=== PATIENT | female | born 1960 | race Caucasian/White ===

== ENCOUNTER → 2020-08-11 | Outpatient (CLI) | payer MEDICAID ==
[~2020-08-11] MED LIST: RT-ALBUTEROL SULF 2.5 MG/3 ML PRE-MIX VIAL INH ONE
== END ==
LOC: RT 10:03
PROVIDERS: ATTEND Nurse Practitioner Family
DX: J44.9 Chronic obstructive pulmonary disease, unspecified (principal)
CPT/HCPCS: 94060; 94726; 94729

== ENCOUNTER → 2020-08-17 | Outpatient (CLI) | payer MEDICAID ==
--- NOTE | 2020-08-17 19:10 | Diagnostic Imaging Report ---
CT Lung Screening INDICATION:13-[id number]-ifyu smoking history TECHNIQUE: Noncontrast, low-dose CT imaging performed according to the lung cancer screening protocol. Auto Exposure Controls were utilize during the CT exam to meet ALARA standards for radiation dose reduction. COMPARISON:None FINDINGS: There is no parenchymal lung mass identified. There is a 9 mm calcified granuloma in the right lung base near the diaphragm. The lungs are generally clear. There is minimal scar formation in the left apex posteriorly (image 33 of 203). There is also mild dependent atelectasis in the right lower lobe. There is no sign of failure, pneumonia or pleural effusion to indicate an acute abnormality. The heart is mildly enlarged. Coronary calcifications are noted. The aorta is not abnormally dilated. There is no obvious mediastinal or hilar adenopathy. There are 2 calcified hilar nodes on the right. These may be a sequela of prior granulomatous infection. The thyroid gland was not well visualized. There is no definite breast mass identified. The sections through the upper abdomen failed to show any sign of an acute abnormality. There is a 1.2 cm rounded area of low density in the right lobe of liver near the dome of the diaphragm. I suspect this is a cyst. If further study is desired, then ultrasound would be recommended. The bone windows are unremarkable for a fracture or for a destructive lesion. IMPRESSION: 1. There is no evidence for a parenchymal lung mass to suggest neoplastic disease. A follow-up low-dose lung cancer screening exam in one year would be recommended for further study. 2. There are chronic pulmonary changes evident but there is no sign of an acute cardiopulmonary abnormality. 3. There is cardiomegaly and coronary artery disease. 4. The rounded area of low density in the right lobe of the liver near the dome of diaphragm is most likely a benign process such as a cyst. Recommendations as above. LUNG-RADS CATEGORY:1S MODIFIER: OTHER SIGNIFICANT FINDINGS: Dictated by: Dictated on workstation # [id number]
== END ==
LOC: RAD 15:15
PROVIDERS: ATTEND Nurse Practitioner Family
DX: Z12.2 Encounter for screening for malignant neoplasm of respiratory organs (principal); I25.10 Atherosclerotic heart disease of native coronary artery without angina pectoris; J44.9 Chronic obstructive pulmonary disease, unspecified; K76.89 Other specified diseases of liver; J84.10 Pulmonary fibrosis, unspecified; J98.11 Atelectasis; F17.210 Nicotine dependence, cigarettes, uncomplicated

== ENCOUNTER → 2020-09-21 | Outpatient (CLI) | payer MEDICAID ==
--- NOTE | 2020-09-21 12:26 | Diagnostic Imaging Report ---
INDICATION: Palpable lump in the medial right breast along a scar. FINDINGS: Sonographic interrogation of the area of palpable abnormality was performed. No significant sonographic abnormality is detected. There is a tiny hyperechoic nodule measuring 3 to 4 mm in size which may represent a tiny lipoma. This is likely incidental. No other solid or cystic mass is detected. IMPRESSION: There is a tiny lipoma at the area of palpable abnormality just below the skin surface. The study is otherwise unremarkable. ACR BI-RADS Category 2: Benign findings. Dictated by: Dictated on workstation # [id number]
--- NOTE | 2020-09-21 12:30 | Diagnostic Imaging Report ---
INDICATION: Possible cysts in right lobe of liver seen on recent CT chest. Ultrasound of the liver and right upper quadrant was performed in routine fashion The liver shows mild diffuse increased echogenicity compatible with fatty change. No focal liver lesion identified. The gallbladder is absent. Common duct was not dilated measuring 5.6 mm. Pancreas is not well seen due to overlying gas. Visualized portions of the IVC and aorta are normal. Right kidney was unremarkable measured 10.4 cm in length. There is no ascites. Portal vein is patent with hepatopetal flow. IMPRESSION: Mild fatty infiltration of the liver. No focal liver lesion seen. No biliary dilatation. The gallbladder is absent. Dictated by: Dictated on workstation # [id number]
== END ==
LOC: RAD 09:30
PROVIDERS: ATTEND Nurse Practitioner Family
DX: D17.39 Benign lipomatous neoplasm of skin and subcutaneous tissue of other sites (principal); K76.89 Other specified diseases of liver
CPT/HCPCS: 76705

== ENCOUNTER → 2020-10-02 | Outpatient (CLI) | payer MEDICAID | LOC: LABNPT 08:18 | PROVIDERS: ATTEND Nurse Practitioner Family | DX: G47.33 Obstructive sleep apnea (adult) (pediatric) (principal); G47.10 Hypersomnia, unspecified; I10 Essential (primary) hypertension; Z20.822 Contact with and (suspected) exposure to COVID-19 | CPT/HCPCS: 87635 ==

== ENCOUNTER 2020-10-06 19:43 | Outpatient (CLI) | payer MEDICAID | END 2020-10-07 04:55 | disposition home or self-care (01) | LOC: SLEEP 19:43 | PROVIDERS: ATTEND Nurse Practitioner Family | DX: G47.33 Obstructive sleep apnea (adult) (pediatric) (principal) | CPT/HCPCS: 95810 ==

== ENCOUNTER 2020-11-16 05:30 | Outpatient (RCR) | payer MEDICAID ==
[2020-11-13 13:12] VITALS: BP 118/78
[2020-11-13 14:00] LABS: BASOPHILS % (AUTO) 0 % (0-10); EOSINOPHILS # (AUTO) 0.1 10^3/uL (0.0-0.3); EOSINOPHILS % (AUTO) 1 % (0-10); HEMATOCRIT 39 % (35-52); HEMOGLOBIN 12.4 g/dL (11.5-16.0); LYMPHOCYTES # (AUTO) 1.9 10^3/uL (1.0-4.0); LYMPHOCYTES % (AUTO) 21 % (12-44); MEAN CORPUSCULAR HEMOGLOBIN 31 pg (25-34); MEAN CORPUSCULAR HGB CONC 32 g/dL (32-36); MEAN CORPUSCULAR VOLUME 96 fL (80-99); MEAN PLATELET VOLUME 10.3 fL (9.0-12.2); MONOCYTES # (AUTO) 0.6 10^3/uL (0.0-1.0); MONOCYTES % (AUTO) 6 % (0-12); NEUTROPHILS # (AUTO) 6.6 10^3/uL (1.8-7.8); NEUTROPHILS % (AUTO) 72 % (42-75); PLATELET COUNT 250 10^3/uL (130-400); WHITE BLOOD COUNT 9.2 10^3/uL (4.3-11.0)
[2020-11-13 14:02] LABS: BILIRUBIN,URINE NEGATIVE (NEGATIVE); CLARITY,URINE CLEAR; COLOR,URINE YELLOW; GLUCOSE, URINE (UA) NEGATIVE (NEGATIVE); KETONES,URINE NEGATIVE (NEGATIVE); LEUKOCYTE ESTERASE ,URINE NEGATIVE (NEGATIVE); NITRITE,URINE NEGATIVE (NEGATIVE); PH,URINE 5.5 (5-9); PROTEIN,URINE NEGATIVE (NEGATIVE)
[2020-11-13 14:09] LABS: BACTERIA,URINE TRACE /HPF; WBC,URINE RARE /HPF
--- NOTE | 2020-11-13 14:11 | Diagnostic Imaging Report ---
INDICATION: Preop knee arthroplasty, degenerative joint disease PA and lateral chest Heart size and pulmonary vascularity are normal. Lungs are clear. There are no effusions or pneumothoraces. IMPRESSION: Negative chest Dictated by: Dictated on workstation # [id number]
[2020-11-13 14:19] LABS: ALANINE AMINOTRANSFERASE 15 U/L (0-55); ALBUMIN 3.6 GM/DL (3.2-4.5); ALKALINE PHOSPHATASE 79 U/L (40-136); BILIRUBIN,TOTAL 0.2 MG/DL (0.1-1.0); BUN/CREATININE RATIO 37; CALCIUM 8.8 MG/DL (8.5-10.1); CARBON DIOXIDE 23 MMOL/L (21-32); CHLORIDE 109 MMOL/L (98-107); CREATININE SERUM 0.75 MG/DL (0.60-1.30); GFR ESTIMATED > 60; GLUCOSE 113 MG/DL (70-105); SODIUM 141 MMOL/L (135-145); TOTAL PROTEIN 6.6 GM/DL (6.4-8.2)
[2020-11-13 14:46] LABS: ERYTHROCYTE SEDIMENTATION RATE 28 MM/HR (0-30)
[~2020-11-16] VITALS: Ht 152.4 cm; Wt 115.9 kg
[~2020-11-16 05:30] MED LIST changes: +BUDE10.2 IH; +CHOL100045 PO; +DICL100G18 TP; +HYDR-3817 PO; +HYDR50TA76 PO; +IPRA3AMP31 IH; +OMEP20CA18 PO; +RT-ALBUINH IH; -RT-ALBUTEROL SULF 2.5 MG/3 ML PRE-MIX VIAL INH ONE; +TIOT18CA2 IH
== END 2020-11-16 09:08 | disposition home or self-care (01) ==
LOC: PREOP 05:30
PROVIDERS: ATTEND Orthopaedic Surgery
DX: Z01.812 Encounter for preprocedural laboratory examination (principal); M17.12 Unilateral primary osteoarthritis, left knee; Z20.822 Contact with and (suspected) exposure to COVID-19
CPT/HCPCS: 36415; 71046; 80053; 81000; 85025; 85610; 85652; 86850; 86900; 86901; 87081; 87635

== ENCOUNTER 2020-11-18 05:54 | Inpatient (IN) | payer MEDICAID ==
--- NOTE | 2020-11-11 18:29 | HISTORY AND PHYSICAL ---
DATE OF SERVICE: ADMISSION HISTORY AND PHYSICAL DATE OF ADMISSION: 11/18/2020 REASON FOR ADMISSION: Left total knee arthroplasty. The patient will require regular inpatient admission due to comorbidities, need for physical therapy and pain management. HISTORY OF PRESENT ILLNESS: The patient is a 60-year-old female with complaints of progressively worsening left knee pain. She has been treated with injections as well as ____ with no benefit. She has popping, catching and locking in her knee. She reports falling. She reports activity limitations and progressive pain and because of this has elected to proceed with total knee arthroplasty. Radiographs reveal complete loss of medial and patellofemoral joint spaces. REVIEW OF SYSTEMS: No chest pain, no shortness of breath, no dysuria. PAST MEDICAL HISTORY: Breast cancer, COPD, anxiety disorder, depression, diverticulosis, hypertension, sleep apnea. SURGICAL HISTORY: , cholecystectomy, bilateral mastectomy. FAMILY HISTORY: Significant for diabetes, COPD, cancer. PRIMARY CARE PROVIDER: [facility] MEDICATIONS: Albuterol, alprazolam, famotidine, ibuprofen, Norvasc, omeprazole, Symbicort. ALLERGIES: TETANUS TOXOID. SOCIAL HISTORY: The patient smokes half pack of cigarettes a day. Denies alcohol use. PHYSICAL EXAMINATION: GENERAL: The patient is well-developed, well-nourished, in no acute distress. HEENT: Normocephalic, atraumatic. Pupils are equal, round, reactive to light. Oropharynx is clear. NECK: Supple, no lymphadenopathy. LUNGS: Clear to auscultation bilaterally. HEART: Regular rate and rhythm. ABDOMEN: Soft, nontender, nondistended. EXTREMITIES: The left knee demonstrates varus alignment. She has slight effusion. There is no warmth or erythema. She is tender along the medial joint line. She has pain medially with Jw's with patellofemoral crepitus noted. Range of motion is 0/2/120. IMPRESSION: Severe left knee osteoarthritis. PLAN: Left total knee arthroplasty. The risks, benefits, options, ramifications and recovery have been discussed at length with the patient. She understands and wishes to proceed. Job ID: [id number] DocumentID: [id number] Dictated Date: 11/09/2020 08:16:01 Exhaust Tender Date: 11/09/2020 08:45:12 Dictated By: ADY KEARNEY MD
[~2020-11-18] VITALS: Ht 152 cm; Wt 115.9 kg
[2020-11-18] VITALS (11 sets, daily range): BP systolic 113–147; BP diastolic 52–92
[2020-11-18] MEDS ORDERED: BUPIVACAINE 0.5% 30 ML (SENSORCAINE) VIAL ONE (06:29)
[2020-11-18] MEDS ORDERED: MIDAZOLAM 2 MG/2 ML (VERSED) VIAL ONE (06:30)
[2020-11-18] MEDS ORDERED: LIDOCAINE PF 2% 5 ML (XYLOCAINE) VIAL ONE (06:31)
[2020-11-18] MEDS ORDERED: CEFUROXIME INJECTION 1,500 MG in WATER (STERILE) FOR INJECTION 15 ML IV ONE (06:45)
[2020-11-18] MEDS: LACTATED RINGERS 1,000 ML IV PRN ×2 (06:47→10:24)
[2020-11-18] MEDS ORDERED: proPOfol 200 MG/20 ML (DIPRIVAN) VIAL IV ONE (07:12)
[2020-11-18] MEDS ORDERED: SEVOFLURANE (ULTANE) 15 ML INHAL SOLN ONE ×6 (07:13→09:24)
[2020-11-18] MEDS ORDERED: ONDANSETRON 4 MG/2 ML (SDV) Z0FRAN ONE (07:13)
[2020-11-18] MEDS ORDERED: fentaNYL INJ 100 MCG/2 ML AMP ONE (07:13)
[2020-11-18] MEDS ORDERED: TRANEXAMIC ACID 100 MG/ML 10 ML INJECTION ONE (07:15)
[2020-11-18] MEDS ORDERED: ACETAMINOPHEN 325 MG TABLET PO PRN (07:30)
[2020-11-18] MEDS ORDERED: ONDANSETRON 4 MG/2 ML (SDV) Z0FRAN IVP PRN ×2 (07:30→09:45)
[2020-11-18] MEDS ORDERED: diphenhydrAMINE 50 MG/ML INJ (BENADRYL) IVP PRN (07:30)
--- NOTE | 2020-11-18 07:32 | Progress Note-Pre Operative ---
Pre-Operative Progress Note H&P Reviewed The H&P was reviewed, patient examined and no changes noted. Date Seen by Provider: Nov 18, 2020 Time Seen by Provider: 07:20 Date H&P Reviewed: Nov 18, 2020 Time H&P Reviewed: 07:11 Pre-Operative Diagnosis: left knee primary osteoarthritis ADY KEARNEY MD Nov 18, 2020 07:32
--- NOTE | 2020-11-18 07:32 | Progress Note-Post Operative ---
Post-Operative Progess Note Surgeon (s)/Telecommunications Administrator (s) Surgeon ADY KEARNEY MD Telecommunications Administrator: Mehran Marcus Pre-Operative Diagnosis left knee primary osteoarthritis Post-Operative Diagnosis left knee primary osteoarthritis Procedure & Operative Findings Date of Procedure 11/18/20 Procedure Performed/Findings left total knee arthroplasty Anesthesia Type GETA Estimated Blood Loss Estimated blood loss (mL): minimal Specimens/Packing Specimens Removed none Packing: none ADY KEARNEY MD Nov 18, 2020 07:32
--- NOTE | 2020-11-18 07:35 | D/C HH Face to Face Order ---
D/C Face to Face Orders Reconcile Patient Problems Problems Reviewed?: Yes Instructions for Patient Via [place] [place], Patient Instructions/FollowUp: three weeks Physician to follow Patient: three weeks Discharge Diet for Home: Regular Diet Patient Data-Allergies,Ht & Wt Patient Allergies: Coded Allergies: Tetanus Vaccines and Toxoid (Verified Allergy, Severe, Anaphylaxis, 11/18/20) Home Health Need/Face to Face Date of Face to Face: Nov 18, 2020 Clinical Findings: Instability, Muscle weakness, Pain with ambulation, Unsteady gait I have seen Pt teni-uq-sbhb: Yes Discharged To: Home Diagnosis/Conditions: left total knee arthroplasty Patient is Homebound due to: Farzad fall risk due to instabilty, Muscle weakness, Pain w/ambulation Homebound Status Due to the above stated illness, injury or surgical procedure (medical condition or diagnosis) and associated clinical findings, the patient is homebound because of his/her inability to leave home except with aid of a supportive device and/or person AND leaving the home requires a considerable and taxing effort or is medically contraindicated. Pt req the following assistanc: Walker Home Health Nursing Orders Home Health Services Order: Physical Therapy-Evaluate & Treat DC left knee tatianna and apply steri strips 12/02/20 Home Health Infusion Therapy Line Start Date: Nov 18, 2020 Therapy Orders Therapy Orders: Physical Therapy, PT to assess for OT Therapy Specific Orders: Eval assistive deivces, Teach enviro modifications/safety, Gait training, Increase strength/endurance, Provider maintenance therapy, Restore ROM Certify Stmt I certify that this patient is under my care and that I, a nurse practitioner or a physician; a fleet administrative assistant working with me, had a face to face encounter that - meets the physician face to face encounter requirements with this patient as dated. ADY KEARNEY MD Nov 18, 2020 07:35
[2020-11-18] MEDS ORDERED: HYDROmorphone 2 MG/ML VIAL (DILAUDID) ONE (07:58)
[2020-11-18] MEDS ORDERED: INTRA-ARTICULAR IU ONE ×5 (08:00)
--- NOTE | 2020-11-18 09:36 | Anesthesia-General Post-Op ---
General Patient Condition Mental Status/LOC: Same as Preop Cardiovascular: Satisfactory Nausea/Vomiting: Absent Respiratory: Satisfactory Pain: Controlled Complications: Absent Post Op Complications Complications None Follow Up Care/Instructions Patient Instructions None needed. Anesthesia/Patient Condition Patient Condition Patient is doing well, no complaints, stable vital signs, no apparent adverse anesthesia problems. No complications reported per nursing. ANTONY URIBE CRNA Nov 18, 2020 09:36
[2020-11-18] MEDS ORDERED: MEPERIDINE (DEMEROL) INJ 50 MG/ML IVP ONE (09:45)
[2020-11-18] MEDS ORDERED: fentaNYL INJ 100 MCG/2 ML AMP IVP ONE (09:45)
[2020-11-18] MEDS ORDERED: morphine INJ 10 MG/ML 1ML (SYR OR VIAL) IVP ONE (09:45)
[2020-11-18] MEDS ORDERED: morphine INJ 10 MG/ML 1ML (SYR OR VIAL) ONE (09:50)
--- NOTE | 2020-11-18 10:02 | Progress Note ---
Standard Progress Note Progress Notes/Assess & Plan Date Seen by a Provider: Nov 18, 2020 Time Seen by a Provider: 09:58 Progress/Assessment & Plan No complaints radiographs--well placed HW without fracture denies paresthesias LLE-- 2 plus DP pulse with brisk cap refill. Intact DF and PF of toes and ankle. Sensation intact to light touch throughout s/p LTKA mobilize as able ADY KEARNEY MD Nov 18, 2020 10:02
--- NOTE | 2020-11-18 10:34 | Diagnostic Imaging Report ---
INDICATION: Left knee surgery AP and lateral views of the left knee are obtained which reveal total left knee arthroplasty. Prosthetic components appear to be in good position. Gas and fluid is present within the knee joint and adjacent soft tissues. [place] overlie the knee anteriorly. IMPRESSION: No evidence of complication related to recent total left knee arthroplasty. Dictated by: Dictated on workstation # [id number]
[2020-11-18] MEDS: SENNA W/DOCUSATE (SENOKOT S) TABLET PO SCH ×2 (11:15→20:18)
[2020-11-18] MEDS: NS IV 1000 ML 1,000 ML IV SCH ×2 (11:56→20:18)
[2020-11-18] MEDS: morphine PCA 100 MG/100 ML BAG IV PRN (11:59)
--- NOTE | 2020-11-18 12:57 | OPERATIVE REPORT ---
DATE OF SERVICE: 11/18/2020 PREOPERATIVE DIAGNOSIS: Left knee primary osteoarthritis. POSTOPERATIVE DIAGNOSIS: Left knee primary osteoarthritis. PROCEDURE PERFORMED: Left total knee arthroplasty. SURGEON: Gil Kearney MD. CHANGE CONSULTANT: Mehran Marcus, who assisted throughout the procedure and closed the incisions. ANESTHESIA: General endotracheal by Mike Bazan CRNA. TOURNIQUET TIME: Approximately 75 minutes at 300 mmHg. ESTIMATED BLOOD LOSS: Minimal. DRAINS: None. COMPLICATIONS: None. POSTOPERATIVE PLAN: Routine protocol. The patient was transferred to the recovery room awake and in stable condition. MATERIALS: Microport cemented size 2 femur, cemented size 2+ tibia with a 14 mm insert and cemented size 29 patellar button. STATEMENT OF MEDICAL NECESSITY: The patient is a 60-year-old female with a longstanding progressive left knee pain. Radiographs revealed severe tricompartmental osteoarthritis. She has undergone treatment with injections, anti-inflammatories, rest and activity modifications without relief. She had progressive loss of function. Because of this, I elected to proceed with a total knee arthroplasty. The patient understood that due to her body habitus, she was at higher risk for postoperative complications and failure. DESCRIPTION OF PROCEDURE: After the risks and benefits of procedure were discussed and questions were answered, informed consent was signed and placed on chart, the operative site was confirmed in the preoperative holding area initialed by the surgeon. The patient was then transferred to the operating room and after adequate levels of general endotracheal anesthetic were obtained, a timeout was called, confirming the operative site. The left lower extremity was prepped and draped in the usual sterile fashion with the leg elevated and the knee flexed. Tourniquet was inflated to 300 mmHg. A standard anterior approach was utilized. Hemostasis was obtained with cautery. Medial parapatellar arthrotomy was performed leaving 1 cm cuff on the patella for later reattachment. A portion of the fat pad was resected and the ACL was resected. A subperiosteal release was performed on the proximal medial tibia being careful to stay on the bony surface. The intramedullary guide was passed into the femur. The distal cutting block was placed. Distal cut was made. The femur sized to a size 2. The cutting block was placed parallel to the epicondylar axis and cuts were made from posterior to anterior. Subperiosteal release was then carefully performed on the posterior distal femur, being careful to stay on the bony surface. The trochlear guide was placed and the trochlear cut was made. The intramedullary guide was then passed into the tibia. The cutting block was placed. Drop dior transected the intermalleolar axis and the cut was made and then prepared with a drill and keel punch after ensuring that the drop dior transected the intermalleolar axis. The trials were inserted. The patella was prepared by resecting 10 mm off the undersurface. The peg holes were drilled and the patellar trial was placed. The knee was taken through range of motion. Full extension was easily obtained, 120 degrees of flexion was obtained; however, the patient's pannus blocked further flexion. A 14 mm insert provided the best stability in flexion. Her knee was stable to anterior and posterior and/or medial lateral stress in flexion, extension until abutting her pannus and this forced the tibia somewhat anteriorly. This was felt to be adequate. The patella tracked well. The trials were removed. The posterior capsule, medial and lateral retinaculum extensor mechanism, subcutaneous tissue was then infiltrated with the articular block. The joint was irrigated with pulse lavage. Bone ends were irrigated and dried. The tibial baseplate was cemented into position. Excessive cement was removed. The superior surface was irrigated and dried and the polyethylene insert was placed. Distal femur was irrigated and dried and the femoral prosthesis was cemented into position. Excessive cement was removed. The knee was brought into full extension until cement had cured. The undersurface of the patella was irrigated and dried and the patellar button was cemented into position. Excessive cement was removed. Once the cement had cured, the knee was taken through range of motion and the patella tracked well. Full extension was easily obtained, and 120 degrees of flexion was obtained. There was no anterior/posterior or lateral laxity in flexion or extension. When the knee was forced into hyperflexion with abutment of the pannus, there was slight anterior translation of the tibia, but the knee was stable through all planes. The joint was further irrigated with pulse lavage. The arthrotomy was closed with #2 [place] in a giglch-go-mozqb interrupted fashion. Knee was flexed. Patella tracked well. No undue tension was noted at the repair site. Subcutaneous tissues were irrigated using a total of 6 liters throughout the procedure. A 0 Vicryl was used for the deep subcutaneous tissue, 2-0 Vicryl for the superficial subcutaneous tissue, and tatianna used on the skin. A soft dressing was applied. The tourniquet was deflated and the patient was transferred to the recovery room awake and in stable condition. Job ID: [id number] DocumentID: [id number] Dictated Date: 11/18/2020 09:25:48 Deputy Probation Officer Date: 11/18/2020 12:56:23 Dictated By: GIL KEARNEY MD
--- NOTE | 2020-11-18 14:20 | Physical Therapy Evaluation ---
PT Evaluation-General Medical Diagnosis Admission Date Nov 18, 2020 at 05:54 Medical Diagnosis: left TKA Onset Date: Nov 18, 2020 Therapy Diagnosis Therapy Diagnosis: impaired mobility, strength, endurance, ROM Precautions Precautions/Isolations: Fall Prevention, Standard Precautions Weight Bear Status Left Lower Extremity: Left Weight Bearing/Tolerated Referral Physician: Amrit Reason for Referral: Evaluation/Treatment Medical History Additional Medical History PAST MEDICAL HISTORY: Breast cancer, COPD, anxiety disorder, depression, diverticulosis, hypertension, sleep apnea. SURGICAL HISTORY: , cholecystectomy, bilateral mastectomy. Reviewed History: Yes Social History Home: Apartment Current Living Status: Alone Entry Into Home: Level Entry Prior Prior Level of Function SCALE: Activities may be completed with or without assistive devices. 2-Jywezjdjpo-aaobyqr completes the activity by him/herself with no assistance from a helper. 5-Set-up or Clean-up Assistance-helper sets up or cleans up; patient completes activity. [place] assists only prior to or following the activity. 4-Supervision or Touching Assistance-helper provides verbal cues and/or touching/steadying and/or contact guard assistance as patient completes activity. Assistance may be provided throughout the activity or intermittently. 3-Partial/Moderate Assistance-helper does LESS THAN HALF the effort. [place] lifts, holds or supports trunk or limbs, but provides less than half the effort. 2-Substantial/Maximal Assistance-helper does MORE THAN HALF the effort. [place] lifts or holds trunk or limbs and provides more than half the effort. 6-Qxcibgufe-hfkbnd does ALL the effort. Patient does none of the effort to complete the activity. Or, the assistance of 2 or more helpers is required for the patient to complete the activity. If activity was not attempted, code reason: 7-Patient Refused. 9-Not Applicable-not attempted and the patient did not perform the activity before the current illness, exacerbation or injury. 10-Not Attempted due to Environmental Limitations-(lack of equipment, weather restraints, etc.). 88-Not Attempted due to Medical Conditions or Safety Concerns. Bed Mobility: 6 Transfers (B,C,W/C): 6 Gait: 6 patient has a rolling walker PT Evaluation-Current Subjective Patient in bed pre tx, agrees to PT, has 6/10 pain in left knee. Pt/Family Goals to be independent at home Objective Patient Orientation: Person, Place, Situation Attachments: IV ROM/Strength ROM Lower Extremities left knee flexion 85 degrees, extension +20 degrees Sensory Hearing: Functional Sensation Right Lower Extremit: Intact Sensation Left Lower Extremity: Intact Transfers Roll Left to Right (QC): 6 Sit to Lying (QC): 3 Lying to Sitting/Side of Bed(Q: 3 Sit to Stand (QC): 4 Patient was able to stand at the side of the bed and take one step forward and one step back. Pain was too bad to continue with ambulation, but she was able to bear weight on her left leg without buckling Balance Sitting Static: Normal Sitting Dynamic: Normal Standing Static: Fair Standing Dynamic: Fair Treatment total knee protocol x10 LLE (AP, QS, HS, SAQ, SLR), CPM donned and fit to leg and set to 65/-2 Assessment/Needs Patient in bed post tx with nurse call, phone, tray, CPM and polar care donned, SCD's donned, has pain button. Patient has impaired mobility, strength, endurance, ROM. Pain was too much to tolerate ambulation. Rehab Potential: Fair PT Penitentiary Goals Recycling Operator Goals PT Penitentiary Goals Time Frame: Nov 25, 2020 Roll Left & Right (QC): 6 Sit to Lying (QC): 6 Lying-Sitting on Side/Bed(QC): 6 Sit to Stand (QC): 4 Chair/Kxf-ge-Qukxd Xfer(QC): 4 Walk 10 feet (QC): 4 Walk 50ft with 2 Turns (QC): 4 PT Plan Problem List Problem List: Activity Tolerance, Functional Strength, Safety, Balance, Gait, Transfer, Bed Mobility, ROM Treatment/Plan Treatment Plan: Continue Plan of Care Treatment Plan: Bed Mobility, Education, Functional Activity Wanda, Functional Strength, Gait, Safety, Therapeutic Exercise, Transfers Treatment Duration: Nov 25, 2020 Frequency: 11 times per week Estimated Hrs Per Day: .25 hour per day Patient and/or Family Agrees t: Yes Safety Risks/Education Patient Education: Gait Training, Transfer Techniques, Correct Positioning, Safety Issues Teaching Recipient: Patient Teaching Methods: Demonstration, Discussion Response to Teaching: Reinforcement Needed Discharge Recommendations Plan Patient will perform bed mobility and transfer training, balance and endurance training, functional strengthening, stair training, gait and education, to improve functional mobility and independence at home. Therapy Discharge Recommendati: Home & Family, Post Acute PT Time/GCodes Time In: 1338 Time Out: 1400 Total Billed Treatment Time: 22 Total Billed Treatment 1 visit JOAQUIN 22' SUKUMAR ZELAYA PT Nov 18, 2020 14:20
[2020-11-18] MEDS: CEFUROXIME INJECTION 750 MG in WATER (STERILE) FOR INJECTION 10 ML IV SCH (15:20)
[2020-11-18] MEDS: ZOLPIDEM 5 MG (AMBIEN) TAB PO PRN (20:18)
[2020-11-19] VITALS (7 sets, daily range): BP systolic 117–153; BP diastolic 60–86
[2020-11-19] MEDS: CEFUROXIME INJECTION 750 MG in WATER (STERILE) FOR INJECTION 10 ML IV SCH (00:10)
[2020-11-19] MEDS: oxyCODONE/APAP 5/325MG (PERCOCET 5) TABLET PO PRN ×7 (00:10→23:00)
[2020-11-19 05:57] LABS: HEMOGLOBIN 10.8 g/dL (11.5-16.0)
[2020-11-19] MEDS: MULTIVIT W/MINERALS TAB (THERAGRAN M) PO SCH (06:16)
--- NOTE | 2020-11-19 07:20 | Physician Query Clarification ---
PQ-Intro New Diagnosis Admission/Discharge Admission Date: Nov 18, 2020 at 05:54 Discharge Date: Dr. Kearney, The medical record reflects the following clinical scenario: History/Risk Factors: OA Lt. knee, COPD, HTN Clinical Findings: BMI 50.2, The patient understood that due to her body habitus, she was at higher risk for postoperative complications and failure. Due to her comorbidities IP admission was required. Treatment: Lt TKR Question: What condition best reflects the above clinical scenario? Please clarify the condition indicated as due to her body habitus Please document a response in the Progress Noter or Discharge Summary. 1. Morbid obesity 2. Obesity 3. Other, with explanation of the clinical findings. 4. Clinically undetermined, no explanation for the clinical findings. PHYSICIAN RESPONSE What condition reflects above: 1 Please remember a lack of response to the above will prompt a phone page by CDI/Coding staff. In responding to this query, please exercise your independent professional judgment. The purpose of this communication is to more accurately reflect the complexity of your patients condition. The fact that a question is asked does not imply that any particular answer is desired or expected. Thank you for your timely response to this clarification. Requestors name: [email or web address] THIS PHYSICIAN QUERY FORM IS A PERMANENT PART OF THE MEDICAL RECORD BRE DIAZ Nov 19, 2020 07:20 ADY KEARNEY MD Nov 19, 2020 08:01
--- NOTE | 2020-11-19 08:03 | Progress Note ---
Standard Progress Note Progress Notes/Assess & Plan Date Seen by a Provider: Nov 19, 2020 Time Seen by a Provider: 08:02 Progress/Assessment & Plan No complaints radiographs--well placed HW without fracture denies paresthesias LLE-- 2 plus DP pulse with brisk cap refill. Intact DF and PF of toes and ankle. Sensation intact to light touch throughout s/p LTKA mobilize as able Final Diagnosis no complaints Vital Signs Date Time Temp Pulse Resp B/P (MAP) Pulse Ox O2 Delivery O2 Flow Rate FiO2 11/19/20 07:54 37.1 72 20 117/60 (79) 94 Room Air 11/19/20 06:35 18 11/19/20 04:04 36.7 68 20 153/86 (108) 97 Room Air 11/19/20 00:16 36.6 79 18 152/72 (98) 95 Room Air 11/18/20 21:41 Room Air 11/18/20 21:35 70 18 95 21.00 11/18/20 19:37 36.6 77 18 143/69 (93) 93 Room Air 11/18/20 16:11 36.4 80 18 138/91 (107) 91 Room Air 11/18/20 14:34 90 Room Air 11/18/20 12:08 Room Air 2.00 11/18/20 12:00 35.9 82 20 147/74 (98) 93 Room Air 11/18/20 11:59 16 11/18/20 10:35 36.0 75 20 147/68 (94) 94 Room Air 11/18/20 10:25 Nasal Cannula 2 11/18/20 10:20 36.4 16 133/92 (106) 95 Nasal Cannula 2 11/18/20 10:15 OxyMask 2 11/18/20 10:10 17 144/82 (102) 96 OxyMask 2 11/18/20 10:00 16 124/52 (76) 95 OxyMask 2 11/18/20 10:00 OxyMask 4 11/18/20 09:55 18 125/73 (90) 96 OxyMask 4 11/18/20 09:45 20 119/69 (86) 97 OxyMask 6 11/18/20 09:40 OxyMask 6 11/18/20 09:35 OxyMask 8 3/17/21 09:35 36.4 16 113/67 (82) 97 OxyMask 8 11/18/20 08:06 96 Room Air I & O 11/19/20 07:00 Intake Total 4225 ml Output Total 700 ml Balance 3525 ml Laboratory Tests Test 11/19/20 05:27 Range/Units Hemoglobin 10.8 L 11.5-16.0 g/dL Hematocrit 33 L 35-52 % LLE--dressing intact. NVI distallly without calf tendeness or Drew's s/p LTKA PT/OT plan for DC home tomorrow ADY KEARNEY MD Nov 19, 2020 08:03
[2020-11-19] MEDS: NS IV 1000 ML 1,000 ML IV SCH ×2 (08:31→15:33)
[2020-11-19] MEDS: ASPIRIN E.C. 81 MG (ECOTRIN) TAB PO SCH (08:31)
[2020-11-19] MEDS: ENOXAPARIN 30 MG/0.3 ML (LOVENOX) SYR SC SCH ×2 (08:31→20:00)
[2020-11-19] MEDS: SENNA W/DOCUSATE (SENOKOT S) TABLET PO SCH ×2 (08:31→20:00)
--- NOTE | 2020-11-19 10:29 | Physical Therapy Daily Note ---
PT Daily Note-Current Subjective Patient agrees to PT. 8/10 left knee pain. Pain Numeric Pain Scale: 8 Location: Left Location Body Site: Knee Pain Description: Acute Mental Status Patient Orientation: Normal For Age Attachments: IV Transfers SCALE: Activities may be completed with or without assistive devices. 4-Csessysuer-ikquexn completes the activity by him/herself with no assistance fr om a helper. 5-Set-up or Clean-up Assistance-helper sets up or cleans up; patient completes activity. [place] assists only prior to or following the activity. 4-Supervision or Touching Assistance-helper provides verbal cues and/or touching/steadying and/or contact guard assistance as patient completes activity. Assistance may be provided throughout the activity or intermittently. 3-Partial/Moderate Assistance-helper does LESS THAN HALF the effort. [place] lifts, holds or supports trunk or limbs, but provides less than half the effort. 2-Substantial/Maximal Assistance-helper does MORE THAN HALF the effort. [place] lifts or holds trunk or limbs and provides more than half the effort. 8-Lpmsezszp-jdjvai does ALL the effort. Patient does none of the effort to complete the activity. Or, the assistance of 2 or more helpers is required for the patient to complete the activity. If activity was not attempted, code reason: 7-Patient Refused. 9-Not Applicable-not attempted and the patient did not perform the activity before the current illness, exacerbation or injury. 10-Not Attempted due to Environmental Limitations-(lack of equipment, weather restraints, etc.). 88-Not Attempted due to Medical Conditions or Safety Concerns. Roll Left & Right (QC): 6 Sit to Lying (QC): 6 Lying to Sitting/Side of Bed(Q: 6 Sit to Stand (QC): 4 Chair/Kjf-pg-Pxzfk Xfer(QC): 4 CGA for safety Weight Bearing Left Lower Extremity: Left Weight Bearing/Tolerated Gait Training Does the Patient Walk?: Yes Distance: 150' Walk 10 feet (QC): 4 Walk 50 ft with 2 Turns(QC): 4 Walk 150 ft (QC): 4 Gait Assistive Device: FWW slow and antalgic/step to gait sequence Exercises Supine Ex: Ankle pumps, Quad Set, Heel Slides, Straight leg raise Supine Reps: 12 Seated Therapy Exercises: Long arc quads Standing Reps: 12 Assessment Patient tolerated treatment well and is up in recliner with needs met. Patient encouraged to perform exercises PRN. PT Chcf Goals Chcf Goals PT Concrete Swimming Pool Installer Goals Time Frame: Nov 25, 2020 Roll Left & Right (QC): 6 Sit to Lying (QC): 6 Lying-Sitting on Side/Bed(QC): 6 Sit to Stand (QC): 4 Chair/Tbe-vz-Baiql Xfer(QC): 4 Walk 10 feet (QC): 4 Walk 50ft with 2 Turns (QC): 4 PT Plan Treatment/Plan Treatment Plan: Continue Plan of Care Treatment Plan: Bed Mobility, Education, Functional Activity Wanda, Functional Strength, Gait, Safety, Therapeutic Exercise, Transfers Treatment Duration: Nov 25, 2020 Frequency: 11 times per week Estimated Hrs Per Day: .25 hour per day Patient and/or Family Agrees t: Yes Time/GCodes Time In: 820 Time Out: 844 Total Billed Treatment Time: 24 Total Billed Treatment 1 visit EX 13 min GT 11 min HEIDI DAY PT Nov 19, 2020 10:29
--- NOTE | 2020-11-19 13:51 | Physical Therapy Daily Note ---
PT Daily Note-Current Subjective Patient reluctantly agrees to PT. Patient also reports she has a w/c at home but needs a FWW and plans to go home tomorrow. Pain Numeric Pain Scale: 8 Location: Left Location Body Site: Knee Pain Description: Acute Mental Status Patient Orientation: Normal For Age Attachments: Oxygen, Polar Pack, IV Transfers SCALE: Activities may be completed with or without assistive devices. 3-Rbmunxdtfs-apsnghp completes the activity by him/herself with no assistance from a helper. 5-Set-up or Clean-up Assistance-helper sets up or cleans up; patient completes activity. [place] assists only prior to or following the activity. 4-Supervision or Touching Assistance-helper provides verbal cues and/or touching/steadying and/or contact guard assistance as patient completes activity. Assistance may be provided throughout the activity or intermittently. 3-Partial/Moderate Assistance-helper does LESS THAN HALF the effort. [place] lifts, holds or supports trunk or limbs, but provides less than half the effort. 2-Substantial/Maximal Assistance-helper does MORE THAN HALF the effort. [place] lifts or holds trunk or limbs and provides more than half the effort. 6-Vzanmdexq-uyxcmz does ALL the effort. Patient does none of the effort to complete the activity. Or, the assistance of 2 or more helpers is required for the patient to complete the activity. If activity was not attempted, code reason: 7-Patient Refused. 9-Not Applicable-not attempted and the patient did not perform the activity before the current illness, exacerbation or injury. 10-Not Attempted due to Environmental Limitations-(lack of equipment, weather restraints, etc.). 88-Not Attempted due to Medical Conditions or Safety Concerns. Roll Left & Right (QC): 6 Sit to Lying (QC): 6 Lying to Sitting/Side of Bed(Q: 6 Sit to Stand (QC): 4 Weight Bearing Left Lower Extremity: Left Weight Bearing/Tolerated Gait Training Does the Patient Walk?: Yes Distance: 100' Walk 10 feet (QC): 4 Walk 50 ft with 2 Turns(QC): 4 Gait Assistive Device: FWW slow,antalgic, step to gait sequence Exercises Supine Ex: Ankle pumps, Quad Set, Heel Slides, Straight leg raise Supine Reps: 12 Seated Therapy Exercises: Long arc quads Seated Reps: 12 Assessment Patient tolerated treatment and is currently on CPM 0-75 degrees. PT Enrollment Processor Goals Half-Way Goals PT Half-Way Goals Time Frame: Nov 25, 2020 Roll Left & Right (QC): 6 Sit to Lying (QC): 6 Lying-Sitting on Side/Bed(QC): 6 Sit to Stand (QC): 4 Chair/Hbd-sr-Zgkyu Xfer(QC): 4 Walk 10 feet (QC): 4 Walk 50ft with 2 Turns (QC): 4 PT Plan Treatment/Plan Treatment Plan: Continue Plan of Care Treatment Plan: Bed Mobility, Education, Functional Activity Wanda, Functional Strength, Gait, Safety, Therapeutic Exercise, Transfers Treatment Duration: Nov 25, 2020 Frequency: 11 times per week Estimated Hrs Per Day: .25 hour per day Patient and/or Family Agrees t: Yes Time/GCodes Time In: 1305 Time Out: 1333 Total Billed Treatment Time: 28 Total Billed Treatment 1 visit EX 15 min GT 13 min HEIDI DAY PT Nov 19, 2020 13:51
--- NOTE | 2020-11-19 14:34 | Occupational Therapy Eval ---
OT Evaluation-General/PLF Medical Diagnosis Admission Date Nov 18, 2020 at 05:54 Medical Diagnosis: left TKA Onset Date: Nov 18, 2020 Therapy Diagnosis Therapy Diagnosis: weakness Precautions Precautions/Isolations: Fall Prevention, Standard Precautions Referral Physician: Amrit Badillo Reason: Evaluation/Treatment Medical History Pertinent Medical History: Breast CA S/P Mastectomy, COPD, HTN Additional Medical History anxiety/depression, diverticulosis, sleep apnea Current History s/p L TKA 11/18/20 Social History Home: Apartment Current Living Status: Alone Entry Into Home: Level Entry ADL-Prior Level of Function SCALE: Activities may be completed with or without assistive devices. 4-Ojakrswvcx-sycybzr completes the activity by him/herself with no assistance from a helper. 5-Set-up or Clean-up Assistance-helper sets up or cleans up; patient completes activity. [place] assists only prior to or following the activity. 4-Supervision or Touching Assistance-helper provides verbal cues and/or touching/steadying and/or contact guard assistance as patient completes activity. Assistance may be provided throughout the activity or intermittently. 3-Partial/Moderate Assistance-helper does LESS THAN HALF the effort. [place] lifts, holds or supports trunk or limbs, but provides less than half the effort. 2-Substantial/Maximal Assistance-helper does MORE THAN HALF the effort. [place] lifts or holds trunk or limbs and provides more than half the effort. 2-Tynmxulpj-ofeuou does ALL the effort. Patient does none of the effort to complete the activity. Or, the assistance of 2 or more helpers is required for the patient to complete the activity. If activity was not attempted, code reason: 7-Patient Refused. 9-Not Applicable-not attempted and the patient did not perform the activity before the current illness, exacerbation or injury. 10-Not Attempted due to Environmental Limitations-(lack of equipment, weather restraints, etc.). 88-Not Attempted due to Medical Conditions or Safety Concerns. ADL PLOF Comments Pt reports being independent with all ADLs and functional mobility at [facility]. She has a w/c that she sometimes uses as a walker for stability when she ambulates. She has a tub/shower and a shower chair, but the shower chair does not fit in the tub. One of her friends is planning on getting pt a SC. Self Care: Independent Functional Cognition: Independent DME/Equipment: Tub/Shower OT Current Status Subjective Pt laying in bed, CPM on. Pt agreeable to OT Evaluation, states she is planning on discharging home tomorrow where she will have a couple friends to assist throughout the day as needed. Pt did not report pain during tx. Mental Status/Objective Patient Orientation: Person, Place, Time, Situation Attachments: IV, Oxygen Current Dentures/Partials: No Hand Dominance: Right Upper Extremity ROM WFL Upper Extremity Coordination WFL Upper Extremity Sensation WFL, pt denies tingling/numbness BUEs Upper Extremity Strength WFL ADL-Treatment Eating (QC): 6 (Pt reports independent with meals, able to cut food, bring food/drink to mouth, and open contianers) Oral Hygiene (QC): 7 (Pt declined as she doesn't have teeth) Shower/Bathe Self (QC): 7 (Pt declined as she has already cleaned up earlier) Toileting Hygiene (QC): 7 (Pt declined need to toilet at this time) Other Treatments Pt laying in bed, OT educated pt on purpose and benefit of OT, she verbalized understanding. Pt provided information about PLOF and home set up, and participated in UE screen. OT encouraged pt to participate in ADL session, but pt declined stating she has already cleaned up earlier today and she doesn't need to toilet at this time. Pt states she doesn't have any concerns with ADLs at discharge, she has a couple friends that are available during the day to assist as needed. OT educated pt on purpose and benefit of exercises, demonstrating various UE exercises to pt, she verbalized understanding and agreement. Post tx, pt laying in bed, CPM on, call light in reach and all needs met. Education OT Patient Education: Correct positioning, Exercise program, Modified ADL techniques, Progress toward Goal/Update tx plan, Purpose of tx/functional activities Teaching Recipient: Patient Teaching Methods: Discussion Response to Teaching: Verbalize Understanding OT Fdc Goals Fdc Goals Time Frame: Nov 27, 2020 Eating (QC): 6 Oral Hygiene (QC): 6 Toileting Hygiene (QC): 6 Shower/Bathe Self (QC): 6 Upper Body Dressing (QC): 6 Lower Body Dressing (QC): 6 On/Off Footwear (QC): 6 Additional Goals: 1-Demonstrate ADL Tasks, 2-Verbalize Understanding, 3-ImproveStrength/Wanda 1=Demonstrate adherence to instructed precautions during ADL tasks. 2=Patient will verbalize/demonstrate understanding of assistive devices/modifications for ADL. 3=Patient will improve strength/tolerance for activity to enable patient to perform ADL's. OT Education/Plan Problem List/Assessment Assessment: Decreased Activ Tolerance, Decreased UE Strength, Impaired I ADL's, Impaired Self-Care Skills Discharge Recommendations Plan/Recommendations: Continue POC Treatment Plan/Plan of Care Patient would benefit from OT for education, treatment and training to promote independence in ADL's, mobility, safety and/or upper extremity function for ADL's. Plan of Care: ADL Retraining, Functional Mobility, UE Funct Exercise/Act Treatment Duration: Nov 27, 2020 Frequency: 5 times per week Estimated Hrs Per Day: .25 hour per day Rehab Potential: Fair Time/GCodes Start Time: 14:10 Stop Time: 14:20 Total Time Billed (hr/min): 10 Billed Treatment Time 1, SEAN SONG OT Nov 19, 2020 14:34
[2020-11-19] MEDS: ZOLPIDEM 5 MG (AMBIEN) TAB PO PRN (20:00)
--- NOTE | 2020-11-19 21:10 | Consultation ---
HPI History of Present Illness: 60 yo F that is here for Left total knee, asked for medical consult by Dr Herring. Patient states that she has COPD and is on daily inhalers. States that she has been a long time smoker but has cut down to 3-4 cigs per day and has plans to quit once she leaves the hospital. Denies any heart dz. States that she had elevated blood pressure several years ago that ended her up in the ER but has not had elevated blood pressures since then. Denies DM or CAD. She states that her pain is well controlled. She has been up to bathroom and has done some walking with walker today. Source: patient Exam Limitations: no limitations Date seen by provider: Nov 19, 2020 Time Seen by Provider: 11:15 Attending Physician Gil Herring MD [facility] [place] [facility] Consult Date of Admission Nov 18, 2020 at 05:54 Home Medications Home Medications Reviewed patient Home Medication Reconciliation performed by pharmacy medication reconciliations mold repair technician and/or nursing. Patients Allergies have been reviewed. Allergies Coded Allergies: Tetanus Vaccines and Toxoid (Verified Allergy, Severe, Anaphylaxis, 11/18/20) RKA-Jmcxdk-Sduenq Hx Patient Social History Smoking Status: Current Everyday Smoker Recent Hopitalizations: No Alcohol Use?: No Tobacco type used: Cigarettes Have you traveled recently?: No Past Medical History COPD Tobacco Abuse Osteoarthritis Review of Systems ([facility]) Constitutional: no symptoms reported; No chills, No malaise, No weakness EENTM: no symptoms reported; No vision loss, No mouth pain, No nose pain Respiratory: cough, dyspnea on exertion; No orthopnea, No short of breath Cardiovascular: no symptoms reported; No chest pain, No edema, No palpitations Gastrointestinal: no symptoms reported; No abdominal pain, No loss of appetite, No nausea, No vomiting Genitourinary: no symptoms reported; No dysuria, No frequency : No Musculoskeletal: joint pain, joint swelling Skin: no symptoms reported; No lesions, No rash Psychiatric/Neurological: Denies Headache, Denies Numbness; Weakness Reviewed Test Results Reviewed Test Results Lab Laboratory Tests Test 11/19/20 05:27 Range/Units Hemoglobin 10.8 L 11.5-16.0 g/dL Hematocrit 33 L 35-52 % Physical Exam-([facility]) Physical Exam Vital Signs VS - Last 72 Hours, by Label 311/18/20 11/18/20 11/18/20 07:02 08:06 09:35 09:35 Temp 36.2 36.4 Pulse 71 Resp 18 16 B/P (MAP) 116/60 (78) 113/67 (82) Pulse Ox 96 96 97 O2 Delivery Room Air Room Air OxyMask OxyMask O2 Flow Rate 8 8 11/18/20 11/18/20 11/18/20 11/18/20 09:40 09:45 09:55 10:00 Resp 20 18 B/P (MAP) 119/69 (86) 125/73 (90) Pulse Ox 97 96 O2 Delivery OxyMask OxyMask OxyMask OxyMask O2 Flow Rate 6 6 4 4 11/18/20 11/18/20 11/18/20 11/18/20 10:00 10:10 10:15 10:20 Temp 36.4 Resp 16 17 16 B/P (MAP) 124/52 (76) 144/82 (102) 133/92 (106) Pulse Ox 95 96 95 O2 Delivery OxyMask OxyMask OxyMask Nasal Cannula O2 Flow Rate 2 2 2 2 11/18/20 11/18/20 11/18/20 11/18/20 10:25 10:35 11:59 12:00 Temp 36.0 35.9 Pulse 75 82 Resp 20 16 20 B/P (MAP) 147/68 (94) 147/74 (98) Pulse Ox 94 93 O2 Delivery Nasal Cannula Room Air Room Air O2 Flow Rate 2 11/18/20 11/18/20 11/18/20 11/18/20 12:08 14:34 16:11 19:37 Temp 36.4 36.6 Pulse 80 77 Resp 18 18 B/P (MAP) 138/91 (107) 143/69 (93) Pulse Ox 90 91 93 O2 Delivery Room Air Room Air Room Air Room Air O2 Flow Rate 2.00 11/18/20 11/18/20 11/19/20 11/19/20 21:35 21:41 00:16 04:04 Temp 36.6 36.7 Pulse 70 79 68 Resp 18 18 20 B/P (MAP) 152/72 (98) 153/86 (108) Pulse Ox 95 95 97 O2 Delivery Room Air Room Air Room Air O2 Flow Rate 21.00 11/19/20 11/19/20 11/19/20 11/19/20 06:35 07:54 09:00 12:00 Temp 37.1 36.4 Pulse 72 77 Resp 18 20 16 B/P (MAP) 117/60 (79) 123/77 (92) Pulse Ox 94 94 95 O2 Delivery Room Air Room Air Nasal Cannula O2 Flow Rate 2.00 11/19/20 11/19/20 11/19/20 16:05 18:00 19:35 Temp 35.7 35.6 Pulse 63 83 Resp 17 17 17 B/P (MAP) 141/64 (89) 137/69 (91) Pulse Ox 95 96 O2 Delivery Nasal Cannula Nasal Cannula O2 Flow Rate 2.00 2.00 Capillary Refill : Less Than 3 Seconds General Appearance: WD/WN, no apparent distress, obese HEENT: PERRL/EOMI Neck: non-tender, full range of motion, supple Respiratory: chest non-tender, lungs clear, normal breath sounds, no respiratory distress, no accessory muscle use Cardiovascular: normal peripheral pulses, regular rate, rhythm, no edema, no murmur Gastrointestinal: normal bowel sounds, non tender, soft Back: no CVA tenderness, no vertebral tenderness Extremities: no calf tenderness, normal capillary refill, other (compression stockins in place) Neurologic/Psychiatric: science tutor II-XII nml as tested, alert, normal mood/affect, oriented x 3 Skin: normal color, warm/dry Lymphatic: no adenopathy Assessment/Plan Assessment/Plan Admission Status: Inpatient Order (span 2 midnights) (1) Osteoarthritis of left knee Status: Chronic Assessment & Plan: - POD #1 Left total knee, pain well controlled, managed by Ortho surgery Qualifiers: Qualified Codes: M17.12 - Unilateral primary osteoarthritis, left knee (2) COPD (chronic obstructive pulmonary disease) Status: Chronic Assessment & Plan: - Continue home meds, no home oxygen requirement Qualifiers: Qualified Codes: J43.9 - Emphysema, unspecified (3) Anemia due to acute blood loss Status: Acute (4) Tobacco abuse Status: Chronic Assessment & Plan: - Discussed the need for cessation (5) BMI 50.0-59.9, adult Status: Chronic (6) DVT prophylaxis Status: Acute Assessment & Plan: - SIRENA Martinez MD Nov 19, 2020 21:10
[2020-11-19] MEDS ORDERED: RT-ALBUTEROL SULF 2.5 MG/3 ML PRE-MIX VIAL INH PRN (22:00)
--- NOTE | 2020-11-20 01:13 | DISCHARGE SUMMARY ---
DATE OF SERVICE: DIAGNOSES: 1. Left knee osteoarthritis. 2. History of breast cancer. 3. Chronic obstructive pulmonary disease. 4. Anxiety disorder. 5. Diverticulosis. 6. Hypertension. 7. Sleep apnea. SUMMARY: The patient is a 60-year-old female, who underwent a left total knee arthroplasty on the day of admission. Postoperatively, she did very well. At time of discharge, her wound was clean and dry. She had no calf tenderness. Negative Homans sign. She was tolerating diet well and tolerating pain with oral pain medication. CONDITION AT DISCHARGE: Good. DISCHARGE DIET: Regular. FOLLOWUP: Followup is in three weeks. Home physical therapy will be arranged. DISCHARGE MEDICATIONS: Home medications, Percocet as needed for pain and one aspirin per day for 30 days. ACTIVITIES: Weightbearing as tolerated with a walker. Job ID: [id number] DocumentID: [id number] Dictated Date: 11/19/2020 18:43:24 Carpenter Labor Supervisor Date: 11/20/2020 01:12:07 Dictated By: ADY KEARNEY MD
[2020-11-20] MEDS: oxyCODONE/APAP 5/325MG (PERCOCET 5) TABLET PO PRN ×3 (01:42→11:40)
[2020-11-20] MEDS: morphine PCA 100 MG/100 ML BAG IV PRN (02:58)
[2020-11-20 03:39] VITALS: BP 162/69
[2020-11-20] MEDS: NS IV 1000 ML 1,000 ML IV SCH (04:40)
[2020-11-20] MEDS: MULTIVIT W/MINERALS TAB (THERAGRAN M) PO SCH (05:51)
[2020-11-20 05:57] LABS: HEMOGLOBIN 10.7 g/dL (11.5-16.0)
--- NOTE | 2020-11-20 07:01 | Progress Note ---
Standard Progress Note Progress Notes/Assess & Plan Date Seen by a Provider: Nov 20, 2020 Time Seen by a Provider: 07:00 Progress/Assessment & Plan No complaints radiographs--well placed HW without fracture denies paresthesias LLE-- 2 plus DP pulse with brisk cap refill. Intact DF and PF of toes and ankle. Sensation intact to light touch throughout s/p LTKA mobilize as able Final Diagnosis patient is doing well Vital Signs Date Time Temp Pulse Resp B/P (MAP) Pulse Ox O2 Delivery O2 Flow Rate FiO2 11/20/20 06:06 16 11/20/20 03:39 35.9 79 18 162/69 (100) 98 Room Air 11/19/20 23:39 36.3 90 18 133/60 (84) 96 Nasal Cannula 2.00 11/19/20 22:06 90 Nasal Cannula 4.00 11/19/20 21:00 94 Room Air 11/19/20 19:35 35.6 83 17 137/69 (91) 96 Nasal Cannula 2.00 11/19/20 18:00 17 11/19/20 16:05 35.7 63 17 141/64 (89) 95 Nasal Cannula 2.00 11/19/20 12:00 36.4 77 16 123/77 (92) 95 Nasal Cannula 2.00 11/19/20 09:00 94 Room Air 11/19/20 07:54 37.1 72 20 117/60 (79) 94 Room Air I & O 11/20/20 07:00 Intake Total 5810 ml Balance 5810 ml Laboratory Tests Test 11/20/20 05:36 Range/Units Hemoglobin 10.7 L 11.5-16.0 g/dL Hematocrit 34 L 35-52 % LLE--incision with echymosis. No calf tenderness. Neg Drew's. good quad control s/p LTKA doing well DC home today after PT ADY KEARNEY MD Nov 20, 2020 07:01
[2020-11-20] MEDS ORDERED: morphine INJ 4 MG/ML 1 ML (VIAL/SYRINGE) IVP PRN (07:15)
[2020-11-20 07:56] VITALS: BP 143/65
[2020-11-20] MEDS: SENNA W/DOCUSATE (SENOKOT S) TABLET PO SCH (08:00)
[2020-11-20] MEDS: ENOXAPARIN 30 MG/0.3 ML (LOVENOX) SYR SC SCH (08:00)
[2020-11-20] MEDS: ASPIRIN E.C. 81 MG (ECOTRIN) TAB PO SCH (08:01)
--- NOTE | 2020-11-20 10:00 | Physical Therapy Daily Note ---
PT Daily Note-Current Subjective Patient agrees to PT. She reports fatigue. Pain Numeric Pain Scale: 8 Location: Left Location Body Site: Knee Pain Description: Acute Comment: TRASHMAN and meds issued Mental Status Patient Orientation: Normal For Age Attachments: IV Transfers SCALE: Activities may be completed with or without assistive devices. 1-Qggyoctqcw-nzaxite completes the activity by him/herself with no assistance from a helper. 5-Set-up or Clean-up Assistance-helper sets up or cleans up; patient completes activity. [place] assists only prior to or following the activity. 4-Supervision or Touching Assistance-helper provides verbal cues and/or touching/steadying and/or contact guard assistance as patient completes activity. Assistance may be provided throughout the activity or intermittently. 3-Partial/Moderate Assistance-helper does LESS THAN HALF the effort. [place] lifts, holds or supports trunk or limbs, but provides less than half the effort. 2-Substantial/Maximal Assistance-helper does MORE THAN HALF the effort. [place] lifts or holds trunk or limbs and provides more than half the effort. 8-Dfbmkmuab-oivvfs does ALL the effort. Patient does none of the effort to complete the activity. Or, the assistance of 2 or more helpers is required for the patient to complete the activity. If activity was not attempted, code reason: 7-Patient Refused. 9-Not Applicable-not attempted and the patient did not perform the activity before the current illness, exacerbation or injury. 10-Not Attempted due to Environmental Limitations-(lack of equipment, weather restraints, etc.). 88-Not Attempted due to Medical Conditions or Safety Concerns. Sit to Stand (QC): 6 Weight Bearing Left Lower Extremity: Left Weight Bearing/Tolerated Gait Training Does the Patient Walk?: Yes Distance: 75' Walk 10 feet (QC): 6 Walk 50 ft with 2 Turns(QC): 6 Gait Assistive Device: FWW very slow and antalgic Exercises Seated Therapy Exercises: Ankle pumps, Long arc quads Seated Reps: 12 (x 2 sets) Assessment Patient tolerates minimal activity and ceases treatment. PT educated patient on importance of performing HEP issued by physician at preop and to ambulate PRN to improve functional mobility. Patient voices understanding. Patient to dismiss to home on this date. PT Ehs Specialist Goals Ehs Specialist Goals PT Ehs Specialist Goals Time Frame: Nov 25, 2020 Roll Left & Right (QC): 6 Sit to Lying (QC): 6 Lying-Sitting on Side/Bed(QC): 6 Sit to Stand (QC): 4 Chair/Pob-za-Oxuhl Xfer(QC): 4 Walk 10 feet (QC): 4 Walk 50ft with 2 Turns (QC): 4 PT Plan Treatment/Plan Treatment Plan: Discontinue PT, goals met Treatment Plan: Bed Mobility, Education, Functional Activity Wanda, Functional Strength, Gait, Safety, Therapeutic Exercise, Transfers Treatment Duration: Nov 25, 2020 Frequency: 11 times per week Estimated Hrs Per Day: .25 hour per day Patient and/or Family Agrees t: Yes Time/GCodes Time In: 805 Time Out: 828 Total Billed Treatment Time: 23 Total Billed Treatment 1 visit EX 12 min GT 11 min HEIDI DAY PT Nov 20, 2020 09:59
--- NOTE | 2020-11-20 11:01 | Occ Therapy Progress Note ---
Therapy Progress Note OT visited with pt, pt states she does not have any concerns with completing ADLs upon discharge. She is planning on discharging home this afternoon. Pt pleasantly declined OT tx today as she would like to rest before discharge. 1, visit. 1045 SEAN GARZA OT Nov 20, 2020 11:01
[2020-11-20 13:00] VITALS: BP 143/65
== END 2020-11-20 13:00 | disposition home health service (06) | DRG 470 ==
LOC: 4TH 05:54 → SURG 05:55 → 4TH 10:35
PROVIDERS: ADMIT Orthopaedic Surgery; ATTEND Orthopaedic Surgery
PROC: 0SRD0J9 Replacement of Left Knee Joint with Synthetic Substitute, Cemented, Open Approach (ICD-10-PCS; principal; 2020-11-18 07:39)
DX: M17.12 Unilateral primary osteoarthritis, left knee (principal); Z68.43 Body mass index [BMI] 50.0-59.9, adult; D62 Acute posthemorrhagic anemia; J44.9 Chronic obstructive pulmonary disease, unspecified; I10 Essential (primary) hypertension; E66.01 Morbid (severe) obesity due to excess calories; F17.210 Nicotine dependence, cigarettes, uncomplicated; G47.30 Sleep apnea, unspecified; K57.90 Diverticulosis of intestine, part unspecified, without perforation or abscess without bleeding; F41.9 Anxiety disorder, unspecified; F32.9 Major depressive disorder, single episode, unspecified; E11.9 Type 2 diabetes mellitus without complications; Z88.7 Allergy status to serum and vaccine
CPT/HCPCS: 36415; 73560; 85014; 85018; 86850; 86900; 86901; 87081; 94640; 94660; 94664; 94760

== ENCOUNTER 2020-11-22 22:03 | Day surgery (SDC) | payer MEDICAID ==
[~2020-11-22] VITALS: Ht 152.4 cm; Wt 116.4 kg
[2020-11-22] MEDS ORDERED: fentaNYL INJ 100 MCG/2 ML AMP IVP ONE ×2 (22:15→23:00)
[2020-11-22] MEDS ORDERED: KETAMINE/NaCl 50 MG/5 ML SYRINGE (ED ONLY) IV ONE ×2 (22:15→23:00)
[2020-11-22] MEDS ORDERED: NS IV 500 ML 500 ML IV ONE (22:15)
--- NOTE | 2020-11-22 22:21 | ED Fall/Injury ---
General Stated Complaint: FALL / STITCH TORN Source: patient Exam Limitations: no limitations History of Present Illness Date Seen by Provider: Nov 22, 2020 Time Seen by Provider: 21:57 Initial Comments Patient presents to the ER by EMS from home with chief complaint about half an hour prior to arrival she felt a sharp pain in her left knee which gave out from underneath her and she fell backwards with her knee completely flexed. She was able to call for help after about 15 or 20 minutes. She was able to straighten her own leg. She had surgery by Dr. Kearney to replace her left knee last Monday, 5 days ago. She says all the tatianna popped. She denies being on any blood thinners presently. She denies loss of consciousness. She denies any fever chills cough shortness of air. She does have COPD and uses a CPAP to sleep at night. She follows with a mold stacker in [place]. Her primary care provider is at [facility]. She rates her pain as 10 out of 10. EMS notes her blood pressure to be about 105 systolic when they arrived and they had a difficult time getting an IV started so they did not give her anything for pain. They did put her in an air splint. The patient says she was using her walker when she fell. Allergies and Home Medications Allergies Coded Allergies: Tetanus Vaccines and Toxoid (Verified Allergy, Severe, Anaphylaxis, 11/18/20) Home Medications Albuterol Sulfate 1 Puff Puff, 2 PUFF IH Q4H PRN for WHEEZING, (Reported) 1 PUFF = 90 MCG Budesonide/Formoterol Fumarate 10.2 Gm Hfa.aer.ad, 2 PUFF IH BID, (Reported) Cholecalciferol (Vitamin D3) Unknown Strength Tablet, 20 MCG PO DAILY, (Reported) Diclofenac Sodium 100 Gm Gel..gram., 4 GM TP QID PRN for knee pain, (Reported) Hydroxyzine HCl 50 Mg Tablet, 50 MG PO HS PRN for SLEEP, (Reported) Ipratropium/Albuterol Sulfate 3 Ml Ampul.neb, 3 ML IH Q6H PRN for SHORTNESS OF BREATH, (Reported) Omeprazole 20 Mg Capsule.dr, 20 MG PO DAILY, (Reported) Tiotropium Acme 1 Inh Aerp, 1 INH IH DAILY, (Reported) Patient Home Medication List Home Medication List Reviewed: Yes Review of Systems Review of Systems Constitutional: No chills, No diaphoresis Eyes: Denies Blindness, Denies Drainage Ears, Nose, Mouth, Throat: denies ear pain, denies ear discharge Respiratory: No cough, No short of breath Cardiovascular: No edema, No syncope Gastrointestinal: No abdominal pain, No nausea, No vomiting Genitourinary: No discharge, No dysuria Musculoskeletal: see HPI; No back pain; joint pain All Other Systems Reviewed Negative Unless Noted: Yes Past Oppeahy-Pkoake-Asgnyq Hx Patient Social History Alcohol Use: Denies Use Smoking Status: Current Everyday Smoker Type Used: Cigarettes Recent Hopitalizations: No Seasonal Allergies Seasonal Allergies: Yes Past Medical History Surgeries: Yes (bilat mastectomy) Section, Gallbladder Respiratory: Yes Sleep Apnea, COPD Currently Using CPAP: Yes Currently Using BIPAP: No Cardiac: Yes Hypertension Neurological: Yes Neuropathy Genitourinary: No Gastrointestinal: Yes Gastroesophageal Reflux Musculoskeletal: Yes (left knee osteoarthritis) Arthritis Endocrine: No HEENT: No (no teeth) Cancer: Yes Breast What Type of Treatment Did You: Chemotherapy, Surgical Intervention Psychosocial: Yes Anxiety Integumentary: No Blood Disorders: No Physical Exam Vital Signs Vital Signs - First Documented Capillary Refill : Height, Weight, BMI Height: '" Weight: lbs. oz. kg; 50.16 BMI Method: General Appearance: moderate distress, obese HEENT: PERRL/EOMI, pharynx normal Neck: full range of motion, normal inspection Cardiovascular: normal peripheral pulses, regular rate, rhythm Respiratory: no respiratory distress, no accessory muscle use Peripheral Pulses: 2+ Radial Pulses (R), 2+ Radial Pulses (L) Gastrointestinal: normal bowel sounds, non tender, soft Extremities: other (Left leg and a full air splint with the anterior knee wound gaped and tatianna torn out. Hemostatic.) Neurologic/Psychiatric: alert, normal mood/affect, oriented x 3 Skin: normal color, warm/dry John Coma Score Best Eye Response: (4) Open Spontaneously Best Verbal Response: (5) Oriented Best Motor Response: (6) Obeys Commands John Total: 15 Progress/Results/Core Measures Results/Orders Lab Results Laboratory Tests Test 11/22/20 22:12 Range/Units White Blood Count 7.2 4.3-11.0 10^3/uL Red Blood Count 3.45 L 3.80-5.11 10^6/uL Hemoglobin 10.3 L 11.5-16.0 g/dL Hematocrit 33 L 35-52 % Mean Corpuscular Volume 97 80-99 fL Mean Corpuscular Hemoglobin 30 25-34 pg Mean Corpuscular Hemoglobin Concent 31 L 32-36 g/dL Red Cell Distribution Width 13.3 10.0-14.5 % Platelet Count 250 130-400 10^3/uL Mean Platelet Volume 10.2 9.0-12.2 fL Immature Granulocyte % (Auto) 1 % Neutrophils (%) (Auto) 63 42-75 % Lymphocytes (%) (Auto) 27 12-44 % Monocytes (%) (Auto) 7 0-12 % Eosinophils (%) (Auto) 2 0-10 % Basophils (%) (Auto) 0 0-10 % Neutrophils # (Auto) 4.5 1.8-7.8 10^3/uL Lymphocytes # (Auto) 1.9 1.0-4.0 10^3/uL Monocytes # (Auto) 0.5 0.0-1.0 10^3/uL Eosinophils # (Auto) 0.2 0.0-0.3 10^3/uL Basophils # (Auto) 0.0 0.0-0.1 10^3/uL Immature Granulocyte # (Auto) 0.0 0.0-0.1 10^3/uL Sodium Level 141 135-145 MMOL/L Potassium Level 3.6 3.6-5.0 MMOL/L Chloride Level 105 98-107 MMOL/L Carbon Dioxide Level 23 21-32 MMOL/L Anion Gap 13 5-14 MMOL/L Blood Urea Nitrogen 17 7-18 MG/DL Creatinine 0.80 0.60-1.30 MG/DL Estimat Glomerular Filtration Rate > 60 BUN/Creatinine Ratio 21 Glucose Level 126 H 70-105 MG/DL Calcium Level 8.7 8.5-10.1 MG/DL Corrected Calcium 9.0 8.5-10.1 MG/DL Total Bilirubin 0.6 0.1-1.0 MG/DL Aspartate Amino Transf (AST/SGOT) 12 5-34 U/L Alanine Aminotransferase (ALT/SGPT) 21 0-55 U/L Alkaline Phosphatase 72 40-136 U/L Total Protein 6.6 6.4-8.2 GM/DL Albumin 3.6 3.2-4.5 GM/DL My Orders Orders - STANISLAW SCHNEIDER Ed Iv/Invasive Line Start (11/22/20 22:10) Ns Iv 500 Ml (Sodium Chloride 0.9%) (11/22/20 22:15) Cbc With Automated Diff (11/22/20 22:10) Comprehensive Metabolic Panel (11/22/20 22:10) Ua Culture If Indicated (11/22/20 22:10) Catheter(Urinary) Insert & Ass 03,15 (11/22/20 22:10) Ct Head/Cervical Spine Wo (11/22/20 22:10) Fentanyl Inj (Sublimaze Injection) (11/22/20 22:15) Ketamine Syringe (Ed Only) (Ketamine Syr (11/22/20 22:15) Elbow, Left, 3 Views (11/22/20 22:46) Fentanyl Inj (Sublimaze Injection) (11/22/20 23:00) Ketamine Syringe (Ed Only) (Ketamine Syr (11/22/20 23:00) Hydromorphone Injection (Dilaudid Inject (11/23/20 00:00) Knee, Left, 2 Views (Ap & Lat) (11/22/20 22:10) Medications Given in ED Current Medications Medications Dose Ordered Sig/Kari Route Start Time Stop Time Status Last Admin Dose Admin Fentanyl Citrate 50 mcg ONCE ONCE IVP 11/22/20 22:15 11/22/20 22:16 DC 11/22/20 22:23 50 MCG Fentanyl Citrate 75 mcg ONCE ONCE IVP 11/22/20 23:00 11/22/20 23:01 DC 11/22/20 23:03 75 MCG Hydromorphone HCl 0.5 mg ONCE ONCE IV 11/23/20 00:00 11/23/20 00:01 DC 11/23/20 00:03 0.5 MG Ketamine HCl 25 mg ONCE ONCE IV 11/22/20 22:15 11/22/20 22:16 DC 11/22/20 22:31 25 MG Ketamine HCl 25 mg ONCE ONCE IV 11/22/20 23:00 11/22/20 23:01 DC 11/22/20 23:03 25 MG Sodium Chloride 500 ml @ 0 mls/hr Q0M ONCE IV 11/22/20 22:15 11/22/20 22:16 DC 11/22/20 22:17 999 MLS/HR Vital Signs/I&O 11/22/20 11/22/20 22:05 22:05 Temp 36.0 Pulse 90 90 Resp 20 20 B/P (MAP) 101/80 (87) 101/80 (87) Pulse Ox 96 96 O2 Delivery Room Air Room Air 11/23/20 00:00 Intake Total 500 ml Balance 500 ml Progress Progress Note : Time: 22:15 Progress Note We will keep her in the splint get some x-rays and give her fentanyl and ketamine for her pain. We will get some labs and check her hemoglobin. After we have some information we will consult with Dr. Kearney, orthopedic surgery Diagnostic Imaging Diagonstic Imaging: Xray Plain Films/CT/US/NM/MRI: knee (Left knee) Comments Hardware appears to be intact. No acute osseous fracture. Kerrick are loose except for the top 4 or 5. Reviewed: Reviewed by Me Diagonstic Imaging: CT Plain Films/CT/US/NM/MRI: c-spine, head Comments No acute intracranial hemorrhage, mass-effect, midline shift, tumor or calvarial fracture. C-spine in good alignment without fracture acutely Reviewed: Reviewed Night Hawk Study, Reviewed by Me Diagonstic Imaging: Xray Plain Films/CT/US/NM/MRI: elbow (left) Comments No acute osseous abnormality Reviewed: Reviewed by Me Departure Communication (Admissions) Time/Spoke to Admitting Phy: 23:45 Discussed the case with Dr. KEARNEY and he plans to take the patient to surgery tonight. He has already been at bedside. Impression Primary Impression: Fall Qualified Codes: W19.XXXA - Unspecified fall, initial encounter Additional Impression: Surgical wound breakdown Qualified Codes: T81.31XA - Disruption of external operation (surgical) wound, not elsewhere classified, initial encounter Disposition: ADMITTED INPATIENT Condition: Stable Admissions Decision to Admit Reason: Admit from ER (General) Decision to Admit/Date: Nov 22, 2020 Time/Decision to Admit Time: 23:45 Departure-Patient Inst. Referrals: [facility] (PCP/Family) Primary Care Physician STANISLAW SCHNEIDER Nov 22, 2020 22:21
[2020-11-22 22:28] LABS: BASOPHILS % (AUTO) 0 % (0-10); EOSINOPHILS # (AUTO) 0.2 10^3/uL (0.0-0.3); EOSINOPHILS % (AUTO) 2 % (0-10); HEMATOCRIT 33 % (35-52); HEMOGLOBIN 10.3 g/dL (11.5-16.0); LYMPHOCYTES # (AUTO) 1.9 10^3/uL (1.0-4.0); LYMPHOCYTES % (AUTO) 27 % (12-44); MEAN CORPUSCULAR HEMOGLOBIN 30 pg (25-34); MEAN CORPUSCULAR HGB CONC 31 g/dL (32-36); MEAN CORPUSCULAR VOLUME 97 fL (80-99); MEAN PLATELET VOLUME 10.2 fL (9.0-12.2); MONOCYTES # (AUTO) 0.5 10^3/uL (0.0-1.0); MONOCYTES % (AUTO) 7 % (0-12); NEUTROPHILS # (AUTO) 4.5 10^3/uL (1.8-7.8); NEUTROPHILS % (AUTO) 63 % (42-75); PLATELET COUNT 250 10^3/uL (130-400); WHITE BLOOD COUNT 7.2 10^3/uL (4.3-11.0)
[2020-11-22 22:40] LABS: ALBUMIN 3.6 GM/DL (3.2-4.5); CHLORIDE 105 MMOL/L (98-107); POTASSIUM 3.6 MMOL/L (3.6-5.0); SODIUM 141 MMOL/L (135-145)
[2020-11-22 22:41] LABS: CALCIUM 8.7 MG/DL (8.5-10.1)
[2020-11-22 22:42] LABS: GLUCOSE 126 MG/DL (70-105)
[2020-11-22 22:43] LABS: TOTAL PROTEIN 6.6 GM/DL (6.4-8.2)
[2020-11-22 22:44] LABS: BILIRUBIN,TOTAL 0.6 MG/DL (0.1-1.0); CARBON DIOXIDE 23 MMOL/L (21-32)
[2020-11-22 22:46] LABS: ALKALINE PHOSPHATASE 72 U/L (40-136); GFR ESTIMATED > 60
[2020-11-22 22:47] LABS: BUN/CREATININE RATIO 21
[2020-11-22 22:49] LABS: ALANINE AMINOTRANSFERASE 21 U/L (0-55)
[2020-11-23] VITALS (14 sets, daily range): BP systolic 128–201; BP diastolic 60–109
[2020-11-23] MEDS ORDERED: proPOfol 200 MG/20 ML (DIPRIVAN) VIAL IV ONE (00:25)
[2020-11-23] MEDS ORDERED: fentaNYL INJ 100 MCG/2 ML AMP ONE ×2 (00:26→01:13)
[2020-11-23] MEDS ORDERED: MIDAZOLAM 2 MG/2 ML (VERSED) VIAL ONE (00:26)
--- NOTE | 2020-11-23 00:29 | Progress Note-Pre Operative ---
Pre-Operative Progress Note H&P Reviewed The H&P was reviewed, patient examined and no changes noted. Date Seen by Provider: Nov 23, 2020 Time Seen by Provider: 00:29 Date H&P Reviewed: Nov 23, 2020 Time H&P Reviewed: 00:29 Pre-Operative Diagnosis: wound dehiscense left total knee arthroplasty ADY KEARNEY MD Nov 23, 2020 00:29
--- NOTE | 2020-11-23 00:31 | Progress Note-Post Operative ---
Post-Operative Progess Note Surgeon (s)/Benefit Specialist (s) Surgeon ADY KEARNEY MD Benefit Specialist: Mehran Marcus Pre-Operative Diagnosis wound dehiscense left total knee arthroplasty Post-Operative Diagnosis wound dehiscense left total knee arthroplasty Procedure & Operative Findings Date of Procedure 11/23/20 Procedure Performed/Findings irrigation and debridement with wound closure left knee Anesthesia Type GETA Estimated Blood Loss Estimated blood loss (mL): 100ml Specimens/Packing Specimens Removed none Packing: none ADY KEARNEY MD Nov 23, 2020 00:30
[2020-11-23] MEDS ORDERED: CEFUROXIME 1.5 GM/15 ML (ZINACEF) VIAL ONE (00:35)
[2020-11-23] MEDS: LACTATED RINGERS 1,000 ML IV PRN ×2 (00:38→02:15)
[2020-11-23] MEDS ORDERED: ACETAMINOPHEN 325 MG TABLET PO PRN (00:45)
[2020-11-23] MEDS ORDERED: ZOLPIDEM 5 MG (AMBIEN) TAB PO PRN (00:45)
[2020-11-23] MEDS ORDERED: LIDOCAINE PF 2% 5 ML (XYLOCAINE) VIAL ONE (01:03)
[2020-11-23] MEDS ORDERED: ONDANSETRON 4 MG/2 ML (SDV) Z0FRAN ONE ×2 (01:03→01:26)
[2020-11-23] MEDS ORDERED: SEVOFLURANE (ULTANE) 15 ML INHAL SOLN ONE ×2 (01:03→01:36)
--- NOTE | 2020-11-23 01:04 | HISTORY AND PHYSICAL ---
DATE OF SERVICE: ADMISSION HISTORY AND PHYSICAL REASON FOR ADMISSION: Wound dehiscence, status post total knee arthroplasty secondary to a fall. HISTORY OF PRESENT ILLNESS: The patient is a 60-year-old female, who underwent a left total knee arthroplasty on 11/18/2020. This was uncomplicated. She was discharged home as expected on Monday and reports she was doing excellent until this evening when she twisted. She felt her knee give way. She sustained a hyperflexion injury and was ultimately able to straighten her knee had dehisced her wound completely. REVIEW OF SYSTEMS: No chest pain, no shortness of breath, no dysuria. PAST MEDICAL HISTORY: Breast cancer, COPD, anxiety disorder, depression, diverticulosis, hypertension, sleep apnea. SURGICAL HISTORY: , cholecystectomy, bilateral mastectomy, left total knee arthroplasty. FAMILY HISTORY: Diabetes, COPD and cancer. PRIMARY CARE PROVIDER: [facility]. MEDICATIONS: Albuterol, alprazolam, famotidine, ibuprofen, Norvasc, omeprazole, Symbicort and oxycodone. ALLERGIES: TETANUS TOXOID. SOCIAL HISTORY: The patient smokes half pack of cigarettes a day. Denies alcohol use. PHYSICAL EXAMINATION: GENERAL: The patient is well-developed, well-nourished, in no acute distress. HEENT: Normocephalic, atraumatic. Pupils are equal, round, reactive to light. Oropharynx is clear. NECK: Supple, no lymphadenopathy. LUNGS: Clear to auscultation bilaterally. HEART: Regular rate and rhythm. ABDOMEN: Soft, nontender, nondistended. EXTREMITIES: The left knee demonstrates a dehisced wound. There is a hematoma noted, but no active bleeding was noted. She is neurovascularly intact distally with intact dorsiflexion and plantar flexion toes and symmetric pulses. RADIOGRAPHS: Reveal no acute changes, left total knee arthroplasty. IMPRESSION: Wound dehiscence secondary to fall, left knee. PLAN: Irrigation and debridement and wound closure, left knee. The patient is at very high risk of wound complications and infections. We discussed this today. We discussed risks, benefits, options, ramifications and recovery at length. She understands and wishes to proceed. Job ID: [id number] DocumentID: [id number] Dictated Date: 11/23/2020 00:28:54 Mirror Inspector Date: 11/23/2020 01:03:11 Dictated By: ADY KEARNEY MD
[2020-11-23] MEDS ORDERED: PROMETHAZINE INJ 25 MG/ML (PHENERGAN) AMP IVP ONE (02:15)
[2020-11-23] MEDS ORDERED: HYDROmorphone 2 MG/ML VIAL (DILAUDID) IV ONE ×2 (02:15)
[2020-11-23] MEDS ORDERED: ONDANSETRON 4 MG/2 ML (SDV) Z0FRAN IVP PRN (02:15)
[2020-11-23] MEDS ORDERED: RT-ALBUTEROL SULF 2.5 MG/3 ML PRE-MIX VIAL INH ONE (02:15)
[2020-11-23] MEDS ORDERED: morphine INJ 10 MG/ML 1ML (SYR OR VIAL) IVP ONE (02:15)
[2020-11-23] MEDS ORDERED: fentaNYL INJ 100 MCG/2 ML AMP IVP ONE (02:15)
--- NOTE | 2020-11-23 02:25 | OPERATIVE REPORT ---
DATE OF SERVICE: PREOPERATIVE DIAGNOSIS: Left knee wound dehiscence, status post total knee arthroplasty due to fall. POSTOPERATIVE DIAGNOSIS: Left knee wound dehiscence, status post total knee arthroplasty due to fall. PROCEDURE: Irrigation and debridement and wound closure of left knee. SURGEON: Gil Kearney MD FILTER TANK TENDER HELPER: Mehran Marcus, who assisted throughout the procedure and helped assist with positioning and closing incision. ANESTHESIA: General endotracheal by Lissette Butterfield CRNA. TOURNIQUET TIME: Not applicable. DRAINS: None. COMPLICATIONS: None. ESTIMATED BLOOD LOSS: mL. POSTOPERATIVE PLAN: Brace wear in full extension for 6 weeks. The patient was transferred to the recovery room awake and stable condition. STATEMENT OF MEDICAL NECESSITY: The patient is a 60-year-old female, who is 5 days status post left total knee arthroplasty. She was doing very well at home until this evening when she fell sustaining a hyperflexion injury. She presented to the Emergency Department and was found to have a wound dehiscence. Her components appeared to be stable radiographically. The patient was brought emergently to the operating room for irrigation and debridement and closure. The patient was counseled that she is at high risk for wound infection, total knee infection and potential loss of lower extremity. DESCRIPTION OF PROCEDURE: After risks and benefits of procedure were discussed and questions were answered, informed consent was signed and placed on chart, the operative site was confirmed in the preoperative holding area initialed by the surgeon. The patient was transferred to the operating room and after adequate levels of general endotracheal anesthetic were obtained, a timeout was called, confirming the operative site. Left lower extremity was prepped and draped in the usual sterile fashion. The hematoma was evacuated. There was no gross contamination of the wound, previously placed sutures were removed. The wound and knee were irrigated with pulse lavage. The arthrotomy repair had been disrupted, 6 liters of pulse lavage was used in the deep layers. The arthrotomy was then closed with #2 [place] without difficulty proximally and distally. There was some soft tissue loss, but the capsule was able to be reapproximated distally. The knee was flexed and found to be stable. A further 3 liters of pulse lavage was used. A 0 Vicryl was used to deep subcutaneous layer, Vicryl for the superficial subcutaneous layer, tatianna used on the skin. A soft dressing and brace were applied. The patient was transferred to the recovery room awake and in stable condition. Job ID: [id number] DocumentID: [id number] Dictated Date: 11/23/2020 01:45:27 Dredge Pump Operator Date: 11/23/2020 02:24:09 Dictated By: GIL KEARNEY MD
[2020-11-23] MEDS ORDERED: NS IV 1000 ML 1,000 ML ONE (03:55)
[2020-11-23] MEDS: NS IV 1000 ML 1,000 ML IV SCH ×3 (04:06→16:29)
[2020-11-23] MEDS: morphine PCA 100 MG/100 ML BAG IV PRN (05:09)
[2020-11-23] MEDS ORDERED: RT-ALBUTEROL SULF 2.5 MG/3 ML PRE-MIX VIAL ONE (05:17)
[2020-11-23] MEDS: MULTIVIT W/MINERALS TAB (THERAGRAN M) PO SCH (06:09)
[2020-11-23] MEDS: ENOXAPARIN 60 MG/0.6 ML (LOVENOX) SYR SC SCH ×2 (06:09→17:10)
--- NOTE | 2020-11-23 06:26 | Diagnostic Imaging Report ---
PROCEDURE: CT head and CT cervical spine without contrast. TECHNIQUE: Multiple contiguous axial images were obtained through the brain and cervical spine without the use of intravenous contrast. Sagittal and coronal reformations through the cervical spine were then performed. Auto Exposure Controls were utilized during the CT exam to meet ALARA standards for radiation dose reduction. INDICATION: Trauma. Fall. COMPARISON: None. FINDINGS: CT HEAD: No intracranial hemorrhage, mass effect, hydrocephalus or extra-axial fluid collections. No CT evidence of acute territorial infarction. Mucosal thickening in the ethmoid sinuses. No fractures. Mastoids are unremarkable. CT cervical spine: Normal alignment. Vertebral body heights are preserved. No fractures. Mild atherosclerotic calcifications in the carotid bifurcations. Lung apices are clear. IMPRESSION: No acute intracranial or cervical spine CT findings. Dictated by: Dictated on workstation # [id number]
[2020-11-23 06:51] LABS: BASOPHILS % (AUTO) 0 % (0-10); EOSINOPHILS % (AUTO) 0 % (0-10); HEMATOCRIT 30 % (35-52); HEMOGLOBIN 9.4 g/dL (11.5-16.0); LYMPHOCYTES # (AUTO) 0.6 10^3/uL (1.0-4.0); LYMPHOCYTES % (AUTO) 6 % (12-44); MEAN CORPUSCULAR HEMOGLOBIN 31 pg (25-34); MEAN CORPUSCULAR HGB CONC 32 g/dL (32-36); MEAN CORPUSCULAR VOLUME 96 fL (80-99); MEAN PLATELET VOLUME 10.4 fL (9.0-12.2); MONOCYTES # (AUTO) 0.2 10^3/uL (0.0-1.0); MONOCYTES % (AUTO) 1 % (0-12); NEUTROPHILS # (AUTO) 9.6 10^3/uL (1.8-7.8); NEUTROPHILS % (AUTO) 92 % (42-75); PLATELET COUNT 223 10^3/uL (130-400); WHITE BLOOD COUNT 10.4 10^3/uL (4.3-11.0)
[2020-11-23 07:04] LABS: ALBUMIN 3.4 GM/DL (3.2-4.5); CHLORIDE 106 MMOL/L (98-107); POTASSIUM 3.8 MMOL/L (3.6-5.0); SODIUM 138 MMOL/L (135-145)
[2020-11-23 07:06] LABS: CALCIUM 8.3 MG/DL (8.5-10.1)
[2020-11-23 07:07] LABS: GLUCOSE 225 MG/DL (70-105); TOTAL PROTEIN 6.1 GM/DL (6.4-8.2)
[2020-11-23 07:08] LABS: CARBON DIOXIDE 21 MMOL/L (21-32)
[2020-11-23 07:09] LABS: BILIRUBIN,TOTAL 0.5 MG/DL (0.1-1.0)
[2020-11-23 07:10] LABS: ALKALINE PHOSPHATASE 75 U/L (40-136); CREATININE SERUM 0.73 MG/DL (0.60-1.30); GFR ESTIMATED > 60
[2020-11-23 07:11] LABS: BUN/CREATININE RATIO 21
[2020-11-23 07:13] LABS: ALANINE AMINOTRANSFERASE 28 U/L (0-55)
[2020-11-23 07:24] LABS: LYMPHOCYTES % (MANUAL) 6 %; NEUTROPHILS % (MANUAL) 94 %; POLYCHROMASIA SLIGHT
[2020-11-23] MEDS: ASPIRIN E.C. 81 MG (ECOTRIN) TAB PO SCH (08:00)
[2020-11-23] MEDS: oxyCODONE/APAP 5/325MG (PERCOCET 5) TABLET PO PRN ×6 (08:01→21:40)
[2020-11-23] MEDS: SENNA W/DOCUSATE (SENOKOT S) TABLET PO SCH ×2 (08:01→21:40)
[2020-11-23] MEDS: CEFUROXIME INJECTION 750 MG in WATER (STERILE) FOR INJECTION 10 ML IV SCH ×2 (08:01→16:28)
--- NOTE | 2020-11-23 08:05 | Diagnostic Imaging Report ---
EXAM: KNEE, LEFT, 2 VIEWS (AP LAT) INDICATION: Left knee pain. COMPARISON: 11/18/2020. FINDINGS: Left total knee arthroplasty. Components appear intact and well-seated. No periprosthetic fractures are identified. The anterior skin tatianna have been partially removed. IMPRESSION: 1. No acute radiographic findings in the left knee status post TKA. 2. Anterior skin tatianna been partially removed. Dictated by: Dictated on workstation # [id number]
--- NOTE | 2020-11-23 08:12 | Diagnostic Imaging Report ---
Indication: Fall with left elbow pain AP, oblique, and lateral views of the left elbow were obtained. No fracture or acute bony abnormality is seen. IMPRESSION: Negative left elbow. Dictated by: Dictated on workstation # [id number]
[2020-11-23] MEDS: RT-ALBUTEROL SULF 2.5 MG/3 ML PRE-MIX VIAL INH PRN ×2 (10:46→22:33)
--- NOTE | 2020-11-23 10:54 | Physical Therapy Evaluation ---
PT Evaluation-General Medical Diagnosis Admission Date 11/22/20 Medical Diagnosis: Fall with Torn [place] Onset Date: Nov 22, 2020 Therapy Diagnosis Therapy Diagnosis: Debility/weakness Precautions Precautions/Isolations: Fall Prevention, Standard Precautions Weight Bear Status Right Lower Extremity: Right Full Weight Bearing Left Lower Extremity: Left Weight Bearing/Tolerated L Knee Immobilizer Referral Physician: Dr. Herring Reason for Referral: Evaluation/Treatment Medical History Pertinent Medical History: Breast CA S/P Mastectomy, COPD, HTN Current History EMS secondary to fall at home Reviewed History: Yes Social History Home: Apartment Current Living Status: Alone Entry Into Home: Elevator Prior Prior Level of Function SCALE: Activities may be completed with or without assistive devices. 4-Htxolepkbq-yqdzzzk completes the activity by him/herself with no assistance from a helper. 5-Set-up or Clean-up Assistance-helper sets up or cleans up; patient completes activity. [place] assists only prior to or following the activity. 4-Supervision or Touching Assistance-helper provides verbal cues and/or touching/steadying and/or contact guard assistance as patient completes a ctivity. Assistance may be provided throughout the activity or intermittently. 3-Partial/Moderate Assistance-helper does LESS THAN HALF the effort. [place] lifts, holds or supports trunk or limbs, but provides less than half the effort. 2-Substantial/Maximal Assistance-helper does MORE THAN HALF the effort. [place] lifts or holds trunk or limbs and provides more than half the effort. 3-Pkbcijshk-qvqhnz does ALL the effort. Patient does none of the effort to complete the activity. Or, the assistance of 2 or more helpers is required for the patient to complete the activity. If activity was not attempted, code reason: 7-Patient Refused. 9-Not Applicable-not attempted and the patient did not perform the activity before the current illness, exacerbation or injury. 10-Not Attempted due to Environmental Limitations-(lack of equipment, weather restraints, etc.). 88-Not Attempted due to Medical Conditions or Safety Concerns. Bed Mobility: 6 Transfers (B,C,W/C): 6 Gait: 6 Stairs: 9 Wheelchair Mobility: 6 Prior Devices Use: Walker PT Evaluation-Current Subjective Patient reluctantly agreed to participate in PT. Patient noted unrated pain in L knee. Pt/Family Goals Independent with mobility Objective Patient Orientation: Person, Place, Time Attachments: Knee Immobilizer, Oxygen, IV ROM/Strength ROM Upper Extremities global WNL ROM Lower Extremities L knee immobilizer, cannot assess Strength Upper Extremities global WNL Strength Lower Extremities L knee not tested due to immobilizer. Needed assist with SLR to perform transfers. R LE 3/5 grossly. Integumentary/Posture Integumentary see nursing report Bowel Incontinence: No Bladder Incontinence: No Posture mild kyphotic Neuromuscular (Tone, Coordination, Reflexes) WNL globally Sensory Vision: Functional Hearing: Functional Sensation Up. Extremities WNL globally Sensation Lower Extremities WNL globally Transfers Roll Left to Right (QC): 6 Sit to Lying (QC): 4 Lying to Sitting/Side of Bed(Q: 4 Sit to Stand (QC): 2 Chair/Lph-dg-Qxtzz Xfer(QC): 2 Patient required MA x1 with CGA x1 to maintain patient safety with sit <> stand transfer. Patient required 3 attempts for sit <> stand transfer. Bed had to be elevated for transfer to be completed. Gait Does the Patient Walk?: No and Walking Goal IS indicated Mode of Locomotion: Walk Anticipated Mode of Locomotion: Walk Walk 10 feet (QC): 88 Walk 50 ft with 2 Turns(QC): 88 Walk 150 ft (QC): 88 Walking 10ft/uneven surface-QC: 88 Gait Assistive Device: FWW Comments/Gait Description 3 steps with turn to sit in chair Wheelchair Training Does the Pt Use a Wheelchair?: No Balance Sitting Static: Fair Sitting Dynamic: Fair Standing Static: Fair Standing Dynamic: Fair Picking up an Object (QC): 88 Assessment/Needs Patient has impaired mobility and weakness, and is limited by knee immobilizer. Rehab Potential: Fair PT Foundry Patternmaker Goals Foundry Patternmaker Goals PT Foundry Patternmaker Goals Time Frame: Dec 05, 2020 Roll Left & Right (QC): 5 Sit to Lying (QC): 5 Lying-Sitting on Side/Bed(QC): 5 Sit to Stand (QC): 5 Chair/Zxp-cy-Kxhsh Xfer(QC): 5 Toilet Transfer (QC): 5 Car Transfer (QC): 5 Does the Patient Walk: Yes Walk 10 feet (QC): 5 Walk 50ft with 2 Turns (QC): 5 Walk 150 ft (QC): 5 Walking 10ft on Uneven Surface: 5 Does the Pt use WC or Scooter?: No PT Plan Problem List Problem List: Activity Tolerance, Functional Strength, Safety, Balance, Gait, Transfer, Bed Mobility, ROM Treatment/Plan Treatment Plan: Continue Plan of Care Treatment Plan: Bed Mobility, Education, Functional Activity Wanda, Functional Strength, Gait, Safety, Therapeutic Exercise, Transfers Treatment Duration: Dec 05, 2020 Frequency: 11 times per week Estimated Hrs Per Day: .5 hour per day Patient and/or Family Agrees t: Yes Discharge Recommendations Therapy Discharge Recommendati: Other, See Comments (ARU) Time/GCodes Time In: 1020 Time Out: 1045 Total Billed Treatment Time: 25 Total Billed Treatment 1 visit: AVERYM: 10' FA: 15' HEIDI DAY PT Nov 23, 2020 10:54
[2020-11-23] MEDS ORDERED: amLODIPine 5 MG (NORVASC) TAB PO ONE (11:00)
--- NOTE | 2020-11-23 11:30 | Consultation - Hospitalist ---
[facility] 11/23/20 1130: HPI History of Present Illness: HPI/Chief Complaint Jacque Márquez is a 60 y/o female that presented to [facility] for left knee wound dehiscence 2/2 to fall at home. She had knee surgery last week. Medicine was consulted to help manage patients chronic conditions. PMH includes COPD, Breast cancer with BL mastectomy, anxiety and depression, HTN and sleep apnea. She had wound debridement and closure at midnight today. She is resting comfortably in bed and is pleasant. She has minimal pain. She is eating and drinking. Denies N/V, F/C, SOB, Chest pain, Abdominal pain, dysuria or constipation at this time. She states she wears CPAP at home and has never been treated for HTN or diabetes. She follows with Nurse Practitioner Sierra at [facility]. Source: patient Exam Limitations: no limitations Date Seen 11/23/20 Attending Physician Gil Herring MD [facility] [place],[facility] Referring Physician Date of Admission Home Medications & Allergies Home Medications Reviewed patient Home Medication Reconciliation performed by pharmacy medication reconciliations tool technician and/or nursing. Patients Allergies have been reviewed. Allergies Allergies Coded Allergies Tetanus Vaccines and Toxoid (Verified Allergy, Severe, Anaphylaxis, 11/18/20) Past Uxwmjpv-Vckyhj-Pmmrhq Hx Patient Social History Alcohol Use: Denies Use Recreational Drug Use: No Smoking Status: Current Everyday Smoker Type Used: Cigarettes Recent Foreign Travel: No Contact w/other who traveled: No Recent Infectious Disease Expo: No Seasonal Allergies Seasonal Allergies: Yes Past Medical History Surgeries: Section, Gallbladder, Orthopedic Currently Using CPAP: Yes Currently Using BIPAP: No Cardiac: High Cholesterol, Hypertension Neurological: Neuropathy Gastrointestinal: Gastroesophageal Reflux Musculoskeletal: Arthritis Cancer: Breast What Type of Treatment Did You: Chemotherapy, Surgical Intervention Psychosocial: Anxiety History of Blood Disorders: No Review of Systems Constitutional: no symptoms reported EENTM: no symptoms reported Respiratory: wheezing Cardiovascular: no symptoms reported Gastrointestinal: no symptoms reported Genitourinary: no symptoms reported Musculoskeletal: see HPI, other (Knee pain, R>L. states the right one has always hurt more then the left. ) Skin: no symptoms reported Psychiatric/Neurological: No Symptoms Reported Physical Exam Physical Exam Vital Signs Vital Signs - First Documented Capillary Refill : Less Than 3 Seconds Height, Weight, BMI Height: '" Weight: lbs. oz. kg; 50.11 BMI Method: General Appearance: No Apparent Distress, Obese HEENT: PERRL/EOMI; No Photophobia Neck: Full Range of Motion, Non Tender Respiratory: Chest Non Tender, No Respiratory Distress, Wheezing (BL ) Cardiovascular: Regular Rate, Rhythm, Normal Peripheral Pulses Gastrointestinal: Normal Bowel Sounds, Non Tender, Distended; No Guarding Extremity: Normal Capillary Refill, No Calf Tenderness Neurologic/Psychiatric: Alert, Oriented x3, craft artist II-XII Norm as Tested Skin: Normal Color, Warm/Dry Lymphatic: No Adenopathy Results Results/Procedures Labs Laboratory Tests 11/22/20 22:12 11/23/20 06:45 Patient resulted labs reviewed. Assessment/Plan Assessment and Plan Assess & Plan/Chief Complaint 1. Left knee wound dehiscence - 10/06 to fall - recent knee surgery - will follow ortho recs 2. HTN - monitor 3. Anemia - monitor 4. COPD - non oxygen dependent - follows with Dr. Yoo 5. Anxiety - controlled 6. sleap apnea - wears CPAP at home - Follows with Dr. Yoo pulmonary at [facility] 7. Hx of breast cancer - per patient she no longer has to follow up Plan 11/23 - continue abx per Ortho recommendation - monitor labs, will check A1C and consider checking TSH and Free T4 - continue respiratory therapy, will review med rec - O2 evaluation - PT/OT - monitor vitals, will consider starting BP meds. - Ortho note reviewed . MERLINBELEM DO 11/24/20 0626: HPI History of Present Illness: HPI/Chief Complaint CC: Fall with left knee wound from replacement dehiscence HPI: This is a 60yoWF with a PMH of COPC, anxiety, and ROSALIA who had just had her left knee replaced by Dr. Herring and suffered a fall in her home and was found to have complete wound dehiscence. Dr. Herring completed the repair and currently, she is having a lot of pain and doesn't really want to work with PT, she meets criteria for inpatient rehab, will remain on Lovenox and treat elevated BP with Norvasc 5 Mg daily, and will check Hgb A1C and start a sliding scale with Acucheck AC and HS. Source: patient Exam Limitations: no limitations Past Vikosvj-Tdefne-Oqrkep Hx Past Med/Social Hx: Reviewed Nursing Past Med/Soc Hx, Reviewed and Corrections made Patient Social History Marrital Status: single Employed/Student: unemployed Alcohol Use: Denies Use Smoking Status: Former Smoker Past Medical History Respiratory: Sleep Apnea Currently Using CPAP: Yes Cardiac: High Cholesterol, Hypertension Review of Systems Constitutional: see HPI Physical Exam Physical Exam General Appearance: No Apparent Distress, WD/WN, Chronically ill, Obese Eyes: Bilateral Eye Normal Inspection, Bilateral Eye PERRL HEENT: PERRL/EOMI, Normal ENT Inspection, Pharynx Normal Neck: Full Range of Motion, Normal Inspection, Non Tender, Supple, Carotid Bruit Respiratory: Chest Non Tender, Lungs Clear, Normal Breath Sounds, No Accessory Muscle Use, No Respiratory Distress Cardiovascular: Regular Rate, Rhythm, No Edema, No Gallop, No JVD, No Murmur, Normal Peripheral Pulses Gastrointestinal: Normal Bowel Sounds, No Organomegaly, No Pulsatile Mass, Non Tender, Soft Back: Normal Inspection, No CVA Tenderness, No Vertebral Tenderness Extremity: Normal Capillary Refill, Normal Inspection, Normal Range of Motion, Non Tender, No Calf Tenderness, No Pedal Edema Neurologic/Psychiatric: Alert, Oriented x3, No Motor/Sensory Deficits, Normal Mood/Affect Skin: Normal Color, Warm/Dry Lymphatic: No Adenopathy Assessment/Plan Assessment and Plan Assess & Plan/Chief Complaint Monitor closely Pain control Accuchecks Diagnosis/Problems Diagnosis/Problems (1) Surgical wound breakdown Status: Acute Qualifiers: Encounter type: initial encounter Qualified Codes: T81.31XA - Disruption of external operation (surgical) wound, not elsewhere classified, initial encounter (2) Fall Status: Acute Qualifiers: Encounter type: initial encounter Qualified Codes: W19.XXXA - Unspecified fall, initial encounter (3) COPD (chronic obstructive pulmonary disease) Status: Chronic Supervisory-Addendum Brief Verification & Attestation Participated in pt care: history, MDM, physical Personally performed: exam, history, MDM, supervision of care Care discussed with: Medical Student Procedures: n/a Results interpretation: Verified all documentation Verification and Attestation of Medical Student E/M Service A medical student performed and documented this service in my presence. I reviewed and verified all information documented by the medical student and made modifications to such information, when appropriate. I personally performed the physical exam and medical decision making. Belem Boyer, Nov 24, 2020,06:26 TAPAN HUDSON STUD Nov 23, 2020 11:30 BELEM BOYER DO Nov 24, 2020 06:26
--- NOTE | 2020-11-23 11:34 | Progress Note ---
Standard Progress Note Progress Notes/Assess & Plan Date Seen by a Provider: Nov 23, 2020 Time Seen by a Provider: 11:32 Progress/Assessment & Plan feeling better Vital Signs Date Time Temp Pulse Resp B/P (MAP) Pulse Ox O2 Delivery O2 Flow Rate FiO2 11/23/20 10:48 95 Nasal Cannula 11/23/20 09:19 97 Nasal Cannula 2.00 11/23/20 08:00 Room Air 2.00 11/23/20 05:29 98 Nasal Cannula 2.00 11/23/20 04:07 36.4 90 20 139/83 (101) 94 Nasal Cannula 2.00 11/23/20 03:10 36.2 20 168/98 (121) 94 Nasal Cannula 2 11/23/20 03:10 Nasal Cannula 2 11/23/20 03:10 94 Nasal Cannula 2.00 11/23/20 03:00 18 173/101 (125) 95 Nasal Cannula 2 11/23/20 02:58 Nasal Cannula 2 11/23/20 02:50 Nasal Cannula 3 11/23/20 02:50 18 167/88 (114) 95 Nasal Cannula 2 11/23/20 02:40 18 176/82 (113) 96 OxyMask 6 11/23/20 02:38 OxyMask 3 11/23/20 02:30 20 188/83 (118) 100 OxyMask 3 11/23/20 02:25 OxyMask 6 11/23/20 02:20 100 OxyMask 6.00 11/23/20 02:20 20 183/105 (131) 99 OxyMask 6 11/23/20 02:10 20 172/109 (130) 100 OxyMask 6 11/23/20 02:10 OxyMask 6 11/23/20 02:07 20 188/95 (126) 100 OxyMask 6 11/23/20 01:58 36.4 21 201/104 (136) 100 OxyMask 6 11/23/20 01:58 OxyMask 6 11/23/20 00:34 36.0 67 16 120/82 (87) 99 Room Air 11/22/20 22:05 90 20 101/80 (87) 96 Room Air 11/22/20 22:05 36.0 90 20 101/80 (87) 96 Room Air I & O 11/23/20 06:59 Intake Total 2400 ml Balance 2400 ml Laboratory Tests Test 11/22/20 22:12 11/23/20 06:45 Range/Units White Blood Count 7.2 10.4 4.3-11.0 10^3/uL Red Blood Count 3.45 L 3.08 L 3.80-5.11 10^6/uL Hemoglobin 10.3 L 9.4 L 11.5-16.0 g/dL Hematocrit 33 L 30 L 35-52 % Mean Corpuscular Volume 97 96 80-99 fL Mean Corpuscular Hemoglobin 30 31 25-34 pg Mean Corpuscular Hemoglobin Concent 31 L 32 32-36 g/dL Red Cell Distribution Width 13.3 13.4 10.0-14.5 % Platelet Count 250 223 130-400 10^3/uL Mean Platelet Volume 10.2 10.4 9.0-12.2 fL Immature Granulocyte % (Auto) 1 1 % Neutrophils (%) (Auto) 63 92 H 42-75 % Lymphocytes (%) (Auto) 27 6 L 12-44 % Monocytes (%) (Auto) 7 1 0-12 % Eosinophils (%) (Auto) 2 0 0-10 % Basophils (%) (Auto) 0 0 0-10 % Neutrophils # (Auto) 4.5 9.6 H 1.8-7.8 10^3/uL Lymphocytes # (Auto) 1.9 0.6 L 1.0-4.0 10^3/uL Monocytes # (Auto) 0.5 0.2 0.0-1.0 10^3/uL Eosinophils # (Auto) 0.2 0.0 0.0-0.3 10^3/uL Basophils # (Auto) 0.0 0.0 0.0-0.1 10^3/uL Immature Granulocyte # (Auto) 0.0 0.1 0.0-0.1 10^3/uL Sodium Level 141 138 135-145 MMOL/L Potassium Level 3.6 3.8 3.6-5.0 MMOL/L Chloride Level 105 106 98-107 MMOL/L Carbon Dioxide Level 23 21 21-32 MMOL/L Anion Gap 13 11 5-14 MMOL/L Blood Urea Nitrogen 17 15 7-18 MG/DL Creatinine 0.80 0.73 0.60-1.30 MG/DL Estimat Glomerular Filtration Rate > 60 > 60 BUN/Creatinine Ratio 21 21 Glucose Level 126 H 225 H 70-105 MG/DL Calcium Level 8.7 8.3 L 8.5-10.1 MG/DL Corrected Calcium 9.0 8.8 8.5-10.1 MG/DL Total Bilirubin 0.6 0.5 0.1-1.0 MG/DL Aspartate Amino Transf (AST/SGOT) 12 21 5-34 U/L Alanine Aminotransferase (ALT/SGPT) 21 28 0-55 U/L Alkaline Phosphatase 72 75 40-136 U/L Total Protein 6.6 6.1 L 6.4-8.2 GM/DL Albumin 3.6 3.4 3.2-4.5 GM/DL Neutrophils % (Manual) 94 % Lymphocytes % (Manual) 6 % Polychromasia SLIGHT LLE--in brace intact DF and PF of toes and ankle sensation intact throughout s/p wound closure LLE continue abx WBAT with brace at ALL TIMES no bending of knee plan for DC Monday if doing well ADY KEARNEY MD Nov 23, 2020 11:34
[2020-11-23] MEDS: inSUlin ASPART (NovoLOG) 1 UNIT/0.01 ML (CHARGE PER UNIT) SC SCH ×3 (11:51→21:35)
[2020-11-23] MEDS: ALPRAZolam 0.5 MG (XANAX) TAB PO PRN ×2 (13:34→22:44)
--- NOTE | 2020-11-23 14:13 | Occupational Therapy Eval ---
OT Evaluation-General/PLF Medical Diagnosis Admission Date 11-22-20 Medical Diagnosis: Fall with Torn [place]/dehscence of left knee Onset Date: Nov 22, 2020 Therapy Diagnosis Therapy Diagnosis: Decreased ADL skills Precautions Precautions/Isolations: Fall Prevention, Standard Precautions Weight Bear Status Weight Bearing Restriction: Weight Bearing/Tolerated Knee brace on at all times. Referral Physician: Dr. Herring Referral Reason: Activity Tolerance, Self Care, Evaluation/Treatment, Strengthening/ROM Medical History Pertinent Medical History: Breast CA S/P Mastectomy, COPD, HTN Additional Medical History Diverticulosis, bilateral mastectomy Current History Pt. had left knee replaced on 11-18-20. She went back home and fell on 11-22-20. Pt. had dehiscence of left knee, with torn tatianna. Pt. 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 Pt is WBAT with knee brace on at all times. Reviewed History: Yes Social History Home: Apartment Current Living Status: Alone Entry Into Home: Elevator ADL-Prior Level of Function SCALE: Activities may be completed with or without assistive devices. 2-Wrdngzjsnl-wvepalo completes the activity by him/herself with no assistance from a helper. 5-Set-up or Clean-up Assistance-helper sets up or cleans up; patient completes activity. [place] assists only prior to or following the activity. 4-Supervision or Touching Assistance-helper provides verbal cues and/or t ouching/steadying and/or contact guard assistance as patient completes activity. Assistance may be provided throughout the activity or intermittently. 3-Partial/Moderate Assistance-helper does LESS THAN HALF the effort. [place] lifts, holds or supports trunk or limbs, but provides less than half the effort. 2-Substantial/Maximal Assistance-helper does MORE THAN HALF the effort. [place] lifts or holds trunk or limbs and provides more than half the effort. 1-Dewcrlfwb-rcqhun does ALL the effort. Patient does none of the effort to complete the activity. Or, the assistance of 2 or more helpers is required for the patient to complete the activity. If activity was not attempted, code reason: 7-Patient Refused. 9-Not Applicable-not attempted and the patient did not perform the activity before the current illness, exacerbation or injury. 10-Not Attempted due to Environmental Limitations-(lack of equipment, weather restraints, etc.). 88-Not Attempted due to Medical Conditions or Safety Concerns. ADL PLOF Comments Pt. reports that after she went home, she was unable to care for self, other than toileting. However, she reports she had difficulty standing from her toilet and needs a BSC. She states that she was supposed to have therapy/home health start today. She has a friend, who was in room, who assisted her as needed. However, pt's friend requested to speak with this therapist alone. She reports that pt. is not in functional situation at home, and that she herself will be unable to care for her. She reports that pt's entrance from building, to elevator, is quite far. This information was reported to nursing. Pt. herself states that she will be unable to ambulate from door to elevator, (she lives in the [facility]), with the 2 wheeled walker that she has. Pt. reports that she really would like a 4 wheeled walker. OT explains that this may be unsafe without proper training. Pt. verbalizes understanding. Previous to original knee replacement, pt. able to bathe/dress self. Self Care: Needed Some Help Functional Cognition: Independent DME/Equipment Comments Pt. has a [address] Self: No OT Current Status Subjective Pt. reports pain in left knee but does not state pain level. Pt. has pain medication pump. Appearance Pt. up in chair. Reluctant to work with OT at first, but does request to go back to bed. Mental Status/Objective Patient Orientation: Person, Place, Time, Situation Attachments: IV Current Upper Extremity ROM WFL ADL-Treatment Eating (QC): 4 On/Off Footwear (QC): 2 Other Treatments Pt. stands from chair with max assist using walker. Pt. is able to transfer to bed by taking small steps. Max assist needed for sit-supine. All needs met in room. 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 2=Patient will verbalize/demonstrate understanding of assistive devices/modifications for ADL. 3=Patient will improve strength/tolerance for activity to enable patient to perform ADL's. OT Education/Plan Problem List/Assessment Assessment: Decreased Activ Tolerance, Dependent Transfers, Impaired Bed Mobility, Impaired Funct Balance, Impaired I ADL's, Impaired Self-Care Skills Discharge Recommendations Plan/Recommendations: Continue POC Therapy Discharge Recommendati: Post Acute OT Equpiment Recommendations-D/C: Bath Chair, Bedside Commode, Hip Kit Treatment Plan/Plan of Care Treatment,Training & Education: Yes Patient would benefit from OT for education, treatment and training to promote independence in ADL's, mobility, safety and/or upper extremity function for ADL's. Plan of Care: ADL Retraining, Functional Mobility, UE Funct Exercise/Act Treatment Duration: Dec 14, 2020 Frequency: 5 times per week Estimated Hrs Per Day: .25 hour per day Agreement: Yes Rehab Potential: Fair Time/GCodes Start Time: 11:45 Stop Time: 12:05 Total Time Billed (hr/min): 20 Billed Treatment Time 1, LILIAN ULLOA OT Nov 23, 2020 14:13
--- NOTE | 2020-11-23 14:42 | Physical Therapy Daily Note ---
PT Daily Note-Current Subjective Patient was supine in bed pre tx. Patient has unrated pain in L knee, but notes it was lower than it had been the previous morning. Patient consented to PT. Appearance Patient was left seated in chair, with tray nearby and call button within reach. Mental Status Patient Orientation: Normal For Age Attachments: Oxygen, IV Transfers SCALE: Activities may be completed with or without assistive devices. 4-Bdsvneiwvm-kdxacyw completes the activity by him/herself with no assistance from a helper. 5-Set-up or Clean-up Assistance-helper sets up or cleans up; patient completes activity. [place] assists only prior to or following the activity. 4-Supervision or Touching Assistance-helper provides verbal cues and/or touching/steadying and/or contact guard assistance as patient completes activity. Assistance may be provided throughout the activity or intermittently. 3-Partial/Moderate Assistance-helper does LESS THAN HALF the effort. [place] lifts, holds or supports trunk or limbs, but provides less than half the effort. 2-Substantial/Maximal Assistance-helper does MORE THAN HALF the effort. [place] lifts or holds trunk or limbs and provides more than half the effort. 3-Iqrptwpkb-iywtnu does ALL the effort. Patient does none of the effort to complete the activity. Or, the assistance of 2 or more helpers is required for the patient to complete the activity. If activity was not attempted, code reason: 7-Patient Refused. 9-Not Applicable-not attempted and the patient did not perform the activity before the current illness, exacerbation or injury. 10-Not Attempted due to Environmental Limitations-(lack of equipment, weather restraints, etc.). 88-Not Attempted due to Medical Conditions or Safety Concerns. Roll Left & Right (QC): 4 Sit to Lying (QC): 4 Lying to Sitting/Side of Bed(Q: 4 Sit to Stand (QC): 3 CGA x1 utilized with supine <> sit. Mod Ax1 and CGA x1 utilized with sit <> stand, and patient had to utilize forward momentum to accomplish sit <> stand transfer. Weight Bearing Right Lower Extremity: Right Full Weight Bearing Left Lower Extremity: Left Weight Bearing/Tolerated L Knee Immobilizer Gait Training Does the Patient Walk?: Yes Distance: 5' Gait Persons Needed: 1 Gait Assistive Device: FWW Patient is hesitant to bear weight on L LE. Patient is able to ambulate a few steps, but begins to panic with turns. Balance Picking up an Object (QC): 88 Exercises Supine Ex: Straight leg raise (L 5 reps, max assistance required) Seated Therapy Exercises: Ankle pumps (Bilateral ), Long arc quads (R leg only) Seated Reps: 10 Treatments LE strengthening Assessment Current Status: Fair Progress Patient will benefit from PT to improve functional mobility and strength for optimal safety ADL's. PT Senior Living Goals Senior Living Goals PT Senior Living Goals Time Frame: Dec 05, 2020 Roll Left & Right (QC): 5 Sit to Lying (QC): 5 Lying-Sitting on Side/Bed(QC): 5 Sit to Stand (QC): 5 Chair/Cyl-ri-Wpyre Xfer(QC): 5 Toilet Transfer (QC): 5 Car Transfer (QC): 5 Does the Patient Walk: Yes Walk 10 feet (QC): 5 Walk 50ft with 2 Turns (QC): 5 Walk 150 ft (QC): 5 Walking 10ft on Uneven Surface: 5 Does the Pt use WC or Scooter?: No PT Plan Problem List Problem List: Activity Tolerance, Functional Strength, Safety, Balance, Gait, Transfer, Bed Mobility, ROM Treatment/Plan Treatment Plan: Continue Plan of Care Treatment Plan: Bed Mobility, Education, Functional Activity Wanda, Functional Strength, Gait, Safety, Therapeutic Exercise, Transfers Treatment Duration: Dec 05, 2020 Frequency: 11 times per week Estimated Hrs Per Day: .5 hour per day Patient and/or Family Agrees t: Yes Safety Risks/Education Safety Risk Comments: Instructed patient to avoid getting out of bed/chair on her own. Time/GCodes Time In: 1415 Time Out: 1432 Total Billed Treatment Time: 17 Total Billed Treatment 1 visit: FA: 17' HEIDI DAY PT Nov 23, 2020 14:42
[2020-11-24] VITALS (7 sets, daily range): BP systolic 131–170; BP diastolic 68–95
[2020-11-24] MEDS: oxyCODONE/APAP 5/325MG (PERCOCET 5) TABLET PO PRN ×4 (03:18→20:55)
[2020-11-24] MEDS: NS IV 1000 ML 1,000 ML IV SCH ×2 (05:13→16:50)
[2020-11-24] MEDS: ENOXAPARIN 60 MG/0.6 ML (LOVENOX) SYR SC SCH ×2 (05:14→17:42)
[2020-11-24] MEDS: inSUlin ASPART (NovoLOG) 1 UNIT/0.01 ML (CHARGE PER UNIT) SC SCH ×4 (05:20→20:56)
[2020-11-24 06:30] LABS: BASOPHILS % (AUTO) 0 % (0-10); EOSINOPHILS % (AUTO) 0 % (0-10); HEMATOCRIT 27 % (35-52); HEMOGLOBIN 8.2 g/dL (11.5-16.0); LYMPHOCYTES # (AUTO) 1.6 10^3/uL (1.0-4.0); LYMPHOCYTES % (AUTO) 14 % (12-44); MEAN CORPUSCULAR HEMOGLOBIN 30 pg (25-34); MEAN CORPUSCULAR HGB CONC 31 g/dL (32-36); MEAN CORPUSCULAR VOLUME 97 fL (80-99); MEAN PLATELET VOLUME 10.9 fL (9.0-12.2); MONOCYTES # (AUTO) 0.8 10^3/uL (0.0-1.0); MONOCYTES % (AUTO) 7 % (0-12); NEUTROPHILS # (AUTO) 9.1 10^3/uL (1.8-7.8); NEUTROPHILS % (AUTO) 78 % (42-75); PLATELET COUNT 247 10^3/uL (130-400); WHITE BLOOD COUNT 11.6 10^3/uL (4.3-11.0)
[2020-11-24 06:53] LABS: ALBUMIN 3.3 GM/DL (3.2-4.5); CHLORIDE 107 MMOL/L (98-107); POTASSIUM 4.1 MMOL/L (3.6-5.0); SODIUM 140 MMOL/L (135-145)
[2020-11-24 06:54] LABS: CALCIUM 8.7 MG/DL (8.5-10.1)
[2020-11-24 06:55] LABS: GLUCOSE 124 MG/DL (70-105); TOTAL PROTEIN 5.9 GM/DL (6.4-8.2)
[2020-11-24] MEDS: MULTIVIT W/MINERALS TAB (THERAGRAN M) PO SCH (06:55)
[2020-11-24 06:56] LABS: CARBON DIOXIDE 23 MMOL/L (21-32)
[2020-11-24 06:57] LABS: BILIRUBIN,TOTAL 0.4 MG/DL (0.1-1.0)
[2020-11-24 06:59] LABS: ALKALINE PHOSPHATASE 60 U/L (40-136); CREATININE SERUM 0.73 MG/DL (0.60-1.30); GFR ESTIMATED > 60
[2020-11-24 07:00] LABS: BUN/CREATININE RATIO 25
[2020-11-24 07:02] LABS: ALANINE AMINOTRANSFERASE 21 U/L (0-55)
--- NOTE | 2020-11-24 08:16 | Anesthesia-General Post-Op ---
General Patient Condition Mental Status/LOC: Same as Preop Cardiovascular: Satisfactory Nausea/Vomiting: Absent Respiratory: Satisfactory Pain: Controlled Complications: Absent Post Op Complications Complications None Follow Up Care/Instructions Patient Instructions None needed. Anesthesia/Patient Condition Patient Condition Patient is doing well, no complaints, stable vital signs, no apparent adverse anesthesia problems. No complications reported per nursing. ANTONY URIBE CRNA Nov 24, 2020 08:16
[2020-11-24] MEDS: SENNA W/DOCUSATE (SENOKOT S) TABLET PO SCH ×2 (08:50→20:55)
[2020-11-24] MEDS: amLODIPine 5 MG (NORVASC) TAB PO SCH (08:50)
[2020-11-24] MEDS: ASPIRIN E.C. 81 MG (ECOTRIN) TAB PO SCH (08:50)
[2020-11-24] MEDS: ALPRAZolam 0.5 MG (XANAX) TAB PO PRN ×2 (08:54→20:56)
[2020-11-24] MEDS: CALCIUM CARBONATE 500 MG (TUMS) TAB.CHEW PO PRN ×2 (09:17→13:27)
[2020-11-24] MEDS ORDERED: polyethylene glycoL POWDER 17 GM (MIRALAX) PACK PO NR (10:15)
[2020-11-24] MEDS ORDERED: PANTOPRAZOLE 40 MG (PROTONIX) TAB PO NR (10:15)
[2020-11-24] MEDS ORDERED: LACTULOSE SYRUP 10GM/15ML (ENULOSE) 30ML UDC PO NR (10:15)
--- NOTE | 2020-11-24 10:28 | Physical Therapy Daily Note ---
PT Daily Note-Current Subjective Patient supine in bed pre tx. Patient reported unrated abdominal pain, but noted her L knee pain was lower this morning. Patient consented to PT. Appearance Patient left seated in chair post tx. Call button and tray were placed within reach. Mental Status Patient Orientation: Normal For Age Attachments: Knee Immobilizer, Oxygen, IV Transfers SCALE: Activities may be completed with or without assistive devices. 5-Zlgdljkpsc-cujzibw completes the activity by him/herself with no assistance from a helper. 5-Set-up or Clean-up Assistance-helper sets up or cleans up; patient completes activity. [place] assists only prior to or following the activity. 4-Supervision or Touching Assistance-helper provides verbal cues and/or touching/steadying and/or contact guard assistance as patient completes activity. Assistance may be provided throughout the activity or intermittently. 3-Partial/Moderate Assistance-helper does LESS THAN HALF the effort. [place] lifts, holds or supports trunk or limbs, but provides less than half the effort. 2-Substantial/Maximal Assistance-helper does MORE THAN HALF the effort. [place] lifts or holds trunk or limbs and provides more than half the effort. 3-Xmpkogfke-ixqpld does ALL the effort. Patient does none of the effort to complete the activity. Or, the assistance of 2 or more helpers is required for the patient to complete the activity. If activity was not attempted, code reason: 7-Patient Refused. 9-Not Applicable-not attempted and the patient did not perform the activity before the current illness, exacerbation or injury. 10-Not Attempted due to Environmental Limitations-(lack of equipment, weather restraints, etc.). 88-Not Attempted due to Medical Conditions or Safety Concerns. Roll Left & Right (QC): 3 Sit to Lying (QC): 3 Lying to Sitting/Side of Bed(Q: 3 Sit to Stand (QC): 3 Chair/Oar-kc-Pwvmc Xfer(QC): 3 Toilet Transfer (QC): 3 (Patient requires assistance to cleanse after toileting due to obesity. ) Weight Bearing Right Lower Extremity: Right Full Weight Bearing Left Lower Extremity: Left Weight Bearing/Tolerated L Knee Immobilizer Gait Training Does the Patient Walk?: Yes Distance: 12' x2 Walk 10 feet (QC): 4 Gait Assistive Device: FWW CGA x1. Knee immobilizer in place with step to gait sequence. Balance Picking up an Object (QC): 88 Assessment Current Status: Fair Progress Patient requires increased time to complete all tasks. She appears to self- limit. Continue to address functional strength, mobility, and endurance as patient allows. PT Fci Goals Fci Goals PT [facility]ci Goals Time Frame: Dec 05, 2020 Roll Left & Right (QC): 5 Sit to Lying (QC): 5 Lying-Sitting on Side/Bed(QC): 5 Sit to Stand (QC): 5 Chair/Fut-rs-Ylkzc Xfer(QC): 5 Toilet Transfer (QC): 5 Car Transfer (QC): 5 Does the Patient Walk: Yes Walk 10 feet (QC): 5 Walk 50ft with 2 Turns (QC): 5 Walk 150 ft (QC): 5 Walking 10ft on Uneven Surface: 5 Does the Pt use WC or Scooter?: No PT Plan Problem List Problem List: Activity Tolerance, Functional Strength, Safety, Gait, Bed Mobility, ROM Treatment/Plan Treatment Plan: Continue Plan of Care Treatment Plan: Bed Mobility, Education, Functional Activity Wanda, Functional Strength, Gait, Safety, Therapeutic Exercise, Transfers Treatment Duration: Dec 05, 2020 Frequency: 11 times per week Estimated Hrs Per Day: .5 hour per day Patient and/or Family Agrees t: Yes Time/GCodes Time In: 911 Time Out: 935 Total Billed Treatment Time: 24 Total Billed Treatment 1 visit: FA x2: 24' HEIDI DAY PT Nov 24, 2020 10:28
--- NOTE | 2020-11-24 11:11 | Progress Note - Hospitalist ---
[facility] 11/24/20 1111: Subjective HPI/CC On Admission Date Seen by Provider: Nov 24, 2020 Time Seen by Provider: 09:15 CC: Fall with left knee wound from replacement dehiscence HPI: This is a 60yoWF with a PMH of COPC, anxiety, and ROSALIA who had just had her left knee replaced by Dr. Herring and suffered a fall in her home and was found to have complete wound dehiscence. Dr. Herring completed the repair and currently, she is having a lot of pain and doesn't really want to work with PT, she meets criteria for inpatient rehab, will remain on Lovenox and treat elevated BP with Norvasc 5 Mg daily, and will check Hgb A1C and start a sliding scale with Acucheck AC and HS. Subjective/Events-last exam Jacque is alert and oriented sitting up in bed. No acute events overnight. She immediately states she is not ready to move today and would like one more day. Her breathing is improved. Pain is controlled. She is having difficulty with bowel movements. Urinating without issue. She is using her IS. Tolerating diet. Denies the feeling of F/C, N/V, chest pain and knee pain at this time. She has a slight cough and minimal abdominal tenderness. Review of Systems General: Fatigue Pulmonary: Cough; No Pleuritic Chest Pain Cardiovascular: No: Chest Pain, Palpitations Gastrointestinal: Abdominal Pain (minimal ); No: Nausea, Vomiting Objective Exam Vital Signs Vital Signs Date Time Temp Pulse Resp B/P (MAP) Pulse Ox O2 Delivery O2 Flow Rate FiO2 11/24/20 08:00 35.8 82 20 144/95 (111) 98 Nasal Cannula 2.00 Capillary Refill : Less Than 3 Seconds General Appearance: No Apparent Distress, Obese Neck: Non Tender, Supple Respiratory: Chest Non Tender, No Accessory Muscle Use, No Respiratory Distress, Wheezing (BL, slightly improved from previous day) Cardiovascular: Regular Rate, Rhythm, Normal Peripheral Pulses Gastrointestinal: Non Tender, Distended; No Guarding Extremity: No Calf Tenderness, Pedal Edema (minimal BL) Neurologic/Psychiatric: Alert, Oriented x3 Results/Procedures Lab Laboratory Tests 11/24/20 05:29 Patient resulted labs reviewed. Assessment/Plan Assessment and Plan Assess & Plan/Chief Complaint 1. Left knee wound dehiscence - 2/2 to fall - recent knee surgery - will follow ortho recs 2. HTN - monitor 3. Anemia - monitor 4. COPD - non oxygen dependent - follows with Dr. Yoo 5. Anxiety - controlled 6. sleap apnea - wears CPAP at home - Follows with Dr. Yoo pulmonary at [facility] 7. Hx of breast cancer - per patient she no longer has to follow up Plan 11/23 - continue abx per Ortho recommendation - monitor labs, will check A1C and consider checking TSH and Free T4 - continue respiratory therapy, will review med rec - O2 evaluation - PT/OT - monitor vitals, will consider starting BP meds. - Ortho note reviewed Plan 11/24 - will review ortho note, abx have timed out - will continue to monitor labs, A1C was 5.4. TSH pending - Continue respiratory therapy - increased bowel regimen. Added lactulose and PEG - Started on PPI - BP controlled, started on 5mg of Norvasc - Sliding scale for sugars - Considering rehab unit today to tomorrow . BELEM BOYER DO 11/25/20 0553: Subjective Subjective/Events-last exam Pt is breathing better IS used Inpatient rehab submitted to insurance Overall appears to be doing much better Will initiate Miralax and Lactulose Attempted to overturn the denial of IRF of insurance with Dr Gage in doc-to-doc but he upholds the decision and approves skilled and not IRF Review of Systems General: Fatigue Musculoskeletal: leg pain Objective Exam General Appearance: No Apparent Distress, WD/WN, Chronically ill, Obese Respiratory: Lungs Clear Cardiovascular: Regular Rate, Rhythm Neurologic/Psychiatric: Alert, Oriented x3, No Motor/Sensory Deficits, Normal Mood/Affect Assessment/Plan Assessment and Plan Assess & Plan/Chief Complaint Swing bed at [facility] will be attempted since insurance denied IRF after yqht-bx-nfsa call with Dr Gage Supervisory-Addendum Brief Verification & Attestation Participated in pt care: history, MDM, physical Personally performed: exam, history, MDM, supervision of care Care discussed with: Medical Student Procedures: n/a Results interpretation: Verified all documentation Verification and Attestation of Medical Student E/M Service A medical student performed and documented this service in my presence. I reviewed and verified all information documented by the medical student and made modifications to such information, when appropriate. I personally performed the physical exam and medical decision making. Belem Boyer, Nov 25, 2020,05:51 [facility] Nov 24, 2020 11:11 BELEM BOYER DO Nov 25, 2020 05:53
[2020-11-24] MEDS ORDERED: ATOR20TA66 PO (12:21)
[2020-11-24] MEDS ORDERED: AMLO-250 PO (12:21)
[2020-11-24] MEDS ORDERED: MELA5TAB14 PO (12:22)
[2020-11-24] MEDS: ONDANSETRON 4 MG/2 ML (SDV) Z0FRAN IVP PRN (13:42)
--- NOTE | 2020-11-24 14:17 | Occ Therapy Progress Note ---
Therapy Progress Note OT/PT attempted co-treatment with pt. due to fatigue and reported nausea. Pt. in bed. OT/PT offer to assist pt. to bathroom, up to chair, up to side of bed, or even with UE/LE exercises for continued strengthening. Pt. very adamant that she is not going to work today, as she is ill, has vomited twice, and has been up already. Pt. verbalizes that she knows that she is coming to IRU tomorrow, and that she will "do it then." Pt. has had nausea medication and pain medication. All needs met in bed. No treatment. 1, visit [id number] No charge LILIAN PACK OT Nov 24, 2020 14:17
--- NOTE | 2020-11-24 14:19 | Physical Therapy Progress Note ---
Therapy Progress Note PT/OT attempted to co-treat, secondary to continued decreased strength and functional mobility. Patient subjective complaints of severe nausea, and denied PT/OT intervention, even when offered to aid in going to bathroom, sitting in chair, or sitting EOB for exercise. Educated the patient on the importance of getting out of bed to prevent DVTs and pneumonia. Patient became emotional and continued to refuse intervention. Informed patient she would be d/c to inpatient rehab the next day, where she would receive therapy for 180 minutes, which she reported understanding. 1 visit: 1400 - 1405 No charge HEIDI DAY PT Nov 24, 2020 14:18
--- NOTE | 2020-11-24 16:21 | Progress Note ---
Standard Progress Note Progress Notes/Assess & Plan Date Seen by a Provider: Nov 24, 2020 Time Seen by a Provider: 16:20 Progress/Assessment & Plan feeling better Vital Signs Date Time Temp Pulse Resp B/P (MAP) Pulse Ox O2 Delivery O2 Flow Rate FiO2 11/23/20 10:48 95 Nasal Cannula 11/23/20 09:19 97 Nasal Cannula 2.00 11/23/20 08:00 Room Air 2.00 11/23/20 05:29 98 Nasal Cannula 2.00 11/23/20 04:07 36.4 90 20 139/83 (101) 94 Nasal Cannula 2.00 11/23/20 03:10 36.2 20 168/98 (121) 94 Nasal Cannula 2 11/23/20 03:10 Nasal Cannula 2 11/23/20 03:10 94 Nasal Cannula 2.00 11/23/20 03:00 18 173/101 (125) 95 Nasal Cannula 2 11/23/20 02:58 Nasal Cannula 2 11/23/20 02:50 Nasal Cannula 3 11/23/20 02:50 18 167/88 (114) 95 Nasal Cannula 2 11/23/20 02:40 18 176/82 (113) 96 OxyMask 6 11/23/20 02:38 OxyMask 3 11/23/20 02:30 20 188/83 (118) 100 OxyMask 3 11/23/20 02:25 OxyMask 6 11/23/20 02:20 100 OxyMask 6.00 11/23/20 02:20 20 183/105 (131) 99 OxyMask 6 11/23/20 02:10 20 172/109 (130) 100 OxyMask 6 11/23/20 02:10 OxyMask 6 11/23/20 02:07 20 188/95 (126) 100 OxyMask 6 11/23/20 01:58 36.4 21 201/104 (136) 100 OxyMask 6 11/23/20 01:58 OxyMask 6 11/23/20 00:34 36.0 67 16 120/82 (87) 99 Room Air 11/22/20 22:05 90 20 101/80 (87) 96 Room Air 11/22/20 22:05 36.0 90 20 101/80 (87) 96 Room Air I & O 11/23/20 06:59 Intake Total 2400 ml Balance 2400 ml Laboratory Tests Test 11/22/20 22:12 11/23/20 06:45 Range/Units White Blood Count 7.2 10.4 4.3-11.0 10^3/uL Red Blood Count 3.45 L 3.08 L 3.80-5.11 10^6/uL Hemoglobin 10.3 L 9.4 L 11.5-16.0 g/dL Hematocrit 33 L 30 L 35-52 % Mean Corpuscular Volume 97 96 80-99 fL Mean Corpuscular Hemoglobin 30 31 25-34 pg Mean Corpuscular Hemoglobin Concent 31 L 32 32-36 g/dL Red Cell Distribution Width 13.3 13.4 10.0-14.5 % Platelet Count 250 223 130-400 10^3/uL Mean Platelet Volume 10.2 10.4 9.0-12.2 fL Immature Granulocyte % (Auto) 1 1 % Neutrophils (%) (Auto) 63 92 H 42-75 % Lymphocytes (%) (Auto) 27 6 L 12-44 % Monocytes (%) (Auto) 7 1 0-12 % Eosinophils (%) (Auto) 2 0 0-10 % Basophils (%) (Auto) 0 0 0-10 % Neutrophils # (Auto) 4.5 9.6 H 1.8-7.8 10^3/uL Lymphocytes # (Auto) 1.9 0.6 L 1.0-4.0 10^3/uL Monocytes # (Auto) 0.5 0.2 0.0-1.0 10^3/uL Eosinophils # (Auto) 0.2 0.0 0.0-0.3 10^3/uL Basophils # (Auto) 0.0 0.0 0.0-0.1 10^3/uL Immature Granulocyte # (Auto) 0.0 0.1 0.0-0.1 10^3/uL Sodium Level 141 138 135-145 MMOL/L Potassium Level 3.6 3.8 3.6-5.0 MMOL/L Chloride Level 105 106 98-107 MMOL/L Carbon Dioxide Level 23 21 21-32 MMOL/L Anion Gap 13 11 5-14 MMOL/L Blood Urea Nitrogen 17 15 7-18 MG/DL Creatinine 0.80 0.73 0.60-1.30 MG/DL Estimat Glomerular Filtration Rate > 60 > 60 BUN/Creatinine Ratio Glucose Level 126 H 225 H 70-105 MG/DL Calcium Level 8.7 8.3 L 8.5-10.1 MG/DL Corrected Calcium 9.0 8.8 8.5-10.1 MG/DL Total Bilirubin 0.6 0.5 0.1-1.0 MG/DL Aspartate Amino Transf (AST/SGOT) 12 21 5-34 U/L Alanine Aminotransferase (ALT/SGPT) 21 28 0-55 U/L Alkaline Phosphatase 72 75 40-136 U/L Total Protein 6.6 6.1 L 6.4-8.2 GM/DL Albumin 3.6 3.4 3.2-4.5 GM/DL Neutrophils % (Manual) 94 % Lymphocytes % (Manual) 6 % Polychromasia SLIGHT LLE--in brace intact DF and PF of toes and ankle sensation intact throughout s/p wound closure LLE continue abx WBAT with brace at ALL TIMES no bending of knee plan for DC Monday if doing well Final Diagnosis patient concerned about going home tomorrow, but refused PT today Vital Signs Date Time Temp Pulse Resp B/P (MAP) Pulse Ox O2 Delivery O2 Flow Rate FiO2 11/24/20 12:00 36.0 86 20 170/92 (118) 97 Nasal Cannula 2.00 11/24/20 08:00 35.8 82 20 144/95 (111) 98 Nasal Cannula 2.00 11/24/20 08:00 98 Nasal Cannula 2.00 11/24/20 04:00 35.7 86 22 142/83 (102) 98 Nasal Cannula 2.00 11/24/20 00:00 36.0 82 22 141/80 (100) 94 Nasal Cannula 2.00 11/23/20 22:33 98 Nasal Cannula 11/23/20 20:00 Room Air 2.00 11/23/20 19:30 36.4 79 22 128/60 (82) 93 Nasal Cannula 2.00 I & O 11/24/20 07:00 Intake Total 4190 ml Balance 4190 ml Laboratory Tests Test 11/23/20 21:34 11/24/20 05:19 11/24/20 05:29 11/24/20 11:01 Range/Units Glucometer 148 H 126 H 127 H 70-110 MG/DL White Blood Count 11.6 H 4.3-11.0 10^3/uL Red Blood Count 2.73 L 3.80-5.11 10^6/uL Hemoglobin 8.2 L 11.5-16.0 g/dL Hematocrit 27 L 35-52 % Mean Corpuscular Volume 97 80-99 fL Mean Corpuscular Hemoglobin 30 25-34 pg Mean Corpuscular Hemoglobin Concent 31 L 32-36 g/dL Red Cell Distribution Width 13.7 10.0-14.5 % Platelet Count 247 130-400 10^3/uL Mean Platelet Volume 10.9 9.0-12.2 fL Immature Granulocyte % (Auto) 1 % Neutrophils (%) (Auto) 78 H 42-75 % Lymphocytes (%) (Auto) 14 12-44 % Monocytes (%) (Auto) 7 0-12 % Eosinophils (%) (Auto) 0 0-10 % Basophils (%) (Auto) 0 0-10 % Neutrophils # (Auto) 9.1 H 1.8-7.8 10^3/uL Lymphocytes # (Auto) 1.6 1.0-4.0 10^3/uL Monocytes # (Auto) 0.8 0.0-1.0 10^3/uL Eosinophils # (Auto) 0.0 0.0-0.3 10^3/uL Basophils # (Auto) 0.0 0.0-0.1 10^3/uL Immature Granulocyte # (Auto) 0.1 0.0-0.1 10^3/uL Sodium Level 140 135-145 MMOL/L Potassium Level 4.1 3.6-5.0 MMOL/L Chloride Level 107 98-107 MMOL/L Carbon Dioxide Level 23 21-32 MMOL/L Anion Gap 10 5-14 MMOL/L Blood Urea Nitrogen 18 7-18 MG/DL Creatinine 0.73 0.60-1.30 MG/DL Estimat Glomerular Filtration Rate > 60 BUN/Creatinine Ratio 25 Glucose Level 124 H 70-105 MG/DL Calcium Level 8.7 8.5-10.1 MG/DL Corrected Calcium 9.3 8.5-10.1 MG/DL Total Bilirubin 0.4 0.1-1.0 MG/DL Aspartate Amino Transf (AST/SGOT) 11 5-34 U/L Alanine Aminotransferase (ALT/SGPT) 21 0-55 U/L Alkaline Phosphatase 60 40-136 U/L Total Protein 5.9 L 6.4-8.2 GM/DL Albumin 3.3 3.2-4.5 GM/DL Thyroid Stimulating Hormone (TSH) 0.33 L 0.35-4.94 UIU/ML Test 11/24/20 15:53 Range/Units Glucometer 97 70-110 MG/DL LLE--dressing intact. NVI distally s/p wound closure L knee WBAT check incision tomorrow with likely DC later tomorrow ADY KEARNEY MD Nov 24, 2020 16:21
[2020-11-24] MEDS: CEFUROXIME INJECTION 750 MG in WATER (STERILE) FOR INJECTION 7.5 ML IV SCH (16:47)
[2020-11-24] MEDS: polyethylene glycoL POWDER 17 GM (MIRALAX) PACK PO SCH (20:56)
[2020-11-24] MEDS: LACTULOSE SYRUP 10GM/15ML (ENULOSE) 30ML UDC PO SCH (20:56)
[2020-11-24] MEDS: RT-ALBUTEROL SULF 2.5 MG/3 ML PRE-MIX VIAL INH PRN (22:50)
[2020-11-25] MEDS: CEFUROXIME INJECTION 750 MG in WATER (STERILE) FOR INJECTION 7.5 ML IV SCH ×4 (00:03→23:42)
[2020-11-25] MEDS: oxyCODONE/APAP 5/325MG (PERCOCET 5) TABLET PO PRN ×5 (02:33→23:43)
[2020-11-25 03:56] VITALS: BP 130/64
[2020-11-25] MEDS: NS IV 1000 ML 1,000 ML IV SCH (04:54)
[2020-11-25 05:35] LABS: BASOPHILS % (AUTO) 1 % (0-10); EOSINOPHILS # (AUTO) 0.2 10^3/uL (0.0-0.3); EOSINOPHILS % (AUTO) 2 % (0-10); HEMATOCRIT 26 % (35-52); HEMOGLOBIN 7.9 g/dL (11.5-16.0); LYMPHOCYTES # (AUTO) 2.3 10^3/uL (1.0-4.0); LYMPHOCYTES % (AUTO) 28 % (12-44); MEAN CORPUSCULAR HEMOGLOBIN 30 pg (25-34); MEAN CORPUSCULAR HGB CONC 30 g/dL (32-36); MEAN CORPUSCULAR VOLUME 100 fL (80-99); MEAN PLATELET VOLUME 10.3 fL (9.0-12.2); MONOCYTES # (AUTO) 0.7 10^3/uL (0.0-1.0); MONOCYTES % (AUTO) 9 % (0-12); NEUTROPHILS # (AUTO) 4.8 10^3/uL (1.8-7.8); NEUTROPHILS % (AUTO) 59 % (42-75); PLATELET COUNT 245 10^3/uL (130-400); WHITE BLOOD COUNT 8.1 10^3/uL (4.3-11.0)
[2020-11-25 05:48] LABS: ALBUMIN 3.2 GM/DL (3.2-4.5); CHLORIDE 106 MMOL/L (98-107); POTASSIUM 4.1 MMOL/L (3.6-5.0); SODIUM 138 MMOL/L (135-145)
[2020-11-25] MEDS: morphine PCA 100 MG/100 ML BAG IV PRN (05:48)
[2020-11-25 05:49] LABS: CALCIUM 8.5 MG/DL (8.5-10.1)
[2020-11-25 05:50] LABS: GLUCOSE 108 MG/DL (70-105); TOTAL PROTEIN 5.6 GM/DL (6.4-8.2)
[2020-11-25 05:51] LABS: CARBON DIOXIDE 22 MMOL/L (21-32)
[2020-11-25 05:52] LABS: BILIRUBIN,TOTAL 0.3 MG/DL (0.1-1.0)
[2020-11-25 05:54] LABS: ALKALINE PHOSPHATASE 53 U/L (40-136); CREATININE SERUM 0.78 MG/DL (0.60-1.30); GFR ESTIMATED > 60
[2020-11-25 05:55] LABS: BUN/CREATININE RATIO 21
[2020-11-25] MEDS: inSUlin ASPART (NovoLOG) 1 UNIT/0.01 ML (CHARGE PER UNIT) SC SCH ×4 (05:55→20:07)
[2020-11-25 05:57] LABS: ALANINE AMINOTRANSFERASE 20 U/L (0-55)
[2020-11-25] MEDS: ALPRAZolam 0.5 MG (XANAX) TAB PO PRN (06:02)
[2020-11-25] MEDS: ENOXAPARIN 60 MG/0.6 ML (LOVENOX) SYR SC SCH ×2 (06:02→18:34)
[2020-11-25] MEDS: MULTIVIT W/MINERALS TAB (THERAGRAN M) PO SCH (06:03)
[2020-11-25] MEDS ORDERED: IRON SUCROSE 200 MG/10 ML (VENOFER) VIAL IV ONE (06:30)
[2020-11-25] MEDS: UMECLIDINIUM BROMIDE (INCRUSE ELLIPTA) 7'S IH SCH (07:01)
[2020-11-25 08:00] VITALS: BP 144/75
[2020-11-25] MEDS: LACTULOSE SYRUP 10GM/15ML (ENULOSE) 30ML UDC PO SCH ×2 (08:20→20:28)
[2020-11-25] MEDS: SENNA W/DOCUSATE (SENOKOT S) TABLET PO SCH ×2 (08:20→20:28)
[2020-11-25] MEDS: PANTOPRAZOLE 40 MG (PROTONIX) TAB PO SCH (08:20)
[2020-11-25] MEDS: ASPIRIN E.C. 81 MG (ECOTRIN) TAB PO SCH (08:20)
[2020-11-25] MEDS: RT-ALBUTEROL SULF 2.5 MG/3 ML PRE-MIX VIAL INH PRN (09:31)
[2020-11-25] MEDS: amLODIPine 5 MG (NORVASC) TAB PO SCH (09:33)
[2020-11-25] MEDS ORDERED: FUROSEMIDE 40 MG/4 ML INJ (LASIX) IVP NR (11:00)
[2020-11-25 11:15] LABS: ABG BASE EXCESS 1.4 MMOL/L (-2.5-2.5); ABG OXYGEN SATURATION 97 % (94-100); ABG PCO2 48 MMHG (35-45); ABG PH 7.36 (7.37-7.43); ABG PO2 89 MMHG (79-93); ABG TCO2 27.9 MMOL/L (21.0-31.0)
[2020-11-25 11:17] LABS: ALLENS TEST YES-POS; INSPIRED O2 2L; PATIENT TEMP 36.5; VENTILATOR NO
[2020-11-25] MEDS: diphenhydrAMINE 50 MG/ML INJ (BENADRYL) IVP PRN (11:21)
--- NOTE | 2020-11-25 11:41 | Diagnostic Imaging Report ---
Portable erect AP chest at 10:57. Indication: Shortness of breath The heart size is at the upper limits of normal but stable when compared to 11/18/2020. The lungs remain generally clear. There still no sign of failure, pneumonia or pleural effusion. The left lung base is partially opacified. This is probably secondary to a prominent epicardial fat pad as the left hemidiaphragm is well preserved. The mediastinum is not widened. The osseous structures are intact. Impression: There is no evidence for active disease. Dictated by: Dictated on workstation # [id number]
--- NOTE | 2020-11-25 11:52 | Progress Note ---
Standard Progress Note Progress Notes/Assess & Plan Date Seen by a Provider: Nov 25, 2020 Time Seen by a Provider: 11:50 Progress/Assessment & Plan feeling better Vital Signs Date Time Temp Pulse Resp B/P (MAP) Pulse Ox O2 Delivery O2 Flow Rate FiO2 11/23/20 10:48 95 Nasal Cannula 11/23/20 09:19 97 Nasal Cannula 2.00 11/23/20 08:00 Room Air 2.00 11/23/20 05:29 98 Nasal Cannula 2.00 11/23/20 04:07 36.4 90 20 139/83 (101) 94 Nasal Cannula 2.00 11/23/20 03:10 36.2 20 168/98 (121) 94 Nasal Cannula 2 11/23/20 03:10 Nasal Cannula 2 11/23/20 03:10 94 Nasal Cannula 2.00 11/23/20 03:00 18 173/101 (125) 95 Nasal Cannula 2 11/23/20 02:58 Nasal Cannula 2 11/23/20 02:50 Nasal Cannula 3 11/23/20 02:50 18 167/88 (114) 95 Nasal Cannula 2 11/23/20 02:40 18 176/82 (113) 96 OxyMask 6 11/23/20 02:38 OxyMask 3 11/23/20 02:30 20 188/83 (118) 100 OxyMask 3 11/23/20 02:25 OxyMask 6 11/23/20 02:20 100 OxyMask 6.00 11/23/20 02:20 20 183/105 (131) 99 OxyMask 6 11/23/20 02:10 20 172/109 (130) 100 OxyMask 6 11/23/20 02:10 OxyMask 6 11/23/20 02:07 20 188/95 (126) 100 OxyMask 6 11/23/20 01:58 36.4 21 201/104 (136) 100 OxyMask 6 11/23/20 01:58 OxyMask 6 11/23/20 00:34 36.0 67 16 120/82 (87) 99 Room Air 11/22/20 22:05 90 20 101/80 (87) 96 Room Air 11/22/20 22:05 36.0 90 20 101/80 (87) 96 Room Air I & O 11/23/20 06:59 Intake Total 2400 ml Balance 2400 ml Laboratory Tests Test 11/22/20 22:12 11/23/20 06:45 Range/Units White Blood Count 7.2 10.4 4.3-11.0 10^3/uL Red Blood Count 3.45 L 3.08 L 3.80-5.11 10^6/uL Hemoglobin 10.3 L 9.4 L 11.5-16.0 g/dL Hematocrit 33 L 30 L 35-52 % Mean Corpuscular Volume 97 96 80-99 fL Mean Corpuscular Hemoglobin 30 31 25-34 pg Mean Corpuscular Hemoglobin Concent 31 L 32 32-36 g/dL Red Cell Distribution Width 13.3 13.4 10.0-14.5 % Platelet Count 250 223 130-400 10^3/uL Mean Platelet Volume 10.2 10.4 9.0-12.2 fL Immature Granulocyte % (Auto) 1 1 % Neutrophils (%) (Auto) 63 92 H 42-75 % Lymphocytes (%) (Auto) 27 6 L 12-44 % Monocytes (%) (Auto) 7 1 0-12 % Eosinophils (%) (Auto) 2 0 0-10 % Basophils (%) (Auto) 0 0 0-10 % Neutrophils # (Auto) 4.5 9.6 H 1.8-7.8 10^3/uL Lymphocytes # (Auto) 1.9 0.6 L 1.0-4.0 10^3/uL Monocytes # (Auto) 0.5 0.2 0.0-1.0 10^3/uL Eosinophils # (Auto) 0.2 0.0 0.0-0.3 10^3/uL Basophils # (Auto) 0.0 0.0 0.0-0.1 10^3/uL Immature Granulocyte # (Auto) 0.0 0.1 0.0-0.1 10^3/uL Sodium Level 141 138 135-145 MMOL/L Potassium Level 3.6 3.8 3.6-5.0 MMOL/L Chloride Level 105 106 98-107 MMOL/L Carbon Dioxide Level 23 21 21-32 MMOL/L Anion Gap 13 11 5-14 MMOL/L Blood Urea Nitrogen 17 15 7-18 MG/DL Creatinine 0.80 0.73 0.60-1.30 MG/DL Estimat Glomerular Filtration Rate > 60 > 60 BUN/Creatinine Ratio 21 21 Glucose Level 126 H 225 H 70-105 MG/DL Calcium Level 8.7 8.3 L 8.5-10.1 MG/DL Corrected Calcium 9.0 8.8 8.5-10.1 MG/DL Total Bilirubin 0.6 0.5 0.1-1.0 MG/DL Aspartate Amino Transf (AST/SGOT) 12 21 5-34 U/L Alanine Aminotransferase (ALT/SGPT) 21 28 0-55 U/L Alkaline Phosphatase 72 75 40-136 U/L Total Protein 6.6 6.1 L 6.4-8.2 GM/DL Albumin 3.6 3.4 3.2-4.5 GM/DL Neutrophils % (Manual) 94 % Lymphocytes % (Manual) 6 % Polychromasia SLIGHT LLE--in brace intact DF and PF of toes and ankle sensation intact throughout s/p wound closure LLE continue abx WBAT with brace at ALL TIMES no bending of knee plan for DC Monday if doing well Final Diagnosis Was SOB earlier better now Vital Signs Date Time Temp Pulse Resp B/P (MAP) Pulse Ox O2 Delivery O2 Flow Rate FiO2 11/25/20 08:00 Nasal Cannula 2.00 11/25/20 08:00 36.0 78 22 144/75 (98) 93 Nasal Cannula 2.00 11/25/20 07:01 93 Nasal Cannula 2.00 11/25/20 03:56 36.2 80 19 130/64 (86) 94 Nasal Cannula 2.00 11/24/20 23:53 36.3 90 18 133/68 (89) 94 Nasal Cannula 2.00 11/24/20 22:50 94 Nasal Cannula 2.00 11/24/20 20:55 Nasal Cannula 2.00 11/24/20 20:02 36.7 87 22 131/84 (100) 93 Nasal Cannula 2.00 11/24/20 18:28 92 Nasal Cannula 2.00 11/24/20 15:47 36.8 82 20 145/77 (99) 98 Nasal Cannula 2.00 11/24/20 12:00 36.0 86 20 170/92 (118) 97 Nasal Cannula 2.00 I & O 11/25/20 07:00 Intake Total 1860 ml Output Total 650 ml Balance 1210 ml Laboratory Tests Test 11/24/20 15:53 3/23/21 20:08 11/25/20 05:04 11/25/20 11:05 Range/Units Glucometer 97 92 70-110 MG/DL White Blood Count 8.1 4.3-11.0 10^3/uL Red Blood Count 2.61 L 3.80-5.11 10^6/uL Hemoglobin 7.9 L 11.5-16.0 g/dL Hematocrit 26 L 35-52 % Mean Corpuscular Volume 100 H 80-99 fL Mean Corpuscular Hemoglobin 30 25-34 pg Mean Corpuscular Hemoglobin Concent 30 L 32-36 g/dL Red Cell Distribution Width 14.1 10.0-14.5 % Platelet Count 245 130-400 10^3/uL Mean Platelet Volume 10.3 9.0-12.2 fL Immature Granulocyte % (Auto) 2 % Neutrophils (%) (Auto) 59 42-75 % Lymphocytes (%) (Auto) 28 12-44 % Monocytes (%) (Auto) 9 0-12 % Eosinophils (%) (Auto) 2 0-10 % Basophils (%) (Auto) 1 0-10 % Neutrophils # (Auto) 4.8 1.8-7.8 10^3/uL Lymphocytes # (Auto) 2.3 1.0-4.0 10^3/uL Monocytes # (Auto) 0.7 0.0-1.0 10^3/uL Eosinophils # (Auto) 0.2 0.0-0.3 10^3/uL Basophils # (Auto) 0.0 0.0-0.1 10^3/uL Immature Granulocyte # (Auto) 0.1 0.0-0.1 10^3/uL Sodium Level 138 135-145 MMOL/L Potassium Level 4.1 3.6-5.0 MMOL/L Chloride Level 106 98-107 MMOL/L Carbon Dioxide Level 22 21-32 MMOL/L Anion Gap 10 5-14 MMOL/L Blood Urea Nitrogen 16 7-18 MG/DL Creatinine 0.78 0.60-1.30 MG/DL Estimat Glomerular Filtration Rate > 60 BUN/Creatinine Ratio 21 Glucose Level 108 H 70-105 MG/DL Calcium Level 8.5 8.5-10.1 MG/DL Corrected Calcium 9.1 8.5-10.1 MG/DL Total Bilirubin 0.3 0.1-1.0 MG/DL Aspartate Amino Transf (AST/SGOT) 15 5-34 U/L Alanine Aminotransferase (ALT/SGPT) 20 0-55 U/L Alkaline Phosphatase 53 40-136 U/L Total Protein 5.6 L 6.4-8.2 GM/DL Albumin 3.2 3.2-4.5 GM/DL Free Thyroxine 1.04 0.70-1.48 NG/DL Blood Gas Puncture Site L RADIAL Blood Gas Patient Temperature 36.5 Arterial Blood pH 7.36 L 7.37-7.43 Arterial Blood Partial Pressure CO2 48 H 35-45 MMHG Arterial Blood Partial Pressure O2 89 79-93 MMHG Arterial Blood HCO3 26 23-27 MMOL/L Arterial Blood Total CO2 27.9 21.0-31.0 MMOL/L Arterial Blood Oxygen Saturation 97 94-100 % Arterial Blood Base Excess 1.4 -2.5-2.5 MMOL/L Paresh Test YES-POS Blood Gas Ventilator Setting NO Blood Gas Inspired Oxygen 2L Test 11/25/20 11:11 Range/Units Glucometer 110 70-110 MG/DL LLE--incision clean and dry. No calf tenderness s/p L knee wound closure dc when medically stable ADY KEARNEY MD Nov 25, 2020 11:52
--- NOTE | 2020-11-25 11:56 | D/C HH Face to Face Order ---
D/C Face to Face Orders Reconcile Patient Problems Problems Reviewed?: Yes Instructions for Patient Via [facility], Patient Instructions/FollowUp: 2 weeks Physician to follow Patient: 2 weeks Discharge Diet for Home: Regular Diet Patient Data-Allergies,Ht & Wt Patient Allergies: Coded Allergies: Tetanus Vaccines and Toxoid (Verified Allergy, Severe, Anaphylaxis, 11/18/20) Home Health Need/Face to Face Date of Face to Face: Nov 25, 2020 Clinical Findings: Instability, Muscle weakness, Pain with ambulation I have seen Pt [id number]: Yes Discharged To: Home Diagnosis/Conditions: status post Left total knee arthroplasty with fall and wound dehiscence Patient is Homebound due to: Farzad fall risk due to instabilty, Muscle weakness, Pain w/ambulation Homebound Status Due to the above stated illness, injury or surgical procedure (medical condition or diagnosis) and associated clinical findings, the patient is homebound because of his/her inability to leave home except with aid of a supportive device and/or person AND leaving the home requires a considerable and taxing effort or is medically contraindicated. Pt req the following assistanc: Walker Home Health Nursing Orders brace at all times except for wound assessment Home Health Infusion Therapy Line Start Date: Nov 22, 2020 Therapy Orders Therapy Orders: Physical Therapy, PT to assess for OT Therapy Specific Orders: Eval assistive deivces, Teach enviro modifications/safety, Gait training, Increase strength/endurance, Provider maintenance therapy Certify Stmt I certify that this patient is under my care and that I, a nurse practitioner or a physician; a marketing support assistant working with me, had a face to face encounter that - meets the physician face to face encounter requirements with this patient as dated. ADY KEARNEY MD Nov 25, 2020 11:56
[2020-11-25 12:00] VITALS: BP 148/78
--- NOTE | 2020-11-25 12:44 | Occupational Ther Daily Note ---
OT Current Status-Daily Note Subjective Pt. reports pain in left knee with movement, but does not state pain level. Pt. has had medication. Appearance Pt. up in reclining chair with eyes closed. Wakes up and requires great encouragement to participate. Mental Status/Objective Patient Orientation: Person, Place Attachments: IV, Oxygen ADL-Treatment Therapy Code Descriptions/Definitions Functional [place] Measure: 0=Not Assessed/NA 4=Minimal Assistance 1=Total Assistance 5=Supervision or Setup 2=Maximal Assistance 6=Modified [place] 3=Moderate Assistance 7=Complete IndependenceSCALE: Activities may be completed with or without assistive devices. 1-Bzauovqsma-inmuegz completes the activity by him/herself with no assistance from a helper. 5-Set-up or Clean-up Assistance-helper sets up or cleans up; patient completes activity. [place] assists only prior to or following the activity. 4-Supervision or Touching Assistance-helper provides verbal cues and/or touching/steadying and/or contact guard assistance as patient completes activ ity. Assistance may be provided throughout the activity or intermittently. 3-Partial/Moderate Assistance-helper does LESS THAN HALF the effort. [place] lifts, holds or supports trunk or limbs, but provides less than half the effort. 2-Substantial/Maximal Assistance-helper does MORE THAN HALF the effort. [place] lifts or holds trunk or limbs and provides more than half the effort. 9-Fhltrjdej-xjvdlp does ALL the effort. Patient does none of the effort to complete the activity. Or, the assistance of 2 or more helpers is required for the patient to complete the activity. If activity was not attempted, code reason: 7-Patient Refused. 9-Not Applicable-not attempted and the patient did not perform the activity before the current illness, exacerbation or injury. 10-Not Attempted due to Environmental Limitations-(lack of equipment, weather restraints, etc.). 88-Not Attempted due to Medical Conditions or Safety Concerns. On/Off Footwear: 1 Other Treatment OT/PT treated pt. together this date due to low endurance, poor activity tolerance, and overall decreased functional status. PT addressed mobility while OT facilitated ADL skills. Pt. resistant to treatment. States over and over that she just wants to go home. Therapy encourages her that at this time, she is unable to care for self, and she is not demonstrating ability at this facility. Pt. finally agrees to work with therapy. OT dons slipper socks as pt. unwilling to attempt. Bilateral LE are placed on floor and pt. becomes agitated that her knee immobilizer has slipped down. OT unfastens all fasteners, and repositions brace. This upsets pt. that it has been pulled up. Pt. closes eyes and raises hands in air, for therapy to pull on her arms to get her up. Pt. is reminded how to stand from chair by pushing up from arm rests. Pt. requires max x 2 for sit-stand from chair. Pt. is able to ambulate with walker and min assist x 2, approximately 20 feet with increased encouragement. Pt. breathing loudly, and is on 3 L 02. Pt. transfers back to chair and sats taken. 02 sats at 97%. Pt. is repositioned to comfort level and pt's physician and nurse come in to room to assess. All needs are met. Education OT Patient Education: Correct positioning, Modified ADL techniques, Progress toward Goal/Update tx plan, Purpose of tx/functional activities, Reviewed precautions, Rehab process, Transfer techniques Teaching Recipient: Patient Teaching Methods: Demonstration, Discussion Response to Teaching: Verbalize Understanding, Return Demonstration OT Short Term Goals Short Term Goals Time Frame: Nov 30, 2020 Eatin Oral hygiene: 4 Toileting hygiene: 3 Shower/bathe self: 3 Upper body dressin Lower body dressin Putting on/taking off footwear: 4 (with AE) OT Bread Oven Operator Goals Care Home Goals Time Frame: Dec 14, 2020 Eating (QC): 6 Oral Hygiene (QC): 5 Toileting Hygiene (QC): 5 Shower/Bathe Self (QC): 5 Upper Body Dressing (QC): 5 Lower Body Dressing (QC): 4 On/Off Footwear (QC): 4 Additional Goals: 1-Demonstrate ADL Tasks, 2-Verbalize Understanding, 3- ImproveStrength/Wanda 1=Demonstrate adherence to instructed precautions during ADL tasks. 2=Patient will verbalize/demonstrate understanding of assistive devices/modifications for ADL. 3=Patient will improve strength/tolerance for activity to enable patient to perform ADL's. OT Education/Plan Problem List/Assessment Assessment: Decreased Activ Tolerance, Decreased UE Strength, Dependent Transfers, Impaired Bed Mobility, Impaired Funct Balance, Impaired I ADL's, Impaired Self-Care Skills Discharge Recommendations Plan/Recommendations: Continue POC Therapy Discharge Recommendati: 24 Hour Supervision, Post Acute OT Comment Equipment needs and discharge location are to be determined. Treatment Plan/Plan of Care Treatment,Training & Education: Yes Patient would benefit from OT for education, treatment and training to promote independence in ADL's, mobility, safety and/or upper extremity function for ADL's. Plan of Care: ADL Retraining, Functional Mobility, UE Funct Exercise/Act Treatment Duration: Dec 14, 2020 Frequency: 5 times per week Estimated Hrs Per Day: .25 hour per day Agreement: Yes Rehab Potential: Fair Time/GCodes Start Time: 10:35 Stop Time: 10:55 Total Time Billed (hr/min): 20 Billed Treatment Time 1, FA x 20minutes Co-treatment with PT performed. Please see above note for designated roles. LILIAN PACK OT Nov 25, 2020 12:44
--- NOTE | 2020-11-25 13:10 | Progress Note - Hospitalist ---
[facility] 11/25/20 1310: Subjective HPI/CC On Admission Date Seen by Provider: Nov 25, 2020 Time Seen by Provider: 11:00 CC: Fall with left knee wound from replacement dehiscence HPI: This is a 60yoWF with a PMH of COPC, anxiety, and ROSALIA who had just had her left knee replaced by Dr. Herring and suffered a fall in her home and was found to have complete wound dehiscence. Dr. Herring completed the repair and currently, she is having a lot of pain and doesn't really want to work with PT, she meets criteria for inpatient rehab, will remain on Lovenox and treat elevated BP with Norvasc 5 Mg daily, and will check Hgb A1C and start a sliding scale with Acucheck AC and HS. Subjective/Events-last exam Patient was sitting up in bed stating she wants to go home. Her breathing is mildly improved. She has declined PT numerous times. Currently on 2L NC and normally does not wear oxygen at home. No BM. Urinating without issue. Oxygen evaluation ordered, will review. Eating and drinking. She denies chest pain, abdominal pain, dysuria, incomplete emptying, F/C and N/V. Minimal pain at this time. Positive for non productive cough and shortness of air. Review of Systems General: No Chills Pulmonary: Dyspnea, Cough Cardiovascular: No: Chest Pain, Palpitations Gastrointestinal: No: Nausea, Vomiting, Abdominal Pain Genitourinary: No Dysuria, No Frequency Objective Exam Vital Signs Vital Signs Date Time Temp Pulse Resp B/P (MAP) Pulse Ox O2 Delivery O2 Flow Rate FiO2 11/25/20 12:00 35.6 74 18 148/78 (101) 100 Nasal Cannula 2.00 Capillary Refill : Less Than 3 Seconds General Appearance: Anxious, Obese Respiratory: Chest Non Tender, No Accessory Muscle Use, No Respiratory Distress, Wheezing Cardiovascular: Regular Rate, Rhythm, Normal Peripheral Pulses Gastrointestinal: Non Tender, Distended Extremity: No Calf Tenderness, Pedal Edema Neurologic/Psychiatric: Alert, Oriented x3 Results/Procedures Lab Laboratory Tests 11/25/20 05:04 Patient resulted labs reviewed. Assessment/Plan Assessment and Plan Assess & Plan/Chief Complaint 1. Left knee wound dehiscence - 2/2 to fall - recent knee surgery - will follow ortho recs 2. HTN - monitor 3. Anemia - monitor 4. COPD - non oxygen dependent - follows with Dr. Yoo 5. Anxiety - controlled 6. sleap apnea - wears CPAP at home - Follows with Dr. Yoo pulmonary at [facility] 7. Hx of breast cancer - per patient she no longer has to follow up Plan 11/23 - continue abx per Ortho recommendation - monitor labs, will check A1C and consider checking TSH and Free T4 - continue respiratory therapy, will review med rec - O2 evaluation - PT/OT - monitor vitals, will consider starting BP meds. - Ortho note reviewed Plan 11/24 - will review ortho note, abx have timed out - will continue to monitor labs, A1C was 5.4. TSH pending - Continue respiratory therapy - increased bowel regimen. Added lactulose and PEG - Started on PPI - BP controlled, started on 5mg of Norvasc - Sliding scale for sugars - Considering rehab unit today to tomorrow . Plan 11/25: - per ortho is okay with discharge when she is medically stable. - continue abx - O2 evaluation ordered, will review note. - Ordered ABG, CXR and 20 of lasix - continue BP and blood sugar management - encourage PT - Iron pending - TSH and Free T4 normal - will monitor HgB, consider type and cross if not complete. - BELEM BOYER DO 11/26/20 0549: Subjective Subjective/Events-last exam Pt having significant issue Morphine PLANNING LEAD was discontinued ABG and chest X-ray obtained, chest X-ray has no acute abnormality, ABG was normal with CO2 of 48 Widespread wheezing, will maintain breathing treatments No bowels moving yet, MiraLax, Lactulose and Senna maintained Wants to go home, but definitely not ready She is a two-person transfer with therapy Review of Systems General: Fatigue Pulmonary: Dyspnea Objective Exam General Appearance: No Apparent Distress, WD/WN, Anxious, Chronically ill Respiratory: Decreased Breath Sounds, Wheezing Cardiovascular: Regular Rate, Rhythm Neurologic/Psychiatric: Alert, Oriented x3, Disoriented Assessment/Plan Assessment and Plan Assess & Plan/Chief Complaint DC PLANNING LEAD O2 Nebs ABG Supervisory-Addendum Brief Verification & Attestation Participated in pt care: history, MDM, physical Personally performed: exam, history, MDM, supervision of care Care discussed with: Medical Student Procedures: n/a Results interpretation: Verified all documentation Verification and Attestation of Medical Student E/M Service A medical student performed and documented this service in my presence. I reviewed and verified all information documented by the medical student and made modifications to such information, when appropriate. I personally performed the physical exam and medical decision making. Belem Boyer, Nov 26, 2020,05:48 [facility] Nov 25, 2020 13:10 BELEM BOYER DO Nov 26, 2020 05:49
--- NOTE | 2020-11-25 15:34 | Physical Therapy Daily Note ---
PT Daily Note-Current Subjective Pt up in chair, agreeable with max encouragement. Pt states, "I am just tired, I just need to sleep". Mental Status Patient Orientation: Person, Place, Time, Situation Attachments: Knee Immobilizer, Oxygen, IV Transfers SCALE: Activities may be completed with or without assistive devices. 2-Wesxrpahsp-feagcij completes the activity by him/herself with no assistance from a helper. 5-Set-up or Clean-up Assistance-helper sets up or cleans up; patient completes activity. [place] assists only prior to or following the activity. 4-Supervision or Touching Assistance-helper provides verbal cues and/or touchi ng/steadying and/or contact guard assistance as patient completes activity. Assistance may be provided throughout the activity or intermittently. 3-Partial/Moderate Assistance-helper does LESS THAN HALF the effort. [place] lifts, holds or supports trunk or limbs, but provides less than half the effort. 2-Substantial/Maximal Assistance-helper does MORE THAN HALF the effort. [place] lifts or holds trunk or limbs and provides more than half the effort. 3-Duukzdfsb-uourzq does ALL the effort. Patient does none of the effort to complete the activity. Or, the assistance of 2 or more helpers is required for the patient to complete the activity. If activity was not attempted, code reason: 7-Patient Refused. 9-Not Applicable-not attempted and the patient did not perform the activity before the current illness, exacerbation or injury. 10-Not Attempted due to Environmental Limitations-(lack of equipment, weather restraints, etc.). 88-Not Attempted due to Medical Conditions or Safety Concerns. Sit to Stand (QC): 1 Max A x 2 for sit<->stand Weight Bearing Right Lower Extremity: Right Full Weight Bearing Left Lower Extremity: Left Weight Bearing/Tolerated L Knee Immobilizer Gait Training Does the Patient Walk?: Yes Distance: 10 Walk 10 feet (QC): 4 Walk 50 ft with 2 Turns(QC): 88 Walk 150 ft (QC): 88 Walking 10ft/uneven surface-QC: 88 Gait Persons Needed: 2 Gait Assistive Device: FWW Pt ambulated 10' with min A x 1 + 1 for O2 and IV. Wheelchair Training Does the Pt Use a Wheelchair?: No Treatments Gait training with FWW. Pt returned to chair with needs met, O2 in situ. Assessment Current Status: Poor Progress Pt requires max encouragement to increase activity. Pt very winded and wheezing with activity, Dr. Packer present. Pt ambulated on 3L with sats >98% after activity. PT Shank Scourer Goals Shank Scourer Goals PT Shank Scourer Goals Time Frame: Dec 05, 2020 Roll Left & Right (QC): 5 Sit to Lying (QC): 5 Lying-Sitting on Side/Bed(QC): 5 Sit to Stand (QC): 5 Chair/Gef-yf-Jzkgh Xfer(QC): 5 Toilet Transfer (QC): 5 Car Transfer (QC): 5 Does the Patient Walk: Yes Walk 10 feet (QC): 5 Walk 50ft with 2 Turns (QC): 5 Walk 150 ft (QC): 5 Walking 10ft on Uneven Surface: 5 Does the Pt use WC or Scooter?: No PT Plan Problem List Problem List: Activity Tolerance, Functional Strength, Safety, Balance, Gait, Transfer, Bed Mobility, ROM Treatment/Plan Treatment Plan: Continue Plan of Care Treatment Plan: Bed Mobility, Education, Functional Activity Wanda, Functional Strength, Gait, Safety, Therapeutic Exercise, Transfers Treatment Duration: Dec 05, 2020 Frequency: 11 times per week Estimated Hrs Per Day: .5 hour per day Patient and/or Family Agrees t: Yes Safety Risks/Education Teaching Recipient: Patient Teaching Methods: Discussion Response to Teaching: Verbalize Understanding, Reinforcement Needed Importance of OOB and increasing activity for safe discharge. Discharge Recommendations Therapy Discharge Recommendati: Post Acute PT Time/GCodes Time In: 1035 Time Out: 1055 Total Billed Treatment Time: 20 Total Billed Treatment 1, FA x 20' ONDINA BERGERON DPT Nov 25, 2020 15:34
[2020-11-25 15:52] VITALS: BP 132/69
[2020-11-25 20:00] VITALS: BP 147/75
[2020-11-25] MEDS: polyethylene glycoL POWDER 17 GM (MIRALAX) PACK PO SCH (20:28)
[2020-11-26] VITALS: BP 157/73
[2020-11-26] MEDS: ALPRAZolam 0.5 MG (XANAX) TAB PO PRN ×2 (00:34→18:28)
[2020-11-26] MEDS: NS IV 1000 ML 1,000 ML IV SCH ×2 (03:45→16:46)
[2020-11-26 04:00] VITALS: BP 150/85
[2020-11-26] MEDS: oxyCODONE/APAP 5/325MG (PERCOCET 5) TABLET PO PRN ×6 (04:20→20:43)
[2020-11-26 05:43] LABS: BASOPHILS % (AUTO) 0 % (0-10); EOSINOPHILS # (AUTO) 0.1 10^3/uL (0.0-0.3); EOSINOPHILS % (AUTO) 2 % (0-10); HEMATOCRIT 27 % (35-52); HEMOGLOBIN 8.4 g/dL (11.5-16.0); LYMPHOCYTES # (AUTO) 1.9 10^3/uL (1.0-4.0); LYMPHOCYTES % (AUTO) 25 % (12-44); MEAN CORPUSCULAR HEMOGLOBIN 30 pg (25-34); MEAN CORPUSCULAR HGB CONC 31 g/dL (32-36); MEAN CORPUSCULAR VOLUME 98 fL (80-99); MEAN PLATELET VOLUME 10.2 fL (9.0-12.2); MONOCYTES # (AUTO) 0.5 10^3/uL (0.0-1.0); MONOCYTES % (AUTO) 7 % (0-12); NEUTROPHILS # (AUTO) 4.8 10^3/uL (1.8-7.8); NEUTROPHILS % (AUTO) 63 % (42-75); PLATELET COUNT 260 10^3/uL (130-400); WHITE BLOOD COUNT 7.6 10^3/uL (4.3-11.0)
[2020-11-26 06:11] LABS: ALBUMIN 3.3 GM/DL (3.2-4.5)
[2020-11-26] MEDS: ONDANSETRON 4 MG/2 ML (SDV) Z0FRAN IVP PRN (06:11)
[2020-11-26 06:12] LABS: CHLORIDE 102 MMOL/L (98-107); SODIUM 139 MMOL/L (135-145)
[2020-11-26 06:13] LABS: CALCIUM 8.6 MG/DL (8.5-10.1)
[2020-11-26 06:14] LABS: GLUCOSE 113 MG/DL (70-105); TOTAL PROTEIN 5.8 GM/DL (6.4-8.2)
[2020-11-26 06:15] LABS: CARBON DIOXIDE 28 MMOL/L (21-32)
[2020-11-26 06:16] LABS: BILIRUBIN,TOTAL 0.5 MG/DL (0.1-1.0)
[2020-11-26 06:17] LABS: ALKALINE PHOSPHATASE 55 U/L (40-136)
[2020-11-26 06:18] LABS: CREATININE SERUM 0.76 MG/DL (0.60-1.30); GFR ESTIMATED > 60
[2020-11-26 06:19] LABS: BUN/CREATININE RATIO 16
[2020-11-26 06:21] LABS: ALANINE AMINOTRANSFERASE 21 U/L (0-55)
[2020-11-26] MEDS: ENOXAPARIN 60 MG/0.6 ML (LOVENOX) SYR SC SCH ×2 (06:22→17:11)
[2020-11-26] MEDS: MULTIVIT W/MINERALS TAB (THERAGRAN M) PO SCH (06:22)
[2020-11-26] MEDS: inSUlin ASPART (NovoLOG) 1 UNIT/0.01 ML (CHARGE PER UNIT) SC SCH ×4 (06:22→20:42)
[2020-11-26] MEDS: UMECLIDINIUM BROMIDE (INCRUSE ELLIPTA) 7'S IH SCH (07:53)
[2020-11-26 08:00] VITALS: BP 128/60
--- NOTE | 2020-11-26 08:08 | Progress Note ---
Standard Progress Note Progress Notes/Assess & Plan Date Seen by a Provider: Nov 26, 2020 Time Seen by a Provider: 08:07 Progress/Assessment & Plan feeling better Vital Signs Date Time Temp Pulse Resp B/P (MAP) Pulse Ox O2 Delivery O2 Flow Rate FiO2 11/23/20 10:48 95 Nasal Cannula 11/23/20 09:19 97 Nasal Cannula 2.00 11/23/20 08:00 Room Air 2.00 11/23/20 05:29 98 Nasal Cannula 2.00 11/23/20 04:07 36.4 90 20 139/83 (101) 94 Nasal Cannula 2.00 11/23/20 03:10 36.2 20 168/98 (121) 94 Nasal Cannula 2 11/23/20 03:10 Nasal Cannula 2 11/23/20 03:10 94 Nasal Cannula 2.00 11/23/20 03:00 18 173/101 (125) 95 Nasal Cannula 2 11/23/20 02:58 Nasal Cannula 2 11/23/20 02:50 Nasal Cannula 3 11/23/20 02:50 18 167/88 (114) 95 Nasal Cannula 2 11/23/20 02:40 18 176/82 (113) 96 OxyMask 6 11/23/20 02:38 OxyMask 3 11/23/20 02:30 20 188/83 (118) 100 OxyMask 3 11/23/20 02:25 OxyMask 6 11/23/20 02:20 100 OxyMask 6.00 11/23/20 02:20 20 183/105 (131) 99 OxyMask 6 11/23/20 02:10 20 172/109 (130) 100 OxyMask 6 11/23/20 02:10 OxyMask 6 11/23/20 02:07 20 188/95 (126) 100 OxyMask 6 11/23/20 01:58 36.4 21 201/104 (136) 100 OxyMask 6 11/23/20 01:58 OxyMask 6 11/23/20 00:34 36.0 67 16 120/82 (87) 99 Room Air 11/22/20 22:05 90 20 101/80 (87) 96 Room Air 11/22/20 22:05 36.0 90 20 101/80 (87) 96 Room Air I & O 11/23/20 06:59 Intake Total 2400 ml Balance 2400 ml Laboratory Tests Test 11/22/20 22:12 11/23/20 06:45 Range/Units White Blood Count 7.2 10.4 4.3-11.0 10^3/uL Red Blood Count 3.45 L 3.08 L 3.80-5.11 10^6/uL Hemoglobin 10.3 L 9.4 L 11.5-16.0 g/dL Hematocrit 33 L 30 L 35-52 % Mean Corpuscular Volume 97 96 80-99 fL Mean Corpuscular Hemoglobin 30 31 25-34 pg Mean Corpuscular Hemoglobin Concent 31 L 32 32-36 g/dL Red Cell Distribution Width 13.3 13.4 10.0-14.5 % Platelet Count 250 223 130-400 10^3/uL Mean Platelet Volume 10.2 10.4 9.0-12.2 fL Immature Granulocyte % (Auto) 1 1 % Neutrophils (%) (Auto) 63 92 H 42-75 % Lymphocytes (%) (Auto) 27 6 L 12-44 % Monocytes (%) (Auto) 7 1 0-12 % Eosinophils (%) (Auto) 2 0 0-10 % Basophils (%) (Auto) 0 0 0-10 % Neutrophils # (Auto) 4.5 9.6 H 1.8-7.8 10^3/uL Lymphocytes # (Auto) 1.9 0.6 L 1.0-4.0 10^3/uL Monocytes # (Auto) 0.5 0.2 0.0-1.0 10^3/uL Eosinophils # (Auto) 0.2 0.0 0.0-0.3 10^3/uL Basophils # (Auto) 0.0 0.0 0.0-0.1 10^3/uL Immature Granulocyte # (Auto) 0.0 0.1 0.0-0.1 10^3/uL Sodium Level 141 138 135-145 MMOL/L Potassium Level 3.6 3.8 3.6-5.0 MMOL/L Chloride Level 105 106 98-107 MMOL/L Carbon Dioxide Level 23 21 21-32 MMOL/L Anion Gap 13 11 5-14 MMOL/L Blood Urea Nitrogen 17 15 7-18 MG/DL Creatinine 0.80 0.73 0.60-1.30 MG/DL Estimat Glomerular Filtration Rate > 60 > 60 BUN/Creatinine Ratio 21 Glucose Level 126 H 225 H 70-105 MG/DL Calcium Level 8.7 8.3 L 8.5-10.1 MG/DL Corrected Calcium 9.0 8.8 8.5-10.1 MG/DL Total Bilirubin 0.6 0.5 0.1-1.0 MG/DL Aspartate Amino Transf (AST/SGOT) 12 21 5-34 U/L Alanine Aminotransferase (ALT/SGPT) 21 28 0-55 U/L Alkaline Phosphatase 72 75 40-136 U/L Total Protein 6.6 6.1 L 6.4-8.2 GM/DL Albumin 3.6 3.4 3.2-4.5 GM/DL Neutrophils % (Manual) 94 % Lymphocytes % (Manual) 6 % Polychromasia SLIGHT LLE--in brace intact DF and PF of toes and ankle sensation intact throughout s/p wound closure LLE continue abx WBAT with brace at ALL TIMES no bending of knee plan for DC Monday if doing well Final Diagnosis feeling better today Vital Signs Date Time Temp Pulse Resp B/P (MAP) Pulse Ox O2 Delivery O2 Flow Rate FiO2 11/26/20 07:53 95 Nasal Cannula 3.00 11/26/20 04:00 36.5 78 18 150/85 (106) 96 Nasal Cannula 2.00 11/26/20 00:00 36.6 85 18 157/73 (101) 93 Nasal Cannula 2.00 11/25/20 20:28 Nasal Cannula 2.00 11/25/20 20:00 36.6 92 18 147/75 (99) 97 Nasal Cannula 2.00 11/25/20 15:52 36.3 82 18 132/69 (90) 99 Nasal Cannula 2.00 11/25/20 12:00 35.6 74 18 148/78 (101) 100 Nasal Cannula 2.00 I & O 11/26/20 07:00 Intake Total 812 ml Output Total 5400 ml Balance -4588 ml Laboratory Tests Test 11/25/20 11:05 11/25/20 11:11 11/25/20 15:39 11/25/20 20:06 Range/Units Blood Gas Puncture Site L RADIAL Blood Gas Patient Temperature 36.5 Arterial Blood pH 7.36 L 7.37-7.43 Arterial Blood Partial Pressure CO2 48 H 35-45 MMHG Arterial Blood Partial Pressure O2 89 79-93 MMHG Arterial Blood HCO3 26 23-27 MMOL/L Arterial Blood Total CO2 27.9 21.0-31.0 MMOL/L Arterial Blood Oxygen Saturation 97 94-100 % Arterial Blood Base Excess 1.4 -2.5-2.5 MMOL/L Paresh Test YES-POS Blood Gas Ventilator Setting NO Blood Gas Inspired Oxygen 2L Glucometer 110 116 H 113 H 70-110 MG/DL Test 11/26/20 05:17 Range/Units White Blood Count 7.6 4.3-11.0 10^3/uL Red Blood Count 2.76 L 3.80-5.11 10^6/uL Hemoglobin 8.4 L 11.5-16.0 g/dL Hematocrit 27 L 35-52 % Mean Corpuscular Volume 98 80-99 fL Mean Corpuscular Hemoglobin 30 25-34 pg Mean Corpuscular Hemoglobin Concent 31 L 32-36 g/dL Red Cell Distribution Width 14.2 10.0-14.5 % Platelet Count 260 130-400 10^3/uL Mean Platelet Volume 10.2 9.0-12.2 fL Immature Granulocyte % (Auto) 3 % Neutrophils (%) (Auto) 63 42-75 % Lymphocytes (%) (Auto) 25 12-44 % Monocytes (%) (Auto) 7 0-12 % Eosinophils (%) (Auto) 2 0-10 % Basophils (%) (Auto) 0 0-10 % Neutrophils # (Auto) 4.8 1.8-7.8 10^3/uL Lymphocytes # (Auto) 1.9 1.0-4.0 10^3/uL Monocytes # (Auto) 0.5 0.0-1.0 10^3/uL Eosinophils # (Auto) 0.1 0.0-0.3 10^3/uL Basophils # (Auto) 0.0 0.0-0.1 10^3/uL Immature Granulocyte # (Auto) 0.2 H 0.0-0.1 10^3/uL Sodium Level 139 135-145 MMOL/L Potassium Level 4.0 3.6-5.0 MMOL/L Chloride Level 102 98-107 MMOL/L Carbon Dioxide Level 28 21-32 MMOL/L Anion Gap 9 5-14 MMOL/L Blood Urea Nitrogen 12 7-18 MG/DL Creatinine 0.76 0.60-1.30 MG/DL Estimat Glomerular Filtration Rate > 60 BUN/Creatinine Ratio 16 Glucose Level 113 H 70-105 MG/DL Calcium Level 8.6 8.5-10.1 MG/DL Corrected Calcium 9.2 8.5-10.1 MG/DL Total Bilirubin 0.5 0.1-1.0 MG/DL Aspartate Amino Transf (AST/SGOT) 14 5-34 U/L Alanine Aminotransferase (ALT/SGPT) 21 0-55 U/L Alkaline Phosphatase 55 40-136 U/L Total Protein 5.8 L 6.4-8.2 GM/DL Albumin 3.3 3.2-4.5 GM/DL LLE--incision clean and dry. No calf tenderness. Neg Drew's s/p Iand D and wound closure DC to home or NH today ADY KEARNEY MD Nov 26, 2020 08:08
[2020-11-26] MEDS: SENNA W/DOCUSATE (SENOKOT S) TABLET PO SCH ×2 (09:45→20:41)
[2020-11-26] MEDS: ASPIRIN E.C. 81 MG (ECOTRIN) TAB PO SCH (09:45)
[2020-11-26] MEDS: amLODIPine 5 MG (NORVASC) TAB PO SCH (09:46)
[2020-11-26] MEDS: PANTOPRAZOLE 40 MG (PROTONIX) TAB PO SCH (09:46)
[2020-11-26] MEDS: LACTULOSE SYRUP 10GM/15ML (ENULOSE) 30ML UDC PO SCH ×2 (09:47→20:41)
[2020-11-26] MEDS: CEFUROXIME INJECTION 750 MG in WATER (STERILE) FOR INJECTION 7.5 ML IV SCH ×2 (09:48→17:12)
--- NOTE | 2020-11-26 09:50 | Physical Therapy Daily Note ---
PT Daily Note-Current Subjective Patient consented to PT, gives unrated pain report in L knee. Appearance Patient was left upright in chair, with call button nearby and tray table positioned beside her. O2 was placed on patient in room post tx. Mental Status Patient Orientation: Normal For Age Attachments: Knee Immobilizer, Oxygen, Kurtz Catheter Transfers SCALE: Activities may be completed with or without assistive devices. 9-Qnntuuluif-udqfipv completes the activity by him/herself with no assistance from a helper. 5-Set-up or Clean-up Assistance-helper sets up or cleans up; patient completes activity. Sims assists only prior to or following the activity. 4-Supervision or Touching Assistance-helper provides verbal cues and/or touchi ng/steadying and/or contact guard assistance as patient completes activity. Assistance may be provided throughout the activity or intermittently. 3-Partial/Moderate Assistance-helper does LESS THAN HALF the effort. Sims lifts, holds or supports trunk or limbs, but provides less than half the effort. 2-Substantial/Maximal Assistance-helper does MORE THAN HALF the effort. Sims lifts or holds trunk or limbs and provides more than half the effort. 0-Yhiimrqwj-moxbyn does ALL the effort. Patient does none of the effort to complete the activity. Or, the assistance of 2 or more helpers is required for the patient to complete the activity. If activity was not attempted, code reason: 7-Patient Refused. 9-Not Applicable-not attempted and the patient did not perform the activity before the current illness, exacerbation or injury. 10-Not Attempted due to Environmental Limitations-(lack of equipment, weather restraints, etc.). 88-Not Attempted due to Medical Conditions or Safety Concerns. Lying to Sitting/Side of Bed(Q: 3 Sit to Stand (QC): 3 Chair/Ngq-eo-Tferw Xfer(QC): 3 Toilet Transfer (QC): 3 Toilet transfer and sit <-> stand transfers required Min A x1. Weight Bearing Right Lower Extremity: Right Full Weight Bearing Left Lower Extremity: Left Weight Bearing/Tolerated L Knee Immobilizer Gait Training Does the Patient Walk?: Yes Distance: 10' x2 Walk 10 feet (QC): 4 Gait Persons Needed: 1 Gait Assistive Device: FWW CGA x1 utilized with ambulation. Treatments Patient is dependent x2 placing L knee immobilizer in supine position. Assessment Current Status: Fair Progress Patient will benefit from physical therapy to improve impaired functional mobility, balance, and endurance needed for safe return home. From a PT standpoint, patient would benefit from 27/03 care due to patient inability to perform bed mobility,transfers and donning left knee immobilizer and for, overall, patient safety\\. Patient does state she has "help" at home. SW is aware. PT Security Sales Consultant Goals Half-Way Goals PT Security Sales Consultant Goals Time Frame: Dec 05, 2020 Roll Left & Right (QC): 5 Sit to Lying (QC): 5 Lying-Sitting on Side/Bed(QC): 5 Sit to Stand (QC): 5 Chair/Uoc-dr-Xcsou Xfer(QC): 5 Toilet Transfer (QC): 5 Car Transfer (QC): 5 Does the Patient Walk: Yes Walk 10 feet (QC): 5 Walk 50ft with 2 Turns (QC): 5 Walk 150 ft (QC): 5 Walking 10ft on Uneven Surface: 5 Does the Pt use WC or Scooter?: No PT Plan Problem List Problem List: Activity Tolerance, Functional Strength, Safety, Balance, Gait, Transfer, Bed Mobility, ROM Treatment/Plan Treatment Plan: Continue Plan of Care Treatment Plan: Bed Mobility, Education, Functional Activity Wanda, Functional Strength, Gait, Safety, Therapeutic Exercise, Transfers Treatment Duration: Dec 05, 2020 Frequency: 11 times per week Estimated Hrs Per Day: .5 hour per day Patient and/or Family Agrees t: Yes Discharge Recommendations Therapy Discharge Recommendati: 24 Hour Supervision Time/GCodes Time In: 0836 Time Out: 0859 Total Billed Treatment Time: 23 Total Billed Treatment 1 visit: FA x2: 23' HEIDI DAY PT Nov 26, 2020 09:50
[2020-11-26 12:00] VITALS: BP 141/68
[2020-11-26] MEDS ORDERED: MAGNESIUM CITRATE 300 ML BTL PO NR (12:15)
[2020-11-26] MEDS ORDERED: FLEET ENEMA ADULT 1 EA BTL PR NR (12:15)
--- NOTE | 2020-11-26 12:54 | Occ Therapy Progress Note ---
Therapy Progress Note Pt refusing therapy. Stated that all she wants to do is sleep and that she is going to the [place] tomorrow and that's where she will do all her exercises. Encouraged pt to at least complete B UE exercises, pt continued to refuse stating she just wants to sleep. Pt was able to scoot self up in bed by self. 1 refusal [phone] BROCK MCCALLUM Nov 26, 2020 12:54
--- NOTE | 2020-11-26 13:22 | Physical Therapy Progress Note ---
Therapy Progress Note Patient denied PT intervention at this time. Educated patient on importance of movement to prevent pneumonia and DVT. Patient continued to deny services. Will re-assess in a.m. 1 visit: no charge Refusal: 1240 HEIDI DAY PT Nov 26, 2020 13:22
--- NOTE | 2020-11-26 13:56 | Progress Note - Hospitalist ---
NIECY CARRASCO MED STUDENT 11/26/20 1356: Subjective HPI/CC On Admission Date Seen by Provider: Nov 26, 2020 Time Seen by Provider: 09:00 CC: Fall with left knee wound from replacement dehiscence HPI: This is a 60yoWF with a PMH of COPC, anxiety, and ROSALIA who had just had her left knee replaced by Dr. Herring and suffered a fall in her home and was found to have complete wound dehiscence. Dr. Herring completed the repair and currently, she is having a lot of pain and doesn't really want to work with PT, she meets criteria for inpatient rehab, will remain on Lovenox and treat elevated BP with Norvasc 5 Mg daily, and will check Hgb A1C and start a sliding scale with Acucheck AC and HS. Subjective/Events-last exam Pt just recently finished with PT/OT and now resting in recliner. Pt c/o L knee pain, N/V, SOB, and continued constipation. Pt explains that Dr. Herring has seen her this morning and said she was ready for discharge. Pt is upset because she doesnt know where thats going to be because Im not kept in the loop. I explain that arrangements are being looked into. Pt also asks how long she is to wear the knee brace, to which I explained that would be a question for Dr. Herring. No acute events over night. Review of Systems General: No Chills; Fatigue HEENT: No Head Aches, No Dysphasia Pulmonary: Dyspnea, Cough Cardiovascular: No: Chest Pain, Palpitations Gastrointestinal: Nausea, Vomiting, Constipation Genitourinary: No Dysuria, No Hematuria Musculoskeletal: leg pain (Left knee) Neurological: Weakness; No: Confusion Objective Exam Vital Signs Vital Signs Date Time Temp Pulse Resp B/P (MAP) Pulse Ox O2 Delivery O2 Flow Rate FiO2 11/26/20 12:00 36.7 76 16 141/68 (92) 95 Nasal Cannula 2.00 Capillary Refill : Less Than 3 Seconds General Appearance: Mild Distress, Obese HEENT: PERRL/EOMI, Moist Mucous Membranes Neck: Normal Inspection, Supple Respiratory: Chest Non Tender, No Accessory Muscle Use, No Respiratory Dist ress, Crackles, Decreased Breath Sounds, Wheezing Cardiovascular: Regular Rate, Rhythm, No Gallop, No Murmur Gastrointestinal: Normal Bowel Sounds, Non Tender, Distended Rectal: Deferred Extremity: Normal Inspection, Non Tender, No Calf Tenderness, Pedal Edema Neurologic/Psychiatric: Alert, Oriented x3, No Motor/Sensory Deficits, Normal Mood/Affect Skin: Normal Color, Warm/Dry Results/Procedures Lab Laboratory Tests 11/26/20 05:17 Patient resulted labs reviewed. Assessment/Plan Assessment and Plan Assess & Plan/Chief Complaint ASSESSMENT: Left knee wound dehiscence HTN Anemia - 8.4 Constipation COPD Sleep apnea Hx of breast cancer PLAN: Discharge to [facility] tomorrow PT/OT Enema for constipation Pain management Anti-emetics Nebulizer BELEM BOYER DO 11/27/20 0540: Subjective Subjective/Events-last exam Patient will go to [facility] O2 study will be done Nebs ordered No BM yet Enema after mag citrate Review of Systems Gastrointestinal: Constipation Objective Exam General Appearance: No Apparent Distress, WD/WN, Chronically ill Respiratory: Lungs Clear Cardiovascular: Regular Rate, Rhythm Neurologic/Psychiatric: Alert, Oriented x3, No Motor/Sensory Deficits, Normal Mood/Affect Assessment/Plan Assessment and Plan Assess & Plan/Chief Complaint Mag citrate Enema [place] tomorrow Supervisory-Addendum Brief Verification & Attestation Participated in pt care: history, MDM, physical Personally performed: exam, history, MDM, supervision of care Care discussed with: Medical Student Procedures: n/a Results interpretation: Verified all documentation Verification and Attestation of Medical Student E/M Service A medical student performed and documented this service in my presence. I reviewed and verified all information documented by the medical student and made modifications to such information, when appropriate. I personally performed the physical exam and medical decision making. Belem Boyer Nov 27, 2020,05:39 NIECY CARRASCO MED STUDENT Nov 26, 2020 13:56 BELEM BOYER DO Nov 27, 2020 05:40
[2020-11-26 15:34] VITALS: BP 134/67
[2020-11-26] MEDS: polyethylene glycoL POWDER 17 GM (MIRALAX) PACK PO SCH (20:41)
[2020-11-26] MEDS: diphenhydrAMINE 50 MG/ML INJ (BENADRYL) IVP PRN (20:42)
[2020-11-26] MEDS: MICONAZOLE 2% POWDER (DESENEX AF) 90 GM TOP SCH (20:42)
[2020-11-27 00:02] VITALS: BP 132/64
[2020-11-27] MEDS: CEFUROXIME INJECTION 750 MG in WATER (STERILE) FOR INJECTION 7.5 ML IV SCH ×2 (00:07→08:23)
[2020-11-27] MEDS: oxyCODONE/APAP 5/325MG (PERCOCET 5) TABLET PO PRN ×3 (00:07→05:16)
--- NOTE | 2020-11-27 00:19 | DISCHARGE SUMMARY ---
DATE OF SERVICE: DIAGNOSES: 1. Left knee wound dehiscence, status post total knee arthroplasty secondary to a fall. 2. History of breast cancer. 3. Chronic obstructive pulmonary disease. 4. Anxiety disorder. 5. Depression. 6. Diverticulosis. 7. Hypertension. 8. Sleep apnea. SUMMARY: The patient is a 60-year-old female who presented to the Emergency Department following a fall at home. She hyperflexed her knee. She has undergone a total knee arthroplasty four days prior to this. She had wound dehiscence. The wound was clean. She was taken emergently to the operating room where she underwent irrigation and debridement and wound closure without complication. She was maintained on Zinacef postoperatively. At time of discharge, her wound was clean and dry. She had no calf tenderness. Negative Homans sign. CONDITION AT DISCHARGE: Good. DISCHARGE DIET: Regular. FOLLOWUP: Followup is in two weeks. DISCHARGE MEDICATIONS: Home medications. Percocet as needed for pain, Bactrim and doxycycline one p.o. b.i.d. for 10 days. ACTIVITIES: Weightbearing as tolerated with brace on multimedia services manager except while bathing and wound care. Job ID: [id number] DocumentID: [id number] Dictated Date: 11/26/2020 08:06:19 Sole Edge Inker Machine Date: 11/27/2020 00:18:38 Dictated By: ADY KEARNEY MD
[2020-11-27] MEDS: ALPRAZolam 0.5 MG (XANAX) TAB PO PRN (03:54)
[2020-11-27] MEDS: NS IV 1000 ML 1,000 ML IV SCH (04:50)
[2020-11-27 05:58] LABS: BASOPHILS % (AUTO) 0 % (0-10); EOSINOPHILS # (AUTO) 0.1 10^3/uL (0.0-0.3); EOSINOPHILS % (AUTO) 2 % (0-10); HEMATOCRIT 28 % (35-52); HEMOGLOBIN 8.5 g/dL (11.5-16.0); LYMPHOCYTES # (AUTO) 1.6 10^3/uL (1.0-4.0); LYMPHOCYTES % (AUTO) 22 % (12-44); MEAN CORPUSCULAR HEMOGLOBIN 31 pg (25-34); MEAN CORPUSCULAR HGB CONC 31 g/dL (32-36); MEAN CORPUSCULAR VOLUME 100 fL (80-99); MONOCYTES # (AUTO) 0.6 10^3/uL (0.0-1.0); MONOCYTES % (AUTO) 8 % (0-12); NEUTROPHILS # (AUTO) 4.8 10^3/uL (1.8-7.8); NEUTROPHILS % (AUTO) 66 % (42-75); PLATELET COUNT 282 10^3/uL (130-400); WHITE BLOOD COUNT 7.2 10^3/uL (4.3-11.0)
[2020-11-27] MEDS ORDERED: ASPI-1238 PO (06:05)
[2020-11-27] MEDS ORDERED: SENN1TAB76 PO (06:05)
[2020-11-27] MEDS ORDERED: ZOLP5TAB7 PO (06:05)
[2020-11-27] MEDS ORDERED: ACET325T49 PO (06:05)
[2020-11-27] MEDS ORDERED: MICO90PO TOP (06:05)
[2020-11-27] MEDS ORDERED: ALBU2.5V4 INH (06:05)
[2020-11-27] MEDS ORDERED: PANT40TA52 PO (06:05)
[2020-11-27] MEDS ORDERED: ENOX60DI7 SC (06:05)
[2020-11-27] MEDS ORDERED: ALPR0.5T7 PO (06:05)
[2020-11-27] MEDS ORDERED: OXYC1TAB87 PO (06:05)
[2020-11-27] MEDS ORDERED: LACT20SO2 PO (06:05)
--- NOTE | 2020-11-27 06:06 | Discharge Inst-Skilled Nursing ---
Discharge Inst-Skilled NF Reconcile Patient Problems Problems Reviewed?: Yes Chief Complaint CC: Fall with left knee wound from replacement dehiscence HPI: This is a 60yoWF with a PMH of COPC, anxiety, and ROSALIA who had just had her left knee replaced by Dr. Herring and suffered a fall in her home and was found to have complete wound dehiscence. Dr. Herring completed the repair and currently, she is having a lot of pain and doesn't really want to work with PT, she meets criteria for inpatient rehab, will remain on Lovenox and treat elevated BP with Norvasc 5 Mg daily, and will check Hgb A1C and start a sliding scale with Acucheck AC and HS. Patient Instructions Patient Problems: left knee replaement Goal: Return home Consult/Follow Up/Orders Skilled NF Admit to: [facility] ([facility]) I certify that SNF services are required to be given on an inpatient basis because of the above named patient's need for half-way care on a continuing basis for the conditions(s) for which he/she was receiving inpatient hospital services prior to his/her transfer to the [facility]. Fdc Facility Order: Nursing Services, Zipper Lining Folder-Evaluate & Treat, Physical Therapy-Evaluate & Treat Oxygen Delivery Method: Nasal Cannula Discharge Diet: No Restrictions New & Resume Previous Orders New Medications: Acetaminophen (Acetaminophen) 325 Mg Tablet 650 MG PO Q6H PRN for PAIN-MILD (1-4) OR TEMPATURE for 30 Days, TAB Albuterol Sulfate (Albuterol Sulfate) 2.5 Mg/3 Ml Vial.neb 2.5 MG INH RTQ4HR PRN for WHEEZING for 30 Days, INHALER Alprazolam (Alprazolam) 0.5 Mg Tablet 0.5 MG PO Q8H PRN for ANXIETY, #15 TAB Aspirin (Aspirin EC) 81 Mg Tablet.dr 81 MG PO DAILY for 30 Days, TAB Enoxaparin Sodium (Enoxaparin Sodium) 60 Mg/0.6 Ml Syringe 60 MG SC Q12H for 30 Days, SYRINGE Lactulose (Lactulose) 20 Gm/30 Ml Solution 10 GM PO BID for 30 Days, EA Miconazole Nitrate (Lotrimin AF) 90 Gm Powder 1 GM TOP TID for 30 Days, EA Oxycodone HCl/Acetaminophen (Percocet 5-325 mg Tablet) 1 Each Tablet 1 TAB PO Q2HR PRN for PAIN-MODERATE (5-7), #30 TAB Pantoprazole Sodium (Pantoprazole Sodium) 40 Mg Tablet.dr 40 MG PO DAILY for 30 Days, TAB Sennosides/Docusate Sodium (Stool Softener-Laxative Tablet) 1 Each Tablet 2 EA PO BID for 30 Days, TAB Zolpidem Tartrate (Zolpidem Tartrate) 5 Mg Tablet 5 MG PO HS PRN for INSOMNIA, #15 TAB Continued Medications: Albuterol Sulfate (Proair Hfa) 1 Puff Puff 2 PUFF IH Q4H PRN for SHORTNESS OF BREATH, PUFF Amlodipine Besylate (Amlodipine Besylate) 5 Mg Tablet 5 MG PO DAILY, TAB LAST FILLED 09-28-2020 #30 Atorvastatin Calcium (Atorvastatin Calcium) 20 Mg Tablet 20 MG PO DAILY, TAB LAST FILLED 09-28-2020 #30 Budesonide/Formoterol Fumarate (Symbicort 160-4.5 Mcg Inhaler) 10.2 Gm Hfa.aer.ad 2 PUFF IH BID, INHALER Cholecalciferol (Vitamin D3) (Vitamin D3) Unknown Strength Tablet 20 MCG PO DAILY, TAB Diclofenac Sodium (Voltaren) 100 Gm Gel..gram. 4 GM TP QID PRN for PAIN-BREAKTHROUGH, TUBE APPLY TO KNEES Melatonin (Melatonin) 5 Mg Tablet 5 MG PO DAILY, TAB Omeprazole (Omeprazole) 20 Mg Capsule.dr 20 MG PO DAILY, CAP Tiotropium [place] (Spiriva) 1 Inh Aerp 1 INH IH DAILY, INHALER Discontinued Medications: Ipratropium/Albuterol Sulfate (Iprat-Albut 0.5-3(2.5) mg/3 ml) 3 Ml Ampul.neb 3 ML IH Q6H PRN for SHORTNESS OF BREATH, EACH Belem Packer Nov 27, 2020 06:05 BELEM PACKER DO Nov 27, 2020 06:05
--- NOTE | 2020-11-27 06:06 | Discharge Summary ---
Discharge Summary Hospital Course Was the Problem List Reviewed?: Yes Problems/Dx: (1) Surgical wound breakdown Status: Acute Qualifiers: Qualified Codes: T81.31XA - Disruption of external operation (surgical) wound, not elsewhere classified, initial encounter (2) Fall Status: Acute Qualifiers: Qualified Codes: W19.XXXA - Unspecified fall, initial encounter (3) COPD (chronic obstructive pulmonary disease) Status: Chronic Hospital Course Date of Admission: Admission Diagnosis : Family Physician/Provider: [place] [place] Date of Discharge: 11/27/20 Discharge Diagnosis: right knee dehiscence s/p washout and repair, AECOPD, hypoxia, ROSALIA, HTN, s/p constipation Hospital Course: Long course after admitted for fall 1 week after left knee replacement by Dr Herring. Washout ensued and abx initiated. AECOPD dx so placed on nebs and HLIVF. Post op constipation resolved with laxatives and enema. Smoking cessation discussed. Labs remained stable and patient was in stable condition for ML Mushtaq. Labs and Pending Lab Test: Laboratory Tests 11/26/20 10:57: Glucometer 107 11/26/20 15:34: Glucometer 104 11/26/20 20:25: Glucometer 106 11/27/20 05:30: Glucometer 102, White Blood Count 7.2, Red Blood Count 2.79L, Hemoglobin 8.5L, Hematocrit 28L, Mean Corpuscular Volume 100H, Mean Corpuscular Hemoglobin 31, Mean Corpuscular Hemoglobin Concent 31L, Red Cell Distribution Width 14.5, Platelet Count 282, Mean Platelet Volume 10.0, Immature Granulocyte % (Auto) 2, Neutrophils (%) (Auto) 66, Lymphocytes (%) (Auto) 22, Monocytes (%) (Auto) 8, Eosinophils (%) (Auto) 2, Basophils (%) (Auto) 0, Neutrophils # (Auto) 4.8, Lymphocytes # (Auto) 1.6, Monocytes # (Auto) 0.6, Eosinophils # (Auto) 0.1, Basophils # (Auto) 0.0, Immature Granulocyte # (Auto) 0.2H, Sodium Level [Pe nding], Potassium Level [Pending], Chloride Level [Pending], Carbon Dioxide Level [Pending], Anion Gap [Pending], Blood Urea Nitrogen [Pending], Creatinine [Pending], BUN/Creatinine Ratio [Pending], Glucose Level [Pending], Calcium Level [Pending], Corrected Calcium [Pending], Total Bilirubin [Pending], Aspartate Amino Transf (AST/SGOT) [Pending], Alanine Aminotransferase (ALT/SGPT) [Pending], Alkaline Phosphatase [Pending], Total Protein [Pending], Albumin [Pending] Home Meds Active Albuterol Sulfate 2.5 Mg/3 Ml Vial.neb 2.5 Mg INH RTQ4HR PRN 30 Days Lotrimin AF (Miconazole Nitrate) 90 Gm Powder 1 Gm TOP TID 30 Days Pantoprazole Sodium 40 Mg Tablet.dr 40 Mg PO DAILY 30 Days Stool Softener-Laxative Tablet (Sennosides/Docusate Sodium) 1 Each Tablet 2 Ea PO BID 30 Days Lactulose 20 Gm/30 Ml Solution 10 Gm PO BID 30 Days Zolpidem Tartrate 5 Mg Tablet 5 Mg PO HS PRN Alprazolam 0.5 Mg Tablet 0.5 Mg PO Q8H PRN Acetaminophen 325 Mg Tablet 650 Mg PO Q6H PRN 30 Days Percocet 5-325 mg Tablet (Oxycodone HCl/Acetaminophen) 1 Each Tablet 1 Tab PO Q2HR PRN Aspirin EC (Aspirin) 81 Mg Tablet.dr 81 Mg PO DAILY 30 Days Enoxaparin Sodium 60 Mg/0.6 Ml Syringe 60 Mg SC Q12H 30 Days Reported Melatonin 5 Mg Tablet 5 Mg PO DAILY Atorvastatin Calcium 20 Mg Tablet 20 Mg PO DAILY LAST FILLED 09-28-2020 #30 Amlodipine Besylate 5 Mg Tablet 5 Mg PO DAILY LAST FILLED 09-28-2020 #30 Voltaren (Diclofenac Sodium) 100 Gm Gel..gram. 4 Gm TP QID PRN APPLY TO KNEES Vitamin D3 (Cholecalciferol (Vitamin D3)) Unknown Strength Tablet 20 Mcg PO DAILY Symbicort 160-4.5 Mcg Inhaler (Budesonide/Formoterol Fumarate) 10.2 Gm Hfa.aer.ad 2 Puff IH BID Spiriva (Tiotropium [place]) 1 Inh Aerp 1 Inh IH DAILY Proair Hfa (Albuterol Sulfate) 1 Puff Puff 2 Puff IH Q4H PRN Omeprazole 20 Mg Capsule.dr 20 Mg PO DAILY Assessment/Pt Instructions [facility] rounds Discharge Planning: <30 minutes discharge planning Discharge Instructions Discharge Diet: No Restrictions Activity as Tolerated: Yes Discharge Physical Examination Vital Signs Vital Signs Date Time Temp Pulse Resp B/P (MAP) Pulse Ox O2 Delivery O2 Flow Rate FiO2 11/27/20 00:02 36.0 85 20 132/64 (86) 94 Nasal Cannula 2.00 General Appearance: No Apparent Distress, WD/WN, Chronically ill, Obese Respiratory: Lungs Clear Cardiovascular: Regular Rate, Rhythm Neurologic/Psychiatric: Alert, Oriented x3, No Motor/Sensory Deficits, Normal Mood/Affect Allergies: Coded Allergies: Tetanus Vaccines and Toxoid (Verified Allergy, Severe, Anaphylaxis, 11/18/20) Discharge Summary Date of Admission Date of Discharge Discharge Date: Nov 27, 2020 Discharge Diagnosis Mag citrate Enema DC tomorrow (1) Surgical wound breakdown Status: Acute Qualifiers: Qualified Codes: T81.31XA - Disruption of external operation (surgical) wound, not elsewhere classified, initial encounter (2) Fall Status: Acute Qualifiers: Qualified Codes: W19.XXXA - Unspecified fall, initial encounter (3) COPD (chronic obstructive pulmonary disease) Status: Chronic KATE BOYER DO Nov 27, 2020 06:06
[2020-11-27 06:07] LABS: ALBUMIN 3.2 GM/DL (3.2-4.5); CHLORIDE 103 MMOL/L (98-107); POTASSIUM 4.2 MMOL/L (3.6-5.0); SODIUM 138 MMOL/L (135-145)
[2020-11-27 06:09] LABS: CALCIUM 8.4 MG/DL (8.5-10.1)
[2020-11-27 06:10] LABS: GLUCOSE 108 MG/DL (70-105); TOTAL PROTEIN 5.8 GM/DL (6.4-8.2)
[2020-11-27 06:11] LABS: CARBON DIOXIDE 30 MMOL/L (21-32)
[2020-11-27 06:12] LABS: BILIRUBIN,TOTAL 0.5 MG/DL (0.1-1.0)
[2020-11-27 06:13] LABS: ALKALINE PHOSPHATASE 56 U/L (40-136); CREATININE SERUM 0.73 MG/DL (0.60-1.30); GFR ESTIMATED > 60
[2020-11-27 06:14] LABS: BUN/CREATININE RATIO 19
[2020-11-27] MEDS: inSUlin ASPART (NovoLOG) 1 UNIT/0.01 ML (CHARGE PER UNIT) SC SCH ×2 (06:14→11:26)
[2020-11-27] MEDS ORDERED: FUROSEMIDE 40 MG/4 ML INJ (LASIX) IVP ONE (06:15)
[2020-11-27 06:16] LABS: ALANINE AMINOTRANSFERASE 20 U/L (0-55)
[2020-11-27] MEDS: MULTIVIT W/MINERALS TAB (THERAGRAN M) PO SCH (06:39)
[2020-11-27] MEDS: ENOXAPARIN 60 MG/0.6 ML (LOVENOX) SYR SC SCH (06:39)
[2020-11-27] MEDS: UMECLIDINIUM BROMIDE (INCRUSE ELLIPTA) 7'S IH SCH (07:01)
--- NOTE | 2020-11-27 07:10 | Progress Note ---
Standard Progress Note Progress Notes/Assess & Plan Date Seen by a Provider: Nov 27, 2020 Time Seen by a Provider: 07:08 Progress/Assessment & Plan feeling better Vital Signs Date Time Temp Pulse Resp B/P (MAP) Pulse Ox O2 Delivery O2 Flow Rate FiO2 11/23/20 10:48 95 Nasal Cannula 11/23/20 09:19 97 Nasal Cannula 2.00 11/23/20 08:00 Room Air 2.00 11/23/20 05:29 98 Nasal Cannula 2.00 11/23/20 04:07 36.4 90 20 139/83 (101) 94 Nasal Cannula 2.00 11/23/20 03:10 36.2 20 168/98 (121) 94 Nasal Cannula 2 11/23/20 03:10 Nasal Cannula 2 11/23/20 03:10 94 Nasal Cannula 2.00 11/23/20 03:00 18 173/101 (125) 95 Nasal Cannula 2 11/23/20 02:58 Nasal Cannula 2 11/23/20 02:50 Nasal Cannula 3 11/23/20 02:50 18 167/88 (114) 95 Nasal Cannula 2 11/23/20 02:40 18 176/82 (113) 96 OxyMask 6 11/23/20 02:38 OxyMask 3 11/23/20 02:30 20 188/83 (118) 100 OxyMask 3 11/23/20 02:25 OxyMask 6 11/23/20 02:20 100 OxyMask 6.00 11/23/20 02:20 20 183/105 (131) 99 OxyMask 6 11/23/20 02:10 20 172/109 (130) 100 OxyMask 6 11/23/20 02:10 OxyMask 6 11/23/20 02:07 20 188/95 (126) 100 OxyMask 6 11/23/20 01:58 36.4 21 201/104 (136) 100 OxyMask 6 11/23/20 01:58 OxyMask 6 11/23/20 00:34 36.0 67 16 120/82 (87) 99 Room Air 11/22/20 22:05 90 20 101/80 (87) 96 Room Air 11/22/20 22:05 36.0 90 20 101/80 (87) 96 Room Air I & O 11/23/20 06:59 Intake Total 2400 ml Balance 2400 ml Laboratory Tests Test 11/22/20 22:12 11/23/20 06:45 Range/Units White Blood Count 7.2 10.4 4.3-11.0 10^3/uL Red Blood Count 3.45 L 3.08 L 3.80-5.11 10^6/uL Hemoglobin 10.3 L 9.4 L 11.5-16.0 g/dL Hematocrit 33 L 30 L 35-52 % Mean Corpuscular Volume 97 96 80-99 fL Mean Corpuscular Hemoglobin 30 31 25-34 pg Mean Corpuscular Hemoglobin Concent 31 L 32 32-36 g/dL Red Cell Distribution Width 13.3 13.4 10.0-14.5 % Platelet Count 250 223 130-400 10^3/uL Mean Platelet Volume 10.2 10.4 9.0-12.2 fL Immature Granulocyte % (Auto) 1 1 % Neutrophils (%) (Auto) 63 92 H 42-75 % Lymphocytes (%) (Auto) 27 6 L 12-44 % Monocytes (%) (Auto) 7 1 0-12 % Eosinophils (%) (Auto) 2 0 0-10 % Basophils (%) (Auto) 0 0 0-10 % Neutrophils # (Auto) 4.5 9.6 H 1.8-7.8 10^3/uL Lymphocytes # (Auto) 1.9 0.6 L 1.0-4.0 10^3/uL Monocytes # (Auto) 0.5 0.2 0.0-1.0 10^3/uL Eosinophils # (Auto) 0.2 0.0 0.0-0.3 10^3/uL Basophils # (Auto) 0.0 0.0 0.0-0.1 10^3/uL Immature Granulocyte # (Auto) 0.0 0.1 0.0-0.1 10^3/uL Sodium Level 141 138 135-145 MMOL/L Potassium Level 3.6 3.8 3.6-5.0 MMOL/L Chloride Level 105 106 98-107 MMOL/L Carbon Dioxide Level 23 21 21-32 MMOL/L Anion Gap 13 11 5-14 MMOL/L Blood Urea Nitrogen 17 15 7-18 MG/DL Creatinine 0.80 0.73 0.60-1.30 MG/DL Estimat Glomerular Filtration Rate > 60 > 60 BUN/Creatinine Ratio 21 Glucose Level 126 H 225 H 70-105 MG/DL Calcium Level 8.7 8.3 L 8.5-10.1 MG/DL Corrected Calcium 9.0 8.8 8.5-10.1 MG/DL Total Bilirubin 0.6 0.5 0.1-1.0 MG/DL Aspartate Amino Transf (AST/SGOT) 12 21 5-34 U/L Alanine Aminotransferase (ALT/SGPT) 21 28 0-55 U/L Alkaline Phosphatase 72 75 40-136 U/L Total Protein 6.6 6.1 L 6.4-8.2 GM/DL Albumin 3.6 3.4 3.2-4.5 GM/DL Neutrophils % (Manual) 94 % Lymphocytes % (Manual) 6 % Polychromasia SLIGHT LLE--in brace intact DF and PF of toes and ankle sensation intact throughout s/p wound closure LLE continue abx WBAT with brace at ALL TIMES no bending of knee plan for DC Monday if doing well Final Diagnosis doing well Vital Signs Date Time Temp Pulse Resp B/P (MAP) Pulse Ox O2 Delivery O2 Flow Rate FiO2 11/27/20 00:02 36.0 85 20 132/64 (86) 94 Nasal Cannula 2.00 11/26/20 21:45 93 Nasal Cannula 3.00 11/26/20 20:40 Nasal Cannula 2.00 11/26/20 15:34 36.7 83 18 134/67 (89) 96 Nasal Cannula 2.00 11/26/20 12:00 36.7 76 16 141/68 (92) 95 Nasal Cannula 2.00 11/26/20 08:00 36.6 86 20 128/60 (82) 95 Nasal Cannula 3.00 11/26/20 08:00 Nasal Cannula 2.00 11/26/20 07:53 95 Nasal Cannula 3.00 I & O 11/27/20 06:59 Intake Total 1060 ml Output Total 2700 ml Balance -1640 ml Laboratory Tests Test 11/26/20 10:57 11/26/20 15:34 11/26/20 20:25 11/27/20 05:30 Range/Units Glucometer 107 104 106 102 70-110 MG/DL White Blood Count 7.2 4.3-11.0 10^3/uL Red Blood Count 2.79 L 3.80-5.11 10^6/uL Hemoglobin 8.5 L 11.5-16.0 g/dL Hematocrit 28 L 35-52 % Mean Corpuscular Volume 100 H 80-99 fL Mean Corpuscular Hemoglobin 31 25-34 pg Mean Corpuscular Hemoglobin Concent 31 L 32-36 g/dL Red Cell Distribution Width 14.5 10.0-14.5 % Platelet Count 282 130-400 10^3/uL Mean Platelet Volume 10.0 9.0-12.2 fL Immature Granulocyte % (Auto) 2 % Neutrophils (%) (Auto) 66 42-75 % Lymphocytes (%) (Auto) 22 12-44 % Monocytes (%) (Auto) 8 0-12 % Eosinophils (%) (Auto) 2 0-10 % Basophils (%) (Auto) 0 0-10 % Neutrophils # (Auto) 4.8 1.8-7.8 10^3/uL Lymphocytes # (Auto) 1.6 1.0-4.0 10^3/uL Monocytes # (Auto) 0.6 0.0-1.0 10^3/uL Eosinophils # (Auto) 0.1 0.0-0.3 10^3/uL Basophils # (Auto) 0.0 0.0-0.1 10^3/uL Immature Granulocyte # (Auto) 0.2 H 0.0-0.1 10^3/uL Sodium Level 138 135-145 MMOL/L Potassium Level 4.2 3.6-5.0 MMOL/L Chloride Level 103 98-107 MMOL/L Carbon Dioxide Level 30 21-32 MMOL/L Anion Gap 5 5-14 MMOL/L Blood Urea Nitrogen 14 7-18 MG/DL Creatinine 0.73 0.60-1.30 MG/DL Estimat Glomerular Filtration Rate > 60 BUN/Creatinine Ratio 19 Glucose Level 108 H 70-105 MG/DL Calcium Level 8.4 L 8.5-10.1 MG/DL Corrected Calcium 9.0 8.5-10.1 MG/DL Total Bilirubin 0.5 0.1-1.0 MG/DL Aspartate Amino Transf (AST/SGOT) 15 5-34 U/L Alanine Aminotransferase (ALT/SGPT) 20 0-55 U/L Alkaline Phosphatase 56 40-136 U/L Total Protein 5.8 L 6.4-8.2 GM/DL Albumin 3.2 3.2-4.5 GM/DL LLE incision clean and dry. No calf tenderness . Neg Jean's s/p L knee wound closure/I and D BRACE AT ALL TIMES EXCEPT FOR WOUND CARE DC to ADY SALAZAR MD Nov 27, 2020 07:10
[2020-11-27 07:33] VITALS: BP 127/74
[2020-11-27] MEDS: LACTULOSE SYRUP 10GM/15ML (ENULOSE) 30ML UDC PO SCH (08:23)
[2020-11-27] MEDS: PANTOPRAZOLE 40 MG (PROTONIX) TAB PO SCH (08:24)
[2020-11-27] MEDS: amLODIPine 5 MG (NORVASC) TAB PO SCH (08:24)
[2020-11-27] MEDS: ASPIRIN E.C. 81 MG (ECOTRIN) TAB PO SCH (08:24)
[2020-11-27] MEDS: SENNA W/DOCUSATE (SENOKOT S) TABLET PO SCH (08:25)
[2020-11-27] MEDS: MICONAZOLE 2% POWDER (DESENEX AF) 90 GM TOP SCH ×2 (08:25→13:00)
[2020-11-27 13:15] VITALS: BP 127/74
== END 2020-11-27 13:15 ==
LOC: EDUNIT# 22:03 → ER 22:04 → SDC 11-23 00:08 → 4TH 11-23 04:30 → SDC 11-27 13:15
PROVIDERS: ATTEND Orthopaedic Surgery
DX: T81.31XA Disruption of external operation (surgical) wound, not elsewhere classified, initial encounter (principal); J44.9 Chronic obstructive pulmonary disease, unspecified; F41.9 Anxiety disorder, unspecified; K57.90 Diverticulosis of intestine, part unspecified, without perforation or abscess without bleeding; I10 Essential (primary) hypertension; K21.9 Gastro-esophageal reflux disease without esophagitis; F32.9 Major depressive disorder, single episode, unspecified; E66.01 Morbid (severe) obesity due to excess calories; G47.33 Obstructive sleep apnea (adult) (pediatric); G57.90 Unspecified mononeuropathy of unspecified lower limb; J30.2 Other seasonal allergic rhinitis; F17.210 Nicotine dependence, cigarettes, uncomplicated; D64.9 Anemia, unspecified; M17.12 Unilateral primary osteoarthritis, left knee; Z68.43 Body mass index [BMI] 50.0-59.9, adult; Z88.7 Allergy status to serum and vaccine; Z79.1 Long term (current) use of non-steroidal anti-inflammatories (NSAID); Z79.51 Long term (current) use of inhaled steroids; Z79.891 Long term (current) use of opiate analgesic; Z79.899 Other long term (current) drug therapy; Z85.3 Personal history of malignant neoplasm of breast; Z96.652 Presence of left artificial knee joint; Z90.13 Acquired absence of bilateral breasts and nipples; Z83.3 Family history of diabetes mellitus; W19.XXXA Unspecified fall, initial encounter
CPT/HCPCS: 36415; 70450; 72125; 73080; 73560; 80053; 82962; 83036; 85007; 85025; 85027; 94640; 94664; 94760; 94761; 96374; 96375; 96376

== ENCOUNTER 2021-03-02 14:18 | Outpatient (RCR) | payer MEDICAID ==
[~2021-03-02 14:18] MED LIST changes: +ACET325T49 PO; +ALBU2.5V4 INH; +ALPR0.5T7 PO; +AMLO-250 PO; +ASPI-1238 PO; +ATOR20TA66 PO; +ENOX60DI7 SC; +LACT20SO2 PO; +MELA5TAB14 PO; +MICO90PO TOP; +OXYC1TAB87 PO; +PANT40TA52 PO; +SENN1TAB76 PO; +ZOLP5TAB7 PO
== END 2021-04-16 11:15 | disposition home or self-care (01) ==
PROVIDERS: ATTEND Orthopaedic Surgery
DX: Z47.1 Aftercare following joint replacement surgery (principal); Z96.652 Presence of left artificial knee joint; M81.0 Age-related osteoporosis without current pathological fracture

== ENCOUNTER 2021-05-24 15:35 | Emergency (ER) | payer MEDICAID ==
[~2021-05-24] VITALS: Ht 152.4 cm; Wt 114.7 kg
--- NOTE | 2021-05-24 16:43 | ED GI ---
General Chief Complaint: Abdominal/GI Problems Stated Complaint: L SIDE BACK/CHEST PAIN X 1 WEEK Source of Information: Patient Exam Limitations: No Limitations History of Present Illness Date Seen by Provider: May 24, 2021 Time Seen by Provider: 16:33 Initial Comments This is a 61-year-old female who presented to the ER with complaints of 10/10 left flank pain that started approximately 6 days ago. States that pain worsened over the past couple days and today is unbearable. States that anytime she tries to eat or drink it makes the pain worse. Was running a temperature of 102 Fahrenheit at home. Reports nausea with pain but no vomiting. Denies any difficulty urinating. Pain is constant, stabbing. Has taken ibuprofen with no relief. Last dose at 830 this morning. Allergies and Home Medications Allergies Coded Allergies: Tetanus Vaccines and Toxoid (Verified Allergy, Severe, Anaphylaxis, 11/18/20) Patient Home Medication List Acetaminophen (Acetaminophen) 325 Mg Tablet, 650 MG PO Q6H PRN for PAIN-MILD (1- 4) OR TEMPATURE Prescribed by: KATE BOYER on 11/27/20 0605 Albuterol Sulfate (Proair Hfa) 1 Puff Puff, 2 PUFF IH Q4H PRN for SHORTNESS OF BREATH, (Reported) Entered as Reported by: JASON BELL on 11/13/20 1422 Albuterol Sulfate (Albuterol Sulfate) 2.5 Mg/3 Ml Vial.neb, 2.5 MG INH RTQ4HR PRN for WHEEZING Prescribed by: KATE BOYER on 11/27/20 06 Alprazolam (Alprazolam) 0.5 Mg Tablet, 0.5 MG PO Q8H PRN for ANXIETY Prescribed by: KATE BOYER on 11/27/20 0605 Amlodipine Besylate (Amlodipine Besylate) 5 Mg Tablet, 5 MG PO DAILY, (Reported) Entered as Reported by: LISANDRA LARSEN on 11/24/20 1221 Aspirin (Aspirin EC) 81 Mg Tablet.dr, 81 MG PO DAILY Prescribed by: KATE BOYER on 11/27/20 0605 Atorvastatin Calcium (Atorvastatin Calcium) 20 Mg Tablet, 20 MG PO DAILY, (Reported) Entered as Reported by: LISANDRA LARSEN on 11/24/20 1221 Budesonide/Formoterol Fumarate (Symbicort 160-4.5 Mcg Inhaler) 10.2 Gm Hfa.aer.ad, 2 PUFF IH BID, (Reported) Entered as Reported by: JASON BELL on 11/13/201421 Cholecalciferol (Vitamin D3) (Vitamin D3) Unknown Strength Tablet, 20 MCG PO DAILY, (Reported) Entered as Reported by: JASON BELL on 11/13/20 142 Diclofenac Sodium (Voltaren) 100 Gm Gel..gram., 4 GM TP QID PRN for PAIN- BREAKTHROUGH, (Reported) Entered as Reported by: JASON BELL on 11/13/201421 Enoxaparin Sodium (Enoxaparin Sodium) 60 Mg/0.6 Ml Syringe, 60 MG SC Q12H Prescribed by: KATE BOYER on 11/27/20604 Lactulose (Lactulose) 20 Gm/30 Ml Solution, 10 GM PO BID Prescribed by: KATE BOYER on 11/27/20604 Melatonin (Melatonin) 5 Mg Tablet, 5 MG PO DAILY, (Reported) Entered as Reported by: LISANDRA LARSEN on 11/24/20 122 Miconazole Nitrate (Lotrimin AF) 90 Gm Powder, 1 GM TOP TID Prescribed by: KATE BOYER on 11/27/20604 Omeprazole (Omeprazole) 20 Mg Capsule.dr, 20 MG PO DAILY, (Reported) Entered as Reported by: JASON BELL on 11/13/201421 Oxycodone HCl/Acetaminophen (Percocet 5-325 mg Tablet) 1 Each Tablet, 1 TAB PO Q2HR PRN for PAIN-MODERATE (5-7) Prescribed by: KATE BOYER on 11/27/20604 Oxycodone HCl/Acetaminophen (Oxycodone-Acetaminophen 5-325) 1 Each Tablet, 1 EACH PO Q6H PRN for PAIN-SEVERE (8-10) Prescribed by: DALLIN RAMÍREZ on 05/24/212116 Pantoprazole Sodium (Pantoprazole Sodium) 40 Mg Tablet.dr, 40 MG PO DAILY Prescribed by: KATE BOYER on 11/27/20604 Sennosides/Docusate Sodium (Stool Softener-Laxative Tablet) 1 Each Tablet, 2 EA PO BID Prescribed by: KATE BOYER on 11/27/20 0605 Tiotropium [place] (Spiriva) 1 Inh Aerp, 1 INH IH DAILY, (Reported) Entered as Reported by: JASON BELL on 11/13/20 1422 Zolpidem Tartrate (Zolpidem Tartrate) 5 Mg Tablet, 5 MG PO HS PRN for INSOMNIA Prescribed by: KATE BOYER on 11/27/20 0605 Past Fwhhcpo-Mjrqes-Unnvwq Hx Patient Social History Tobacco Use?: Yes Tobacco type used: Cigarettes Smoking Status: Current Everyday Smoker Use of E-Cig and/or Vaping dev: No Substance use?: No Alcohol Use?: No Pt feels they are or have been: No Seasonal Allergies Seasonal Allergies: Yes Past Medical History Surgeries: Yes (bilat mastectomy; LEFT KNEE REPLACEMENT) Section, Gallbladder, Orthopedic Respiratory: Yes Sleep Apnea, COPD Currently Using CPAP: Yes Currently Using BIPAP: No Cardiac: Yes High Cholesterol, Hypertension Neurological: Yes Neuropathy Genitourinary: No Gastrointestinal: Yes Gastroesophageal Reflux Musculoskeletal: Yes (left knee osteoarthritis) Arthritis Endocrine: No HEENT: No (no teeth) Cancer: Yes Breast What Type of Treatment Did You: Chemotherapy, Surgical Intervention Psychosocial: Yes Anxiety Integumentary: No Blood Disorders: No Physical Exam Vital Signs Vital Signs - First Documented 05/24/21 16:27 Temp 36.8 Pulse 88 Resp 20 B/P (MAP) 149/95 (113) Pulse Ox 95 O2 Delivery Room Air Capillary Refill : Height/Weight/BMI Height: '" Weight: lbs. oz. kg; 50.11 BMI Method: Progress/Results/Core Measures Results/Orders Lab Results Laboratory Tests Test 05/24/21 16:37 Range/Units White Blood Count 8.6 4.3-11.0 10^3/uL Red Blood Count 4.48 3.80-5.11 10^6/uL Hemoglobin 13.7 11.5-16.0 g/dL Hematocrit 44 35-52 % Mean Corpuscular Volume 97 80-99 fL Mean Corpuscular Hemoglobin 31 25-34 pg Mean Corpuscular Hemoglobin Concent 32 32-36 g/dL Red Cell Distribution Width 15.4 H 10.0-14.5 % Platelet Count 248 130-400 10^3/uL Mean Platelet Volume 10.5 9.0-12.2 fL Immature Granulocyte % (Auto) 2 % Neutrophils (%) (Auto) 70 42-75 % Lymphocytes (%) (Auto) 20 12-44 % Monocytes (%) (Auto) 6 0-12 % Eosinophils (%) (Auto) 2 0-10 % Basophils (%) (Auto) 0 0-10 % Neutrophils # (Auto) 6.0 1.8-7.8 10^3/uL Lymphocytes # (Auto) 1.7 1.0-4.0 10^3/uL Monocytes # (Auto) 0.5 0.0-1.0 10^3/uL Eosinophils # (Auto) 0.2 0.0-0.3 10^3/uL Basophils # (Auto) 0.0 0.0-0.1 10^3/uL Immature Granulocyte # (Auto) 0.2 H 0.0-0.1 10^3/uL Sodium Level 140 135-145 MMOL/L Potassium Level 4.7 3.6-5.0 MMOL/L Chloride Level 106 98-107 MMOL/L Carbon Dioxide Level 23 21-32 MMOL/L Anion Gap 11 5-14 MMOL/L Blood Urea Nitrogen 25 H 7-18 MG/DL Creatinine 0.93 0.60-1.30 MG/DL Estimat Glomerular Filtration Rate 61 BUN/Creatinine Ratio 27 Glucose Level 95 70-105 MG/DL Calcium Level 9.5 8.5-10.1 MG/DL Corrected Calcium 9.3 8.5-10.1 MG/DL Total Bilirubin 0.3 0.1-1.0 MG/DL Aspartate Amino Transf (AST/SGOT) 13 5-34 U/L Alanine Aminotransferase (ALT/SGPT) 19 0-55 U/L Alkaline Phosphatase 87 40-136 U/L Total Protein 7.9 6.4-8.2 GM/DL Albumin 4.2 3.2-4.5 GM/DL Amylase Level 37 25-125 U/L Lipase 22 8-78 U/L My Orders Orders - DALLIN RAMÍREZ [facility] Ua Culture If Indicated (05/24/21 16:23) Fentanyl Inj (Sublimaze Injection) (05/24/21 16:45) Abdomen/Kub 1view (05/24/21 16:40) Ed Iv/Invasive Line Start (05/24/21 16:40) Cbc With Automated Diff (05/24/21 16:41) Comprehensive Metabolic Panel (05/24/21 16:41) Ct Abdomen/Pelvis W (05/24/21 17:12) Hydromorphone Injection (Dilaudid Inject (05/24/21 17:15) Chest 1 View, Ap/Pa Only (05/24/21 17:15) Hydromorphone Injection (Dilaudid Inject (05/24/21 17:18) Iohexol Injection (Omnipaque 350 Mg/Ml 1 (05/24/21 17:30) Received Contrast (Hold Metformin- Contr (05/24/21 17:30) Ns (Ivpb) (Sodium Chloride 0.9% Ivpb Bag (05/24/21 17:30) Albuterol Pre-Mix Nebs (Rt) (Proventil (05/24/21 17:30) Svn Small Volume Nebulizer (05/24/21 17:29) Albuterol/Ipra Inhalation Soln (Duoneb I (05/24/21 17:34) Lipase (05/24/21 18:30) Amylase (05/24/21 18:30) Hydromorphone Injection (Dilaudid Inject (05/24/21 18:30) Oxycodone/Acet 10/325mg Tablet (Percocet (05/24/21 19:15) Hydromorphone Injection (Dilaudid Inject (05/24/21 20:45) Medications Given in ED Current Medications Medications Dose Ordered Sig/Kari Route Start Time Stop Time Status Last Admin Dose Admin Fentanyl Citrate 50 mcg ONCE ONCE IVP 05/24/21 16:45 05/24/21 16:46 DC 05/24/21 16:45 50 MCG Hydromorphone HCl 0.5 mg ONCE ONCE IV 05/24/21 17:15 05/24/21 17:18 DC 05/24/21 17:20 0.5 MG Hydromorphone HCl 1 mg ONCE ONCE IV 05/24/21 18:30 05/24/21 18:37 DC 05/24/21 18:48 1 MG Hydromorphone HCl 1 mg ONCE ONCE IV 05/24/21 20:45 05/24/21 20:46 DC 05/24/21 20:39 1 MG Iohexol 100 ml ONCE ONCE IV 05/24/21 17:30 05/24/21 17:31 DC 05/24/21 18:06 100 ML Oxycodone/ Acetaminophen 1 tab ONCE ONCE PO 05/24/21 19:15 05/24/21 19:16 DC 05/24/21 20:39 1 TAB Sodium Chloride 100 ml ONCE ONCE IV 05/24/21 17:30 05/24/21 17:31 DC 05/24/21 18:06 80 ML Vital Signs/I&O 05/24/21 05/24/21 16:27 17:38 Temp 36.8 Pulse 88 Resp 20 B/P (MAP) 149/95 (113) Pulse Ox 95 95 O2 Delivery Room Air Room Air Departure Communication (Admissions) Time/Spoke to Consulting Phy: 19:00 Dr. Mars Impression Primary Impression: Abdominal pain Additional Impression: Lesion of pancreas Disposition: HOME, SELF-CARE Condition: Improved Departure-Patient Inst. Decision time for Depature: 21:11 Referrals: NO,LOCAL PHYSICIAN (PCP/Family) Primary Care Physician Patient Instructions: Abdominal Pain, Adult ED Add. Discharge Instructions: Plan: 1. Call scheduling at 8:00am to schedule MRI. Please call [phone]. 2. You should be nothing by mouth for at least 4 hours prior to procedure, unless otherwise directed. 3. Diet as tolerated. Call your doctor office tomorrow to schedule follow up. You will need to discuss your results and will need GI specialist. 4. Take Oxycodone 5/325mg tab every 6 hours as needed for pain. 5. Report will be called/faxed to your primary care provider. You will need c lose follow up with GI specialist. 5. Return for any new, concerning, or worsening symptoms. All discharge instructions reviewed with patient and/or family. Voiced understanding. Scripts Oxycodone HCl/Acetaminophen (Oxycodone-Acetaminophen 5-325) 1 Each Tablet 1 EACH PO Q6H PRN for PAIN-SEVERE (8-10) MDD 6 for 3 Days, #14 TAB 0 Refills Prov: DALLIN RAMÍREZ [facility] 05/24/21 DALLIN RAM[facility] May 24, 2021 16:43
[2021-05-24] MEDS ORDERED: fentaNYL INJ 100 MCG/2 ML AMP IVP ONE (16:45)
[2021-05-24 16:59] LABS: ALBUMIN 4.2 GM/DL (3.2-4.5); POTASSIUM 4.7 MMOL/L (3.6-5.0)
[2021-05-24 17:00] LABS: BASOPHILS % (AUTO) 0 % (0-10); EOSINOPHILS # (AUTO) 0.2 10^3/uL (0.0-0.3); EOSINOPHILS % (AUTO) 2 % (0-10); HEMATOCRIT 44 % (35-52); HEMOGLOBIN 13.7 g/dL (11.5-16.0); LYMPHOCYTES # (AUTO) 1.7 10^3/uL (1.0-4.0); LYMPHOCYTES % (AUTO) 20 % (12-44); MEAN CORPUSCULAR HEMOGLOBIN 31 pg (25-34); MEAN CORPUSCULAR HGB CONC 32 g/dL (32-36); MEAN CORPUSCULAR VOLUME 97 fL (80-99); MEAN PLATELET VOLUME 10.5 fL (9.0-12.2); MONOCYTES # (AUTO) 0.5 10^3/uL (0.0-1.0); MONOCYTES % (AUTO) 6 % (0-12); NEUTROPHILS % (AUTO) 70 % (42-75); PLATELET COUNT 248 10^3/uL (130-400); WHITE BLOOD COUNT 8.6 10^3/uL (4.3-11.0)
[2021-05-24 17:01] LABS: CALCIUM 9.5 MG/DL (8.5-10.1)
[2021-05-24 17:02] LABS: TOTAL PROTEIN 7.9 GM/DL (6.4-8.2)
[2021-05-24 17:03] LABS: BILIRUBIN,TOTAL 0.3 MG/DL (0.1-1.0)
[2021-05-24 17:05] LABS: CREATININE SERUM 0.93 MG/DL (0.60-1.30)
--- NOTE | 2021-05-24 17:09 | Diagnostic Imaging Report ---
INDICATION: Flank pain. FINDINGS: There are clips in the gallbladder fossa. There are pelvic calcifications, believed phleboliths. No suspicious radiopaque urinary tract stone is revealed. The bowel gas pattern is unobstructed and nonacute. IMPRESSION: No acute appearing abnormality. Dictated by: Dictated on workstation # [id number]
[2021-05-24] MEDS ORDERED: HYDROmorphone 2 MG/ML VIAL (DILAUDID) IV ONE ×3 (17:15→20:45)
[2021-05-24] MEDS ORDERED: HYDROmorphone 2 MG/ML VIAL (DILAUDID) ONE (17:18)
[2021-05-24] MEDS ORDERED: RT-ALBUTEROL SULF 2.5 MG/3 ML PRE-MIX VIAL INH ONE (17:30)
[2021-05-24] MEDS ORDERED: IOHEXOL 350 MG/ML 100 ML (OMNIPAQUE 350) VIAL IV ONE (17:30)
[2021-05-24] MEDS ORDERED: NS 100 ML (IVPB) BAG IV ONE (17:30)
[2021-05-24] MEDS ORDERED: HOLD METFORMIN - RECEIVED CONTRAST 20 ML VIAL IV SCH (17:30)
[2021-05-24] MEDS ORDERED: RT-ALBUTEROL/IPRATROPIUM 3 ML (DUONEB) VIAL ONE (17:34)
[2021-05-24] MEDS ORDERED: RT-ALBUTEROL/IPRATROPIUM 3 ML (DUONEB) VIAL INH ONE (17:45)
--- NOTE | 2021-05-24 17:46 | Diagnostic Imaging Report ---
EXAMINATION: Chest, one view. HISTORY: Left rib pain. COMPARISON: 11/25/2020. FINDINGS: The lungs are clear without edema or pneumonia. No pleural effusion or pneumothorax. Heart size is normal. Ribs are not well seen due to body habitus. IMPRESSION: 1. Clear lungs. Dictated by: Dictated on workstation # [id number]
--- NOTE | 2021-05-24 18:25 | Diagnostic Imaging Report ---
EXAMINATION: CT abdomen and pelvis with intravenous contrast. TECHNIQUE: Multiple contiguous axial images were obtained through the abdomen and pelvis after the uneventful administration of intravenous contrast. All CT scans use one or more of the following dose optimizing techniques: automated exposure control, MA and/or KvP adjustment based on patient size and exam type or iterative reconstruction. HISTORY: Left flank pain COMPARISON: None available. FINDINGS: Limited views of the lower thorax are unremarkable. There is a cyst in the central liver. There is mild intrahepatic and extrahepatic biliary ductal dilation. There is indeterminate area of hypoattenuation in the head of the pancreas measuring 1.7 x 1.5 cm. The pancreatic duct is mildly dilated. Gallbladder is surgically absent. Pancreas is normal. Spleen is normal. Adrenal glands are normal. The kidneys are normal. There is no hydronephrosis. Urinary bladder is normal. There are no renal or ureteral stones. Uterus and adnexa are normal. Visualized bowel is normal in caliber without obstruction or inflammation. There is diverticulosis without diverticulitis. No free fluid or air. No abdominal or pelvic lymphadenopathy. Aorta is normal in caliber without aneurysm. There are no suspicious osseus lesions. There is grade 2 anterolisthesis of L5 on S1 due to bilateral pars defects. IMPRESSION: 1. Indeterminate hypoattenuating lesion in the head of the pancreas with mild intra and extrahepatic biliary ductal dilation and pancreatic ductal dilation. MRI with and without contrast is recommended and ultimately the patient may require an ERCP to determine if this is a pancreatic adenocarcinoma. Dictated by: Dictated on workstation # [id number]
[2021-05-24 18:43] LABS: AMYLASE 37 U/L (25-125)
[2021-05-24 18:52] LABS: LIPASE 22 U/L (8-78)
[2021-05-24] MEDS ORDERED: oxyCODONE/APAP 10/325MG (PERCOCET 10) TABLET PO ONE (19:15)
[2021-05-24] MEDS ORDERED: OXYC1TAB11 PO (21:16)
[2021-05-24] MEDS ORDERED: RX-OXYCODONE/APAP 5-325 MG #4 TAB PK PO PRN (21:45)
[2021-05-24] MEDS ORDERED: RX-OXYCODONE/APAP 5-325 MG #4 TAB PK PO ONE (21:45)
[2021-05-24 21:54] VITALS: BP 111/96
== END 2021-05-24 22:04 | disposition home or self-care (01) ==
LOC: EDUNIT# 15:35 → ER 15:37
DX: K86.9 Disease of pancreas, unspecified (principal); G47.30 Sleep apnea, unspecified; J44.9 Chronic obstructive pulmonary disease, unspecified; I10 Essential (primary) hypertension; K21.9 Gastro-esophageal reflux disease without esophagitis; E78.00 Pure hypercholesterolemia, unspecified; F41.9 Anxiety disorder, unspecified; F17.210 Nicotine dependence, cigarettes, uncomplicated; Z79.82 Long term (current) use of aspirin; Z79.01 Long term (current) use of anticoagulants; Z79.899 Other long term (current) drug therapy
CPT/HCPCS: 36415; 71045; 74018; 74177; 80053; 82150; 83690; 85025; 96374; 96375; 96376

== ENCOUNTER 2021-05-28 11:07 | Emergency (ER) | payer MEDICAID ==
[~2021-05-28] VITALS: Ht 152.4 cm; Wt 115.0 kg
[~2021-05-28 11:07] MED LIST changes: -OXYC1TAB12 PO
--- NOTE | 2021-05-28 11:23 | ED Abdominal Pain ---
General Stated Complaint: ABD PAIN Source of Information: Patient Exam Limitations: No Limitations History of Present Illness Date Seen by Provider: May 28, 2021 Time Seen by Provider: 11:22 Initial Comments To ER with epigastric abdominal pain severe in nature. She was seen here within the past 2 weeks for abdominal pain found to have and lesion of the pancreatic head with intrapancreatic ductal dilatation. She was here for outpatient MRI of the abdomen today to further evaluate but because of her pain she was unable to complete the procedure. Because of the pain she presents to the emergency room. No fevers or chills. Normal bowel movement yesterday. She was given hydrocodone during her ER stay but ran out of that last night. If she took 2 at a time they were helping with her pain. Timing/Duration: 1-2 Days Severity/Quality: Moderate Location: Epigastric Radiation: No Radiation Activities at Onset: None Associated Symptoms: Nausea/Vomiting Allergies and Home Medications Allergies Coded Allergies: Tetanus Vaccines and Toxoid (Verified Allergy, Severe, Anaphylaxis, 11/18/20) Patient Home Medication List Home Medication List Reviewed: Yes Acetaminophen (Acetaminophen) 325 Mg Tablet, 650 MG PO Q6H PRN for PAIN-MILD (1- 4) OR TEMPATURE Prescribed by: KATE BOYER on 11/27/20 06 Albuterol Sulfate (Proair Hfa) 1 Puff Puff, 2 PUFF IH Q4H PRN for SHORTNESS OF BREATH, (Reported) Entered as Reported by: JASON BELL on 11/13/20 1422 Albuterol Sulfate (Albuterol Sulfate) 2.5 Mg/3 Ml Vial.neb, 2.5 MG INH RTQ4HR PRN for WHEEZING Prescribed by: KATE BOYER on 11/27/20 06 Alprazolam (Alprazolam) 0.5 Mg Tablet, 0.5 MG PO Q8H PRN for ANXIETY Prescribed by: KATE BOYER on 11/27/20 06 Amlodipine Besylate (Amlodipine Besylate) 5 Mg Tablet, 5 MG PO DAILY, (Reported) Entered as Reported by: LISANDRA LARSEN on 11/24/20 1221 Aspirin (Aspirin EC) 81 Mg Tablet.dr, 81 MG PO DAILY Prescribed by: KATE BOYER on 11/27/20 0605 Atorvastatin Calcium (Atorvastatin Calcium) 20 Mg Tablet, 20 MG PO DAILY, (Reported) Entered as Reported by: LISANDRA LARSEN on 11/24/20 1221 Budesonide/Formoterol Fumarate (Symbicort 160-4.5 Mcg Inhaler) 10.2 Gm Hfa.aer.ad, 2 PUFF IH BID, (Reported) Entered as Reported by: JASON BELL on 11/13/20 142 Cholecalciferol (Vitamin D3) (Vitamin D3) Unknown Strength Tablet, 20 MCG PO DAILY, (Reported) Entered as Reported by: JASON BELL on 11/13/20 142 Diclofenac Sodium (Voltaren) 100 Gm Gel..gram., 4 GM TP QID PRN for PAIN-[facility], (Reported) Entered as Reported by: JASON BELL on 11/13/201421 Enoxaparin Sodium (Enoxaparin Sodium) 60 Mg/0.6 Ml Syringe, 60 MG SC Q12H Prescribed by: KATE BOYER on 11/27/20 06 Lactulose (Lactulose) 20 Gm/30 Ml Solution, 10 GM PO BID Prescribed by: KATE BOYER on 11/27/20 06 Melatonin (Melatonin) 5 Mg Tablet, 5 MG PO DAILY, (Reported) Entered as Reported by: LISANDRA LARSEN on 11/24/20 122 Miconazole Nitrate (Lotrimin AF) 90 Gm Powder, 1 GM TOP TID Prescribed by: KATE BOYER on 11/27/20 06 Omeprazole (Omeprazole) 20 Mg Capsule.dr, 20 MG PO DAILY, (Reported) Entered as Reported by: JASON BELL on 11/13/20 142 Oxycodone HCl/Acetaminophen (Percocet 5-325 mg Tablet) 1 Each Tablet, 1 TAB PO Q2HR PRN for PAIN-MODERATE (5-7) Prescribed by: KATE BOYER on 11/27/20 06 Oxycodone HCl/Acetaminophen (Oxycodone-Acetaminophen 5-325) 1 Each Tablet, 1 EACH PO Q6H PRN for PAIN-SEVERE (8-10) Prescribed by: DALLIN RAMÍREZ on 05/24/212116 Oxycodone HCl/Acetaminophen (Percocet 10-325 mg Tablet) 1 Each Tablet, 1 TAB PO Q6H PRN for PAIN-MODERATE Prescribed by: DARLIN PIERCE on 05/28/21 1219 Pantoprazole Sodium (Pantoprazole Sodium) 40 Mg Tablet.dr, 40 MG PO DAILY Prescribed by: KATE BOYER on 11/27/20 06 Sennosides/Docusate Sodium (Stool Softener-Laxative Tablet) 1 Each Tablet, 2 EA PO BID Prescribed by: KATE BOYER on 11/27/20 0605 Tiotropium Thayne (Spiriva) 1 Inh Aerp, 1 INH IH DAILY, (Reported) Entered as Reported by: JASON BELL on 11/13/20 1422 Zolpidem Tartrate (Zolpidem Tartrate) 5 Mg Tablet, 5 MG PO HS PRN for INSOMNIA Prescribed by: KATE BOYER on 11/27/20 0605 Review of Systems Review of Systems Constitutional: see HPI EENTM: No Symptoms Reported Respiratory: No Symptoms Reported Cardiovascular: No Symptoms Reported Gastrointestinal: See HPI, Abdominal Pain Genitourinary: No Symptoms Reported Musculoskeletal: no symptoms reported Skin: no symptoms reported Psychiatric/Neurological: No Symptoms Reported Endocrine: No Symptoms Reported Hematologic/Lymphatic: No Symptoms Reported Past Rrvtnru-Hsjyhs-Vlsckt Hx Seasonal Allergies Seasonal Allergies: Yes Past Medical History Surgeries: Yes (bilat mastectomy; LEFT KNEE REPLACEMENT) Section, Gallbladder, Orthopedic Respiratory: Yes Sleep Apnea, COPD Currently Using CPAP: Yes Currently Using BIPAP: No Cardiac: Yes High Cholesterol, Hypertension Neurological: Yes Neuropathy Genitourinary: No Gastrointestinal: Yes Gastroesophageal Reflux Musculoskeletal: Yes (left knee osteoarthritis) Arthritis Endocrine: No HEENT: No (no teeth) Cancer: Yes Breast What Type of Treatment Did You: Chemotherapy, Surgical Intervention Psychosocial: Yes Anxiety Integumentary: No Blood Disorders: No Physical Exam Vital Signs Vital Signs - First Documented 05/28/21 11:22 Temp 36.3 Pulse 87 Resp 24 B/P (MAP) 143/90 (107) Pulse Ox 95 O2 Delivery Room Air Capillary Refill : Height/Weight/BMI Height: '" Weight: lbs. oz. kg; 49.00 BMI Method: General Appearance: WD/WN, moderate distress, obese HEENT: PERRL/EOMI, normal ENT inspection Respiratory: no respiratory distress, no accessory muscle use Cardiovascular: regular rate, rhythm, no murmur Gastrointestinal: normal bowel sounds, soft Extremities: normal range of motion, non-tender Neurologic/Psychiatric: alert, normal mood/affect, oriented x 3 Skin: normal color, warm/dry Progress/Results/Core Measures Results/Orders Lab Results Laboratory Tests Test 05/28/21 11:35 Range/Units White Blood Count 7.1 4.3-11.0 10^3/uL Red Blood Count 4.53 3.80-5.11 10^6/uL Hemoglobin 14.1 11.5-16.0 g/dL Hematocrit 43 35-52 % Mean Corpuscular Volume 96 80-99 fL Mean Corpuscular Hemoglobin 31 25-34 pg Mean Corpuscular Hemoglobin Concent 33 32-36 g/dL Red Cell Distribution Width 14.7 H 10.0-14.5 % Platelet Count 225 130-400 10^3/uL Mean Platelet Volume 10.2 9.0-12.2 fL Immature Granulocyte % (Auto) 0 % Neutrophils (%) (Auto) 69 42-75 % Lymphocytes (%) (Auto) 22 12-44 % Monocytes (%) (Auto) 7 0-12 % Eosinophils (%) (Auto) 2 0-10 % Basophils (%) (Auto) 0 0-10 % Neutrophils # (Auto) 4.9 1.8-7.8 10^3/uL Lymphocytes # (Auto) 1.6 1.0-4.0 10^3/uL Monocytes # (Auto) 0.5 0.0-1.0 10^3/uL Eosinophils # (Auto) 0.2 0.0-0.3 10^3/uL Basophils # (Auto) 0.0 0.0-0.1 10^3/uL Immature Granulocyte # (Auto) 0.0 0.0-0.1 10^3/uL Sodium Level 137 135-145 MMOL/L Potassium Level 4.4 3.6-5.0 MMOL/L Chloride Level 104 98-107 MMOL/L Carbon Dioxide Level 23 21-32 MMOL/L Anion Gap 10 5-14 MMOL/L Blood Urea Nitrogen 22 H 7-18 MG/DL Creatinine 0.89 0.60-1.30 MG/DL Estimat Glomerular Filtration Rate 64 BUN/Creatinine Ratio 25 Glucose Level 110 H 70-105 MG/DL Calcium Level 9.5 8.5-10.1 MG/DL Corrected Calcium 9.4 8.5-10.1 MG/DL Total Bilirubin 0.4 0.1-1.0 MG/DL Aspartate Amino Transf (AST/SGOT) 15 5-34 U/L Alanine Aminotransferase (ALT/SGPT) 22 0-55 U/L Alkaline Phosphatase 86 40-136 U/L Total Protein 7.7 6.4-8.2 GM/DL Albumin 4.1 3.2-4.5 GM/DL Lipase 12 8-78 U/L My Orders Orders - DARLIN PIERCE APRN Cbc With Automated Diff (05/28/21 11:20) Comprehensive Metabolic Panel (05/28/21 11:20) Lipase (05/28/21 11:20) Ed Iv/Invasive Line Start (05/28/21 11:20) Ketorolac Injection (Toradol Injection) (05/28/21 11:30) Hydromorphone Injection (Dilaudid Inject (05/28/21 11:30) Lactated Ringers (Lr 1000 Ml Iv Solution (05/28/21 11:30) Hydromorphone Injection (Dilaudid Inject (05/28/21 11:30) Hydromorphone Injection (Dilaudid Inject (05/28/21 12:30) Ketamine Syringe (Ketamine Syringe) (05/28/21 12:30) Ns (Ivpb) (Sodium Chloride 0.9%) (05/28/21 12:30) Oxycodone/Apap 5/325mg Tablet (Percocet (05/28/21 12:45) Ct Abdomen/Pelvis Wo (05/28/21 12:46) Medications Given in ED Current Medications Medications Dose Ordered Sig/Kari Route Start Time Stop Time Status Last Admin Dose Admin Hydromorphone HCl 0.5 mg ONCE ONCE IV 05/28/21 11:30 05/28/21 11:31 DC 05/28/21 11:50 0.5 MG Hydromorphone HCl 0.5 mg ONCE ONCE IV 05/28/21 11:30 05/28/21 11:31 DC 05/28/21 12:01 0.5 MG Hydromorphone HCl 0.5 mg ONCE ONCE IV 05/28/21 12:30 05/28/21 12:31 DC 05/28/21 12:33 0.5 MG Ketamine HCl 25 mg ONCE ONCE IV 05/28/21 12:30 05/28/21 12:31 DC 05/28/21 12:33 25 MG Ketorolac Tromethamine 30 mg ONCE ONCE IVP 05/28/21 11:30 05/28/21 11:31 DC 05/28/21 11:50 30 MG Sodium Chloride 250 ml @ 999 mls/hr Q16M ONCE IV 05/28/21 12:30 05/28/21 12:45 DC 05/28/21 12:34 999 MLS/HR Vital Signs/I&O 05/28/21 11:22 Temp 36.3 Pulse 87 Resp 24 B/P (MAP) 143/90 (107) Pulse Ox 95 O2 Delivery Room Air Departure Communication (Admissions) 1245-Given her obesity hypoventilation syndrome and her very large abdomen/body habitus I am not sure that she will fit in the MRI scanner and if she does I would be concerned from a respiratory standpoint about her laying flat on her back for the period of time necessary to obtain the MRI. The obesity hyp oventilation while laying flat is compounded by opiate use. It might be safest to skip the MRI and proceed with ERCP/EUS biopsy. However I will defer that decision to gastroenterology. I will try to make an appoint with Dr. Sotelo from [facility] gastroenterology. Impression Primary Impression: Lesion of pancreas Disposition: HOME, SELF-CARE Condition: Stable Departure-Patient Inst. Decision time for Depature: 12:17 Referrals: NO,LOCAL PHYSICIAN (PCP/Family) Primary Care Physician Patient Instructions: No Instuctions Given Add. Discharge Instructions: 1. Follow-up with primary care provider. They may need to refer you to a staff occupational therapist. Scripts Oxycodone HCl/Acetaminophen (Percocet 10-325 mg Tablet) 1 Each Tablet 1 TAB PO Q6H PRN for PAIN-MODERATE MDD 3 TABS for 7 Days, #20 TAB Prov: DARLIN PIERCE APRN 05/28/21 DARLIN PIERCE APRN May 28, 2021 11:23
[2021-05-28] MEDS ORDERED: HYDROmorphone 2 MG/ML VIAL (DILAUDID) IV ONE ×3 (11:30→12:30)
[2021-05-28] MEDS ORDERED: LACTATED RINGERS 1,000 ML IV SCH (11:30)
[2021-05-28] MEDS ORDERED: KETOROLAC 30 MG/ML VIAL IVP ONE (11:30)
[2021-05-28 11:49] LABS: BASOPHILS % (AUTO) 0 % (0-10); EOSINOPHILS # (AUTO) 0.2 10^3/uL (0.0-0.3); EOSINOPHILS % (AUTO) 2 % (0-10); HEMATOCRIT 43 % (35-52); HEMOGLOBIN 14.1 g/dL (11.5-16.0); LYMPHOCYTES # (AUTO) 1.6 10^3/uL (1.0-4.0); LYMPHOCYTES % (AUTO) 22 % (12-44); MEAN CORPUSCULAR HEMOGLOBIN 31 pg (25-34); MEAN CORPUSCULAR HGB CONC 33 g/dL (32-36); MEAN CORPUSCULAR VOLUME 96 fL (80-99); MEAN PLATELET VOLUME 10.2 fL (9.0-12.2); MONOCYTES # (AUTO) 0.5 10^3/uL (0.0-1.0); MONOCYTES % (AUTO) 7 % (0-12); NEUTROPHILS # (AUTO) 4.9 10^3/uL (1.8-7.8); NEUTROPHILS % (AUTO) 69 % (42-75); PLATELET COUNT 225 10^3/uL (130-400); WHITE BLOOD COUNT 7.1 10^3/uL (4.3-11.0)
[2021-05-28 12:02] LABS: ALBUMIN 4.1 GM/DL (3.2-4.5); POTASSIUM 4.4 MMOL/L (3.6-5.0)
[2021-05-28 12:03] LABS: CALCIUM 9.5 MG/DL (8.5-10.1)
[2021-05-28 12:04] LABS: TOTAL PROTEIN 7.7 GM/DL (6.4-8.2)
[2021-05-28 12:06] LABS: BILIRUBIN,TOTAL 0.4 MG/DL (0.1-1.0)
[2021-05-28 12:08] LABS: CREATININE SERUM 0.89 MG/DL (0.60-1.30)
[2021-05-28] MEDS ORDERED: OXYC1TAB12 PO (12:18)
[2021-05-28] MEDS ORDERED: KETAMINE SYRINGE 50 MG/5 ML SYRINGE IV ONE (12:30)
[2021-05-28] MEDS ORDERED: NS (IVPB) 250 ML IV ONE (12:30)
[2021-05-28] MEDS ORDERED: oxyCODONE/APAP 5/325MG (PERCOCET 5) TABLET PO ONE (12:45)
--- NOTE | 2021-05-28 13:19 | Diagnostic Imaging Report ---
PROCEDURE: CT abdomen and pelvis without contrast. TECHNIQUE: Multiple contiguous axial images were obtained through the abdomen and pelvis without the use of intravenous contrast. Auto Exposure Controls were utilized during the CT exam to meet ALARA standards for radiation dose reduction. INDICATION: Abdominal pain. Rigid abdomen. COMPARISON: 05/24/2021. FINDINGS: Included portions of the lung bases show benign calcified granuloma on the right, but are otherwise clear. CT ABDOMEN: There are bilateral L5 pars defects with associated anterolisthesis at L5-S1. No acute osseous abnormalities are seen. There is scattered moderate colonic diverticulosis, but no CT evidence of acute diverticulitis. Small bowel loops are nondistended. Normal appendix is identified. Indeterminate hypoattenuating lesion was noted in the head of the pancreas on prior CT dated 05/24/2021. This is much less conspicuous on today's exam. Differences in appearance may relate to lack of utilization of intravenous contrast. Pancreas has an otherwise unremarkable noncontrast CT appearance. The kidneys, adrenal glands, and spleen have an unremarkable noncontrast CT appearance. Small hypodense likely cystic structure is seen within the dome of the left lobe of the liver near junction of segments NICOLE and II. Liver otherwise has an unremarkable noncontrast CT appearance as well. There is no loculated fluid collection, free fluid, nor free air within the abdomen. No abnormal mesenteric or retroperitoneal adenopathy is seen. There is [id number] scattered calcified aortic and arterial atherosclerosis. CT PELVIS: Urinary bladder is unopacified. No calculi are seen within the urinary bladder. There is no loculated fluid collection, free fluid, nor free air. No abnormal lymph nodes are seen. Osseous structures show no acute abnormalities. IMPRESSION: 1. No acute abnormalities are seen within the abdomen or pelvis. 2. Colonic diverticulosis, but no CT evidence of acute diverticulitis. 3. Pancreatic head lesion described on prior study is much less conspicuous on today's exam, but this may relate to differences in technique. Further characterization with pre and post MRI is advised when clinically appropriate. Dictated by: Dictated on workstation # [id number]
[2021-05-28 13:38] VITALS: BP 96/53
== END 2021-05-28 13:38 | disposition home or self-care (01) ==
LOC: EDUNIT# 11:07 → ER 11:08
DX: K86.9 Disease of pancreas, unspecified (principal); J44.9 Chronic obstructive pulmonary disease, unspecified; G47.30 Sleep apnea, unspecified; I10 Essential (primary) hypertension; E66.9 Obesity, unspecified; K21.9 Gastro-esophageal reflux disease without esophagitis; E78.00 Pure hypercholesterolemia, unspecified; Z68.42 Body mass index [BMI] 45.0-49.9, adult; Z79.82 Long term (current) use of aspirin; Z79.01 Long term (current) use of anticoagulants; Z79.899 Other long term (current) drug therapy
CPT/HCPCS: 36415; 74176; 80053; 83690; 85025

== ENCOUNTER → 2021-05-28 | Outpatient (CLI) | payer MEDICAID ==
[~2021-05-28] MED LIST changes: +CHOL10004 PO; -CHOL100045 PO; +OXYC1TAB11 PO; +OXYC1TAB12 PO
== END ==
LOC: RAD 11:00
PROVIDERS: ATTEND Nurse Practitioner Family
DX: K86.9 Disease of pancreas, unspecified (principal)

== ENCOUNTER 2021-06-02 15:42 | Emergency (ER) | payer MEDICAID ==
[~2021-06-02] VITALS: Ht 152 cm; Wt 115.0 kg
[~2021-06-02 15:42] MED LIST changes: +OXYC1TAB12 PO
[2021-06-02] MEDS ORDERED: fentaNYL INJ 100 MCG/2 ML AMP IVP ONE (16:30)
[2021-06-02 16:39] LABS: ALBUMIN 3.8 GM/DL (3.2-4.5)
[2021-06-02 16:40] LABS: POTASSIUM 4.3 MMOL/L (3.6-5.0)
[2021-06-02 16:41] LABS: CALCIUM 9.6 MG/DL (8.5-10.1)
[2021-06-02 16:42] LABS: TOTAL PROTEIN 7.1 GM/DL (6.4-8.2)
[2021-06-02 16:44] LABS: BILIRUBIN,TOTAL 0.4 MG/DL (0.1-1.0)
[2021-06-02 16:46] LABS: CREATININE SERUM 0.75 MG/DL (0.60-1.30)
[2021-06-02 16:57] LABS: BASOPHILS % (AUTO) 0 % (0-10); EOSINOPHILS # (AUTO) 0.1 10^3/uL (0.0-0.3); EOSINOPHILS % (AUTO) 2 % (0-10); HEMATOCRIT 39 % (35-52); HEMOGLOBIN 12.8 g/dL (11.5-16.0); LYMPHOCYTES # (AUTO) 1.3 10^3/uL (1.0-4.0); LYMPHOCYTES % (AUTO) 18 % (12-44); MEAN CORPUSCULAR HEMOGLOBIN 31 pg (25-34); MEAN CORPUSCULAR HGB CONC 33 g/dL (32-36); MEAN CORPUSCULAR VOLUME 96 fL (80-99); MEAN PLATELET VOLUME 10.5 fL (9.0-12.2); MONOCYTES # (AUTO) 0.5 10^3/uL (0.0-1.0); MONOCYTES % (AUTO) 8 % (0-12); NEUTROPHILS % (AUTO) 72 % (42-75); PLATELET COUNT 216 10^3/uL (130-400)
--- NOTE | 2021-06-02 17:07 | ED Abdominal Pain ---
General Chief Complaint: Abdominal/GI Problems Stated Complaint: PANCREAS PAIN / NAUSEA Nursing Triage Note: PT CO OF SEVERE ABD PAIN, PT IS AWAITING REFERRAL TO DR SOTELO FOR LESION ON PANCREASE. PT STATES PAIN RADIATES TO BACK, CONSTANT STABBING.PT CRYING AND TEARFUL Source of Information: Patient Exam Limitations: No Limitations (EMBER TREADWELL STUDENT) History of Present Illness Date Seen by Provider: Jun 02, 2021 Time Seen by Provider: 16:15 Initial Comments This is Jacque, a 61 yo F, who presents to the ED for pancreas pain. This pain started about 2 weeks ago, but has subsequently gotten worse. Pain is described as constant, stabbing. Radiates from the epigastric region around to the back. Rated as 10/10 "or greater if possible." Better when laying on her left side and not moving. Worse with any kind of movement. Said that the only thing that made the pain tolerable was taking a doubled dose of Hydrocodone. Pt reports nausea, headaches, and abdominal pain. Timing/Duration: 1 Week, Constant, Getting Worse Severity/Quality: Severe, Sharp, Stabbing Location: Epigastric (L) Radiation: Flank (L) Activities at Onset: Rest Modifying Factors: Improves With Analgesics; Worsens With Coughing; Improves With Lying down; Worsens With Movement, Worsens With Palpation Associated Symptoms: Back Pain; No Diaphoresis, No Fever/Chills, No Fatigue; Nausea/Vomiting; No Shortness of Air (EMBER TREADWELL MED STUDENT) Initial Comments Jacque has been seen multiple times in recent weeks. She underwent CT scan on May 24 demonstrating a pancreatic lesion near the pancreatic head of uncertain clinical significance. Concern for possible neoplastic process was noted. She was to have an MRI for follow-up and presented to the hospital for the MRI study. She was unable to lie flat and be still for the MRI due to pain. MRI was abandoned and she presented again to the emergency room. A repeat CT s can was obtained showing little change from the prior. Patient is out of her pain medication that was last prescribed from the ER. She reports the clinic will not refill her opioids. She has a pending GI consultation with Dr. Sotelo. She tried to confirm the GI consultation was received by the [facility] and they stated they did not yet have the referral. Patient seems to be both in physical and emotional distress during my interview and is very tearful. (BRUEGGEMANN,JOJO T MD) Allergies and Home Medications Allergies Coded Allergies: Tetanus Vaccines and Toxoid (Verified Allergy, Severe, Anaphylaxis, 11/18/20) Patient Home Medication List Home Medication List Reviewed: Yes (JOJO BEAN MD) Acetaminophen (Acetaminophen) 325 Mg Tablet, 650 MG PO Q6H PRN for PAIN-MILD (1- 4) OR TEMPATURE Prescribed by: KATE BOYER on 11/27/20 06 Albuterol Sulfate (Proair Hfa) 1 Puff Puff, 2 PUFF IH Q4H PRN for SHORTNESS OF BREATH, (Reported) Entered as Reported by: JASON BELL on 11/13/20 142 Albuterol Sulfate (Albuterol Sulfate) 2.5 Mg/3 Ml Vial.neb, 2.5 MG INH RTQ4HR PRN for WHEEZING Prescribed by: KATE BOYER on 11/27/20 06 Alprazolam (Alprazolam) 0.5 Mg Tablet, 0.5 MG PO Q8H PRN for ANXIETY Prescribed by: KATE BOYER on 11/27/20 06 Amlodipine Besylate (Amlodipine Besylate) 5 Mg Tablet, 5 MG PO DAILY, (Reported) Entered as Reported by: LISANDRA LARSEN on 11/24/20 1221 Aspirin (Aspirin EC) 81 Mg Tablet.dr, 81 MG PO DAILY Prescribed by: KATE BOYER on 11/27/20 06 Atorvastatin Calcium (Atorvastatin Calcium) 20 Mg Tablet, 20 MG PO DAILY, (Reported) Entered as Reported by: LISANDRA LARSEN on 11/24/20 1221 Budesonide/Formoterol Fumarate (Symbicort 160-4.5 Mcg Inhaler) 10.2 Gm Hfa.aer.ad, 2 PUFF IH BID, (Reported) Entered as Reported by: JASON BELL on 11/13/20 142 Cholecalciferol (Vitamin D3) (Vitamin D3) Unknown Strength Tablet, 20 MCG PO DAILY, (Reported) Entered as Reported by: JASON BELL on 11/13/20 142 Diclofenac Sodium (Voltaren) 100 Gm Gel..gram., 4 GM TP QID PRN for PAIN- BREAKTHROUGH, (Reported) Entered as Reported by: JASON BELL on 11/13/20 142 Enoxaparin Sodium (Enoxaparin Sodium) 60 Mg/0.6 Ml Syringe, 60 MG SC Q12H Prescribed by: KATE BOYER on 11/27/20 06 Lactulose (Lactulose) 20 Gm/30 Ml Solution, 10 GM PO BID Prescribed by: KATE BOYER on 11/27/20 06 Melatonin (Melatonin) 5 Mg Tablet, 5 MG PO DAILY, (Reported) Entered as Reported by: LISANDRA LARSEN on 11/24/20 122 Miconazole Nitrate (Lotrimin AF) 90 Gm Powder, 1 GM TOP TID Prescribed by: KATE BOYER on 11/27/20 06 Morphine Sulfate (Morphine Sulfate ER) 15 Mg Tablet.er, 15 MG PO BID Prescribed by: JOJO ALLEN on 06/02/211951 Omeprazole (Omeprazole) 20 Mg Capsule.dr, 20 MG PO DAILY, (Reported) Entered as Reported by: JASON BELL on 11/13/20 142 Oxycodone HCl/Acetaminophen (Percocet 5-325 mg Tablet) 1 Each Tablet, 1 TAB PO Q2HR PRN for PAIN-MODERATE (5-7) Prescribed by: KATE BOYER on 11/27/20 06 Oxycodone HCl/Acetaminophen (Oxycodone-Acetaminophen 5-325) 1 Each Tablet, 1 EACH PO Q6H PRN for PAIN-SEVERE (8-10) Prescribed by: DALLIN RAMÍREZ on 05/24/212116 Oxycodone HCl/Acetaminophen (Percocet 10-325 mg Tablet) 1 Each Tablet, 1 TAB PO Q6H PRN for PAIN-MODERATE Prescribed by: DARLIN PIERCE on 05/28/21 1219 Oxycodone HCl/Acetaminophen (Percocet 5-325 mg Tablet) 1 Each Tablet, 1-2 TAB PO Q4H PRN for PAIN-BREAKTHROUGH Prescribed by: JOJO ALLEN on 06/02/211938 Pantoprazole Sodium (Pantoprazole Sodium) 40 Mg Tablet.dr, 40 MG PO DAILY Prescribed by: KATE BOYER on 11/27/20 06 Sennosides/Docusate Sodium (Stool Softener-Laxative Tablet) 1 Each Tablet, 2 EA PO BID Prescribed by: KATE BOYER on 11/27/20 0605 Tiotropium Seymour (Spiriva) 1 Inh Aerp, 1 INH IH DAILY, (Reported) Entered as Reported by: JASON BELL on 11/13/20 1422 Zolpidem Tartrate (Zolpidem Tartrate) 5 Mg Tablet, 5 MG PO HS PRN for INSOMNIA Prescribed by: KATE BOYER on 11/27/20 06 Discontinued Medications Oxycodone HCl (Oxycontin) 15 Mg Tab.er.12h, 15 MG PO BID Discontinued Reason: Prescription changed Prescribed by: JOJO ALLEN on 06/02/21 1848 Review of Systems Review of Systems Constitutional: No chills, No diaphoresis, No dizziness Respiratory: Denies Cough, Denies Shortness of Air Cardiovascular: Denies Chest Pain, Denies Lightheadedness, Denies Palpitations Gastrointestinal: Abdomen Distended, Abdominal Pain; Denies Constipated, Denies Diarrhea; Nausea; Denies Vomiting Genitourinary: No Symptoms Reported Musculoskeletal: back pain (radiating from epigastric region ) Skin: no symptoms reported Psychiatric/Neurological: No Symptoms Reported (EMBER TREADWELL) Psychiatric/Neurological: See HPI (JOJO BEAN MD) Past Hacfabt-Lnopyt-Holpoq Hx Patient Social History Tobacco Use?: No Use of E-Cig and/or Vaping dev: No Substance use?: No Alcohol Use?: No Pt feels they are or have been: No (EMBER TREADWELL) Seasonal Allergies Seasonal Allergies: Yes (EMBER TREADWELL) Past Medical History Surgeries: Yes (bilat mastectomy; LEFT KNEE REPLACEMENT) Section, Gallbladder, Orthopedic Respiratory: Yes Sleep Apnea, COPD Currently Using CPAP: Yes Currently Using BIPAP: No Cardiac: Yes High Cholesterol, Hypertension Neurological: Yes Neuropathy Genitourinary: No Gastrointestinal: Yes Gastroesophageal Reflux Musculoskeletal: Yes (left knee osteoarthritis) Arthritis Endocrine: No HEENT: No (no teeth) Cancer: Yes Breast What Type of Treatment Did You: Chemotherapy, Surgical Intervention Psychosocial: Yes Anxiety Integumentary: No Blood Disorders: No (EMBER TREADWELL STUDENT) Physical Exam Vital Signs Vital Signs - First Documented 06/02/21 06/02/21 15:55 18:01 Temp 36.3 Pulse 86 Resp 20 B/P (MAP) 151/79 (103) Pulse Ox 96 O2 Delivery Room Air (JOJO BEAN MD) Vital Signs Capillary Refill : Less Than 3 Seconds (EMBER TREADWELL STUDENT) Height/Weight/BMI Height: '" Weight: lbs. oz. kg; 49.00 BMI Method: General Appearance: severe distress, obese Neck: non-tender, full range of motion; No lymphadenopathy (R), No lymphadeno alondra (L) Respiratory: chest non-tender, normal breath sounds, no respiratory distress, wheezing (mild in lower lobes ) Cardiovascular: regular rate, rhythm, no murmur Peripheral Pulses: 2+ Radial Pulses (R), 2+ Radial Pulses (L) Gastrointestinal: normal bowel sounds, distended, guarding, tenderness (generalized, to light touch, denied palpation) Extremities: pedal edema Back: normal inspection, no CVA tenderness, no vertebral tenderness Neurologic/Psychiatric: alert, oriented x 3, depressed affect Skin: normal color, damp (EMBER TREADWELL STUDENT) Progress/Results/Core Measures Results/Orders Lab Results Laboratory Tests Test 06/02/21 16:00 06/02/21 16:49 06/02/21 17:07 Range/Units Sodium Level 144 135-145 MMOL/L Potassium Level 4.3 3.6-5.0 MMOL/L Chloride Level 111 H 98-107 MMOL/L Carbon Dioxide Level 21 21-32 MMOL/L Anion Gap 12 5-14 MMOL/L Blood Urea Nitrogen 11 7-18 MG/DL Creatinine 0.75 0.60-1.30 MG/DL Estimat Glomerular Filtration Rate 79 BUN/Creatinine Ratio 15 Glucose Level 130 H 70-105 MG/DL Calcium Level 9.6 8.5-10.1 MG/DL Corrected Calcium 9.8 8.5-10.1 MG/DL Total Bilirubin 0.4 0.1-1.0 MG/DL Aspartate Amino Transf (AST/SGOT) 18 5-34 U/L Alanine Aminotransferase (ALT/SGPT) 18 0-55 U/L Alkaline Phosphatase 74 40-136 U/L Lactate Dehydrogenase 320 H 125-220 U/L C-Reactive Protein High Sensitivity 1.87 H 0.00-0.50 MG/DL Total Protein 7.1 6.4-8.2 GM/DL Albumin 3.8 3.2-4.5 GM/DL Lipase 8 8-78 U/L White Blood Count 7.0 4.3-11.0 10^3/uL Red Blood Count 4.11 3.80-5.11 10^6/uL Hemoglobin 12.8 11.5-16.0 g/dL Hematocrit 39 35-52 % Mean Corpuscular Volume 96 80-99 fL Mean Corpuscular Hemoglobin 31 25-34 pg Mean Corpuscular Hemoglobin Concent 33 32-36 g/dL Red Cell Distribution Width 14.6 H 10.0-14.5 % Platelet Count 216 130-400 10^3/uL Mean Platelet Volume 10.5 9.0-12.2 fL Immature Granulocyte % (Auto) 0 % Neutrophils (%) (Auto) 72 42-75 % Lymphocytes (%) (Auto) 18 12-44 % Monocytes (%) (Auto) 8 0-12 % Eosinophils (%) (Auto) 2 0-10 % Basophils (%) (Auto) 0 0-10 % Neutrophils # (Auto) 5.0 1.8-7.8 10^3/uL Lymphocytes # (Auto) 1.3 1.0-4.0 10^3/uL Monocytes # (Auto) 0.5 0.0-1.0 10^3/uL Eosinophils # (Auto) 0.1 0.0-0.3 10^3/uL Basophils # (Auto) 0.0 0.0-0.1 10^3/uL Immature Granulocyte # (Auto) 0.0 0.0-0.1 10^3/uL Urine Color YELLOW Urine Clarity CLEAR Urine pH 6.5 5-9 Urine Specific [place] 1.010 L 1.016-1.022 Urine Protein NEGATIVE NEGATIVE Urine Glucose (UA) NEGATIVE NEGATIVE Urine Ketones NEGATIVE NEGATIVE Urine Nitrite NEGATIVE NEGATIVE Urine Bilirubin NEGATIVE NEGATIVE Urine Urobilinogen 0.2 < = 1.0 MG/DL Urine Leukocyte Esterase 2+ H NEGATIVE Urine RBC (Auto) TRACE-I NEGATIVE Urine RBC 0-2 /HPF Urine WBC 5-10 H /HPF Urine Squamous Epithelial Cells 0-2 /HPF Urine Crystals NONE /LPF Urine Bacteria TRACE /HPF Urine Casts NONE /LPF Urine Mucus NEGATIVE /LPF Urine Culture Indicated NO (JOJO BEAN MD) My Orders Orders - JOJO BEAN MD Cbc With Automated Diff (06/02/21 16:27) Comprehensive Metabolic Panel (06/02/21 16:27) Lipase (06/02/21 16:27) Ua Culture If Indicated (06/02/21 16:27) Ed Iv/Invasive Line Start (06/02/21 16:27) Fentanyl Inj (Sublimaze Injection) (06/02/21 16:30) Hs C Reactive Protein (06/02/21 16:29) LDH (06/02/21 16:29) Morphine Injection (Morphine Injection (06/02/21 17:35) Albuterol/Ipra Inhalation Soln (Duoneb I (06/02/21 18:00) Svn Small Volume Nebulizer (06/02/21 17:48) Ketorolac Injection (Toradol Injection) (06/02/21 18:15) Oxycodone Extended Release Tab (Oxyconti (06/02/21 18:15) (JOJO BEAN MD) Medications Given in ED (JOJO BEAN MD) Vital Signs/I&O 06/02/21 06/02/21 06/02/21 15:55 18:01 18:55 Temp 36.3 36.5 Pulse 86 79 Resp 20 22 B/P (MAP) 151/79 (103) 145/77 Pulse Ox 96 95 94 O2 Delivery Room Air Room Air (JOJO BEAN MD) Blood Pressure Mean: 103 Progress Progress Note : Progress Note Patient was initially treated with fentanyl which did little for her pain. This was followed by morphine. Prior to discharge she was also given Toradol and an OxyContin tablet. After thoroughly reviewing her chart and discussing her situation, I informed her my focus at this time would be on pain control. I did contact Dr. Sotelo at [facility]. He took her information stated he would do his very best to get her in for probable biopsy by Monday of next week. His help was greatly appreciated. I did explain to the patient that this procedure was for diagnostic purposes and would not likely do anything to alleviate her pain. She expressed understanding. I did prescribe her some long-acting morphine and Percocet for breakthrough pain I did advise her that she will need chronic pain management at the direction of her PCP. Based on imaging, there is concern for neoplastic process and this could require long-term chronic pain management. Labs were reviewed and were relatively unremarkable. I did contact Dr. Franklin as local surgeon on-call prior to speaking with Dr. Sotelo. He confirmed that this issue would be best addressed by gastroenterology and/or MRI and referral was appropriate. Based on labs and CT findings there was no emergent need for admission or transfer. (JOJO BEAN MD) Departure Impression Primary Impression: Left upper quadrant pain Additional Impression: Pancreatic lesion Disposition: HOME, SELF-CARE Condition: Improved Departure-Patient Inst. Decision time for Depature: 18:45 (JOJO BEAN MD) Referrals: NO,LOCAL PHYSICIAN (PCP/Family) Primary Care Physician Patient Instructions: CHRONIC PAIN, Severe Abdominal Pain, Adult (DC) Add. Discharge Instructions: Follow-up as soon as possible with your primary care provider to work on chronic pain management. Even though we are trying to expedite your referral to the well service pump equipment operator and your biopsy, it is not likely that referral and procedure will quickly result in pain relief measures. You will need to continue to work on chronic pain management with your doctor. Dr. Sotelo's office should be contacting you within the next 48 hours. Please call his office if you do not hear from them by the end of the week. He anticipates arranging a procedure for you by Monday of next week. Drink plenty of clear liquids, and eat a high-fiber diet that is low in fats, greases, and oils. Opioids that you are prescribed may cause constipation. You may need to use stool softeners and laxatives to help prevent constipation. Increase your omeprazole to 20 mg twice daily. Call with questions or concerns. Return to the ER if you have worsening symptoms. All discharge instructions reviewed with patient and/or family. Voiced understanding. Scripts Morphine Sulfate (Morphine Sulfate ER) 15 Mg Tablet.er 15 MG PO BID, #14 TAB Prov: JOJO BEAN MD 06/02/21 Oxycodone HCl/Acetaminophen (Percocet 5-325 mg Tablet) 1 Each Tablet 1-2 TAB PO Q4H PRN for PAIN-BREAKTHROUGH MDD 6 TABS, #20 TAB Prov: JOJO BEAN MD 06/02/21 Copy Copies To 1: KYMBERLY NEWMAN KATHRYN MED STUDENT Jun 02, 2021 17:07 JOJO BEAN MD Jun 02, 2021 18:50
[2021-06-02 17:15] LABS: BILIRUBIN,URINE NEGATIVE (NEGATIVE); CLARITY,URINE CLEAR; COLOR,URINE YELLOW; GLUCOSE, URINE (UA) NEGATIVE (NEGATIVE); KETONES,URINE NEGATIVE (NEGATIVE); LEUKOCYTE ESTERASE ,URINE 2+ (NEGATIVE); NITRITE,URINE NEGATIVE (NEGATIVE); PH,URINE 6.5 (5-9); PROTEIN,URINE NEGATIVE (NEGATIVE)
[2021-06-02] MEDS ORDERED: morphine INJ 10 MG/ML 1ML (SYR OR VIAL) IVP STA (17:35)
[2021-06-02 17:45] LABS: BACTERIA,URINE TRACE /HPF; RBC,URINE 0-2 /HPF; SQUAMOUS EPITHELIAL CELL,UR 0-2 /HPF
[2021-06-02] MEDS ORDERED: RT-ALBUTEROL/IPRATROPIUM 3 ML (DUONEB) VIAL INH ONE (18:00)
[2021-06-02] MEDS ORDERED: oxyCODONE ER 15 MG (oxyCONTIN CR) TAB PO ONE (18:15)
[2021-06-02] MEDS ORDERED: KETOROLAC 30 MG/ML VIAL IVP ONE (18:15)
[2021-06-02] MEDS ORDERED: OXYC1TAB87 PO ×2 (18:48→19:38)
[2021-06-02] MEDS ORDERED: OXYC15TA73 PO ×2 (18:48→19:38)
[2021-06-02 18:55] VITALS: BP 145/77
[2021-06-02] MEDS ORDERED: MORP-68 PO (19:51)
== END 2021-06-02 19:00 | disposition home or self-care (01) ==
LOC: EDUNIT# 15:42 → ER 15:43
DX: K86.9 Disease of pancreas, unspecified (principal); G47.30 Sleep apnea, unspecified; J44.9 Chronic obstructive pulmonary disease, unspecified; I10 Essential (primary) hypertension; E78.00 Pure hypercholesterolemia, unspecified; E66.9 Obesity, unspecified; K21.9 Gastro-esophageal reflux disease without esophagitis; F41.9 Anxiety disorder, unspecified; Z68.42 Body mass index [BMI] 45.0-49.9, adult; Z79.82 Long term (current) use of aspirin; Z79.899 Other long term (current) drug therapy; Z79.01 Long term (current) use of anticoagulants
CPT/HCPCS: 36415; 80053; 81000; 83615; 83690; 85025; 86141; 94640; 94760; 99283

== ENCOUNTER → 2021-06-09 | Outpatient (CLI) | payer MEDICAID ==
[~2021-06-09] MED LIST changes: +MORP-68 PO; +OXYC15TA73 PO
== END ==
LOC: LABNPT 08:38
PROVIDERS: ATTEND Internal Medicine Gastroenterology
DX: Z01.812 Encounter for preprocedural laboratory examination (principal); Z20.822 Contact with and (suspected) exposure to COVID-19
CPT/HCPCS: 87635

== ENCOUNTER → 2023-04-12 | Outpatient (CLI) | payer MEDICAID ==
[~2023-04-12] MED LIST changes: +ALBU8.5H6 IH; -RT-ALBUINH IH; +SENN-271 PO; -SENN1TAB76 PO
--- NOTE | 2023-04-12 14:49 | Diagnostic Imaging Report ---
PROCEDURE: CT left lower extremity without contrast. TECHNIQUE: Multiple contiguous axial images were obtained through the left lower extremity without the use of intravenous contrast. Sagittal and coronal reformations were then performed. Auto Exposure Controls were utilized during the CT exam to meet ALARA standards for radiation dose reduction. INDICATION: Knee pain following arthroplasty. COMPARISON: None available. FINDINGS: Status post total knee arthroplasty with patellar resurfacing. Both the femoral and tibial components are normal in position and have no features of loosening. The plastic articular spacer is intact and has no features of where. The patella button is normal in appearance. No knee joint effusion or periarticular fluid collection. Patellar tendon is intact. Quadriceps has expected appearance following anterior approach for the arthroplasty. IMPRESSION: 1. Total knee arthroplasty has no CT features of complication. Dictated by: Dictated on workstation # [id number]
== END ==
LOC: RAD 11:31
PROVIDERS: ATTEND Family Medicine Sports Medicine
DX: M17.12 Unilateral primary osteoarthritis, left knee (principal); Z96.652 Presence of left artificial knee joint
CPT/HCPCS: 73700

== ENCOUNTER 2023-06-05 16:30 | Inpatient (IN) | payer MEDICAID ==
[~2023-06-05] VITALS: Ht 162 cm; Wt 133.9 kg
--- NOTE | 2023-06-05 16:44 | ED General ---
General Chief Complaint: Respiratory Problems Stated Complaint: OVERDOSE Nursing Triage Note: PT ARRIVED PER EMS, PT HAD ALTERED MENTAL STATUS NOTICED BY FRIENDS. CALLED EMS SAT WAS 79% ON RM AIR END TIDAL 69. PT HAS ALSO TAKEN APPROX 15 MORE XANAX THAN SHOULD HAVE BEEN TAKING. PT STATES HAD TAKEN XANAX TO KEEP FROM DRINKING ETOH. PT VERY SLEEPY. PT HAS SL #20 JELCO IN R AC. CURRENTLY PT ON 2L N/C END TIDAL 37 UNOBSTRUCTED. PT CONFUSED AND VERY DROWSY. Source of Information: Patient, EMS Exam Limitations: Intoxication History of Present Illness Date Seen by Provider: Jun 05, 2023 Time Seen by Provider: 16:33 Initial Comments Here by EMS with report of altered mental status. Apparently friends noted that she was altered and called EMS. EMS reports that she was up toxic on their arrival in the upper 70s with elevated end-tidal CO2 as well. That is improved with 2 L via nasal cannula and with mild stimulation. Patient had normal blood sugar. Apparently she has been taking higher than prescribed amount of her Xanax to refrain from drinking. Patient has slurred speech and is quite drowsy. She denies injury. She was noted to be febrile on arrival. Patient states that she fell a few nights ago and hit her head and left hip and has pain in those areas. Patient very poor historian at this point. Timing/Duration: Other (Symptoms noted this afternoon by bystanders but last known well time unknown) Severity: Moderate Associated Systoms: No Nausea/Vomiting; Weakness Allergies and Home Medications Allergies Coded Allergies: Tetanus Vaccines and Toxoid (Verified Allergy, Severe, Anaphylaxis, 11/18/20) Patient Home Medication List Home Medication List Reviewed: Yes Acetaminophen (Acetaminophen) 325 Mg Tablet, 650 MG PO Q6H PRN for PAIN-MILD (1- 4) OR TEMPATURE Prescribed by: KATE BOYER on 11/27/20 0605 Albuterol Sulfate (Ventolin Hfa) 1 Puff Puff, 2 PUFF IH Q4H PRN for SHORTNESS OF BREATH, (Reported) Entered as Reported by: JASON BELL on 11/13/20 1422 Albuterol Sulfate (Albuterol Sulfate) 2.5 Mg/3 Ml Vial.neb, 2.5 MG INH RTQ4HR PRN for WHEEZING Prescribed by: KATE BOYER on 3/26/21 0605 Alprazolam (Alprazolam) 0.5 Mg Tablet, 0.5 MG PO Q8H PRN for ANXIETY Prescribed by: KATE BOYER on 11/27/20604 Amlodipine Besylate (Amlodipine Besylate) 5 Mg Tablet, 5 MG PO DAILY, (Reported) Entered as Reported by: LISANDRA LARSEN on 11/24/20 122 Aspirin (Aspirin EC) 81 Mg Tablet., 81 MG PO DAILY Prescribed by: KATE BOYER on 11/27/20604 Atorvastatin Calcium (Atorvastatin Calcium) 20 Mg Tablet, 20 MG PO DAILY, (Reported) Entered as Reported by: LISANDRA LARSEN on 11/24/201220 Budesonide/Formoterol Fumarate (Symbicort 160-4.5 Mcg Inhaler) 10.2 Gm Hfa.aer.ad, 2 PUFF IH BID, (Reported) Entered as Reported by: JASON BELL on 11/13/201421 Cholecalciferol (Vitamin D3) (Vitamin D3) Unknown Strength Tablet, 20 MCG PO DAILY, (Reported) Entered as Reported by: JASON BELL on 11/13/201421 Diclofenac Sodium (Voltaren) 100 Gm Gel..gram., 4 GM TP QID PRN for PAIN-[facility], (Reported) Entered as Reported by: JASON BELL on 11/13/201421 Enoxaparin Sodium (Enoxaparin Sodium) 60 Mg/0.6 Ml Syringe, 60 MG SC Q12H Prescribed by: KATE BOYER on 11/27/20604 Lactulose (Lactulose) 20 Gm/30 Ml Solution, 10 GM PO BID Prescribed by: KATE BOYER on 11/27/20604 Melatonin (Melatonin) 5 Mg Tablet, 5 MG PO DAILY, (Reported) Entered as Reported by: LISANDRA LARSEN on 11/24/201221 Miconazole Nitrate (Lotrimin AF) 90 Gm Powder, 1 GM TOP TID Prescribed by: KATE BOYER on 11/27/20604 Morphine Sulfate (Morphine Sulfate ER) 15 Mg Tablet.er, 15 MG PO BID Prescribed by: JOJO ALLEN on 06/02/211951 Omeprazole (Omeprazole) 20 Mg Capsule.dr, 20 MG PO DAILY, (Reported) Entered as Reported by: JASON BELL on 11/13/20 142 Oxycodone HCl/Acetaminophen (Percocet 5-325 mg Tablet) 1 Each Tablet, 1 TAB PO Q2HR PRN for PAIN-MODERATE (5-7) Prescribed by: KATE BOYER on 11/27/20 06 Oxycodone HCl/Acetaminophen (Oxycodone-Acetaminophen 5-325) 1 Each Tablet, 1 EACH PO Q6H PRN for PAIN-SEVERE (8-10) Prescribed by: DALLIN RAMÍREZ on 05/24/212116 Oxycodone HCl/Acetaminophen (Percocet 10-325 mg Tablet) 1 Each Tablet, 1 TAB PO Q6H PRN for PAIN-MODERATE Prescribed by: DARLIN PIERCE on 05/28/21 1219 Oxycodone HCl/Acetaminophen (Percocet 5-325 mg Tablet) 1 Each Tablet, 1-2 TAB PO Q4H PRN for PAIN-BREAKTHROUGH Prescribed by: JOJO ALLEN on 06/02/21 193 Pantoprazole Sodium (Pantoprazole Sodium) 40 Mg Tablet.dr, 40 MG PO DAILY Prescribed by: KATE BOYER on 11/27/20604 Sennosides/Docusate Sodium (Stool Softener-Laxative Tablet) 1 Each Tablet, 2 EA PO BID Prescribed by: KATE BOYER on 11/27/20604 Tiotropium Lamoure (Spiriva) 1 Inh Aerp, 1 INH IH DAILY, (Reported) Entered as Reported by: JASON BELL on 11/13/20 142 Zolpidem Tartrate (Zolpidem Tartrate) 5 Mg Tablet, 5 MG PO HS PRN for INSOMNIA Prescribed by: KATE BOYER on 11/27/20 06 Review of Systems Review of Systems Constitutional: see HPI, fever, weakness Respiratory: see HPI Cardiovascular: no symptoms reported Musculoskeletal: joint pain Psychiatric/Neurological: Headache Patient with altered mental status and very poor historian limiting review of systems. Past Ojfgoqm-Rkqwjh-Aqepeg Hx Patient Social History Tobacco Use?: Yes Alcohol Use?: Yes Seasonal Allergies Seasonal Allergies: Yes Past Medical History Surgeries: Yes (bilat mastectomy; LEFT KNEE REPLACEMENT) Section, Gallbladder, Orthopedic Respiratory: Yes Sleep Apnea, COPD Currently Using CPAP: Yes Currently Using BIPAP: No Cardiac: Yes High Cholesterol, Hypertension Neurological: Yes Neuropathy Genitourinary: No Gastrointestinal: Yes Gastroesophageal Reflux Musculoskeletal: Yes (left knee osteoarthritis) Arthritis Endocrine: No HEENT: No (no teeth) Cancer: Yes Breast What Type of Treatment Did You: Chemotherapy, Surgical Intervention Psychosocial: Yes Anxiety Integumentary: No Blood Disorders: No Physical Exam Vital Signs Vital Signs - First Documented 06/05/23 17:30 FiO2 80 Capillary Refill : Less Than 3 Seconds Height, Weight, BMI Height: '" Weight: lbs. oz. kg; 46.00 BMI Method: General Appearance: No Apparent Distress, Obese HEENT: PERRL/EOMI, Pharynx Normal, Other (Doing this bilateral) Neck: Non Tender, Supple Respiratory: Decreased Breath Sounds (morbidly obese); No Wheezing Cardiovascular: Regular Rate, Rhythm, No Murmur Gastrointestinal: Non Tender, Soft Extremity: Pelvis Stable, Other (Tender to palpation left lateral hip) Neurologic/Psychiatric: Other (Weak with slurred speech and drifts off to sleep easily even during conversation. Alert to self but confused to situation. Follows simple commands and answers simple questions.) Skin: Warm/Dry, Other (Psoriatic lesions to both legs) Focused Exam Lactate Level 06/05/23 16:38: Lactic Acid Level 0.86 Lactic Acid Level Laboratory Tests Test 06/05/23 16:38 Lactic Acid Level 0.86 MMOL/L (0.50-2.00) Procedures/Interventions Lumen: triple Central Line Procedure: betadine prep, sterile drapes applied, sterile dressing applied Position: internal jugular (R) Complications: none Post Position: sutured, good blood return, position confirmed w/ CXR Central wound placed via ultrasound guidance to the right IJ x1 stick without complication. Good flash, flushing return. Tolerated procedure well without complication. Date of ETT Placement: Jun 05, 2023 Time of ETT Placement: 17:23 Medications: Etomidate (20 mg), Fentanyl (75 mcg), Succinylcholine (200 mg) Positive End Tide CO2: Yes Breath Sounds after Intubation: bilateral-equal Intubation Complications: no complications Post Intubation Xray: Yes ETT in good position Progress/Results/Core Measures Suspected Sepsis SIRS Temperature: Pulse: 85 Respiratory Rate: 23 Laboratory Tests 06/05/23 16:38: White Blood Count 9.2 Blood Pressure 138 /82 Mean: 100 06/05/23 16:38: Lactic Acid Level 0.86 Laboratory Tests 06/05/23 16:38: Creatinine 1.14, INR Comment 1.0, Platelet Count 195, Total Bilirubin 1.0 Results/Orders Lab Results Laboratory Tests Test 06/05/23 16:37 06/05/23 16:38 06/05/23 16:40 06/05/23 16:47 Range/Units Glucometer 106 70-110 MG/DL White Blood Count 9.2 4.3-11.0 10^3/uL Red Blood Count 3.91 3.80-5.11 10^6/uL Hemoglobin 14.0 11.5-16.0 g/dL Hematocrit 43 35-52 % Mean Corpuscular Volume 110 H 80-99 fL Mean Corpuscular Hemoglobin 36 H 25-34 pg Mean Corpuscular Hemoglobin Concent 33 32-36 g/dL Red Cell Distribution Width 13.7 10.0-14.5 % Platelet Count 195 130-400 10^3/uL Mean Platelet Volume 10.7 9.0-12.2 fL Immature Granulocyte % (Auto) 0 % Neutrophils (%) (Auto) 75 42-75 % Lymphocytes (%) (Auto) 17 12-44 % Monocytes (%) (Auto) 6 0-12 % Eosinophils (%) (Auto) 1 0-10 % Basophils (%) (Auto) 1 0-10 % Neutrophils # (Auto) 6.9 1.8-7.8 10^3/uL Lymphocytes # (Auto) 1.6 1.0-4.0 10^3/uL Monocytes # (Auto) 0.6 0.0-1.0 10^3/uL Eosinophils # (Auto) 0.1 0.0-0.3 10^3/uL Basophils # (Auto) 0.1 0.0-0.1 10^3/uL Immature Granulocyte # (Auto) 0.0 0.0-0.1 10^3/uL Prothrombin Time 13.5 12.2-14.7 SEC INR Comment 1.0 0.8-1.4 Activated Partial Thromboplast Time 27 24-35 SEC Sodium Level 141 135-145 MMOL/L Potassium Level 5.0 3.6-5.0 MMOL/L Chloride Level 104 98-107 MMOL/L Carbon Dioxide Level 25 21-32 MMOL/L Anion Gap 12 5-14 MMOL/L Blood Urea Nitrogen 34 H 7-18 MG/DL Creatinine 1.14 0.60-1.30 MG/DL Estimat Glomerular Filtration Rate 54 BUN/Creatinine Ratio 30 Glucose Level 101 70-105 MG/DL Lactic Acid Level 0.86 0.50-2.00 MMOL/L Calcium Level 9.4 8.5-10.1 MG/DL Corrected Calcium 9.2 8.5-10.1 MG/DL Magnesium Level 2.3 1.6-2.4 MG/DL Total Bilirubin 1.0 0.1-1.0 MG/DL Aspartate Amino Transf (AST/SGOT) 55 H 5-34 U/L Alanine Aminotransferase (ALT/SGPT) 38 0-55 U/L Alkaline Phosphatase 83 40-136 U/L Total Protein 8.2 6.4-8.2 GM/DL Albumin 4.3 3.2-4.5 GM/DL TSH [place] Testing 0.72 0.35-4.94 UIU/ML Salicylates Level < 5.0 L 5.0-20.0 MG/DL Acetaminophen Level < 10 L 10-30 UG/ML Serum Alcohol < 10 <10 MG/DL Smear Scan YES Blood Gas Puncture Site LEFT WRIST Blood Gas Patient Temperature 37.7 Arterial Blood pH 7.29 *L 7.37-7.43 Arterial Blood Partial Pressure CO2 68 H 35-45 MMHG Arterial Blood Partial Pressure O2 90 79-93 MMHG Arterial Blood HCO3 31 H 23-27 MMOL/L Arterial Blood Total CO2 33.1 H 21.0-31.0 MMOL/L Arterial Blood Oxygen Saturation 97 94-100 % Arterial Blood Base Excess 5.0 H -2.5-2.5 MMOL/L Paresh Test YES-POS Blood Gas Ventilator Setting NO Blood Gas Inspired Oxygen 2 Influenza Type A (RT-PCR) Not Detected Not Detecte Influenza Type B (RT-PCR) Not Detected Not Detecte SARS-CoV-2 RNA (RT-PCR) Not Detected Not Detecte Test 06/05/23 16:55 06/05/23 17:18 Range/Units Urine Color YELLOW Urine Clarity CLEAR Urine pH 5.5 5-9 Urine Specific [place] >=1.030 1.016-1.022 Urine Protein 2+ H NEGATIVE Urine Glucose (UA) NEGATIVE NEGATIVE Urine Ketones NEGATIVE NEGATIVE Urine Nitrite NEGATIVE NEGATIVE Urine Bilirubin 1+ H NEGATIVE Urine Urobilinogen 1.0 < = 1.0 MG/DL Urine Leukocyte Esterase NEGATIVE NEGATIVE Urine RBC (Auto) NEGATIVE NEGATIVE Urine RBC 0-2 /HPF Urine WBC 0-2 /HPF Urine Squamous Epithelial Cells 2-5 /HPF Urine Crystals PRESENT H /LPF Urine Amorphous Sediment MOD ANA CRISTINA URATES H /LPF Urine Bacteria TRACE /HPF Urine Casts PRESENT /LPF Urine Hyaline Casts 5-10 H /LPF Urine Granular Casts 5-10 H /LPF Urine Mucus LARGE H /LPF Urine Culture Indicated NO Urine Opiates Screen POSITIVE H NEGATIVE Urine Oxycodone Screen NEGATIVE NEGATIVE Urine Methadone Screen NEGATIVE NEGATIVE Urine Propoxyphene Screen NEGATIVE NEGATIVE Urine Barbiturates Screen NEGATIVE NEGATIVE Ur Tricyclic Antidepressants Screen NEGATIVE NEGATIVE Urine Phencyclidine Screen NEGATIVE NEGATIVE Urine Amphetamines Screen NEGATIVE NEGATIVE Urine Methamphetamines Screen NEGATIVE NEGATIVE Urine Benzodiazepines Screen POSITIVE H NEGATIVE Urine Cocaine Screen NEGATIVE NEGATIVE Urine Cannabinoids Screen POSITIVE H NEGATIVE Troponin I 0.188 H <0.028 NG/ML C-Reactive Protein High Sensitivity 2.25 H 0.00-0.50 MG/DL My Orders Orders - GOGO PAGE MD Ua Culture If Indicated (06/05/23 16:36) Cbc And Automated Diff (06/05/23 16:36) Comprehensive Metabolic Panel (06/05/23 16:36) Alcohol (06/05/23 16:36) Drug Screen Stat (Urine) (06/05/23 16:36) Acetaminophen (06/05/23 16:36) Salicylate (06/05/23 16:36) Ekg Tracing (06/05/23 16:36) Ed Iv/Invasive Line Start (06/05/23 16:36) Monitor-Rhythm Ecg Trace Only (06/05/23 16:36) Ed Iv/Invasive Line Start (06/05/23 16:36) Arterial Blood Gas (06/05/23 16:40) Magnesium (06/05/23 16:39) Thyroid Analyzer (06/05/23 16:39) Blood Culture (06/05/23 16:39) Sputum Culture (06/05/23 16:39) Protime With Inr (06/05/23 16:39) Partial Thromboplastin Time (06/05/23 16:39) Chest 1 View, Ap/Pa Only (06/05/23 16:39) Vital Signs Adult Sepsis Patie Q15M (06/05/23 16:39) O2 (06/05/23 16:39) Remove Rings In Anticipation O (06/05/23 16:39) Lactic Acid Analyzer (06/05/23 16:39) Influenza A And B By Pcr (06/05/23 16:44) Covid 19 Inhouse Test (06/05/23 16:44) Ct Head Wo (06/05/23 16:50) Pelvis With Left Hip 2-3 Views (06/05/23 16:50) Propofol Drip (Icu) (Propofol Drip (Icu) (06/05/23 17:08) Hs C Reactive Protein (06/05/23 17:14) Troponin I Mushtaq (06/05/23 17:14) Ipratropium/Albuterol Inh Soln (Ipratrop (06/05/23 17:38) Code/Resuscitation (06/05/23 18:52) Ed Admission (Communication) (06/05/23 18:52) Medications Given in ED Current Medications Medications Dose Ordered Sig/Kari Route Start Time Stop Time Status Last Admin Dose Admin Propofol 100 ml @ ud STK-MED ONCE IV 06/05/23 17:08 06/05/23 17:10 DC 06/05/23 17:30 22 MLS/HR Vital Signs/I&O 06/05/23 06/05/23 06/05/23 06/05/23 16:30 16:30 17:30 17:30 Temp 37.7 Pulse 85 83 Resp 23 18 B/P (MAP) 138/82 (100) 130/103 Pulse Ox 96 96 100 O2 Delivery Nasal Cannula Nasal Cannula O2 Flow Rate 2.00 2.00 FiO2 80 Capillary Refill : Less Than 3 Seconds Blood Pressure Mean: 100 Progress Note : Progress Note Seen and evaluated. This is a complicated presentation of a patient that may have overdosed but also has fever and reports fall with head injury and hip pain. Patient is morbidly obese which limits exam and patient is confused which may be related to overdose versus head injury. We will initiate sepsis protocol as well as substance abuse protocol. IV established by EMS and we will continue normal saline 1 L bolus. We will check labs including CBC, CMP, Tylenol, alcohol, salicylate, UA, UDS as well as thyroid screen. We will check COVID and influenza screen. Chest x-ray, CT of the head and x-ray of the left hip and pelvis ordered. Monitor patient. Differential diagnosis includes drug overdose, respiratory failure, pneumonia, sepsis, electrolyte abnormality, dehydration, thyroid dysfunction 712: ABG results noted and concerning for hypercarbic respiratory failure. I did discuss the case with Dr. Whitaker, hospitalist on. Given her hypercarbia and the fact that she is getting quite hypercarbic falls asleep and she is somewhat difficult to arouse, we will go ahead and initiate intubation to control airway and improve ventilatory status. CBC resulted and shows normal WBC and hemoglobin. Pending chemistries. I will add troponin. EKG results noted. I did discuss innovation with the patient and she indicated agreement. We will place central line after. 1810: Central line and ET tube placement complete. We have placed NG tube. Chemistries reviewed. Electrolytes grossly normal. LFTs grossly normal. Troponin was noted to be elevated and CRP was slightly elevated. UA nonconcerning. UDS positive for benzos, opiates and marijuana. I did discuss the case with Dr. Whitaker and she accepts patient for admission. We are pending CT scan. Central line is in good position and ET tube in good position. I did discuss the case with Dr Green at 1825, on-call for cardiology service and he accepts patient in consult due to slightly elevated troponin. We believe this is related to hypoxia and not cardiac event. He will follow-up as needed. Patient will go to CT scan. 1837: CT scan complete. I have reviewed the scan and see no obvious intracranial hemorrhage. Patient to go to ICU. Chest x-ray reviewed and shows no obvious infiltrate although there is blunting of the left costophrenic angle. ET tube in good position, central line in good position but I cannot verify OG tube is in good position as I cannot see that across the diaphragm border. This may be due to body habitus. They will reevaluate in the ICU. We did get gastric contents and were able to hear bubbling on air push. Again this will be reevaluated the ICU. Patient is on propofol drip at 60 mcg/kg/h currently. She is on vent at rate of 16, tidal volume of 450 and PEEP of 5 with FiO2 to be adjusted to keep sats greater than 92%. I did discuss with the caregivers for the patient and informed them of the current findings and situation. We are still pending left hip and pelvis x-ray. Patient to ICU. 1853: Hip pelvis x-ray reviewed by me and I do not see any obvious fracture on my interpretation although this is a very limited film due to body habitus. ECG Initial ECG Impression Date: Jun 05, 2023 Initial ECG Impression Time: 17:04 Initial ECG Rate: 80 Initial ECG Rhythm: Normal Sinus Comment Rhythm with normal axis. No evidence of ST elevation VA. T wave inversions noted V3 and V4. Interpreted by me. Diagnostic Imaging Diagonstic Imaging: CT Plain Films/CT/US/NM/MRI: head Comments [facility], [place] NAME: GRADY OQUENDO [facility] REC#: [id number] PT STATUS: REG ER : 1960 PHYSICIAN: GOGO PAGE MD ADMIT DATE: 06/05/23/ER Draft Date of Exam:06/05/23 CT HEAD WO PROCEDURE: CT head without contrast. TECHNIQUE: Multiple contiguous axial images were obtained through the brain without the use of intravenous contrast. Auto Exposure Controls were utilized during the CT exam to meet ALARA standards for radiation dose reduction. INDICATION: Head injury injured in fall, altered mental status. COMPARISONS: 11/22/2020 FINDINGS: The midline structures are not displaced. There is slightly advanced for age generalized atrophy. Background chronic areas of microvascular ischemic change seen. Tierney-white differentiation is maintained and there is no sulcal effacement. There are no abnormal extra-axial fluid collections or hemorrhage. Basilar cisterns appear normal. Sinuses show some ethmoid sinus disease. There is some minimally displaced nasal bone fractures. Orbits and mastoid air cells are grossly normal. There are no calvarial changes. IMPRESSION: 1. Some mild atrophy with background chronic areas of microvascular ischemic change but no acute findings identified by nonenhanced CT criteria. 2. Some ethmoid sinus disease as well as nondisplaced nasal bone fractures. Dictated on workstation # [id number] Dict: 06/05/231841 Trans: 06/05/231846 [facility] [id number] Interpreted by: ALANNA MARSHALL MD Electronically signed by: Critical Care Note Critical Care Start Time: 16:33 Stop Time: 18:50 Total Time (minutes) 30 minutes excluding separately billable procedures to perform, management and admission evaluation for patient with critical illness. Departure Communication (Admissions) Time/Spoke to Admitting Phy: 18:10 Time/Spoke to Consulting Phy: 18:23 Impression Primary Impression: Benzodiazepine overdose Qualified Codes: T42.4X4A - Poisoning by benzodiazepines, undetermined, initial encounter Additional Impressions: Hypercapnic respiratory failure Qualified Codes: J96.02 - Acute respiratory failure with hypercapnia Elevated troponin Disposition: ADMITTED INPATIENT Condition: Critical Admissions Decision to Admit Reason: Admit from ER (General) Decision to Admit/Date: Jun 05, 2023 Time/Decision to Admit Time: 18:10 Departure-Patient Inst. Referrals: LILIANA MURCAI MD (PCP/Family) Primary Care Physician GOGO PAGE MD Jun 05, 2023 16:44
[2023-06-05 16:52] LABS: BASOPHILS # (AUTO) 0.1 10^3/uL (0.0-0.1); BASOPHILS % (AUTO) 1 % (0-10); EOSINOPHILS # (AUTO) 0.1 10^3/uL (0.0-0.3); EOSINOPHILS % (AUTO) 1 % (0-10); HEMATOCRIT 43 % (35-52); LYMPHOCYTES # (AUTO) 1.6 10^3/uL (1.0-4.0); LYMPHOCYTES % (AUTO) 17 % (12-44); MEAN CORPUSCULAR HEMOGLOBIN 36 pg (25-34); MEAN CORPUSCULAR HGB CONC 33 g/dL (32-36); MEAN CORPUSCULAR VOLUME 110 fL (80-99); MEAN PLATELET VOLUME 10.7 fL (9.0-12.2); MONOCYTES # (AUTO) 0.6 10^3/uL (0.0-1.0); MONOCYTES % (AUTO) 6 % (0-12); NEUTROPHILS # (AUTO) 6.9 10^3/uL (1.8-7.8); NEUTROPHILS % (AUTO) 75 % (42-75); PLATELET COUNT 195 10^3/uL (130-400); WHITE BLOOD COUNT 9.2 10^3/uL (4.3-11.0)
[2023-06-05 16:52] LABS: ABG OXYGEN SATURATION 97 % (94-100); ABG PCO2 68 MMHG (35-45); ABG PO2 90 MMHG (79-93); ABG TCO2 33.1 MMOL/L (21.0-31.0)
[2023-06-05 16:55] LABS: SMEAR SCAN COMMENT YES
[2023-06-05 16:59] LABS: ABG PH 7.29 (7.37-7.43); ALLENS TEST YES-POS; INSPIRED O2 2; PATIENT TEMP 37.7; VENTILATOR NO
[2023-06-05 17:05] LABS: CHLORIDE 104 MMOL/L (98-107); SODIUM 141 MMOL/L (135-145)
[2023-06-05 17:06] LABS: ALBUMIN 4.3 GM/DL (3.2-4.5)
[2023-06-05 17:07] LABS: CALCIUM 9.4 MG/DL (8.5-10.1)
[2023-06-05 17:08] LABS: GLUCOSE 101 MG/DL (70-105); TOTAL PROTEIN 8.2 GM/DL (6.4-8.2)
[2023-06-05 17:09] LABS: CARBON DIOXIDE 25 MMOL/L (21-32)
[2023-06-05 17:12] LABS: ALKALINE PHOSPHATASE 83 U/L (40-136); CREATININE SERUM 1.14 MG/DL (0.60-1.30); GFR ESTIMATED 54
[2023-06-05 17:13] LABS: BUN/CREATININE RATIO 30
[2023-06-05 17:15] LABS: ALANINE AMINOTRANSFERASE 38 U/L (0-55); MAGNESIUM 2.3 MG/DL (1.6-2.4); SALICYLATE < 5.0 MG/DL (5.0-20.0)
[2023-06-05 17:19] LABS: CLARITY,URINE CLEAR; COLOR,URINE YELLOW; PH,URINE 5.5 (5-9); PROTEIN,URINE 2+ (NEGATIVE)
[2023-06-05 17:20] LABS: AMORPHOUS SEDIMENT,UR MOD AMOR URATES /LPF; BACTERIA,URINE TRACE /HPF; GLUCOSE, URINE (UA) NEGATIVE (NEGATIVE); KETONES,URINE NEGATIVE (NEGATIVE); LEUKOCYTE ESTERASE ,URINE NEGATIVE (NEGATIVE); NITRITE,URINE NEGATIVE (NEGATIVE); RBC,URINE 0-2 /HPF; WBC,URINE 0-2 /HPF
[2023-06-05 17:21] LABS: BILIRUBIN,URINE 1+ (NEGATIVE)
[2023-06-05 17:22] LABS: ACETAMINOPHEN < 10 UG/ML (10-30)
[2023-06-05 17:23] LABS: AMPHETAMINE SCREEN, URINE NEGATIVE (NEGATIVE); BARBITURATE SCREEN URINE NEGATIVE (NEGATIVE); CANNABINOID SCREEN, URINE POSITIVE (NEGATIVE); COCAINE SCREEN URINE NEGATIVE (NEGATIVE); METHADONE STAT NEGATIVE (NEGATIVE); OPIATE SCREEN URINE POSITIVE (NEGATIVE); OXYCODONE STAT NEGATIVE (NEGATIVE); PROPOXYPHENE STAT NEGATIVE (NEGATIVE); TRICYCLIC ANTIDEPRESSANTS SCRE NEGATIVE (NEGATIVE)
[2023-06-05 17:30] VITALS: BP 130/103
[2023-06-05 17:35] LABS: PROTHROMBIN TIME PATIENT 13.5 SEC (12.2-14.7); TSH (THYROID ANALYZER) 0.72 UIU/ML (0.35-4.94)
[2023-06-05] MEDS ORDERED: RT-Ipratropium/Albuterol NEB 3 ML VIAL ONE (17:38)
--- NOTE | 2023-06-05 18:47 | Diagnostic Imaging Report ---
PROCEDURE: CT head without contrast. TECHNIQUE: Multiple contiguous axial images were obtained through the brain without the use of intravenous contrast. Auto Exposure Controls were utilized during the CT exam to meet ALARA standards for radiation dose reduction. INDICATION: Head injury injured in fall, altered mental status. COMPARISONS: 11/22/2020 FINDINGS: The midline structures are not displaced. There is slightly advanced for age generalized atrophy. Background chronic areas of microvascular ischemic change seen. Tierney-white differentiation is maintained and there is no sulcal effacement. There are no abnormal extra-axial fluid collections or hemorrhage. Basilar cisterns appear normal. Sinuses show some ethmoid sinus disease. There is some minimally displaced nasal bone fractures. Orbits and mastoid air cells are grossly normal. There are no calvarial changes. IMPRESSION: 1. Some mild atrophy with background chronic areas of microvascular ischemic change but no acute findings identified by nonenhanced CT criteria. 2. Some ethmoid sinus disease as well as nondisplaced nasal bone fractures. Dictated by: Dictated on workstation # [id number]
--- NOTE | 2023-06-05 19:02 | Diagnostic Imaging Report ---
CHEST 1 VIEW, AP/PA ONLY Indication: Respiratory distress Comparison: 05/24/2021 Findings: ET tube has tip approximately 1.5 to 2 cm above the melinda. Enteric tube tip is not well seen but likely in the distal esophagus. Cardiomegaly. Mild central vascular congestion. No pleural effusion or pneumothorax. Right IJ central venous catheter has tip terminating in the lower SVC. Impression: 1. The tips of the enteric and ET tubes are not well seen on this examination, but likely terminate in the esophagus and distal trachea, respectively. Dictated by: Dictated on workstation # [id number]
--- NOTE | 2023-06-05 19:04 | Diagnostic Imaging Report ---
PELVIS WITH LEFT HIP 2-3 VIEWS INDICATION: Hip pain COMPARISON: None available. FINDINGS AND IMPRESSION: 1. Due to patient's extremely large body habitus, the osseous structures are suboptimally seen. 2. Allowing for this, no displaced fracture about the left hip is noted. Dictated by: Dictated on workstation # [id number]
[2023-06-05] MEDS ORDERED: ETOMIDATE INJ SOLN 20 MG/10 ML VIAL IV ONE (19:19)
[2023-06-05] MEDS ORDERED: fentaNYL INJECTION 100 MCG/2 ML VIAL IV ONE (19:19)
[2023-06-05] MEDS ORDERED: MIDAZOLAM INJ 5 MG/5 ML VIAL INJ ONE (19:19)
[2023-06-05] MEDS ORDERED: SUCCINYLCHOLINE INJ 20 MG/1 ML 10 ML VIAL INJ ONE (19:19)
[2023-06-05] MEDS ORDERED: NS IV 1000 ML 1,000 ML ONE (19:28)
[2023-06-05] MEDS: NS IV 1000 ML 1,000 ML IV SCH (19:37)
--- NOTE | 2023-06-05 19:57 | Tele-ICU Progress Note ---
Subjective Date Seen by a Provider: Jun 05, 2023 Subjective/Events-last exam This virtual visit was conducted using real time audio/video. Thank you for asking us to see this patient for hypercapnic respiratory failure due to BDP OD with underlying COPD and ROSALIA. Recent events: Intubated in ER for airway protection, hypercapnia. PE: VSS. O2 sat 100% on *)% HEENT: No obvious masses, adenopathy or JVD. Chest: clear to auscultation. Diminished CV: RRR S1 S2 No murmur or added sounds. Abd: Non-tender. Bowel sounds Y. : Unremarkable. Kurtz Y. WAX POURER/psychiatric: Grossly intact. No obvious focal findings. Extremities: No edema. Capillary refill < 3 seconds. Skin: unremarkable. Results: Elevated BUN 34, trop 0.188. Tox ccreen +for BDPs, Cannabinoids, opiates. B.29/68/90 on 2 LPM.. CXR: Congested, hyperinflated. Available chart/ vitals / labs / images reviewed. Video assessment done using teleICU camera, rest of exam as per RN. A/P: Respiratory insufficiency: Continue present management with vent, Propofol Critical Care: critically ill patient. Cont. PPI, IVF. Discussed with NOAH Roth. Asked RN to reach out to eICU if any questions or concerns later. Time spent with patient/coordination of care with other health professionals (mins): 22 Sepsis Event Evaluation Height, Weight, BMI Height: '" Weight: lbs. oz. kg; 46.00 BMI Method: Focused Exam Lactate Level 06/05/23 16:38: Lactic Acid Level 0.86 Lactic Acid Level Laboratory Tests Test 06/05/23 16:38 Lactic Acid Level 0.86 MMOL/L (0.50-2.00) Exam Exam Patient acknowledged, consented, and participated in this virtual visit which was conducted using real time audio/video Vital Signs Date Time Temp Pulse Resp B/P (MAP) Pulse Ox O2 Delivery O2 Flow Rate FiO2 06/05/23 19:37 57 88/47 06/05/23 19:07 40 06/05/23 18:47 68 12 95/58 100 Ambu Bag 06/05/23 17:30 18 100 80 06/05/23 17:30 83 130/103 06/05/23 16:30 96 Nasal Cannula 2.00 06/05/23 16:30 37.7 85 23 138/82 (100) 96 Nasal Cannula 2.00 Height & Weight Height: '" Weight: lbs. oz. kg; 46.00 BMI Method: General Appearance: No Apparent Distress, Obese HEENT: PERRL/EOMI, Pharynx Normal, Other (Doing this bilateral) Neck: Non Tender, Supple Respiratory: Decreased Breath Sounds (morbidly obese); No Wheezing Cardiovascular: Regular Rate, Rhythm, No Murmur Capillary Refill: Less Than 3 Seconds Extremity: Pelvis Stable, Other (Tender to palpation left lateral hip) Neurologic/Psychiatric: Other (Weak with slurred speech and drifts off to sleep easily even during conversation. Alert to self but confused to situation. Follows simple commands and answers simple questions.) Skin: Warm/Dry, Other (Psoriatic lesions to both legs) Results Lab Laboratory Tests 06/05/23 16:38 Assessment/Plan Assessment/Plan See free text. Critical Care: Ventilator Management ROXIE MATUTE MD Jun 05, 2023 19:57
[2023-06-05 21:36] VITALS: BP 106/61
[2023-06-05] MEDS ORDERED: NS IV 500 ML 500 ML IV PRN (21:45)
[2023-06-06] MEDS ORDERED: NS IV 1000 ML 1,000 ML IV SCH (02:00)
[2023-06-06] MEDS ORDERED: NS IV 1000 ML 1,000 ML ONE (02:02)
[2023-06-06 02:14] VITALS: BP 127/68
[2023-06-06] MEDS ORDERED: RT-Ipratropium/Albuterol NEB 3 ML VIAL ONE (02:18)
[2023-06-06] MEDS: NS IV 1000 ML 1,000 ML IV SCH ×3 (03:13→17:39)
[2023-06-06 03:30] LABS: BASOPHILS % (AUTO) 0 % (0-10); EOSINOPHILS # (AUTO) 0.1 10^3/uL (0.0-0.3); EOSINOPHILS % (AUTO) 2 % (0-10); HEMATOCRIT 36 % (35-52); HEMOGLOBIN 11.9 g/dL (11.5-16.0); LYMPHOCYTES # (AUTO) 2.2 10^3/uL (1.0-4.0); LYMPHOCYTES % (AUTO) 32 % (12-44); MEAN CORPUSCULAR HEMOGLOBIN 35 pg (25-34); MEAN CORPUSCULAR HGB CONC 33 g/dL (32-36); MEAN CORPUSCULAR VOLUME 108 fL (80-99); MEAN PLATELET VOLUME 10.5 fL (9.0-12.2); MONOCYTES # (AUTO) 0.4 10^3/uL (0.0-1.0); MONOCYTES % (AUTO) 6 % (0-12); NEUTROPHILS # (AUTO) 4.3 10^3/uL (1.8-7.8); NEUTROPHILS % (AUTO) 60 % (42-75); PLATELET COUNT 139 10^3/uL (130-400)
[2023-06-06 03:38] LABS: POTASSIUM 3.6 MMOL/L (3.6-5.0)
[2023-06-06 03:39] LABS: CALCIUM 8.1 MG/DL (8.5-10.1)
[2023-06-06 03:40] LABS: ABG BASE EXCESS -1.2 MMOL/L (-2.5-2.5); ABG OXYGEN SATURATION 95 % (94-100); ABG PCO2 43 MMHG (35-45); ABG PH 7.36 (7.37-7.43); ABG PO2 70 MMHG (79-93); ABG TCO2 24.9 MMOL/L (21.0-31.0)
[2023-06-06 03:41] LABS: ALLENS TEST YES-POS; INSPIRED O2 40%
[2023-06-06 03:42] LABS: PATIENT TEMP 36.7; VENTILATOR YES
[2023-06-06 03:43] LABS: PHOSPHORUS 2.8 MG/DL (2.3-4.7)
[2023-06-06 03:44] LABS: CREATININE SERUM 0.89 MG/DL (0.60-1.30)
[2023-06-06 03:46] LABS: MAGNESIUM 1.9 MG/DL (1.6-2.4)
[2023-06-06] MEDS: POTASSIUM CL 10MEQ/50ML IVPB 50 ML IV SCH ×3 (04:07→06:05)
[2023-06-06] MEDS: POTASSIUM CHLORIDE 20 MEQ TABLET PO SCH (04:08)
[2023-06-06] MEDS: MAGNESIUM 1 GM/100 ML IVPB 100 ML IV SCH ×3 (04:08→04:55)
[2023-06-06] MEDS ORDERED: POTASSIUM CL 10MEQ/50ML IVPB 200 ML IV ONE (04:50)
[2023-06-06] MEDS ORDERED: MAGNESIUM 1 GM/100 ML IVPB 200 ML IV ONE (04:50)
[2023-06-06 07:09] VITALS: BP 117/63
--- NOTE | 2023-06-06 07:30 | History & Physical-Hospitalist ---
History of Present Illness HPI/Chief Complaint Patient is a 63-year-old female with a past medical history of zio-buzaeal-dwnrgfrni diabetes, COPD, hypertension, alcohol abuse who presented to the emergency department due to altered mental status. She is currently intubated and sedated and unable to provide any history. All history is obtained from the records. Apparently she has been trying to quit drinking alcohol and so had been using Xanax to manage her symptoms but had taken more than was prescribed. She started to develop slurred speech and was quite drowsy so her friend summoned EMS. In the emergency department she was unable to protect her airway and had hypercapnia on ABG and was electively intubated. CT head was done to rule out intracranial process which showed no intracranial hemorrhage only mild atrophy and chronic microvascular changes. This morning they tried sedation vacation per eICU and while she was able to follow some commands she did not wake up satisfactorily so remains on the vent. Source: patient Date Seen 06/06/23 Time Seen by a Provider: 07:45 Attending Physician Noel Schroeder MD PCP Admitting Physician: Hannah Whitaker MD Attending Physician: Hannah Whitaker MD Referring Physician Date of Admission Jun 05, 2023 at 18:58 Home Medications & Allergies Home Medications Reviewed patient Home Medication Reconciliation performed by pharmacy medication reconciliations donor support technician and/or nursing. Patients Allergies have been reviewed. Allergies Allergies Coded Allergies Tetanus Vaccines and Toxoid (Verified Allergy, Severe, Anaphylaxis, 11/18/20) Past Taccgau-Fjmntt-Mqizur Hx Patient Social History Marrital Status: Tobacco Use?: Yes Tobacco type used: Cigarettes Smoking Status: Current Everyday Smoker Substance use?: Yes Substance type: Opiates/Opioids, Marijuana Alcohol Use?: Yes Pt feels they are or have been: Unable to obtain Immunizations Up To Date Tetanus Booster (TDap): Unknown Seasonal Allergies Seasonal Allergies: Yes Current Status status: Unable to obtain status: Unable to obtain Advance Directives: Unable to obtain Communicates: Verbally Primary Language: Austrian Preferred Spoken Language: Austrian Is interpretation needed?: No Implanted or Applied Medical D: Orthopedic hardware Past Medical History Surgeries: Section, Gallbladder, Orthopedic Sleep Apnea, COPD Currently Using CPAP: Yes Currently Using BIPAP: No High Cholesterol, Hypertension Neuropathy Gastroesophageal Reflux Arthritis Breast What Type of Treatment Did You: Chemotherapy, Surgical Intervention Anxiety Blood Disorders: No COPD Tobacco Abuse Osteoarthritis Family Medical History Reviewed Nursing Family Hx Review of Systems Constitutional: see HPI Physical Exam Physical Exam Vital Signs Vital Signs - First Documented 06/05/23 17:30 FiO2 80 Capillary Refill : Less Than 3 Seconds Height, Weight, BMI Height: '" Weight: lbs. oz. kg; 50.06 BMI Method: General Appearance: Chronically ill, Obese Respiratory: Lungs Clear; No Wheezing; Other (on vent) Cardiovascular: Regular Rate, Rhythm, No Murmur Gastrointestinal: Normal Bowel Sounds, Soft Neurologic/Psychiatric: Other (sedated, appears comfortable) Results Results/Procedures Labs Laboratory Tests 06/05/23 16:38 06/06/23 03:20 06/07/23 03:49 Patient resulted labs reviewed. Imaging: Reviewed Imaging Report [facility] [place] [place] [facility] [id number] PT STATUS: ADM IN : 1960 PHYSICIAN: GOGO PAGE MD ADMIT DATE: 06/05/23/ICU Signed Date of Exam:06/05/23 CHEST 1 VIEW, AP/PA ONLY CHEST 1 VIEW, AP/PA ONLY Indication: Respiratory distress Comparison: 05/24/2021 Findings: ET tube has tip approximately 1.5 to 2 cm above the melinda. Enteric tube tip is not well seen but likely in the distal esophagus. Cardiomegaly. Mild central vascular congestion. No pleural effusion or pneumothorax. Right IJ central venous catheter has tip terminating in the lower SVC. Impression: 1. The tips of the enteric and ET tubes are not well seen on this examination, but likely terminate in the esophagus and distal trachea, respectively. Dictated by: Dictated on workstation # [id number] Dict: 06/05/236 Trans: 06/05/231901 FRAN [id number] Interpreted by: AZIZA LERMA MD Electronically signed by: AZIZA LERMA MD 06/05/231901 [facility] [place] [place] NAME[facility] REC[facility] [id number] PT STATUS: ADM IN : 1960 PHYSICIAN: GOGO PAGE MD ADMIT DATE: 06/05/23/ICU Signed Date of Exam:06/05/23 CT HEAD WO PROCEDURE: CT head without contrast. TECHNIQUE: Multiple contiguous axial images were obtained through the brain without the use of intravenous contrast. Auto Exposure Controls were utilized during the CT exam to meet ALARA standards for radiation dose reduction. INDICATION: Head injury injured in fall, altered mental status. COMPARISONS: 11/22/2020 FINDINGS: The midline structures are not displaced. There is slightly advanced for age generalized atrophy. Background chronic areas of microvascular ischemic change seen. Tierney-white differentiation is maintained and there is no sulcal effacement. There are no abnormal extra-axial fluid collections or hemorrhage. Basilar cisterns appear normal. Sinuses show some ethmoid sinus disease. There is some minimally displaced nasal bone fractures. Orbits and mastoid air cells are grossly normal. There are no calvarial changes. IMPRESSION: 1. Some mild atrophy with background chronic areas of microvascular ischemic change but no acute findings identified by nonenhanced CT criteria. 2. Some ethmoid sinus disease as well as nondisplaced nasal bone fractures. Dictated by: Dictated on workstation # [id number] Dict: 06/05/231841 Trans: 06/06/23 08 FRAN [id number] Interpreted by: ALANNA MARSHALL MD Electronically signed by: ALANNA MARSHALL MD 06/06/23806 [facility] [place] [place] NAME: GRADY [facility]QUEND[facility] REC#: [id number] PT STATUS: ADM IN : 1960 PHYSICIAN: GOGO PAGE MD ADMIT DATE: 06/05/23/ICU Signed Date of Exam:06/05/23 PELVIS WITH LEFT HIP 2-3 VIEWS PELVIS WITH LEFT HIP 2-3 VIEWS INDICATION: Hip pain COMPARISON: None available. FINDINGS AND IMPRESSION: 1. Due to patient's extremely large body habitus, the osseous structures are suboptimally seen. 2. Allowing for this, no displaced fracture about the left hip is noted. Dictated by: Dictated on workstation # [id number] Dict: 06/05/23 185 Trans: 06/05/23 190 [facility] [id number] Interpreted by: AZIZA LERMA MD Electronically signed by: AZIZA LERMA MD 06/05/235 Assessment/Plan Admission Diagnosis Acute hypercapnic respiratory failure Admission Status: Inpatient Order (span 2 midnights) Reason for Inpatient Admission: see below Assessment and Plan Acute hypercapnic respiratory failure Accidental Benzodiazepine Overdose Alcohol withdrawal Currently sedated and on vent Failed sedation vacation this AM Management per eiCU Added alcohol withdrawal protocol- thiamine, folic, MTV Will confirm intention of overdose with patient when extubated Social work consulted, appreciate recs Updated her PCP, Dr Schroeder HTN BP well controlled, trend NIDDMII Fasting blood sugar 98- trend DVT ppx: HANNAH Haynes MD Jun 06, 2023 07:30
[2023-06-06] MEDS ORDERED: LORazepam 1 MG TABLET PO PRN (08:00)
[2023-06-06] MEDS ORDERED: ONDANSETRON INJECTION 4 MG/2 ML (SDV) IV PRN (08:00)
[2023-06-06] MEDS ORDERED: D5 1/2 NS 1,000 ML IV 1,000 ML IV PRN (08:00)
[2023-06-06] MEDS ORDERED: 1/2 NS IV SOLUTION 1000 ML 1,000 ML IV PRN (08:00)
[2023-06-06] MEDS ORDERED: ENOXAPARIN 60 MG/0.6 ML SYRINGE SC SCH (08:00)
--- NOTE | 2023-06-06 08:17 | Diagnostic Imaging Report ---
EXAMINATION: Chest 1 view HISTORY: Respiratory failure COMPARISON: 06/05/2023 FINDINGS: Endotracheal tube tip terminates 1 cm above the melinda. Right internal jugular central venous catheter tip terminates in the superior vena cava. Gastric tube tip terminates below the field of view. No edema or pneumonia. No pleural effusion or pneumothorax. Heart size is normal. IMPRESSION: 1. Clear lungs. Dictated by: Dictated on workstation # [id number]
[2023-06-06] MEDS: FOLIC ACID 1 MG TAB PO SCH (08:45)
[2023-06-06] MEDS: PANTOPRAZOLE INJECTION 40 MG VIAL IV SCH (08:45)
[2023-06-06 10:23] VITALS: BP 115/63
[2023-06-06] MEDS: RT-Ipratropium/Albuterol NEB 3 ML VIAL INH PRN ×5 (10:23→22:17)
--- NOTE | 2023-06-06 11:13 | Tele-ICU Progress Note ---
Subjective Date Seen by a Provider: Jun 06, 2023 Time Seen by a Provider: 11:08 Subjective/Events-last exam (Tele-ICU Physician , Progress Note ) Service provided via interactive audio and video telecommunications [facility] s estefanyte to a patient admitted to ICU bed in [facility]. Patient is seen today due to persistent need of ICU care Available chart/ vitals / labs / Images reviewed Video assessment done using teleICU camera, rest of exam as per RN She is a 63-year-old female with past medical history of anxiety and apparently will overdose with Xanax, and abuse of cannabinoids found unresponsive. She was intubated in the emergency room and admitted to the intensive care unit for monitoring and management. Today she remained on mechanical ventilation and barely arousable. She does not look like she will tolerate SBT. Her blood pressure has been stable however. Impression 1. Drug overdose with multiple substances including benzodiazepines and marijuana causing decreased level of consciousness 2. Acute hypoxic respiratory failure requiring mechanical ventilation 3. History of anxiety disorder. Recommendations 1. Continue mechanical ventilatory support with a tidal volume of 450/FiO2 40% and respiratory rate of 18. 2. Hydrate patient 3. DVT prophylaxis 4. We will consider SBT tomorrow as her mental status not improved substantially. Coordination of care with the bedside consultants and primary care physician. I am remotely monitoring this patient from Tele icu station in [place]. I am unable to do the bedside exam, and history/physical and pertinent information is taken from other notes in the computer and bedside staff. Certain portions of this document may have been dictated utilizing voice recognition technology such as [employer]. Inherent to this technology, typographical and grammatical errors may exist. As much as I am diligent to identify and correct to these mistakes, some errors may remain in the document. Critical care time devoted to this patient today is approximately is-35minutes- Sepsis Event Evaluation Height, Weight, BMI Height: '" Weight: lbs. oz. kg; 50.06 BMI Method: Focused Exam Lactate Level 06/05/23 16:38: Lactic Acid Level 0.86 Exam Exam Patient acknowledged, consented, and participated in this virtual visit which was conducted using real time audio/video Vital Signs Date Time Temp Pulse Resp B/P (MAP) Pulse Ox O2 Delivery O2 Flow Rate FiO2 06/06/23 10:23 64 18 97 40 06/06/23 09:18 40 06/06/23 09:18 62 113/60 06/06/23 09:17 62 113/60 06/06/23 09:00 59 23 111/58 (75) 96 Mechanical Ventilator 40.00 06/06/23 08:00 95 Mechanical Ventilator 40 06/06/23 08:00 62 25 113/60 (77) 95 Mechanical Ventilator 40.00 06/06/23 07:57 62 113/60 06/06/23 07:50 36.4 Mechanical Ventilator 40.00 06/06/23 07:09 61 18 96 40 06/06/23 07:00 65 18 123/66 (85) 96 Mechanical Ventilator 40.00 06/06/23 07:00 65 06/06/23 06:43 65 117/60 06/06/23 06:00 66 18 112/59 (76) 95 Mechanical Ventilator 40.00 06/06/23 05:22 68 110/87 06/06/23 05:00 66 18 114/59 (77) 94 Mechanical Ventilator 40.00 06/06/23 05:00 72 93 06/06/23 04:40 40 06/06/23 04:00 70 18 114/63 (80) 94 Mechanical Ventilator 40.00 06/06/23 03:57 70 116/67 06/06/23 03:32 73 120/97 06/06/23 03:30 36.5 06/06/23 03:26 93 Mechanical Ventilator 40 06/06/23 03:00 67 18 116/63 (80) 94 Mechanical Ventilator 40.00 06/06/23 02:14 61 18 96 40 06/06/23 02:00 60 18 118/66 (83) 95 Mechanical Ventilator 40.00 06/06/23 01:22 60 125/67 06/06/23 01:18 40 06/06/23 01:00 61 18 115/70 (85) 95 Mechanical Ventilator 40.00 06/06/23 01:00 61 06/06/23 00:00 59 18 104/60 (75) 95 Mechanical Ventilator 40.00 06/05/23 23:37 60 104/62 06/05/23 23:16 36.2 06/05/23 23:16 93 Mechanical Ventilator 40 06/05/23 23:00 64 18 119/76 (90) 97 Mechanical Ventilator 40.00 06/05/23 22:48 66 120/78 06/05/23 22:36 63 111/84 06/05/23 22:00 57 18 104/57 (73) 96 Mechanical Ventilator 40.00 06/05/23 21:36 18 97 40 06/05/23 21:18 40 06/05/23 21:00 54 94/58 06/05/23 21:00 54 18 94/58 (73) 95 Mechanical Ventilator 40.00 06/05/23 20:45 55 18 96/56 (70) 94 Mechanical Ventilator 40.00 06/05/23 20:30 55 18 97/55 (73) 94 Mechanical Ventilator 40.00 06/05/23 20:29 Mechanical Ventilator 40 06/05/23 20:15 55 18 89/57 (69) 93 Mechanical Ventilator 40.00 06/05/23 20:00 55 18 87/48 (65) 93 Mechanical Ventilator 40.00 06/05/23 20:00 93 Mechanical Ventilator 40 06/05/23 19:45 56 18 91/49 (65) 92 Mechanical Ventilator 40.00 06/05/23 19:37 57 88/47 06/05/23 19:30 58 18 88/47 (64) 92 Mechanical Ventilator 40.00 06/05/23 19:15 60 18 88/49 (64) 93 Mechanical Ventilator 40.00 06/05/23 19:07 40 06/05/23 19:02 62 18 90/57 (68) 100 Mechanical Ventilator 40.00 06/05/23 19:00 61 06/05/23 18:57 36.3 62 18 113/63 (80) 93 Mechanical Ventilator 3.00 40.00 06/05/23 18:47 68 12 95/58 100 Ambu Bag 06/05/23 17:30 18 100 80 06/05/23 17:30 83 130/103 06/05/23 16:30 96 Nasal Cannula 2.00 06/05/23 16:30 37.7 85 23 138/82 (100) 96 Nasal Cannula 2.00 I & O 06/06/23 07:00 Intake Total 3150 ml Output Total 537 ml Balance 2613 ml Height & Weight Height: '" Weight: lbs. oz. kg; 50.06 BMI Method: General Appearance: Chronically ill, Obese HEENT: PERRL/EOMI, Pharynx Normal, Other (Doing this bilateral) Neck: Non Tender, Supple Respiratory: Lungs Clear; No Wheezing; Other (on vent) Cardiovascular: Regular Rate, Rhythm, No Murmur Capillary Refill: Less Than 3 Seconds Extremity: Pelvis Stable, Other (Tender to palpation left lateral hip) Neurologic/Psychiatric: Other (sedated, appears comfortable) Skin: Warm/Dry, Other (Psoriatic lesions to both legs) Results Lab Laboratory Tests 06/05/23 16:38 06/06/23 03:20 Assessment/Plan Assessment/Plan as above Critical Care: Ventilator Management Time spent with patient (mins): 35 CLAUDETTE TRAMMELL MD Jun 06, 2023 11:13
--- NOTE | 2023-06-06 14:01 | Consultation-Cardiology ---
HPI-Cardiology Cardiology Consultation: Date of Consultation 06/06/23 Time Seen by a Provider: 13:30 Date of Admission 06-05-23 Attending Physician Noel Schroeder MD Admitting Physician Admitting Physician: Hannah Singh MD Attending Physician: Hannah Singh MD Consulting Physician Ciara Green MD HPI: Chief Complaint: Elevated troponin Ms. Márquez is a 63 yr old female admitted to ICU 5 from the ED with respiratory failure requiring intubation and drug overdose. She is currently intubated and sedated and unable to provide any information. Review of ED chart and per conv ersation with the nurse she was found to have altered mental status by friends who summoned the EMS. EMS noted her sats to be in the 70's. She has a h/o ETOH abuse. She had been Rx'd Xanax to help with ETOH withdrawal. She took several Xanax (more than Rx'd) yesterday. Review of Systems-Cardiology Review of Systems Other comments Unable to obtain d/t intubation and sedation XSB-Evpcrk-Gaujdn Hx Patient Social History Marrital Status: Smoking Status: Current Everyday Smoker Alcohol Use?: Yes Substance type: Opiates/Opioids, Marijuana Pt feels they are or have been: Unable to obtain Tobacco type used: Cigarettes Past Medical History PMH As described under Assessment. Family Medical History Family Medical History: Unable to obtain d/t intubation/sedation Allergies and Home Medications Allergies Coded Allergies: Tetanus Vaccines and Toxoid (Verified Allergy, Severe, Anaphylaxis, 11/18/20) Patient Home Medication List Acetaminophen (Acetaminophen) 325 Mg Tablet, 650 MG PO Q6H PRN for PAIN-MILD (1- 4) OR TEMPATURE Prescribed by: KATE BOYER on 11/27/20 0605 Albuterol Sulfate (Ventolin Hfa) 1 Puff Puff, 2 PUFF IH Q4H PRN for SHORTNESS OF BREATH, (Reported) Entered as Reported by: JASON BELL on 11/13/20 1422 Albuterol Sulfate (Albuterol Sulfate) 2.5 Mg/3 Ml Vial.neb, 2.5 MG INH RTQ4HR PRN for WHEEZING Prescribed by: KATE BOYER on 11/27/20 0605 Alprazolam (Alprazolam) 0.5 Mg Tablet, 0.5 MG PO Q8H PRN for ANXIETY Prescribed by: KATE BOYER on 11/27/20604 Amlodipine Besylate (Amlodipine Besylate) 5 Mg Tablet, 5 MG PO DAILY, (Reported) Entered as Reported by: LISANDRA LARSEN on 11/24/201220 Aspirin (Aspirin EC) 81 Mg Tablet.dr, 81 MG PO DAILY Prescribed by: KATE BOYER on 11/27/20604 Atorvastatin Calcium (Atorvastatin Calcium) 20 Mg Tablet, 20 MG PO DAILY, (Reported) Entered as Reported by: LISANDRA LARSEN on 11/24/201220 Budesonide/Formoterol Fumarate (Symbicort 160-4.5 Mcg Inhaler) 10.2 Gm Hfa.aer.ad, 2 PUFF IH BID, (Reported) Entered as Reported by: JASON BELL on 11/13/201421 Cholecalciferol (Vitamin D3) (Vitamin D3) Unknown Strength Tablet, 20 MCG PO DAILY, (Reported) Entered as Reported by: JASON BELL on 11/13/201421 Diclofenac Sodium (Voltaren) 100 Gm Gel..gram., 4 GM TP QID PRN for PAIN-BREAKTHROUGH, (Reported) Entered as Reported by: JASON BELL on 11/13/201421 Enoxaparin Sodium (Enoxaparin Sodium) 60 Mg/0.6 Ml Syringe, 60 MG SC Q12H Prescribed by: KATE BOYER on 11/27/20604 Lactulose (Lactulose) 20 Gm/30 Ml Solution, 10 GM PO BID Prescribed by: KATE BOYER on 11/27/20604 Melatonin (Melatonin) 5 Mg Tablet, 5 MG PO DAILY, (Reported) Entered as Reported by: LISANDRA LARSEN on 11/24/201221 Miconazole Nitrate (Lotrimin AF) 90 Gm Powder, 1 GM TOP TID Prescribed by: KATE BOYER on 11/27/20604 Morphine Sulfate (Morphine Sulfate ER) 15 Mg Tablet.er, 15 MG PO BID Prescribed by: JOJO ALLEN on 06/02/211951 Omeprazole (Omeprazole) 20 Mg Capsule.dr, 20 MG PO DAILY, (Reported) Entered as Reported by: JASON BELL on 11/13/201421 Oxycodone HCl/Acetaminophen (Percocet 5-325 mg Tablet) 1 Each Tablet, 1 TAB PO Q2HR PRN for PAIN-MODERATE (5-7) Prescribed by: KATE BOYER on 11/27/20604 Oxycodone HCl/Acetaminophen (Oxycodone-Acetaminophen 5-325) 1 Each Tablet, 1 EACH PO Q6H PRN for PAIN-SEVERE (8-10) Prescribed by: DLALIN RAMÍREZ on 05/24/212116 Oxycodone HCl/Acetaminophen (Percocet 10-325 mg Tablet) 1 Each Tablet, 1 TAB PO Q6H PRN for PAIN-MODERATE Prescribed by: DARLIN PIERCE on 05/28/21 1219 Oxycodone HCl/Acetaminophen (Percocet 5-325 mg Tablet) 1 Each Tablet, 1-2 TAB PO Q4H PRN for PAIN-BREAKTHROUGH Prescribed by: JOJO ALLEN on 06/02/21 193 Pantoprazole Sodium (Pantoprazole Sodium) 40 Mg Tablet.dr, 40 MG PO DAILY Prescribed by: KATE BOYER on 11/27/20604 Sennosides/Docusate Sodium (Stool Softener-Laxative Tablet) 1 Each Tablet, 2 EA PO BID Prescribed by: KATE BOYER on 11/27/20604 Tiotropium [place] (Spiriva) 1 Inh Aerp, 1 INH IH DAILY, (Reported) Entered as Reported by: JASON BELL on 11/13/201421 Zolpidem Tartrate (Zolpidem Tartrate) 5 Mg Tablet, 5 MG PO HS PRN for INSOMNIA Prescribed by: KATE BOYER on 11/27/20604 Physical Exam-Cardiology Physical Exam Vital Signs/I&O 06/06/23 06/06/23 06/06/23 06/06/23 22:00 22:15 22:47 22:47 Pulse 81 80 87 85 Resp 25 18 B/P (MAP) 132/71 (91) 132/71 132/71 Pulse Ox 96 94 O2 Delivery Mechanical Ventilator O2 Flow Rate 40.00 FiO2 40 06/06/23 06/06/23 06/06/23 06/06/23 22:48 22:48 23:00 23:25 Pulse 85 85 89 Resp 21 B/P (MAP) 132/71 132/71 146/84 (104) Pulse Ox 96 97 O2 Delivery Mechanical Ventilator Mechanical Ventilator O2 Flow Rate 40.00 FiO2 40 06/06/23 06/07/23 06/07/23 06/07/23 23:25 00:00 01:00 01:00 Temp 36.8 Pulse 89 88 88 Resp 18 18 B/P (MAP) 148/74 (98) 132/66 (88) Pulse Ox 96 97 O2 Delivery Mechanical Ventilator Mechanical Ventilator Mechanical Ventilator O2 Flow Rate 40.00 40.00 40.00 06/07/23 06/07/23 06/07/23 06/07/23 01:13 02:00 02:59 02:59 Pulse 87 85 85 Resp 18 B/P (MAP) 155/96 (115) 154/82 154/82 Pulse Ox 97 O2 Delivery Mechanical Ventilator O2 Flow Rate 40.00 FiO2 40 06/07/23 06/07/23 06/07/23 06/07/23 03:00 03:01 03:01 03:17 Pulse 85 84 84 83 Resp 18 18 B/P (MAP) 144/77 (99) 144/77 144/77 Pulse Ox 98 97 O2 Delivery Mechanical Ventilator O2 Flow Rate 40.00 FiO2 40 06/07/23 06/07/23 06/07/23 06/07/23 03:23 03:28 03:30 04:00 Temp 37.3 Pulse 91 Resp 18 B/P (MAP) 146/76 (99) Pulse Ox 94 95 O2 Delivery Mechanical Ventilator Mechanical Ventilator Mechanical Ventilator O2 Flow Rate 30.00 30.00 FiO2 30 06/07/23 06/07/23 06/07/23 06/07/23 05:00 05:15 05:17 06:00 Pulse 88 86 85 Resp 18 24 18 B/P (MAP) 146/70 (95) 135/68 (90) Pulse Ox 94 94 96 O2 Delivery Mechanical Ventilator Mechanical Ventilator O2 Flow Rate 30.00 30.00 FiO2 30 06/07/23 06/07/23 06/07/23 06/07/23 06:41 06:41 07:00 07:01 Temp 37.0 Pulse 84 84 80 84 Resp 18 B/P (MAP) 141/72 141/72 142/72 (95) 141/72 Pulse Ox 96 O2 Delivery Mechanical Ventilator O2 Flow Rate 30.00 06/07/23 06/07/23 06/07/23 06/07/23 07:01 07:35 07:36 09:43 Pulse 84 79 79 Resp 19 B/P (MAP) 141/72 151/82 Pulse Ox 95 97 O2 Delivery Mechanical Ventilator FiO2 30 30 06/07/23 00:00 Intake Total 850 ml Output Total 725 ml Balance 125 ml Capillary Refill : Less Than 3 Seconds Constitutional: other (intubated and sedated) Neck: carotid pulses are 2 + bilaterally Respiratory: No accessory muscle use, No respiratory distress; chest expansion is symmetric, chest is bilaterally symmetric, other (fair air entry) Cardiovascular: regular rate-rhythm; No JVD; S1 and S2 Gastrointestinal: soft, audible bowel sounds Extremities: other (mild bilat LE swelling) Neurologic/Psychiatric: other (unable to cooperate with neuro exam d/t sedation) Skin: No rash on exposed areas, No ulcerations on exposed areas Data Review Labs Laboratory Tests 06/06/23 11:37: Glucometer 110 06/06/23 17:39: Glucometer 104 06/06/23 23:56: Glucometer 136H 06/07/23 03:49: White Blood Count 7.3, Red Blood Count 3.34L, Hemoglobin 11.8, Hematocrit 36, Mean Corpuscular Volume 108H, Mean Corpuscular Hemoglobin 35H, Mean Corpuscular Hemoglobin Concent 33, Red Cell Distribution Width 14.0, Platelet Count 132, Mean Platelet Volume 10.9, Immature Granulocyte % (Auto) 0, Neutrophils (%) (Auto) 79H, Lymphocytes (%) (Auto) 15, Monocytes (%) (Auto) 6, Eosinophils (%) (Auto) 0, Basophils (%) (Auto) 0, Neutrophils # (Auto) 5.8, Lymphocytes # (Auto) 1.1, Monocytes # (Auto) 0.4, Eosinophils # (Auto) 0.0, Basophils # (Auto) 0.0, Immature Granulocyte # (Auto) 0.0, Sodium Level 141, Potassium Level 3.8, Chloride Level 111H, Carbon Dioxide Level 18L, Anion Gap 12, Blood Urea Nitrogen 17, Creatinine 0.80, Estimat Glomerular Filtration Rate 83, BUN/Creatinine Ratio 21, Glucose Level 121H, Calcium Level 8.2L, Phosphorus Level 2.7, Magnesium Level 2.3 06/07/23 05:00: Blood Gas Puncture Site RR, Blood Gas Patient Temperature 37.6, Arterial Blood pH 7.35L, Arterial Blood Partial Pressure CO2 37, Arterial Blood Partial Pressure O2 71L, Arterial Blood HCO3 20L, Arterial Blood Total CO2 20.9L, Arterial Blood Oxygen Saturation 96, Arterial Blood Base Excess -4.9L, Paresh Test YES-POS, Blood Gas Ventilator Setting YES, Blood Gas Inspired Oxygen UNK Microbiology 06/05/23 MRSA Screen - Final, Complete 06/05/23 Blood Culture - Preliminary, Resulted Radiology NAME: GRADY MÁRQUEZ [facility] REC#: [id number] PT STATUS: ADM IN : 1960 PHYSICIAN: GOGO PAGE MD ADMIT DATE: 06/05/23/ICU Signed Date of Exam:06/05/23 CT HEAD WO PROCEDURE: CT head without contrast. TECHNIQUE: Multiple contiguous axial images were obtained through the brain without the use of intravenous contrast. Auto Exposure Controls were utilized during the CT exam to meet ALARA standards for radiation dose reduction. INDICATION: Head injury injured in fall, altered mental status. COMPARISONS: 11/22/2020 FINDINGS: The midline structures are not displaced. There is slightly advanced for age generalized atrophy. Background chronic areas of microvascular ischemic change seen. Tierney-white differentiation is maintained and there is no sulcal effacement. There are no abnormal extra-axial fluid collections or hemorrhage. Basilar cisterns appear normal. Sinuses show some ethmoid sinus disease. There is some minimally displaced nasal bone fractures. Orbits and mastoid air cells are grossly normal. There are no calvarial changes. IMPRESSION: 1. Some mild atrophy with background chronic areas of microvascular ischemic change but no acute findings identified by nonenhanced CT criteria. 2. Some ethmoid sinus disease as well as nondisplaced nasal bone fractures. Dictated by: Dictated on workstation # [id number] Dict: 06/05/231841 Trans: 06/06/23806 FRAN [id number] Interpreted by: ALANNA MARSHALL MD Electronically signed by: ALANNA MARSHALL MD 06/06/23806 NAME: GRADY MÁRQUEZ [facility] REC#: [id number] PT STATUS: ADM IN : 1960 PHYSICIAN: HANNAH SINGH MD ADMIT DATE: 06/05/23/ICU Draft Date of Exam:06/06/23 CHEST 1 VIEW, AP/PA ONLY EXAMINATION: Chest 1 view HISTORY: Respiratory failure COMPARISON: 06/05/2023 FINDINGS: Endotracheal tube tip terminates 1 cm above the melinda. Right internal jugular central venous catheter tip terminates in the superior vena cava. Gastric tube tip terminates below the field of view. No edema or pneumonia. No pleural effusion or pneumothorax. Heart size is normal. IMPRESSION: 1. Clear lungs. Dictated on workstation # [id number] Dict: 06/06/23813 Trans: 06/06/23816 [facility] [id number] Interpreted by: OTTO العراقي MD Electronically signed by: ECG Impression ECG Initial ECG Rhythm: Normal Sinus A/P-Cardiology Assessment/Admission Diagnosis Respiratory failure requiring intubation/sedation Overdose Troponin elevation - Likely Type 2 MO secondary to hypoxia H/O ETOH abuse Obese Discussion and Recomendations Respiratory failure d/t overdose requiring intubation - management per medical/eICU services Elevated troponin - Likely Type 2 MO secondary to hypoxia - Echocardiogram Management of ETOH WD per medical services Monitor lab Replace electrolytes as indicated Further recs will be based on her hospital course We would like to thank medical services for this consult SHARMILA RUIZ Jun 06, 2023 14:01
[2023-06-06 14:15] VITALS: BP 118/64
--- NOTE | 2023-06-06 15:58 | Consultation-Cardiology ---
HPI-Cardiology Cardiology Consultation: Date of Consultation 06/06/23 Time Seen by a Provider: 15:00 Date of Admission Attending Physician Noel Schroeder MD Admitting Physician Admitting Physician: Leila Whitaker MD Attending Physician: Leila Whitaker MD Consulting Physician ADRIANNA FERNANDEZ MD, MA, FACP, FACC, [facility], CCDS Physician requesting consult: Dr Whitaker HPI: Chief Complaint: Reason for Card consult: Elevated troponin Ms. Márquez is a 63 yr old female admitted to ICU 5 from the ED with respiratory failure requiring intubation and drug overdose. She is currently intubated and sedated and unable to provide any information. Review of ED chart and per conversation with the nurse she was found to have altered mental status by friends who summoned the EMS. EMS noted her sats to be in the 70's. She has a h/o ETOH abuse. She had been Rx'd Xanax to help with ETOH withdrawal. She took several Xanax (more than Rx'd) yesterday. WSA-Gbmqxy-Qwblcd Hx Patient Social History Marrital Status: Smoking Status: Current Everyday Smoker Alcohol Use?: Yes Substance type: Opiates/Opioids, Marijuana Pt feels they are or have been: Unable to obtain Tobacco type used: Cigarettes Past Medical History PMH As described under Assessment. Family Medical History Family Medical History: Unable to obtain d/t intubation/sedation Allergies and Home Medications Allergies Coded Allergies: Tetanus Vaccines and Toxoid (Verified Allergy, Severe, Anaphylaxis, 11/18/20) Patient Home Medication List Home Medication List Reviewed: Yes Acetaminophen (Acetaminophen) 325 Mg Tablet, 650 MG PO Q6H PRN for PAIN-MILD (1- 4) OR TEMPATURE Prescribed by: KATE BOYER on 11/27/20 0605 Albuterol Sulfate (Ventolin Hfa) 1 Puff Puff, 2 PUFF IH Q4H PRN for SHORTNESS OF BREATH, (Reported) Entered as Reported by: JASON BELL on 11/13/20 1422 Albuterol Sulfate (Albuterol Sulfate) 2.5 Mg/3 Ml Vial.neb, 2.5 MG INH RTQ4HR PRN for WHEEZING Prescribed by: KATE BOYER on 11/27/20 0605 Alprazolam (Alprazolam) 0.5 Mg Tablet, 0.5 MG PO Q8H PRN for ANXIETY Prescribed by: KATE BOYER on 11/27/20604 Amlodipine Besylate (Amlodipine Besylate) 5 Mg Tablet, 5 MG PO DAILY, (Reported) Entered as Reported by: LISANDRA LARSEN on 11/24/20 122 Aspirin (Aspirin EC) 81 Mg Tablet.dr, 81 MG PO DAILY Prescribed by: KATE BOYER on 11/27/20604 Atorvastatin Calcium (Atorvastatin Calcium) 20 Mg Tablet, 20 MG PO DAILY, (Reported) Entered as Reported by: LISANDRA LARSEN on 11/24/201220 Budesonide/Formoterol Fumarate (Symbicort 160-4.5 Mcg Inhaler) 10.2 Gm Hfa.aer.ad, 2 PUFF IH BID, (Reported) Entered as Reported by: JASON BELL on 11/13/201421 Cholecalciferol (Vitamin D3) (Vitamin D3) Unknown Strength Tablet, 20 MCG PO DAILY, (Reported) Entered as Reported by: JASON BELL on 11/13/201421 Diclofenac Sodium (Voltaren) 100 Gm Gel..gram., 4 GM TP QID PRN for PAIN- BREAKTHROUGH, (Reported) Entered as Reported by: JASON BELL on 11/13/201421 Enoxaparin Sodium (Enoxaparin Sodium) 60 Mg/0.6 Ml Syringe, 60 MG SC Q12H Prescribed by: KATE BOYER on 11/27/20604 Lactulose (Lactulose) 20 Gm/30 Ml Solution, 10 GM PO BID Prescribed by: KATE BOYER on 11/27/20604 Melatonin (Melatonin) 5 Mg Tablet, 5 MG PO DAILY, (Reported) Entered as Reported by: LISANDRA LARSEN on 11/24/201221 Miconazole Nitrate (Lotrimin AF) 90 Gm Powder, 1 GM TOP TID Prescribed by: KATE BOYER on 11/27/20604 Morphine Sulfate (Morphine Sulfate ER) 15 Mg Tablet.er, 15 MG PO BID Prescribed by: JOJO ALLEN on 06/02/211951 Omeprazole (Omeprazole) 20 Mg Capsule.dr, 20 MG PO DAILY, (Reported) Entered as Reported by: JASON BELL on 11/13/20 142 Oxycodone HCl/Acetaminophen (Percocet 5-325 mg Tablet) 1 Each Tablet, 1 TAB PO Q2HR PRN for PAIN-MODERATE (5-7) Prescribed by: KATE BOYER on 11/27/20 06 Oxycodone HCl/Acetaminophen (Oxycodone-Acetaminophen 5-325) 1 Each Tablet, 1 EACH PO Q6H PRN for PAIN-SEVERE (8-10) Prescribed by: DALLIN RAMÍREZ on 05/24/212116 Oxycodone HCl/Acetaminophen (Percocet 10-325 mg Tablet) 1 Each Tablet, 1 TAB PO Q6H PRN for PAIN-MODERATE Prescribed by: DARLIN PIERCE on 05/28/21 1219 Oxycodone HCl/Acetaminophen (Percocet 5-325 mg Tablet) 1 Each Tablet, 1-2 TAB PO Q4H PRN for PAIN-BREAKTHROUGH Prescribed by: JOJO ALLEN on 06/02/21 193 Pantoprazole Sodium (Pantoprazole Sodium) 40 Mg Tablet.dr, 40 MG PO DAILY Prescribed by: KATE BOYER on 11/27/20604 Sennosides/Docusate Sodium (Stool Softener-Laxative Tablet) 1 Each Tablet, 2 EA PO BID Prescribed by: KATE BOYER on 11/27/20604 Tiotropium [place] (Spiriva) 1 Inh Aerp, 1 INH IH DAILY, (Reported) Entered as Reported by: JASON BELL on 11/13/20 142 Zolpidem Tartrate (Zolpidem Tartrate) 5 Mg Tablet, 5 MG PO HS PRN for INSOMNIA Prescribed by: KATE BOYER on 11/27/20604 Physical Exam-Cardiology Physical Exam Vital Signs/I&O 06/06/23 06/06/23 06/06/23 06/06/23 03:57 04:00 04:40 05:00 Pulse 70 70 72 Resp 18 B/P (MAP) 116/67 114/63 (80) Pulse Ox 94 93 O2 Delivery Mechanical Ventilator O2 Flow Rate 40.00 FiO2 40 06/06/23 06/06/23 06/06/23 06/06/23 05:00 05:22 06:00 06:43 Pulse 66 68 66 65 Resp 18 18 B/P (MAP) 114/59 (77) 110/87 112/59 (76) 117/60 Pulse Ox 94 95 O2 Delivery Mechanical Ventilator Mechanical Ventilator O2 Flow Rate 40.00 40.00 06/06/23 06/06/23 06/06/23 06/06/23 07:00 07:00 07:09 07:50 Temp 36.4 Pulse 65 65 61 Resp 18 18 B/P (MAP) 123/66 (85) Pulse Ox 96 96 O2 Delivery Mechanical Ventilator Mechanical Ventilator O2 Flow Rate 40.00 40.00 FiO2 40 06/06/23 06/06/23 06/06/23 06/06/23 07:57 08:00 08:00 09:00 Pulse 62 62 59 Resp B/P (MAP) 113/60 113/60 (77) 111/58 (75) Pulse Ox 95 95 96 O2 Delivery Mechanical Ventilator Mechanical Ventilator Mechanical Ventilator O2 Flow Rate 40.00 40.00 FiO2 40 06/06/23 06/06/23 06/06/23 06/06/23 09:17 09:18 09:18 10:00 Pulse 62 62 62 Resp 18 B/P (MAP) 113/60 113/60 113/62 (79) Pulse Ox 97 O2 Delivery Mechanical Ventilator O2 Flow Rate 40.00 FiO2 40 06/06/23 06/06/23 06/06/23 06/06/23 10:23 10:43 11:00 12:00 Pulse 64 60 70 65 Resp 18 18 18 B/P (MAP) 118/64 127/73 (91) 113/62 (79) Pulse Ox 97 96 96 O2 Delivery Mechanical Ventilator Mechanical Ventilator O2 Flow Rate 40.00 40.00 FiO2 40 06/06/23 06/06/23 06/06/23 06/06/23 12:00 12:00 12:04 13:00 Temp 36.7 Pulse 65 65 Resp 18 B/P (MAP) 113/60 (77) Pulse Ox 95 96 O2 Delivery Mechanical Ventilator Mechanical Ventilator Mechanical Ventilator O2 Flow Rate 40.00 40.00 FiO2 40 06/06/23 06/06/23 06/06/23 06/06/23 13:17 13:18 13:18 14:00 Pulse 60 60 60 Resp 18 B/P (MAP) 118/64 118/64 111/58 (75) Pulse Ox 97 O2 Delivery Mechanical Ventilator O2 Flow Rate 40.00 FiO2 40 06/06/23 06/06/23 06/06/23 06/06/23 14:02 14:02 14:15 15:00 Pulse 65 65 60 68 Resp 18 18 B/P (MAP) 113/62 113/62 132/71 (91) Pulse Ox 97 95 O2 Delivery Mechanical Ventilator O2 Flow Rate 40.00 FiO2 40 06/06/23 00:00 Intake Total 250 ml Output Total 350 ml Balance -100 ml Capillary Refill : Less Than 3 Seconds Constitutional: other (intubated and sedated) Neck: carotid pulses are 2 + bilaterally Respiratory: No accessory muscle use, No respiratory distress; chest expansion is symmetric, chest is bilaterally symmetric, other (fair air entry) Cardiovascular: regular rate-rhythm; No JVD; S1 and S2 Gastrointestinal: soft, audible bowel sounds Extremities: other (mild bilat LE swelling) Neurologic/Psychiatric: other (unable to cooperate with neuro exam d/t sedation) Skin: No rash on exposed areas, No ulcerations on exposed areas Data Review Labs Laboratory Tests 06/05/23 16:37: Glucometer 106 06/05/23 16:38: White Blood Count 9.2, Red Blood Count 3.91, Hemoglobin 14.0, Hematocrit 43, Mean Corpuscular Volume 110H, Mean Corpuscular Hemoglobin 36H, Mean Corpuscular Hemoglobin Concent 33, Red Cell Distribution Width 13.7, Platelet Count 195, Mean Platelet Volume 10.7, Immature Granulocyte % (Auto) 0, Neutrophils (%) (Auto) 75, Lymphocytes (%) (Auto) 17, Monocytes (%) (Auto) 6, Eosinophils (%) (Auto) 1, Basophils (%) (Auto) 1, Neutrophils # (Auto) 6.9, Lymphocytes # (Auto) 1.6, Monocytes # (Auto) 0.6, Eosinophils # (Auto) 0.1, Basophils # (Auto) 0.1, Immature Granulocyte # (Auto) 0.0, Prothrombin Time 13.5, INR Comment 1.0, Activ ated Partial Thromboplast Time 27, Sodium Level 141, Potassium Level 5.0, Chloride Level 104, Carbon Dioxide Level 25, Anion Gap 12, Blood Urea Nitrogen 34H, Creatinine 1.14, Estimat Glomerular Filtration Rate 54, BUN/Creatinine Ratio 30, Glucose Level 101, Lactic Acid Level 0.86, Calcium Level 9.4, Corrected Calcium 9.2, Magnesium Level 2.3, Total Bilirubin 1.0, Aspartate Amino Transf (AST/SGOT) 55H, Alanine Aminotransferase (ALT/SGPT) 38, Alkaline Phosphatase 83, Total Protein 8.2, Albumin 4.3, TSH Cameron Testing 0.72, Salicylates Level < 5.0L, Acetaminophen Level < 10L, Serum Alcohol < 10, Smear Scan YES 06/05/23 16:40: Blood Gas Puncture Site LEFT WRIST, Blood Gas Patient Temperature 37.7, Arterial Blood pH 7.29*L, Arterial Blood Partial Pressure CO2 68H, Arterial Blood Partial Pressure O2 90, Arterial Blood HCO3 31H, Arterial Blood Total CO2 33.1H, Arterial Blood Oxygen Saturation 97, Arterial Blood Base Excess 5.0H, Paresh Test YES-POS, Blood Gas Ventilator Setting NO, Blood Gas Inspired Oxygen 2 06/05/23 16:47: Influenza Type A (RT-PCR) Not Detected, Influenza Type B (RT-PCR) Not Detected, SARS-CoV-2 RNA (RT-PCR) Not Detected 06/05/23 16:55: Urine Color YELLOW, Urine Clarity CLEAR, Urine pH 5.5, Urine Specific [place] >=1.030, Urine Protein 2+H, Urine Glucose (UA) NEGATIVE, Urine Ketones NEGATIVE, Urine Nitrite NEGATIVE, Urine Bilirubin 1+H, Urine Urobilinogen 1.0, Urine Leukocyte Esterase NEGATIVE, Urine RBC (Auto) NEGATIVE, Urine RBC 0-2, Urine WBC 0-2, Urine Squamous Epithelial Cells 2-5, Urine Crystals PRESENTH, Urine Amorphous Sediment MOD ANA CRISTINA URATESH, Urine Bacteria TRACE, Urine Casts PRESENT, Urine Hyaline Casts 5-10H, Urine Granular Casts 5-10H, Urine Mucus LARGEH, Urine Culture Indicated NO, Urine Opiates Screen POSITIVEH, Urine Oxycodone Screen NEGATIVE, Urine Methadone Screen NEGATIVE, Urine Propoxyphene Screen NEGATIVE, Urine Barbiturates Screen NEGATIVE, Ur Tricyclic Antidepressants Screen NEGATIVE, Urine Phencyclidine Screen NEGATIVE, Urine Amphetamines Screen NEGATIVE, Urine Methamphetamines Screen NEGATIVE, Urine Benzodiazepines Screen POSITIVEH, Urine Cocaine Screen NEGATIVE, Urine Cannabinoids Screen POSITIVEH 06/05/23 17:18: Troponin I 0.188H, C-Reactive Protein High Sensitivity 2.25H 06/05/23 19:25: Triglycerides Level 167H 06/06/23 03:20: Troponin I 0.195H, White Blood Count 7.0, Red Blood Count 3.37L, Hemoglobin 11.9, Hematocrit 36, Mean Corpuscular Volume 108H, Mean Corpuscular Hemoglobin 35H, Mean Corpuscular Hemoglobin Concent 33, Red Cell Distribution Width 13.8, Platelet Count 139, Mean Platelet Volume 10.5, Immature Granulocyte % (Auto) 0, Neutrophils (%) (Auto) 60, Lymphocytes (%) (Auto) 32, Monocytes (%) (Auto) 6, Eosinophils (%) (Auto) 2, Basophils (%) (Auto) 0, Neutrophils # (Auto) 4.3, Lymphocytes # (Auto) 2.2, Monocytes # (Auto) 0.4, Eosinophils # (Auto) 0.1, Basophils # (Auto) 0.0, Immature Granulocyte # (Auto) 0.0, Sodium Level 141, Potassium Level 3.6, Chloride Level 108H, Carbon Dioxide Level 22, Anion Gap 11, Blood Urea Nitrogen 33H, Creatinine 0.89, Estimat Glomerular Filtration Rate 73, BUN/Creatinine Ratio 37, Glucose Level 98, Calcium Level 8.1L, Phosphorus Level 2.8, Magnesium Level 1.9 06/06/23 03:30: Blood Gas Puncture Site RR, Blood Gas Patient Temperature 36.7, Arterial Blood pH 7.36L, Arterial Blood Partial Pressure CO2 43, Arterial Blood Partial Pressure O2 70L, Arterial Blood HCO3 24, Arterial Blood Total CO2 24.9, Arterial Blood Oxygen Saturation 95, Arterial Blood Base Excess -1.2, Paresh Test YES-POS, Blood Gas Ventilator Setting YES, Blood Gas Inspired Oxygen 40% 06/06/23 11:37: Glucometer 110 A/P-Cardiology Assessment/Admission Diagnosis Ac respiratory failure due to drug overdose - requiring intubation/sedation - Echo on 06/06/23: LVEF 55-60%, PASP 35-40 mmHg Troponin elevation - Likely Type 2 SD secondary to hypoxia H/O ETOH abuse Obesity Discussion and Recomendations Respiratory failure d/t overdose requiring intubation - management per medical/eICU services Elevated troponin - Likely Type 2 SD secondary to hypoxia - Echocardiogram Management of ETOH WD per medical services Monitor lab Replace electrolytes as indicated Further recs will be based on her hospital course We would like to thank medical services for this consult ADRIANNA FERNANDEZ MD [facility] CCDS Jun 06, 2023 15:57
[2023-06-06 19:08] VITALS: BP 118/64
[2023-06-06] MEDS: ENOXAPARIN 60 MG/0.6 ML SYRINGE SQ SCH (19:44)
[2023-06-06] MEDS: MUPIROCIN 2% OINTMENT 22 GM TUBE NSEACH SCH (19:44)
[2023-06-06 22:15] VITALS: BP 130/70
[2023-06-07] MEDS: NS IV 1000 ML 1,000 ML IV SCH ×3 (02:27→17:55)
[2023-06-07] MEDS: RT-Ipratropium/Albuterol NEB 3 ML VIAL INH PRN ×4 (03:16→14:22)
[2023-06-07 03:17] VITALS: BP 150/78
[2023-06-07 04:06] LABS: BASOPHILS % (AUTO) 0 % (0-10); EOSINOPHILS % (AUTO) 0 % (0-10); HEMATOCRIT 36 % (35-52); HEMOGLOBIN 11.8 g/dL (11.5-16.0); LYMPHOCYTES # (AUTO) 1.1 10^3/uL (1.0-4.0); LYMPHOCYTES % (AUTO) 15 % (12-44); MEAN CORPUSCULAR HEMOGLOBIN 35 pg (25-34); MEAN CORPUSCULAR HGB CONC 33 g/dL (32-36); MEAN CORPUSCULAR VOLUME 108 fL (80-99); MEAN PLATELET VOLUME 10.9 fL (9.0-12.2); MONOCYTES # (AUTO) 0.4 10^3/uL (0.0-1.0); MONOCYTES % (AUTO) 6 % (0-12); NEUTROPHILS # (AUTO) 5.8 10^3/uL (1.8-7.8); NEUTROPHILS % (AUTO) 79 % (42-75); PLATELET COUNT 132 10^3/uL (130-400); WHITE BLOOD COUNT 7.3 10^3/uL (4.3-11.0)
[2023-06-07 04:27] LABS: CALCIUM 8.2 MG/DL (8.5-10.1); CREATININE SERUM 0.8 MG/DL (0.60-1.30); MAGNESIUM 2.3 MG/DL (1.6-2.4); PHOSPHORUS 2.7 MG/DL (2.3-4.7); POTASSIUM 3.8 MMOL/L (3.6-5.0)
[2023-06-07] MEDS: MAGNESIUM 1 GM/100 ML IVPB 100 ML IV SCH (04:46)
[2023-06-07] MEDS: POTASSIUM CL 10MEQ/50ML IVPB 50 ML IV SCH ×3 (04:46→05:24)
[2023-06-07] MEDS: POTASSIUM CHLORIDE 20 MEQ TABLET PO SCH (04:46)
[2023-06-07 05:06] LABS: ABG BASE EXCESS -4.9 MMOL/L (-2.5-2.5); ABG OXYGEN SATURATION 96 % (94-100); ABG PCO2 37 MMHG (35-45); ABG PH 7.35 (7.37-7.43); ABG PO2 71 MMHG (79-93); ABG TCO2 20.9 MMOL/L (21.0-31.0); ALLENS TEST YES-POS
[2023-06-07 05:07] LABS: PATIENT TEMP 37.6; VENTILATOR YES
[2023-06-07] MEDS: THIAMINE 100 MG (VITAMIN B-1) TAB PO SCH (05:15)
[2023-06-07] MEDS: THERAPEUTIC MULTIVITAMIN W/MINERALS TABLET PO SCH (05:15)
[2023-06-07 07:35] VITALS: BP 146/76
[2023-06-07] MEDS: FOLIC ACID 1 MG TAB PO SCH (08:06)
[2023-06-07] MEDS: ENOXAPARIN 60 MG/0.6 ML SYRINGE SQ SCH ×2 (08:06→20:58)
[2023-06-07] MEDS: PANTOPRAZOLE INJECTION 40 MG VIAL IV SCH (08:06)
[2023-06-07] MEDS: MUPIROCIN 2% OINTMENT 22 GM TUBE NSEACH SCH ×2 (08:06→21:03)
[2023-06-07] MEDS: DexMEDEtomidine 1,000mcg/250ml 250 ML IV SCH ×2 (09:43→17:55)
--- NOTE | 2023-06-07 09:46 | Progress Note - Cardiology ---
Cardiology SOAP Progress Note Subjective: Remains intubated and sedated Objective: I&O/Vital Signs 06/07/23 06/07/23 06/07/23 06/07/23 21:00 21:00 21:55 22:00 Pulse 60 56 57 Resp 23 18 B/P (MAP) 127/73 (91) 121/69 122/71 (88) Pulse Ox 97 96 O2 Delivery Mechanical Ventilator Mechanical Ventilator O2 Flow Rate 30.00 30.00 FiO2 30 06/07/23 06/07/23 06/07/23 06/07/23 22:02 22:03 22:32 23:00 Pulse 56 56 56 60 Resp 18 18 B/P (MAP) 121/69 121/69 118/69 (85) Pulse Ox 96 95 O2 Delivery Mechanical Ventilator O2 Flow Rate 30.00 FiO2 30 06/07/23 06/08/23 06/08/23 06/08/23 23:10 00:00 01:00 01:00 Pulse 60 57 Resp 18 18 B/P (MAP) 123/73 (90) 124/71 (88) Pulse Ox 96 95 96 O2 Delivery Mechanical Ventilator Mechanical Ventilator Mechanical Ventilator O2 Flow Rate 30.00 30.00 FiO2 30 30 06/08/23 06/08/23 06/08/23 06/08/23 01:00 02:00 02:44 02:55 Pulse 60 56 61 62 Resp 25 21 B/P (MAP) 104/60 (75) 102/58 Pulse Ox 96 98 O2 Delivery Mechanical Ventilator O2 Flow Rate 30.00 FiO2 30 06/08/23 06/08/23 06/08/23 06/08/23 03:00 04:00 04:00 05:00 Pulse 62 66 65 Resp 29 34 B/P (MAP) 108/63 (78) 112/61 (78) Pulse Ox 98 91 90 O2 Delivery Mechanical Ventilator Mechanical Ventilator Mechanical Ventilator O2 Flow Rate 30.00 30.00 FiO2 30 06/08/23 06/08/23 06/08/23 06/08/23 05:00 05:00 06:00 06:38 Pulse 64 59 69 Resp 26 27 24 B/P (MAP) 117/69 (85) 131/72 (91) Pulse Ox 92 91 100 O2 Delivery Mechanical Ventilator Mechanical Ventilator O2 Flow Rate 30.00 30.00 FiO2 30 30 06/08/23 06/08/23 06/08/2323 06:44 06:45 07:00 07:00 Pulse 71 71 73 Resp 23 B/P (MAP) 110/64 107/65 (79) Pulse Ox 98 O2 Delivery Mechanical Ventilator Mechanical Ventilator O2 Flow Rate 45.00 45.00 06/08/23 06/08/23 06/08/23 07:19 07:30 08:00 Temp 36.4 Pulse 72 70 Resp 23 B/P (MAP) 107/65 136/89 (105) Pulse Ox 96 O2 Delivery Mechanical Ventilator O2 Flow Rate 45.00 06/08/23 00:00 Intake Total 200 ml Output Total 675 ml Balance -475 ml Constitutional: other Respiratory: chest expansion is symmetric, chest is bilaterally symmetric, other Cardiovascular: regular rate-rhythm, S1 and S2 Gastrointestional: soft, audible bowel sounds Extremities: other Neurologic/Psychiatric: other Skin: No rash on exposed areas, No ulcerations on exposed areas Results/Procedures: Labs Laboratory Tests 06/07/23 13:03: Glucometer 169H 06/07/23 18:50: Glucometer 141H 06/07/23 20:30: Triglycerides Level 159H 06/08/23 02:02: Glucometer 132H 06/08/23 03:09: Blood Gas Puncture Site RR, Blood Gas Patient Temperature 36.6, Arterial Blood pH 7.34*L, Arterial Blood Partial Pressure CO2 36, Arterial Blood Partial Pres sure O2 82, Arterial Blood HCO3 19L, Arterial Blood Total CO2 20.3L, Arterial Blood Oxygen Saturation 97, Arterial Blood Base Excess -5.5L, Paresh Test YES- POS, Blood Gas Ventilator Setting YES, Blood Gas Inspired Oxygen 30% 06/08/23 05:15: White Blood Count 7.2, Red Blood Count 3.40L, Hemoglobin 12.2, Hematocrit 37, Mean Corpuscular Volume 110H, Mean Corpuscular Hemoglobin 36H, Mean Corpuscular Hemoglobin Concent 33, Red Cell Distribution Width 14.3, Platelet Count 137, Mean Platelet Volume 10.9, Immature Granulocyte % (Auto) 0, Neutrophils (%) (Auto) 77H, Lymphocytes (%) (Auto) 15, Monocytes (%) (Auto) 7, Eosinophils (%) (Auto) 2, Basophils (%) (Auto) 0, Neutrophils # (Auto) 5.5, Lymphocytes # (Auto) 1.1, Monocytes # (Auto) 0.5, Eosinophils # (Auto) 0.1, Basophils # (Auto) 0.0, Immature Granulocyte # (Auto) 0.0, Percent Immature Platelet Fraction 3.7, Sodium Level 140, Potassium Level 3.7, Chloride Level 114H, Carbon Dioxide Level 17L, Anion Gap 9, Blood Urea Nitrogen 12, Creatinine 0.71, Estimat Glomerular Filtration Rate 95, BUN/Creatinine Ratio 17, Glucose Level 128H, Calcium Level 8.1L, Phosphorus Level 2.3, Magnesium Level 2.2 Microbiology 06/05/23 Gram Stain - Final, Resulted 06/05/23 Sputum Culture - Preliminary, Resulted Culture In Progress 06/05/23 Blood Culture - Preliminary, Resulted A/P: Assessment: Ac respiratory failure due to drug overdose - requiring intubation/sedation - Echo on 06/06/23: LVEF 55-60%, PASP 35-40 mmHg Troponin elevation - Likely Type 2 TX secondary to hypoxia H/O ETOH abuse Obesity Plan: Respiratory failure d/t overdose requiring intubation - management per medical/eICU services Elevated troponin - Likely Type 2 TX secondary to hypoxia Management of ETOH WD per medical services Monitor lab Replace electrolytes as indicated Continue current regimen SHARMILA RUIZ [facility] Jun 07, 2023 09:46
[2023-06-07 10:35] VITALS: BP 147/80
--- NOTE | 2023-06-07 11:59 | Tele-ICU Progress Note ---
Subjective Date Seen by a Provider: Jun 07, 2023 Time Seen by a Provider: 11:56 Subjective/Events-last exam Tele-ICU Physician , Progress Note ) Service provided via interactive audio and video telecommunications [facility] sy stem to a patient admitted to ICU bed in [facility]. Patient is seen today due to persistent need of ICU care Available chart/ vitals / labs / Images reviewed Video assessment done using teleICU camera, rest of exam as per RN She is a 63-year-old female with past medical history of anxiety and apparently will overdose with Xanax, and abuse of cannabinoids found unresponsive. She was intubated in the emergency room and admitted to the intensive care unit for monitoring and management. Today she remained on mechanical ventilation and barely arousable. She does not look like she will tolerate SBT. Her blood pressure has been stable however. 06/07/23 today she is somnolent and on high dose propofol drip. not ready for sbt yet Impression 1. Drug overdose with multiple substances including benzodiazepines and marijuana causing decreased level of consciousness 2. Acute hypoxic respiratory failure requiring mechanical ventilation 3. History of anxiety disorder. Recommendations 1. Continue mechanical ventilatory support with a tidal volume of 450/FiO2 30% and respiratory rate of 18. 2. Hydrate patient 3. DVT prophylaxis 4. start precedx and wean propofol and try SBT today or tomorrow depending on her mental status. Coordination of care with the bedside consultants and primary care physician. I am remotely monitoring this patient from Tele icu station in [place]. I am unable to do the bedside exam, and history/physical and pertinent information is taken from other notes in the computer and bedside staff. Certain portions of this document may have been dictated utilizing voice recognition technology such as [employer]. Inherent to this technology, typographical and grammatical errors may exist. As much as I am diligent to identify and correct to these mistakes, some errors may remain in the document. Critical care time devoted to this patient today is approximately is-35minutes- Sepsis Event Evaluation Height, Weight, BMI Height: '" Weight: lbs. oz. kg; 50.33 BMI Method: Focused Exam Lactate Level 06/05/23 16:38: Lactic Acid Level 0.86 Exam Exam Patient acknowledged, consented, and participated in this virtual visit which was conducted using real time audio/video Vital Signs Date Time Temp Pulse Resp B/P (MAP) Pulse Ox O2 Delivery O2 Flow Rate FiO2 06/07/23 11:25 37.3 06/07/23 11:23 92 139/73 06/07/23 11:23 92 139/73 06/07/23 11:06 79 151/82 06/07/23 11:06 79 151/82 06/07/23 11:00 92 18 138/72 (94) 95 Mechanical Ventilator 30.00 06/07/23 10:00 92 18 156/78 (104) 95 Mechanical Ventilator 30.00 06/07/23 09:43 79 151/82 06/07/23 09:18 30 06/07/23 09:00 88 18 144/72 (96) 94 Mechanical Ventilator 30.00 06/07/23 08:00 86 18 146/75 (98) 93 Mechanical Ventilator 30.00 06/07/23 07:36 97 Mechanical Ventilator 30 06/07/23 07:35 79 19 95 30 06/07/23 07:01 84 141/72 06/07/23 07:01 84 141/72 06/07/23 07:00 82 06/07/23 07:00 37.0 80 18 142/72 (95) 96 Mechanical Ventilator 30.00 06/07/23 06:41 84 141/72 06/07/23 06:41 84 141/72 06/07/23 06:00 85 18 135/68 (90) 96 Mechanical Ventilator 30.00 06/07/23 05:17 30 06/07/23 05:15 86 24 94 06/07/23 05:00 88 18 146/70 (95) 94 Mechanical Ventilator 30.00 06/07/23 04:00 91 18 146/76 (99) 95 Mechanical Ventilator 30.00 06/07/23 03:30 94 Mechanical Ventilator 30 06/07/23 03:28 37.3 06/07/23 03:23 Mechanical Ventilator 30.00 06/07/23 03:17 83 18 97 40 06/07/23 03:01 84 144/77 06/07/23 03:01 84 144/77 06/07/23 03:00 85 18 144/77 (99) 98 Mechanical Ventilator 40.00 06/07/23 02:59 85 154/82 06/07/23 02:59 85 154/82 06/07/23 02:00 87 18 155/96 (115) 97 Mechanical Ventilator 40.00 06/07/23 01:13 40 06/07/23 01:00 88 18 132/66 (88) 97 Mechanical Ventilator 40.00 06/07/23 01:00 88 06/07/23 00:00 89 18 148/74 (98) 96 Mechanical Ventilator 40.00 06/06/23 23:25 36.8 Mechanical Ventilator 40.00 06/06/23 23:25 97 Mechanical Ventilator 40 06/06/23 23:00 89 21 146/84 (104) 96 Mechanical Ventilator 40.00 06/06/23 22:48 85 132/71 06/06/23 22:48 85 132/71 06/06/23 22:47 85 132/71 06/06/23 22:47 87 132/71 06/06/23 22:15 80 18 94 40 06/06/23 22:00 81 25 132/71 (91) 96 Mechanical Ventilator 40.00 06/06/23 21:28 36.9 06/06/23 21:25 40 06/06/23 21:00 87 28 141/74 (96) 97 Mechanical Ventilator 40.00 06/06/23 20:00 93 29 124/65 (84) 95 Mechanical Ventilator 40.00 06/06/23 19:30 93 Mechanical Ventilator 40 06/06/23 19:30 40 06/06/23 19:08 87 22 92 40 06/06/23 19:00 83 06/06/23 19:00 37.5 93 18 129/66 (87) 93 Mechanical Ventilator 40.00 06/06/23 18:46 84 147/76 06/06/23 18:45 84 147/76 06/06/23 18:44 84 147/76 06/06/23 18:43 84 147/76 06/06/23 18:00 86 26 129/68 (88) 94 Mechanical Ventilator 40.00 06/06/23 17:41 40 06/06/23 17:00 79 18 146/98 (114) 97 Mechanical Ventilator 40.00 06/06/23 16:40 Mechanical Ventilator 40 06/06/23 16:00 94 Mechanical Ventilator 40 06/06/23 16:00 36.8 Mechanical Ventilator 40.00 06/06/23 16:00 79 25 142/83 (102) 98 Mechanical Ventilator 40.00 06/06/23 15:00 68 18 132/71 (91) 95 Mechanical Ventilator 40.00 06/06/23 14:15 60 18 97 40 06/06/23 14:02 65 113/62 06/06/23 14:02 65 113/62 06/06/23 14:00 60 18 111/58 (75) 97 Mechanical Ventilator 40.00 06/06/23 13:18 40 06/06/23 13:18 60 118/64 06/06/23 13:17 60 118/64 06/06/23 13:00 65 18 113/60 (77) 96 Mechanical Ventilator 40.00 06/06/23 12:04 36.7 Mechanical Ventilator 40.00 06/06/23 12:00 65 06/06/23 12:00 95 Mechanical Ventilator 40 06/06/23 12:00 65 18 113/62 (79) 96 Mechanical Ventilator 40.00 I & O 06/07/23 07:00 Intake Total 2650 ml Output Total 1725 ml Balance 925 ml Height & Weight Height: '" Weight: lbs. oz. kg; 50.33 BMI Method: General Appearance: Chronically ill, Obese HEENT: PERRL/EOMI, Pharynx Normal, Other (Doing this bilateral) Neck: Non Tender, Supple Respiratory: Lungs Clear; No Wheezing; Other (on vent) Cardiovascular: Regular Rate, Rhythm, No Murmur Extremity: Pelvis Stable, Other (Tender to palpation left lateral hip) Neurologic/Psychiatric: Other (sedated, appears comfortable) Skin: Warm/Dry, Other (Psoriatic lesions to both legs) Results Lab Laboratory Tests 06/05/23 16:38 06/06/23 03:20 06/07/23 03:49 Assessment/Plan Assessment/Plan as above Critical Care: Ventilator Management Time spent with patient (mins): 35 CLAUDETTE TRAMMELL MD Jun 07, 2023 11:59
--- NOTE | 2023-06-07 13:29 | Progress Note - Hospitalist ---
Subjective HPI/CC On Admission Patient is a 63-year-old female with a past medical history of [id number] diabetes, COPD, hypertension, alcohol abuse who presented to the emergency department due to altered mental status. She is currently intubated and sedated and unable to provide any history. All history is obtained from the records. Apparently she has been trying to quit drinking alcohol and so had been using Xanax to manage her symptoms but had taken more than was prescribed. She started to develop slurred speech and was quite drowsy so her friend summoned EMS. In the emergency department she was unable to protect her airway and had hypercapnia on ABG and was electively intubated. CT head was done to rule out intracranial process which showed no intracranial hemorrhage only mild atrophy and chronic microvascular changes. This morning they tried sedation vacation per eICU and while she was able to follow some commands she did not wake up satisfactorily so remains on the vent. Subjective/Events-last exam Pt remains on a vent. No concerns per RN. No ROS possible. Focused Exam Lactate Level 06/05/23 16:38: Lactic Acid Level 0.86 Objective Exam Vital Signs Vital Signs Date Time Temp Pulse Resp B/P (MAP) Pulse Ox O2 Delivery O2 Flow Rate FiO2 06/07/23 11:45 96 Mechanical Ventilator 30 06/07/23 11:25 37.3 06/07/23 11:23 92 06/07/23 11:00 18 30.00 Capillary Refill : NONE General Appearance: Chronically ill, Obese, Other (on vent) Respiratory: Wheezing, Other (on vent) Cardiovascular: Regular Rate, Rhythm, No Murmur Gastrointestinal: Normal Bowel Sounds, Soft Neurologic/Psychiatric: Other (sedated, appears comfortable) Results/Procedures Lab Laboratory Tests 06/07/23 03:49 Patient resulted labs reviewed. Imaging: Reviewed Imaging Report Assessment/Plan Assessment and Plan Assess & Plan/Chief Complaint Acute hypercapnic respiratory failure Accidental Benzodiazepine Overdose Alcohol withdrawal Currently sedated and on vent Management per eiCU Continue alcohol withdrawal protocol- thiamine, folic, MTV Will confirm intention of overdose with patient when extubated Social work consulted, appreciate recs HTN BP well controlled, trend NIDDMII Fasting blood sugar 121- trend DVT ppx: Lovenox Critical Care Ventilator Management HANNAH SINGH MD Jun 07, 2023 13:29
--- NOTE | 2023-06-07 13:35 | Progress Note - Cardiology ---
Cardiology SOAP Progress Note [facility] Objective: I&O/Vital Signs 06/07/23 06/07/23 06/07/23 06/07/23 02:00 02:59 02:59 03:00 Pulse 87 85 85 85 Resp 18 18 B/P (MAP) 155/96 (115) 154/82 154/82 144/77 (99) Pulse Ox 97 98 O2 Delivery Mechanical Ventilator Mechanical Ventilator O2 Flow Rate 40.00 40.00 06/07/23 06/07/23 06/07/23 06/07/23 03:01 03:01 03:17 03:23 Pulse 84 84 83 Resp 18 B/P (MAP) 144/77 144/77 Pulse Ox 97 O2 Delivery Mechanical Ventilator O2 Flow Rate 30.00 FiO2 40 06/07/23 06/07/23 06/07/23 06/07/23 03:28 03:30 04:00 05:00 Temp 37.3 Pulse 91 88 Resp 18 18 B/P (MAP) 146/76 (99) 146/70 (95) Pulse Ox 94 95 94 O2 Delivery Mechanical Ventilator Mechanical Ventilator Mechanical Ventilator O2 Flow Rate 30.00 30.00 FiO2 30 06/07/23 06/07/23 06/07/23 06/07/23 05:15 05:17 06:00 06:41 Pulse 86 85 84 Resp 24 18 B/P (MAP) 135/68 (90) 141/72 Pulse Ox 94 96 O2 Delivery Mechanical Ventilator O2 Flow Rate 30.00 FiO2 30 06/07/23 06/07/23 06/07/23 06/07/23 06:41 07:00 07:00 07:01 Temp 37.0 Pulse 84 80 82 84 Resp 18 B/P (MAP) 141/72 142/72 (95) 141/72 Pulse Ox 96 O2 Delivery Mechanical Ventilator O2 Flow Rate 30.00 06/07/23 06/07/23 06/07/23 06/07/23 07:01 07:35 07:36 08:00 Pulse 84 79 86 Resp 19 18 B/P (MAP) 141/72 146/75 (98) Pulse Ox 95 97 93 O2 Delivery Mechanical Ventilator Mechanical Ventilator O2 Flow Rate 30.00 FiO2 30 30 06/07/23 06/07/23 06/07/23 06/07/23 09:00 09:18 09:43 10:00 Pulse 88 79 92 Resp 18 18 B/P (MAP) 144/72 (96) 151/82 156/78 (104) Pulse Ox 94 95 O2 Delivery Mechanical Ventilator Mechanical Ventilator O2 Flow Rate 30.00 30.00 FiO2 30 06/07/23 06/07/23 06/07/23 06/07/23 11:00 11:06 11:06 11:23 Pulse 92 79 79 92 Resp 18 B/P (MAP) 138/72 (94) 151/82 151/82 139/73 Pulse Ox 95 O2 Delivery Mechanical Ventilator O2 Flow Rate 30.00 06/07/23 06/07/23 06/07/23 11:23 11:25 11:45 Temp 37.3 Pulse 92 B/P (MAP) 139/73 Pulse Ox 96 O2 Delivery Mechanical Ventilator FiO2 30 06/07/23 00:00 Intake Total 850 ml Output Total 725 ml Balance 125 ml Constitutional: other Respiratory: chest expansion is symmetric, chest is bilaterally symmetric, othe r Cardiovascular: regular rate-rhythm, S1 and S2 Gastrointestional: soft, audible bowel sounds Extremities: other Neurologic/Psychiatric: other Skin: No rash on exposed areas, No ulcerations on exposed areas Results/Procedures: Labs Laboratory Tests 06/06/23 17:39: Glucometer 104 06/06/23 23:56: Glucometer 136H 06/07/23 03:49: White Blood Count 7.3, Red Blood Count 3.34L, Hemoglobin 11.8, Hematocrit 36, Mean Corpuscular Volume 108H, Mean Corpuscular Hemoglobin 35H, Mean Corpuscular Hemoglobin Concent 33, Red Cell Distribution Width 14.0, Platelet Count 132, Mean Platelet Volume 10.9, Immature Granulocyte % (Auto) 0, Neutrophils (%) (Auto) 79H, Lymphocytes (%) (Auto) 15, Monocytes (%) (Auto) 6, Eosinophils (%) (Auto) 0, Basophils (%) (Auto) 0, Neutrophils # (Auto) 5.8, Lymphocytes # (Auto) 1.1, Monocytes # (Auto) 0.4, Eosinophils # (Auto) 0.0, Basophils # (Auto) 0.0, Immature Granulocyte # (Auto) 0.0, Sodium Level 141, Potassium Level 3.8, Chloride Level 111H, Carbon Dioxide Level 18L, Anion Gap 12, Blood Urea Nitrogen 17, Creatinine 0.80, Estimat Glomerular Filtration Rate 83, BUN/Creatinine Ratio 21, Glucose Level 121H, Calcium Level 8.2L, Phosphorus Level 2.7, Magnesium Level 2.3 06/07/23 05:00: Blood Gas Puncture Site RR, Blood Gas Patient Temperature 37.6, Arterial Blood pH 7.35L, Arterial Blood Partial Pressure CO2 37, Arterial Blood Partial Pressure O2 71L, Arterial Blood HCO3 20L, Arterial Blood Total CO2 20.9L, Arterial Blood Oxygen Saturation 96, Arterial Blood Base Excess -4.9L, Paresh Test YES-POS, Blood Gas Ventilator Setting YES, Blood Gas Inspired Oxygen UNK 06/07/23 13:03: Glucometer 169H Microbiology 06/05/23 MRSA Screen - Final, Complete 06/05/23 Blood Culture - Preliminary, Resulted Laboratory Tests 06/05/23 16:38 06/06/23 03:20 06/07/23 03:49 A/P: Assessment: Ac respiratory failure due to drug overdose - requiring intubation/sedation - Echo on 06/06/23: LVEF 55-60%, PASP 35-40 mmHg Troponin elevation - Likely Type 2 [place] secondary to hypoxia H/O ETOH abuse Obesity Plan: Respiratory failure d/t overdose requiring intubation - management per medical/eICU services Elevated troponin - Likely Type 2 LA secondary to hypoxia Management of ETOH WD per medical services Monitor lab Replace electrolytes as indicated Continue current regimen ADRIANNA FERNANDEZ MD FACP [facility] Jun 07, 2023 13:35
[2023-06-07 14:22] VITALS: BP 138/75
[2023-06-07] MEDS: ARTIFICIAL TEARS OU PRN ×2 (15:34→20:57)
[2023-06-07 18:51] VITALS: BP 156/84
[2023-06-07] MEDS: RT-Ipratropium/Albuterol NEB 3 ML VIAL INH SCH ×2 (18:51→22:31)
[2023-06-07 22:32] VITALS: BP 121/69
[2023-06-08] VITALS (7 sets, daily range): BP systolic 101–144; BP diastolic 60–82
[2023-06-08] MEDS: NS IV 1000 ML 1,000 ML IV SCH ×3 (02:11→18:27)
[2023-06-08] MEDS: RT-Ipratropium/Albuterol NEB 3 ML VIAL INH SCH ×5 (02:55→22:13)
[2023-06-08 03:16] LABS: ABG BASE EXCESS -5.5 MMOL/L (-2.5-2.5); ABG OXYGEN SATURATION 97 % (94-100); ABG PCO2 36 MMHG (35-45); ABG PO2 82 MMHG (79-93); ABG TCO2 20.3 MMOL/L (21.0-31.0)
[2023-06-08 03:21] LABS: ALLENS TEST YES-POS; INSPIRED O2 30%; VENTILATOR YES
[2023-06-08 03:23] LABS: ABG PH 7.34 (7.37-7.43); PATIENT TEMP 36.6
[2023-06-08 05:33] LABS: BASOPHILS % (AUTO) 0 % (0-10); HEMOGLOBIN 12.2 g/dL (11.5-16.0); LYMPHOCYTES % (AUTO) 15 % (12-44)
[2023-06-08 05:34] LABS: EOSINOPHILS # (AUTO) 0.1 10^3/uL (0.0-0.3); EOSINOPHILS % (AUTO) 2 % (0-10); HEMATOCRIT 37 % (35-52); LYMPHOCYTES # (AUTO) 1.1 10^3/uL (1.0-4.0); MEAN CORPUSCULAR HEMOGLOBIN 36 pg (25-34); MEAN CORPUSCULAR HGB CONC 33 g/dL (32-36); MEAN CORPUSCULAR VOLUME 110 fL (80-99); MEAN PLATELET VOLUME 10.9 fL (9.0-12.2); MONOCYTES # (AUTO) 0.5 10^3/uL (0.0-1.0); MONOCYTES % (AUTO) 7 % (0-12); NEUTROPHILS # (AUTO) 5.5 10^3/uL (1.8-7.8); NEUTROPHILS % (AUTO) 77 % (42-75); PLATELET COUNT 137 10^3/uL (130-400); WHITE BLOOD COUNT 7.2 10^3/uL (4.3-11.0)
[2023-06-08 05:42] LABS: POTASSIUM 3.7 MMOL/L (3.6-5.0)
[2023-06-08 05:43] LABS: CALCIUM 8.1 MG/DL (8.5-10.1)
[2023-06-08 05:47] LABS: PHOSPHORUS 2.3 MG/DL (2.3-4.7)
[2023-06-08 05:48] LABS: CREATININE SERUM 0.71 MG/DL (0.60-1.30)
[2023-06-08 05:50] LABS: MAGNESIUM 2.2 MG/DL (1.6-2.4)
[2023-06-08] MEDS: MAGNESIUM 1 GM/100 ML IVPB 100 ML IV SCH (07:04)
[2023-06-08] MEDS: POTASSIUM CL 10MEQ/50ML IVPB 50 ML IV SCH ×3 (07:04→07:57)
[2023-06-08] MEDS: POTASSIUM CHLORIDE 20 MEQ TABLET PO SCH (07:04)
[2023-06-08] MEDS: THERAPEUTIC MULTIVITAMIN W/MINERALS TABLET PO SCH (07:04)
[2023-06-08] MEDS: THIAMINE 100 MG (VITAMIN B-1) TAB PO SCH (07:05)
[2023-06-08] MEDS: DexMEDEtomidine 1,000mcg/250ml 250 ML IV SCH ×2 (07:19→18:26)
[2023-06-08] MEDS: PANTOPRAZOLE INJECTION 40 MG VIAL IV SCH (08:07)
[2023-06-08] MEDS: ENOXAPARIN 60 MG/0.6 ML SYRINGE SQ SCH ×2 (08:07→20:43)
[2023-06-08] MEDS: FOLIC ACID 1 MG TAB PO SCH (08:07)
[2023-06-08] MEDS: MUPIROCIN 2% OINTMENT 22 GM TUBE NSEACH SCH ×2 (08:08→20:44)
--- NOTE | 2023-06-08 08:15 | Diagnostic Imaging Report ---
EXAMINATION: Chest 1 view HISTORY: Increased oxygen demand COMPARISON: 06/06/2022 FINDINGS: Endotracheal tube tip terminates 1 cm above the melinda. Gastric tube is in the stomach. Right internal jugular central venous catheter tip terminates in the superior vena cava. No edema or pneumonia. No pleural effusion or pneumothorax. Heart size is normal. IMPRESSION: 1. Clear lungs. Dictated by: Dictated on workstation # [id number]
--- NOTE | 2023-06-08 09:00 | Progress Note - Cardiology ---
Cardiology SOAP Progress Note Subjective: Remains intubated and sedated Objective: I&O/Vital Signs 06/08/23 06/08/23 06/08/23 06/08/23 20:42 20:42 21:00 21:51 Pulse 61 61 60 58 Resp 27 B/P (MAP) 126/73 126/73 120/69 (86) 120/69 Pulse Ox 94 O2 Delivery Mechanical Ventilator O2 Flow Rate 30.00 06/08/23 06/08/23 06/08/23 06/08/23 22:00 22:13 23:00 23:59 Pulse 58 59 63 Resp 25 18 24 B/P (MAP) 125/70 (88) 109/63 (78) Pulse Ox 94 94 92 O2 Delivery Mechanical Ventilator Mechanical Ventilator Mechanical Ventilator O2 Flow Rate 30.00 30.00 FiO2 30 30 06/09/23 06/09/23 06/09/23 06/09/23 00:00 01:00 01:00 01:15 Temp 37.0 Pulse 61 61 62 62 Resp 33 B/P (MAP) 113/66 (82) 114/62 (79) 109/63 Pulse Ox 93 O2 Delivery Mechanical Ventilator Mechanical Ventilator O2 Flow Rate 30.00 30.00 06/09/23 06/09/23 06/09/23 06/09/23 02:00 02:45 03:00 03:59 Pulse 60 59 61 62 Resp 27 18 26 B/P (MAP) 110/61 (77) 120/62 (81) 120/62 Pulse Ox 94 94 93 O2 Delivery Mechanical Ventilator Mechanical Ventilator O2 Flow Rate 30.00 30.00 FiO2 30 06/09/23 06/09/23 06/09/23 06/09/23 03:59 04:00 04:00 04:00 Pulse 62 62 62 Resp 27 B/P (MAP) 120/62 111/63 (79) 114/62 Pulse Ox 93 O2 Delivery Mechanical Ventilator Mechanical Ventilator O2 Flow Rate 30.00 FiO2 30 06/09/23 06/09/23 06/09/23 06/09/23 04:01 04:29 05:00 05:16 Pulse 62 61 61 B/P (MAP) 114/62 111/63 118/66 (83) Pulse Ox 93 O2 Delivery Mechanical Ventilator O2 Flow Rate 30.00 FiO2 30 06/09/23 06/09/23 06/09/23 06/09/23 05:50 06:00 06:59 07:00 Pulse 61 60 60 60 Resp 19 B/P (MAP) 118/66 122/66 (84) Pulse Ox 94 93 O2 Delivery Mechanical Ventilator O2 Flow Rate 30.00 FiO2 30 06/09/23 06/09/23 06/09/23 06/09/23 07:00 07:24 07:36 07:37 Temp 36.9 36.9 Pulse 60 63 Resp 22 B/P (MAP) 117/65 (88) 116/64 Pulse Ox 93 O2 Delivery Mechanical Ventilator O2 Flow Rate 30.00 06/09/23 08:00 Pulse 65 Resp 31 B/P (MAP) 121/67 (91) Pulse Ox 93 O2 Delivery Mechanical Ventilator O2 Flow Rate 30.00 06/08/23 23:59 Intake Total 250 ml Output Total 725 ml Balance -475 ml Constitutional: other Respiratory: chest expansion is symmetric, chest is bilaterally symmetric, other Cardiovascular: regular rate-rhythm, S1 and S2 Gastrointestional: soft, audible bowel sounds Extremities: other Neurologic/Psychiatric: other Skin: No rash on exposed areas, No ulcerations on exposed areas Results/Procedures: Labs Laboratory Tests 06/08/23 12:52: Glucometer 118H 06/08/23 17:49: Glucometer 122H 06/09/23 00:11: Glucometer 115H 06/09/23 05:00: White Blood Count 10.7, Red Blood Count 3.39L, Hemoglobin 12.1, Hematocrit 38, Mean Corpuscular Volume 111H, Mean Corpuscular Hemoglobin 36H, Mean Corpuscular Hemoglobin Concent 32, Red Cell Distribution Width 14.6H, Platelet Count 135, Mean Platelet Volume 10.8, Immature Granulocyte % (Auto) 0, Neutrophils (%) (Auto) 78H, Lymphocytes (%) (Auto) 13, Monocytes (%) (Auto) 7, Eosinophils (%) (Auto) 2, Basophils (%) (Auto) 0, Neutrophils # (Auto) 8.3H, Lymphocytes # (Auto ) 1.4, Monocytes # (Auto) 0.7, Eosinophils # (Auto) 0.2, Basophils # (Auto) 0.0, Immature Granulocyte # (Auto) 0.0, Percent Immature Platelet Fraction 4.7, Sodium Level 139, Potassium Level 3.9, Chloride Level 114H, Carbon Dioxide Level 17L, Anion Gap 8, Blood Urea Nitrogen 9, Creatinine 0.67, Estimat Glomerular Filtration Rate 98, BUN/Creatinine Ratio 13, Glucose Level 117H, Calcium Level 8.1L, Phosphorus Level 2.6, Magnesium Level 2.0 06/09/23 05:40: Blood Gas Puncture Site RIGHT RADIAL, Blood Gas Patient Temperature 37.0, Arterial Blood pH 7.33*L, Arterial Blood Partial Pressure CO2 36, Arterial Blood Partial Pressure O2 73L, Arterial Blood HCO3 19L, Arterial Blood Total CO2 19.8L , Arterial Blood Oxygen Saturation 95, Arterial Blood Base Excess -6.1L, Paresh Test YES-POS, Blood Gas Ventilator Setting YES, Blood Gas Inspired Oxygen 30% Microbiology 06/08/23 Gram Stain - Final, Resulted 06/08/23 Sputum Culture - Preliminary, Resulted Escherichia coli Staphylococcus aureus 06/05/23 Blood Culture - Preliminary, Resulted A/P: Assessment: Ac respiratory failure due to drug overdose - requiring intubation/sedation - Echo on 06/06/23: LVEF 55-60%, PASP 35-40 mmHg Troponin elevation - Likely Type 2 [place] secondary to hypoxia H/O ETOH abuse Obesity Plan: Respiratory failure d/t overdose requiring intubation - management per medical/eICU services Elevated troponin - Likely Type 2 NJ secondary to hypoxia Management of ETOH WD per medical services Monitor lab Replace electrolytes as indicated Continue current regimen SHARMILA RUIZ Jun 08, 2023 09:00
--- NOTE | 2023-06-08 09:43 | Progress Note - Hospitalist ---
Subjective HPI/CC On Admission Date Seen by Provider: Jun 08, 2023 Patient is a 63-year-old female with a past medical history of erj-[id number]-[id number] diabetes, COPD, hypertension, alcohol abuse who presented to the emergency department due to altered mental status. She is currently intubated and sedated and unable to provide any history. All history is obtained from the records. Apparently she has been trying to quit drinking alcohol and so had been using Xanax to manage her symptoms but had taken more than was prescribed. She started to develop slurred speech and was quite drowsy so her friend summoned EMS. In the emergency department she was unable to protect her airway and had hypercapnia on ABG and was electively intubated. CT head was done to rule out intracranial process which showed no intracranial hemorrhage only mild atrophy and chronic microvascular changes. This morning they tried sedation vacation per eICU and while she was able to follow some commands she did not wake up satisfactorily so remains on the vent. Subjective/Events-last exam Pt remains intubated and sedated. NO ROS possible. RN reports no concerns. Focused Exam Lactate Level 06/05/23 16:38: Lactic Acid Level 0.86 Objective Exam Vital Signs Vital Signs Date Time Temp Pulse Resp B/P (MAP) Pulse Ox O2 Delivery O2 Flow Rate FiO2 06/08/23 08:00 70 23 136/89 (105) 96 Mechanical Ventilator 45.00 06/08/23 07:30 36.4 06/08/23 06:38 30 Capillary Refill : NONE General Appearance: Chronically ill, Obese, Other (intubated) Respiratory: Wheezing (scant), Other (on vent) Cardiovascular: Regular Rate, Rhythm, No Murmur Gastrointestinal: Normal Bowel Sounds, Soft Extremity: Pedal Edema Neurologic/Psychiatric: Other (sedated, appears comfortable) Results/Procedures Lab Laboratory Tests 06/08/23 05:15 Patient resulted labs reviewed. Imaging: Reviewed Imaging Report Assessment/Plan Assessment and Plan Assess & Plan/Chief Complaint Acute hypercapnic respiratory failure Accidental Benzodiazepine Overdose Alcohol withdrawal Currently sedated and on vent Management per eiCU Continue alcohol withdrawal protocol- thiamine, folic, MTV Will confirm intention of overdose with patient when extubated Social work consulted, appreciate recs MAT protocol added CXR with clear lungs HTN BP well controlled, trend NIDDMII Fasting blood sugar 128- trend DVT ppx: Lovenox Critical Care Ventilator Management HANNAH SINGH MD Jun 08, 2023 09:43
--- NOTE | 2023-06-08 13:08 | Tele-ICU Progress Note ---
Subjective Date Seen by a Provider: Jun 08, 2023 Time Seen by a Provider: 13:06 Subjective/Events-last exam (Tele-ICU Physician , Progress Note ) Service provided via interactive audio and video telecommunications [facility] to a patient admitted to ICU bed in [facility]. Patient is seen today due to persistent need of ICU care Available chart/ vitals / labs / Images reviewed Video assessment done using teleICU camera, rest of exam as per RN Discussed with RN Events overnight : Remains on propofol and precedex, VSS stable however unable to follow commands. CXR today relatively unremarkable however per RT with increased secretions. A/P: 1. Drug overdose with multiple substances including benzodiazepines and marijuana causing decreased level of consciousness -Remains altered. -Will wean sedation as tolerated -CT head on admission unremkarable-Cont IV thiamine folic acid, MTV 2. Acute hypoxic respiratory failure requiring mechanical ventilation -Intubated for AMS -On propofol and precedex -ABG this AM 7.34/36/82 -Wean propofol 3. History of anxiety disorder. -As above 4. HTN: Stable 5. NIDDM: -SSI Lines : periph , (Central Line Necessity Reviewed) Kurtz: Nutrition: HH diet VTE Prophylaxis: huang 1`30 bid Stress Ulcer Prophylaxis: Plans in collaboration with bedside consultants and IM MDs. Discussed with RN to reach out if any questions or concerns A total of 25 minutes of critical care time was devoted to this patient today, required to treat and/or prevent further deterioration of critical care condition ( as above) I am remotely monitoring this patient from another state. I am unable to do the bedside exam, and history/physical and pertinent information is taken from other notes in the computer and bedside staff Sepsis Event Evaluation Height, Weight, BMI Height: '" Weight: lbs. oz. kg; 50.37 BMI Method: Focused Exam Lactate Level 06/05/23 16:38: Lactic Acid Level 0.86 Exam Exam Patient acknowledged, consented, and participated in this virtual visit which was conducted using real time audio/video Vital Signs Date Time Temp Pulse Resp B/P (MAP) Pulse Ox O2 Delivery O2 Flow Rate FiO2 06/08/23 12:35 61 06/08/23 12:00 36.4 06/08/23 12:00 61 27 147/77 (100) 97 Mechanical Ventilator 45.00 06/08/23 11:00 65 48 149/85 (106) 100 Mechanical Ventilator 45.00 06/08/23 10:52 35 29 98 40 06/08/23 10:13 60 24 100 40 06/08/23 10:00 64 40 147/82 (103) 97 Mechanical Ventilator 45.00 06/08/23 09:15 30 06/08/23 09:15 62 147/85 06/08/23 09:00 62 29 147/85 (105) 97 Mechanical Ventilator 45.00 06/08/23 08:00 70 23 136/89 (105) 96 Mechanical Ventilator 45.00 06/08/23 07:45 94 Mechanical Ventilator 40 06/08/23 07:30 36.4 06/08/23 07:19 72 107/65 06/08/23 07:00 73 06/08/23 07:00 71 23 107/65 (79) 98 Mechanical Ventilator 45.00 06/08/23 06:45 Mechanical Ventilator 45.00 06/08/23 06:44 71 110/64 06/08/23 06:38 69 24 100 30 06/08/23 06:00 59 27 131/72 (91) 91 Mechanical Ventilator 30.00 06/08/23 05:00 30 06/08/23 05:00 64 26 117/69 (85) 92 Mechanical Ventilator 30.00 06/08/23 05:00 65 06/08/23 04:00 66 34 112/61 (78) 90 Mechanical Ventilator 30.00 06/08/23 04:00 91 Mechanical Ventilator 30 06/08/23 03:00 62 29 108/63 (78) 98 Mechanical Ventilator 30.00 06/08/23 02:55 62 21 98 30 06/08/23 02:44 61 102/58 06/08/23 02:00 56 25 104/60 (75) 96 Mechanical Ventilator 30.00 06/08/23 01:00 60 06/08/23 01:00 30 06/08/23 01:00 57 18 124/71 (88) 96 Mechanical Ventilator 30.00 06/08/23 00:00 60 18 123/73 (90) 95 Mechanical Ventilator 30.00 06/07/23 23:10 96 Mechanical Ventilator 30 06/07/23 23:00 60 18 118/69 (85) 95 Mechanical Ventilator 30.00 06/07/23 22:32 56 18 96 30 06/07/23 22:03 56 121/69 06/07/23 22:02 56 121/69 06/07/23 22:00 57 18 122/71 (88) 96 Mechanical Ventilator 30.00 06/07/23 21:55 56 121/69 06/07/23 21:00 60 23 127/73 (91) 97 Mechanical Ventilator 30.00 06/07/23 21:00 30 06/07/23 20:00 61 18 141/75 (97) 96 Mechanical Ventilator 30.00 06/07/23 19:55 95 Mechanical Ventilator 30 06/07/23 19:35 36.9 06/07/23 19:00 57 18 153/82 (105) 95 Mechanical Ventilator 30.00 06/07/23 19:00 60 06/07/23 18:51 55 18 100 30 06/07/23 18:03 67 163/90 06/07/23 18:02 67 163/90 06/07/23 18:00 58 18 163/90 (114) 97 Mechanical Ventilator 30.00 06/07/23 17:55 67 163/90 06/07/23 17:19 30 06/07/23 17:00 63 23 159/86 (122) 95 Mechanical Ventilator 30.00 06/07/23 16:15 94 Mechanical Ventilator 30 06/07/23 16:00 63 23 150/87 (117) 95 Mechanical Ventilator 30.00 06/07/23 15:37 37.0 06/07/23 15:34 67 138/75 06/07/23 15:34 67 138/75 06/07/23 15:00 69 20 140/79 (105) 96 Mechanical Ventilator 30.00 06/07/23 14:22 67 18 94 30 06/07/23 14:00 68 18 135/74 (98) 93 Mechanical Ventilator 30.00 06/07/23 13:50 92 139/73 06/07/23 13:18 30 I & O 06/08/23 07:00 Intake Total 2500 ml Output Total 1305 ml Balance 1195 ml Height & Weight Height: '" Weight: lbs. oz. kg; 50.37 BMI Method: General Appearance: Chronically ill, Obese, Other (intubated) HEENT: PERRL/EOMI, Pharynx Normal, Other (Doing this bilateral) Neck: Non Tender, Supple Respiratory: Wheezing (scant), Other (on vent) Cardiovascular: Regular Rate, Rhythm, No Murmur Extremity: Pedal Edema Neurologic/Psychiatric: Other (sedated, appears comfortable) Skin: Warm/Dry, Other (Psoriatic lesions to both legs) Results Lab Laboratory Tests 06/07/23 03:49 06/08/23 05:15 Assessment/Plan Assessment/Plan . LEROY PHILLIPS MD Jun 08, 2023 13:08
--- NOTE | 2023-06-08 17:56 | Progress Note - Cardiology ---
Cardiology SOAP Progress Note [facility] Objective: I&O/Vital Signs 06/08/23 06/08/23 06/08/23 06/08/23 06:00 06:38 06:44 06:45 Pulse 59 69 71 Resp 27 24 B/P (MAP) 131/72 (91) 110/64 Pulse Ox 91 100 O2 Delivery Mechanical Ventilator Mechanical Ventilator O2 Flow Rate 30.00 45.00 FiO2 30 06/08/23 06/08/23 06/08/23 06/08/23 07:00 07:00 07:19 07:30 Temp 36.4 Pulse 71 73 72 Resp 23 B/P (MAP) 107/65 (79) 107/65 Pulse Ox 98 O2 Delivery Mechanical Ventilator O2 Flow Rate 45.00 06/08/23 06/08/23 06/08/23 06/08/23 07:45 08:00 09:00 09:15 Pulse 70 62 62 Resp 23 29 B/P (MAP) 136/89 (105) 147/85 (105) 147/85 Pulse Ox 94 96 97 O2 Delivery Mechanical Ventilator Mechanical Ventilator Mechanical Ventilator O2 Flow Rate 45.00 45.00 FiO2 40 06/08/23 06/08/23 06/08/23 06/08/23 09:15 10:00 10:13 10:52 Pulse 64 60 35 Resp 40 24 29 B/P (MAP) 147/82 (103) Pulse Ox 97 100 98 O2 Delivery Mechanical Ventilator O2 Flow Rate 45.00 FiO2 30 40 40 06/08/23 06/08/23 06/08/23 06/08/23 11:00 11:05 12:00 12:00 Temp 36.4 Pulse 65 61 Resp 48 27 B/P (MAP) 149/85 (106) 147/77 (100) Pulse Ox 100 97 O2 Delivery Mechanical Ventilator Mechanical Ventilator O2 Flow Rate 45.00 45.00 FiO2 40 06/08/23 06/08/23 06/08/23 06/08/23 12:35 13:00 13:18 14:00 Pulse 61 58 58 Resp 19 21 B/P (MAP) 155/79 (104) 154/83 (106) Pulse Ox 97 98 O2 Delivery Mechanical Ventilator Mechanical Ventilator O2 Flow Rate 45.00 45.00 FiO2 30 06/08/23 06/08/23 06/08/23 06/08/23 14:50 15:00 15:20 16:00 Temp 36.7 Pulse 56 57 59 Resp 22 23 28 B/P (MAP) 135/82 (99) 139/80 (99) Pulse Ox 95 93 93 O2 Delivery Mechanical Ventilator Mechanical Ventilator O2 Flow Rate 45.00 45.00 FiO2 30 06/08/23 17:00 Pulse 57 Resp 23 B/P (MAP) 142/82 (102) Pulse Ox 95 O2 Delivery Mechanical Ventilator O2 Flow Rate 45.00 06/08/23 00:00 Intake Total 200 ml Output Total 675 ml Balance -475 ml Constitutional: other Respiratory: chest expansion is symmetric, chest is bilaterally symmetric, other Cardiovascular: regular rate-rhythm, S1 and S2 Gastrointestional: soft, audible bowel sounds Extremities: other Neurologic/Psychiatric: other Skin: No rash on exposed areas, No ulcerations on exposed areas Results/Procedures: Labs Laboratory Tests 06/07/23 18:50: Glucometer 141H 06/07/23 20:30: Triglycerides Level 159H 06/08/23 02:02: Glucometer 132H 06/08/23 03:09: Blood Gas Puncture Site RR, Blood Gas Patient Temperature 36.6, Arterial Blood pH 7.34*L, Arterial Blood Partial Pressure CO2 36, Arterial Blood Partial Pressure O2 82, Arterial Blood HCO3 19L, Arterial Blood Total CO2 20.3L, Arterial Blood Oxygen Saturation 97, Arterial Blood Base Excess -5.5L, Paresh Test YES-POS, Blood Gas Ventilator Setting YES, Blood Gas Inspired Oxygen 30% 06/08/23 05:15: White Blood Count 7.2, Red Blood Count 3.40L, Hemoglobin 12.2, Hematocrit 37, Mean Corpuscular Volume 110H, Mean Corpuscular Hemoglobin 36H, Mean Corpuscular Hemoglobin Concent 33, Red Cell Distribution Width 14.3, Platelet Count 137, Mean Platelet Volume 10.9, Immature Granulocyte % (Auto) 0, Neutrophils (%) (Auto) 77H, Lymphocytes (%) (Auto) 15, Monocytes (%) (Auto) 7, Eosinophils (%) (Auto) 2, Basophils (%) (Auto) 0, Neutrophils # (Auto) 5.5, Lymphocytes # (Auto) 1.1, Monocytes # (Auto) 0.5, Eosinophils # (Auto) 0.1, Basophils # (Auto) 0.0, Immature Granulocyte # (Auto) 0.0, Percent Immature Platelet Fraction 3.7, Sodium Level 140, Potassium Level 3.7, Chloride Level 114H, Carbon Dioxide Level 17L, Anion Gap 9, Blood Urea Nitrogen 12, Creatinine 0.71, Estimat Glomerular Filtration Rate 95, BUN/Creatinine Ratio 17, Glucose Level 128H, Calcium Level 8.1L, Phosphorus Level 2.3, Magnesium Level 2.2 06/08/23 12:52: Glucometer 118H 06/08/23 17:49: Glucometer 122H Microbiology 06/05/23 Gram Stain - Final, Resulted 06/05/23 Sputum Culture - Preliminary, Resulted Culture In Progress 06/05/23 Blood Culture - Preliminary, Resulted Laboratory Tests 06/07/23 03:49 06/08/23 05:15 A/P: Assessment: Ac respiratory failure due to drug overdose - requiring intubation/sedation - Echo on 06/06/23: LVEF 55-60%, PASP 35-40 mmHg Troponin elevation - Likely Type 2 TN secondary to hypoxia H/O ETOH abuse Obesity Plan: Respiratory failure d/t overdose requiring intubation - management per medical/eICU services Elevated troponin - Likely Type 2 TN secondary to hypoxia Management of ETOH WD per medical services Monitor lab Replace electrolytes as indicated Continue current regimen ADRIANNA FERNANDEZ MD FACP FAC CCDS Jun 08, 2023 17:56
[2023-06-09] MEDS: NS IV 1000 ML 1,000 ML IV SCH ×2 (01:40→10:47)
[2023-06-09 02:45] VITALS: BP 114/64
[2023-06-09] MEDS: RT-Ipratropium/Albuterol NEB 3 ML VIAL INH SCH ×6 (02:45→22:25)
[2023-06-09] MEDS: DexMEDEtomidine 1,000mcg/250ml 250 ML IV SCH ×2 (03:59→13:07)
[2023-06-09 05:15] LABS: BASOPHILS % (AUTO) 0 % (0-10); HEMOGLOBIN 12.1 g/dL (11.5-16.0); MEAN CORPUSCULAR HEMOGLOBIN 36 pg (25-34)
[2023-06-09 05:17] LABS: EOSINOPHILS # (AUTO) 0.2 10^3/uL (0.0-0.3); EOSINOPHILS % (AUTO) 2 % (0-10); HEMATOCRIT 38 % (35-52); LYMPHOCYTES # (AUTO) 1.4 10^3/uL (1.0-4.0); LYMPHOCYTES % (AUTO) 13 % (12-44); MEAN CORPUSCULAR HGB CONC 32 g/dL (32-36); MEAN CORPUSCULAR VOLUME 111 fL (80-99); MEAN PLATELET VOLUME 10.8 fL (9.0-12.2); MONOCYTES # (AUTO) 0.7 10^3/uL (0.0-1.0); MONOCYTES % (AUTO) 7 % (0-12); NEUTROPHILS # (AUTO) 8.3 10^3/uL (1.8-7.8); NEUTROPHILS % (AUTO) 78 % (42-75); PLATELET COUNT 135 10^3/uL (130-400); WHITE BLOOD COUNT 10.7 10^3/uL (4.3-11.0)
[2023-06-09 05:32] LABS: POTASSIUM 3.9 MMOL/L (3.6-5.0)
[2023-06-09 05:34] LABS: CALCIUM 8.1 MG/DL (8.5-10.1)
[2023-06-09 05:38] LABS: CREATININE SERUM 0.67 MG/DL (0.60-1.30); PHOSPHORUS 2.6 MG/DL (2.3-4.7)
[2023-06-09 05:48] LABS: ABG BASE EXCESS -6.1 MMOL/L (-2.5-2.5); ABG OXYGEN SATURATION 95 % (94-100); ABG PCO2 36 MMHG (35-45); ABG PO2 73 MMHG (79-93); ABG TCO2 19.8 MMOL/L (21.0-31.0)
[2023-06-09 05:54] LABS: ABG PH 7.33 (7.37-7.43); ALLENS TEST YES-POS; INSPIRED O2 30%; VENTILATOR YES
[2023-06-09] MEDS ORDERED: POTASSIUM CL 10MEQ/50ML IVPB 100 ML IV ONE (06:08)
[2023-06-09] MEDS: POTASSIUM CL 10MEQ/50ML IVPB 50 ML IV SCH ×3 (06:10→07:09)
[2023-06-09] MEDS: THERAPEUTIC MULTIVITAMIN W/MINERALS TABLET PO SCH (06:10)
[2023-06-09] MEDS: POTASSIUM CHLORIDE 20 MEQ TABLET PO SCH (06:10)
[2023-06-09] MEDS: MAGNESIUM 1 GM/100 ML IVPB 100 ML IV SCH (06:10)
[2023-06-09] MEDS: THIAMINE 100 MG (VITAMIN B-1) TAB PO SCH (06:10)
[2023-06-09 06:59] VITALS: BP 117/65
--- NOTE | 2023-06-09 08:34 | Progress Note - Cardiology ---
Cardiology SOAP Progress Note Subjective: Remains intubated and sedated Objective: I&O/Vital Signs 06/09/23 06/09/23 06/09/23 06/09/23 03:59 03:59 04:00 04:00 Pulse 62 62 62 62 Resp 27 B/P (MAP) 120/62 120/62 111/63 (79) 114/62 Pulse Ox 93 O2 Delivery Mechanical Ventilator O2 Flow Rate 30.00 06/09/23 06/09/23 06/09/23 06/09/23 04:00 04:01 04:29 05:00 Pulse 62 61 61 B/P (MAP) 114/62 111/63 118/66 (83) Pulse Ox 93 O2 Delivery Mechanical Ventilator Mechanical Ventilator O2 Flow Rate 30.00 FiO2 30 06/09/23 06/09/23 06/09/23 06/09/23 05:16 05:50 06:00 06:59 Pulse 61 60 60 Resp 19 B/P (MAP) 118/66 122/66 (84) Pulse Ox 94 93 O2 Delivery Mechanical Ventilator O2 Flow Rate 30.00 FiO2 30 30 06/09/23 06/09/23 06/09/23 06/09/23 07:00 07:00 07:24 07:36 Temp 36.9 Pulse 60 60 63 Resp 22 B/P (MAP) 117/65 (88) 116/64 Pulse Ox 93 O2 Delivery Mechanical Ventilator O2 Flow Rate 30.00 06/09/23 06/09/23 06/09/23 06/09/23 07:37 08:00 09:00 10:00 Temp 36.9 Pulse 65 64 62 Resp 31 18 B/P (MAP) 121/67 (91) 120/65 (88) 139/81 (101) Pulse Ox 93 91 96 O2 Delivery Mechanical Ventilator Mechanical Ventilator Mechanical Ventilator O2 Flow Rate 30.00 30.00 30.00 06/09/23 06/09/23 06/09/23 06/09/23 11:00 11:14 11:45 12:00 Temp 36.6 Pulse 59 58 63 Resp 35 23 28 B/P (MAP) 118/66 (94) 125/68 (90) Pulse Ox 96 93 93 O2 Delivery Mechanical Ventilator Mechanical Ventilator O2 Flow Rate 30.00 30.00 FiO2 30 06/09/23 06/09/23 06/09/23 06/09/23 12:36 13:00 14:00 15:00 Pulse 63 60 58 56 Resp 20 23 26 B/P (MAP) 119/64 (86) 118/68 (91) 115/65 (83) Pulse Ox 91 93 93 O2 Delivery Mechanical Ventilator Mechanical Ventilator Mechanical Ventilator O2 Flow Rate 30.00 30.00 30.00 06/09/23 00:00 Intake Total 250 ml Output Total 725 ml Balance -475 ml Constitutional: other Respiratory: chest expansion is symmetric, chest is bilaterally symmetric, other Cardiovascular: regular rate-rhythm, S1 and S2 Gastrointestional: soft, audible bowel sounds Extremities: other Neurologic/Psychiatric: other Skin: No rash on exposed areas, No ulcerations on exposed areas Results/Procedures: Labs Laboratory Tests 06/08/23 17:49: Glucometer 122H 06/09/23 00:11: Glucometer 115H 06/09/23 05:00: White Blood Count 10.7, Red Blood Count 3.39L, Hemoglobin 12.1, Hematocrit 38, Mean Corpuscular Volume 111H, Mean Corpuscular Hemoglobin 36H, Mean Corpuscular Hemoglobin Concent 32, Red Cell Distribution Width 14.6H, Platelet Count 135, Mean Platelet Volume 10.8, Immature Granulocyte % (Auto) 0, Neutrophils (%) (Auto) 78H, Lymphocytes (%) (Auto) 13, Monocytes (%) (Auto) 7, Eosinophils (%) (Auto) 2, Basophils (%) (Auto) 0, Neutrophils # (Auto) 8.3H, Lymphocytes # (Auto) 1.4, Monocytes # (Auto) 0.7, Eosinophils # (Auto) 0.2, Basophils # (Auto) 0.0, Immature Granulocyte # (Auto) 0.0, Percent Immature Platelet Fraction 4.7, Sodium Level 139, Potassium Level 3.9, Chloride Level 114H, Carbon Dioxide Level 17L, Anion Gap 8, Blood Urea Nitrogen 9, Creatinine 0.67, Estimat Glomerular Filtration Rate 98, BUN/Creatinine Ratio 13, Glucose Level 117H, Calcium Level 8.1L, Phosphorus Level 2.6, Magnesium Level 2.0 06/09/23 05:40: Blood Gas Puncture Site RIGHT RADIAL, Blood Gas Patient Temperature 37.0, Arterial Blood pH 7.33*L, Arterial Blood Partial Pressure CO2 36, Arterial Blood Partial Pressure O2 73L, Arterial Blood HCO3 19L, Arterial Blood Total CO2 19.8L , Arterial Blood Oxygen Saturation 95, Arterial Blood Base Excess -6.1L, Paresh Test YES-POS, Blood Gas Ventilator Setting YES, Blood Gas Inspired Oxygen 30% 06/09/23 11:39: Glucometer 115H Microbiology 06/08/23 Gram Stain - Final, Resulted 06/08/23 Sputum Culture - Preliminary, Resulted Escherichia coli Staphylococcus aureus 06/05/23 Blood Culture - Preliminary, Resulted A/P: Assessment: Ac respiratory failure due to drug overdose - requiring intubation/sedation - Echo on 06/06/23: LVEF 55-60%, PASP 35-40 mmHg Troponin elevation - Likely Type 2 MA secondary to hypoxia H/O ETOH abuse Obesity Plan: Respiratory failure d/t overdose requiring intubation - management per medical/eICU services Elevated troponin - Likely Type 2 MA secondary to hypoxia Management of ETOH WD per medical services Monitor lab Replace electrolytes as indicated Continue current regimen SHARMILA RUIZ [facility] Jun 09, 2023 08:34
[2023-06-09] MEDS: PANTOPRAZOLE INJECTION 40 MG VIAL IV SCH (08:55)
[2023-06-09] MEDS: ENOXAPARIN 60 MG/0.6 ML SYRINGE SQ SCH ×2 (08:55→21:21)
[2023-06-09] MEDS: FOLIC ACID 1 MG TAB PO SCH (08:55)
[2023-06-09] MEDS: MUPIROCIN 2% OINTMENT 22 GM TUBE NSEACH SCH ×2 (08:55→21:22)
--- NOTE | 2023-06-09 09:00 | Progress Note - Hospitalist ---
Subjective HPI/CC On Admission Date Seen by Provider: Jun 09, 2023 Patient is a 63-year-old female with a past medical history of [id number] diabetes, COPD, hypertension, alcohol abuse who presented to the emergency department due to altered mental status. She is currently intubated and sedated and unable to provide any history. All history is obtained from the records. Apparently she has been trying to quit drinking alcohol and so had been using Xanax to manage her symptoms but had taken more than was prescribed. She started to develop slurred speech and was quite drowsy so her friend summoned EMS. In the emergency department she was unable to protect her airway and had hypercapnia on ABG and was electively intubated. CT head was done to rule out intracranial process which showed no intracranial hemorrhage only mild atrophy and chronic microvascular changes. This morning they tried sedation vacation per eICU and while she was able to follow some commands she did not wake up satisfactorily so remains on the vent. Subjective/Events-last exam Pt remains intubated and sedated. RN reports MRSA in sputum called to her this AM. Objective Exam Vital Signs Vital Signs Date Time Temp Pulse Resp B/P (MAP) Pulse Ox O2 Delivery O2 Flow Rate FiO2 06/09/23 08:00 65 31 121/67 (91) 93 Mechanical Ventilator 30.00 06/09/23 07:37 36.9 06/09/23 06:59 30 Capillary Refill : Less Than 3 Seconds General Appearance: No Apparent Distress, Chronically ill, Obese Respiratory: Rhonci; No Wheezing; Other (on vent) Cardiovascular: Regular Rate, Rhythm, No Murmur Gastrointestinal: Normal Bowel Sounds, Soft Neurologic/Psychiatric: Other (sedated, appears comfortable) Results/Procedures Lab Laboratory Tests 06/09/23 05:00 Patient resulted labs reviewed. Imaging: Reviewed Imaging Report Assessment/Plan Assessment and Plan Assess & Plan/Chief Complaint Acute hypercapnic respiratory failure Accidental Benzodiazepine Overdose Alcohol withdrawal Currently sedated and on vent-- failed SBT yesterday Management per eiCU Continue alcohol withdrawal protocol- thiamine, folic, MTV Will confirm intention of overdose with patient when extubated Social work consulted, appreciate recs MAT protocol CXR with clear lungs Add Vanc due to MRSA in sputum Cardiology consulted for minimal trop elevation on arrival HTN BP well controlled, trend NIDDMII Fasting blood sugar 117- trend DVT ppx: Lovenox Critical Care Ventilator Management HANNAH SINGH MD Jun 09, 2023 09:00
[2023-06-09] MEDS ORDERED: VANCOMYCIN INJECTION 0.1 MG in NS (IVPB) 250 ML 250 ML IV SCH ×2 (09:15)
[2023-06-09] MEDS ORDERED: VANCOMYCIN 2000 MG/NS 500 ML IVPB IV ONE ×2 (10:00)
[2023-06-09] MEDS: cefTRIAXone IV/IM 1,000 MG in NS (IVPB) 50 ML 50 ML IV SCH (10:33)
[2023-06-09 11:14] VITALS: BP 121/69
--- NOTE | 2023-06-09 11:14 | Tele-ICU Progress Note ---
Subjective Date Seen by a Provider: Jun 09, 2023 Time Seen by a Provider: 11:09 Subjective/Events-last exam Tele-ICU Physician , Progress Note ) Service provided via interactive audio and video telecommunications [facility] to a patient admitted to ICU bed in [facility]. Patient is seen today due to persistent need of ICU care Available chart/ vitals / labs / Images reviewed Video assessment done using teleICU camera, rest of exam as per RN She is a 63-year-old female with past medical history of anxiety and apparently will overdose with Xanax, and abuse of cannabinoids found unresponsive. She was intubated in the emergency room and admitted to the intensive care unit for monitoring and management. Today she remained on mechanical ventilation and barely arousable. She does not look like she will tolerate SBT. Her blood pressure has been stable however. 06/07/23 today she is somnolent and on high dose propofol drip. not ready for sbt yet 06/09/23 she did not tolerate SBT yesterday. on precedex 0.8mcg, and propofol 35 mcg now. rn reports pt is congested and getting frothy sputum. sputum growing e.coli and mrsa. Impression 1. Drug overdose with multiple substances including benzodiazepines and marijuana causing decreased level of consciousness 2. Acute hypoxic respiratory failure requiring mechanical ventilation failed SBT on 06/08. 3. History of anxiety disorder. 4. developping fluid overload. 5. e. coli and mrsa pneumonia Recommendations 1. Continue mechanical ventilatory support with a tidal volume of 450/FiO2 30% and respiratory rate of 18. 2. decrase ivf to 50ml/hr 3. DVT prophylaxis 4. increase precedx and wean propofol and try SBT today or tomorrow depending on her mental status. 5. iv lasix 40 mg stat 6. iv rocephin and vaco mycin until sensitivity is known Coordination of care with the bedside consultants and primary care physician. I am remotely monitoring this patient from Tele icu station in [place]. I am unable to do the bedside exam, and history/physical and pertinent information is taken from other notes in the computer and bedside staff. Certain portions of this document may have been dictated utilizing voice recognition technology such as [employer].. Inherent to this technology, typographical and grammatical errors may exist. As much as I am diligent to identify and correct to these mistakes, some errors may remain in the document. Critical care time devoted to this patient today is approximately is-30 minutes- Sepsis Event Evaluation Height, Weight, BMI Height: '" Weight: lbs. oz. kg; 52.58 BMI Method: Exam Exam Patient acknowledged, consented, and participated in this virtual visit which was conducted using real time audio/video Vital Signs Date Time Temp Pulse Resp B/P (MAP) Pulse Ox O2 Delivery O2 Flow Rate FiO2 06/09/23 11:00 59 35 118/66 (94) 96 Mechanical Ventilator 30.00 06/09/23 10:00 62 18 139/81 (101) 96 Mechanical Ventilator 30.00 06/09/23 09:00 64 120/65 (88) 91 Mechanical Ventilator 30.00 06/09/23 08:00 65 31 121/67 (91) 93 Mechanical Ventilator 30.00 06/09/23 07:37 36.9 06/09/23 07:36 36.9 06/09/23 07:24 63 116/64 06/09/23 07:00 60 22 117/65 (88) 93 Mechanical Ventilator 30.00 06/09/23 07:00 60 06/09/23 06:59 60 19 93 30 06/09/23 06:00 60 122/66 (84) 94 Mechanical Ventilator 30.00 06/09/23 05:50 61 118/66 06/09/23 05:16 30 06/09/23 05:00 61 118/66 (83) 93 Mechanical Ventilator 30.00 06/09/23 04:29 61 111/63 06/09/23 04:01 62 114/62 06/09/23 04:00 Mechanical Ventilator 30 06/09/23 04:00 62 114/62 06/09/23 04:00 62 27 111/63 (79) 93 Mechanical Ventilator 30.00 06/09/23 03:59 62 120/62 06/09/23 03:59 62 120/62 06/09/23 03:00 61 26 120/62 (81) 93 Mechanical Ventilator 30.00 06/09/23 02:45 59 18 94 30 06/09/23 02:00 60 27 110/61 (77) 94 Mechanical Ventilator 30.00 06/09/23 01:15 62 109/63 06/09/23 01:00 62 33 114/62 (79) 93 Mechanical Ventilator 30.00 06/09/23 01:00 61 06/09/23 00:00 37.0 61 113/66 (82) Mechanical Ventilator 30.00 06/08/23 23:59 Mechanical Ventilator 30 06/08/23 23:00 63 24 109/63 (78) 92 Mechanical Ventilator 30.00 06/08/23 22:13 59 18 94 30 06/08/23 22:00 58 25 125/70 (88) 94 Mechanical Ventilator 30.00 06/08/23 21:51 58 120/69 06/08/23 21:00 60 27 120/69 (86) 94 Mechanical Ventilator 30.00 06/08/23 20:42 61 126/73 06/08/23 20:42 61 126/73 06/08/23 20:00 61 24 127/70 (89) 91 Mechanical Ventilator 30.00 06/08/23 20:00 Mechanical Ventilator 30 06/08/23 19:40 61 134/78 06/08/23 19:30 36.4 06/08/23 19:00 61 18 131/80 (97) 93 Mechanical Ventilator 30.00 06/08/23 19:00 58 06/08/23 18:58 56 18 97 30 06/08/23 18:00 56 32 141/83 (102) 95 Mechanical Ventilator 45.00 06/08/23 17:18 30 06/08/23 17:00 57 23 142/82 (102) 95 Mechanical Ventilator 45.00 06/08/23 16:00 59 28 139/80 (99) 93 Mechanical Ventilator 45.00 06/08/23 16:00 94 Mechanical Ventilator 40 06/08/23 15:20 36.7 06/08/23 15:00 57 23 135/82 (99) 93 Mechanical Ventilator 45.00 06/08/23 14:50 56 22 95 30 06/08/23 14:00 58 21 154/83 (106) 98 Mechanical Ventilator 45.00 06/08/23 13:18 30 06/08/23 13:00 58 19 155/79 (104) 97 Mechanical Ventilator 45.00 06/08/23 12:35 61 06/08/23 12:00 36.4 06/08/23 12:00 61 27 147/77 (100) 97 Mechanical Ventilator 45.00 06/08/23 12:00 94 Mechanical Ventilator 40 I & O 10/6/23 07:00 Intake Total 2000 ml Output Total 1650 ml Balance 350 ml Height & Weight Height: '" Weight: lbs. oz. kg; 52.58 BMI Method: General Appearance: No Apparent Distress, Chronically ill, Obese HEENT: PERRL/EOMI, Pharynx Normal, Other (Doing this bilateral) Neck: Non Tender, Supple Respiratory: Rhonci; No Wheezing; Other (on vent) Cardiovascular: Regular Rate, Rhythm, No Murmur Capillary Refill: Less Than 3 Seconds Extremity: Pedal Edema Neurologic/Psychiatric: Other (sedated, appears comfortable) Skin: Warm/Dry, Other (Psoriatic lesions to both legs) Results Lab Laboratory Tests 06/08/23 05:15 06/09/23 05:00 Assessment/Plan Assessment/Plan as above Critical Care: Ventilator Management Time spent with patient (mins): 30 CLAUDETTE TRAMMELL MD Jun 09, 2023 11:14
[2023-06-09] MEDS ORDERED: FUROSEMIDE INJECTION 40 MG/4 ML VIAL IVP ONE (11:15)
--- NOTE | 2023-06-09 13:05 | Progress Note - Cardiology ---
Cardiology SOAP Progress Note Subjective: On ventilator. Unresponsive Objective: I&O/Vital Signs 06/09/23 06/09/23 06/09/23 06/09/23 01:15 02:00 02:45 03:00 Pulse 62 60 59 61 Resp 27 18 26 B/P (MAP) 109/63 110/61 (77) 120/62 (81) Pulse Ox 94 94 93 O2 Delivery Mechanical Ventilator Mechanical Ventilator O2 Flow Rate 30.00 30.00 FiO2 30 06/09/23 06/09/23 06/09/23 06/09/23 03:59 03:59 04:00 04:00 Pulse 62 62 62 62 Resp 27 B/P (MAP) 120/62 120/62 111/63 (79) 114/62 Pulse Ox 93 O2 Delivery Mechanical Ventilator O2 Flow Rate 30.00 06/09/23 06/09/23 06/09/23 06/09/23 04:00 04:01 04:29 05:00 Pulse 62 61 61 B/P (MAP) 114/62 111/63 118/66 (83) Pulse Ox 93 O2 Delivery Mechanical Ventilator Mechanical Ventilator O2 Flow Rate 30.00 FiO2 30 06/09/23 06/09/23 06/09/23 06/09/23 05:16 05:50 06:00 06:59 Pulse 61 60 60 Resp 19 B/P (MAP) 118/66 122/66 (84) Pulse Ox 94 93 O2 Delivery Mechanical Ventilator O2 Flow Rate 30.00 FiO2 30 30 06/09/23 06/09/23 06/09/23 06/09/23 07:00 07:00 07:24 07:36 Temp 36.9 Pulse 60 60 63 Resp 22 B/P (MAP) 117/65 (88) 116/64 Pulse Ox 93 O2 Delivery Mechanical Ventilator O2 Flow Rate 30.00 06/09/23 06/09/23 06/09/23 06/09/23 07:37 08:00 09:00 10:00 Temp 36.9 Pulse 65 64 62 Resp 31 18 B/P (MAP) 121/67 (91) 120/65 (88) 139/81 (101) Pulse Ox 93 91 96 O2 Delivery Mechanical Ventilator Mechanical Ventilator Mechanical Ventilator O2 Flow Rate 30.00 30.00 30.00 10/6/23 10/6/23 10/6/23 10/6/23 11:00 11:14 11:45 12:00 Temp 36.6 Pulse 59 58 63 Resp 35 23 28 B/P (MAP) 118/66 (94) 125/68 (90) Pulse Ox 96 93 93 O2 Delivery Mechanical Ventilator Mechanical Ventilator O2 Flow Rate 30.00 30.00 FiO2 30 06/09/23 12:36 Pulse 63 06/09/23 00:00 Intake Total 250 ml Output Total 725 ml Balance -475 ml Constitutional: other Respiratory: chest expansion is symmetric, chest is bilaterally symmetric, other Cardiovascular: regular rate-rhythm, S1 and S2 Gastrointestional: soft, audible bowel sounds Extremities: other Neurologic/Psychiatric: other Skin: No rash on exposed areas, No ulcerations on exposed areas Results/Procedures: Labs Laboratory Tests 06/08/23 17:49: Glucometer 122H 06/09/23 00:11: Glucometer 115H 06/09/23 05:00: White Blood Count 10.7, Red Blood Count 3.39L, Hemoglobin 12.1, Hematocrit 38, Mean Corpuscular Volume 111H, Mean Corpuscular Hemoglobin 36H, Mean Corpuscular Hemoglobin Concent 32, Red Cell Distribution Width 14.6H, Platelet Count 135, Mean Platelet Volume 10.8, Immature Granulocyte % (Auto) 0, Neutrophils (%) (Auto) 78H, Lymphocytes (%) (Auto) 13, Monocytes (%) (Auto) 7, Eosinophils (%) (Auto) 2, Basophils (%) (Auto) 0, Neutrophils # (Auto) 8.3H, Lymphocytes # (Auto) 1.4, Monocytes # (Auto) 0.7, Eosinophils # (Auto) 0.2, Basophils # (Auto) 0.0, Immature Granulocyte # (Auto) 0.0, Percent Immature Platelet Fraction 4.7, Sodium Level 139, Potassium Level 3.9, Chloride Level 114H, Carbon Dioxide Level 17L, Anion Gap 8, Blood Urea Nitrogen 9, Creatinine 0.67, Estimat Glomerular Panfilo tration Rate 98, BUN/Creatinine Ratio 13, Glucose Level 117H, Calcium Level 8.1L , Phosphorus Level 2.6, Magnesium Level 2.0 06/09/23 05:40: Blood Gas Puncture Site RIGHT RADIAL, Blood Gas Patient Temperature 37.0, Arterial Blood pH 7.33*L, Arterial Blood Partial Pressure CO2 36, Arterial Blood Partial Pressure O2 73L, Arterial Blood HCO3 19L, Arterial Blood Total CO2 19.8L , Arterial Blood Oxygen Saturation 95, Arterial Blood Base Excess -6.1L, Paresh Test YES-POS, Blood Gas Ventilator Setting YES, Blood Gas Inspired Oxygen 30% 06/09/23 11:39: Glucometer 115H Microbiology 06/08/23 Gram Stain - Final, Resulted 06/08/23 Sputum Culture - Preliminary, Resulted Escherichia coli Staphylococcus aureus 06/05/23 Blood Culture - Preliminary, Resulted Laboratory Tests 06/08/23 05:15 06/09/23 05:00 A/P: Assessment: Ac respiratory failure due to drug overdose - requiring intubation/sedation - Echo on 06/06/23: LVEF 55-60%, PASP 35-40 mmHg Troponin elevation - Likely Type 2 GA secondary to hypoxia H/O ETOH abuse Obesity Plan: Respiratory failure d/t overdose requiring intubation - management per medical/eICU services Elevated troponin - Likely Type 2 GA secondary to hypoxia Management of ETOH WD per medical services Monitor lab Replace electrolytes as indicated ADRIANNA FERNANDEZ MD FACP FAC CCDS Jun 09, 2023 13:05
[2023-06-09 15:40] VITALS: BP 135/65
[2023-06-09 17:54] LABS: POTASSIUM 3.9 MMOL/L (3.6-5.0)
[2023-06-09 17:55] LABS: CALCIUM 8.4 MG/DL (8.5-10.1)
[2023-06-09 17:59] LABS: PHOSPHORUS 3.2 MG/DL (2.3-4.7)
[2023-06-09 18:00] LABS: CREATININE SERUM 0.68 MG/DL (0.60-1.30)
[2023-06-09 18:26] VITALS: BP 137/76
[2023-06-09] MEDS: VANCOMYCIN 1500MG/300ML PREMIX IV SCH (21:23)
[2023-06-09 22:25] VITALS: BP 132/73
[2023-06-09] MEDS: MICONAZOLE 2% POWDER 90 GM TOP SCH (23:10)
[2023-06-10] MEDS: RT-Ipratropium/Albuterol NEB 3 ML VIAL INH SCH ×6 (02:37→21:46)
[2023-06-10 02:38] VITALS: BP 132/73
[2023-06-10] MEDS: DexMEDEtomidine 1,000mcg/250ml 250 ML IV SCH ×4 (05:10→21:52)
[2023-06-10 05:26] LABS: BASOPHILS % (AUTO) 0 % (0-10); EOSINOPHILS # (AUTO) 0.3 10^3/uL (0.0-0.3); EOSINOPHILS % (AUTO) 3 % (0-10); HEMATOCRIT 37 % (35-52); HEMOGLOBIN 12.2 g/dL (11.5-16.0); LYMPHOCYTES # (AUTO) 1.1 10^3/uL (1.0-4.0); LYMPHOCYTES % (AUTO) 11 % (12-44); MEAN CORPUSCULAR HEMOGLOBIN 36 pg (25-34); MEAN CORPUSCULAR HGB CONC 33 g/dL (32-36); MEAN CORPUSCULAR VOLUME 109 fL (80-99); MEAN PLATELET VOLUME 10.4 fL (9.0-12.2); MONOCYTES # (AUTO) 0.7 10^3/uL (0.0-1.0); MONOCYTES % (AUTO) 7 % (0-12); NEUTROPHILS # (AUTO) 8.2 10^3/uL (1.8-7.8); NEUTROPHILS % (AUTO) 79 % (42-75); PLATELET COUNT 147 10^3/uL (130-400); WHITE BLOOD COUNT 10.4 10^3/uL (4.3-11.0)
[2023-06-10 05:36] LABS: ABG BASE EXCESS -5.9 MMOL/L (-2.5-2.5); ABG OXYGEN SATURATION 94 % (94-100); ABG PCO2 36 MMHG (35-45); ABG PO2 75 MMHG (79-93)
[2023-06-10 05:39] LABS: ABG PH 7.34 (7.37-7.43)
[2023-06-10 05:40] LABS: ALLENS TEST YES-POS; INSPIRED O2 30%; VENTILATOR YES
[2023-06-10 05:42] LABS: POTASSIUM 3.8 MMOL/L (3.6-5.0)
[2023-06-10 05:43] LABS: CALCIUM 8.4 MG/DL (8.5-10.1)
[2023-06-10 05:47] LABS: CREATININE SERUM 0.63 MG/DL (0.60-1.30)
[2023-06-10 05:49] LABS: MAGNESIUM 1.8 MG/DL (1.6-2.4)
[2023-06-10] MEDS: POTASSIUM CL 10MEQ/50ML IVPB 50 ML IV SCH ×3 (05:57→07:32)
[2023-06-10] MEDS: MAGNESIUM 1 GM/100 ML IVPB 100 ML IV SCH ×3 (05:57→07:32)
[2023-06-10] MEDS: POTASSIUM CHLORIDE 20 MEQ TABLET PO SCH (05:57)
[2023-06-10] MEDS: NS IV 1000 ML 1,000 ML IV SCH (06:26)
[2023-06-10 07:27] VITALS: BP 110/63
[2023-06-10] MEDS: PANTOPRAZOLE INJECTION 40 MG VIAL IV SCH (08:20)
[2023-06-10] MEDS: ENOXAPARIN 60 MG/0.6 ML SYRINGE SQ SCH ×2 (08:20→20:03)
[2023-06-10] MEDS: MICONAZOLE 2% POWDER 90 GM TOP SCH ×2 (08:21→20:04)
[2023-06-10] MEDS: FOLIC ACID 1 MG TAB PO SCH (08:21)
[2023-06-10] MEDS: MUPIROCIN 2% OINTMENT 22 GM TUBE NSEACH SCH ×2 (08:21→20:03)
[2023-06-10] MEDS: cefTRIAXone IV/IM 1,000 MG in NS (IVPB) 50 ML 50 ML IV SCH (08:21)
[2023-06-10] MEDS: THERAPEUTIC MULTIVITAMIN W/MINERALS TABLET PO SCH (08:21)
--- NOTE | 2023-06-10 08:24 | Tele-ICU Progress Note ---
Subjective Date Seen by a Provider: Jun 10, 2023 Subjective/Events-last exam 63 yo F admitted on 06/05 with Xanax OD, found with LOC, intubated with current vent settings, AC 18, Vt 450, FIO2 30% ABG 7.34/36/75 CXR shows elevated diaphragms, possible pleural effusion or atelectasis, On IV Vanco and Rocephin Copious secretion, creamy yellow color, poor cough IV Propofol @ 40, IV Precedex @ 1.0 will try to lower and try SBT RASS -3, will lower sedation Sepsis Event Evaluation Height, Weight, BMI Height: '" Weight: lbs. oz. kg; 51.05 BMI Method: Exam Exam Patient acknowledged, consented, and participated in this virtual visit which was conducted using real time audio/video Vital Signs Date Time Temp Pulse Resp B/P (MAP) Pulse Ox O2 Delivery O2 Flow Rate FiO2 06/10/23 08:00 64 21 109/59 (79) 91 Mechanical Ventilator 30.00 06/10/23 07:27 57 20 97 30 06/10/23 07:00 58 06/10/23 07:00 58 18 112/63 (85) 94 Mechanical Ventilator 30.00 06/10/23 06:55 60 118/66 06/10/23 06:00 60 23 118/66 (83) 94 Mechanical Ventilator 30.00 06/10/23 05:57 63 132/73 06/10/23 05:18 30 06/10/23 05:10 63 132/73 06/10/23 05:00 61 28 114/68 (83) 94 Mechanical Ventilator 30.00 06/10/23 04:00 62 24 112/62 (79) 94 Mechanical Ventilator 30.00 06/10/23 04:00 98 Mechanical Ventilator 30 06/10/23 03:11 63 132/73 06/10/23 03:00 64 28 111/61 (78) 93 Mechanical Ventilator 30.00 06/10/23 02:55 63 132/73 06/10/23 02:38 63 18 93 30 06/10/23 02:00 63 25 124/69 (87) 94 Mechanical Ventilator 30.00 06/10/23 01:18 30 06/10/23 01:00 66 06/10/23 01:00 65 27 122/68 (86) 92 Mechanical Ventilator 30.00 06/10/23 00:00 66 28 121/68 (85) 92 Mechanical Ventilator 30.00 06/10/23 00:00 36.9 06/09/23 23:59 98 Mechanical Ventilator 30 06/09/23 23:30 63 132/73 10 23:11 63 132/73 06/09/23 23:00 66 21 131/71 (91) 91 Mechanical Ventilator 30.00 06/09/23 22:25 63 18 93 30 06/09/23 22:00 62 18 133/73 (93) 93 Mechanical Ventilator 30.00 06/09/23 21:18 30 06/09/23 21:00 64 24 128/70 (89) 93 Mechanical Ventilator 30.00 06/09/23 20:34 62 137/76 06/09/23 20:00 96 Mechanical Ventilator 30 06/09/23 20:00 66 22 128/73 (91) 93 Mechanical Ventilator 30.00 06/09/23 19:30 62 137/76 06/09/23 19:22 37.0 06/09/23 19:00 70 06/09/23 19:00 67 22 124/66 (85) 92 Mechanical Ventilator 30.00 06/09/23 18:26 62 20 94 30 06/09/23 18:00 62 25 137/75 (100) 93 Mechanical Ventilator 30.00 06/09/23 17:18 30 06/09/23 17:00 66 25 137/77 (108) 92 Mechanical Ventilator 30.00 06/09/23 16:00 66 34 132/67 (102) 91 Mechanical Ventilator 30.00 06/09/23 16:00 94 Mechanical Ventilator 40 06/09/23 15:40 63 23 92 30 06/09/23 15:00 56 26 115/65 (83) 93 Mechanical Ventilator 30.00 06/09/23 14:00 58 23 118/68 (91) 93 Mechanical Ventilator 30.00 06/09/23 13:18 30 06/09/23 13:00 60 20 119/64 (86) 91 Mechanical Ventilator 30.00 06/09/23 12:36 63 06/09/23 12:00 63 28 125/68 (90) 93 Mechanical Ventilator 30.00 06/09/23 12:00 94 Mechanical Ventilator 40 06/09/23 11:45 36.6 06/09/23 11:14 58 23 93 30 06/09/23 11:00 59 35 118/66 (94) 96 Mechanical Ventilator 30.00 06/09/23 10:00 62 18 139/81 (101) 96 Mechanical Ventilator 30.00 06/09/23 09:18 30 06/09/23 09:00 64 120/65 (88) 91 Mechanical Ventilator 30.00 I & O 06/10/23 07:00 Intake Total 3670 ml Output Total 4750 ml Balance -1080 ml Height & Weight Height: '" Weight: lbs. oz. kg; 51.05 BMI Method: General Appearance: No Apparent Distress, Chronically ill, Obese HEENT: PERRL/EOMI, Pharynx Normal, Other (Doing this bilateral) Neck: Non Tender, Supple Respiratory: Rhonci; No Wheezing; Other (on vent) Cardiovascular: Regular Rate, Rhythm, No Murmur, Other (lesly at times, from Precedex?) Capillary Refill: Less Than 3 Seconds Gastrointestinal: normal bowel sounds, soft, abnormal bowel sounds, other (hypoactive, 300 mL suctioned last night by NGT) Extremity: Pedal Edema Neurologic/Psychiatric: Other (sedated, appears comfortable) Skin: Warm/Dry, Other (Psoriatic lesions to both legs) Results Lab Laboratory Tests 06/09/23 05:00 06/09/23 17:30 06/10/23 05:00 Assessment/Plan Assessment/Plan PNA, morbid obesity, plan will to lower sedation and try SBT has psoriasis but no decubiti ulcers continue abx Critical Care: Ventilator Management Time spent with patient (mins): 30 ULISSES GARZA MD Jun 10, 2023 08:24
--- NOTE | 2023-06-10 10:03 | Diagnostic Imaging Report ---
INDICATION: Respiratory failure, ICU management with mechanical ventilation TECHNIQUE: Single view chest 4:28 AM CORRELATION STUDY: 06/08/2023 FINDINGS: Endotracheal tube is present over the lower trachea likely just above the level of the melinda. Gastric tube is also noted, tip cannot be well visualized. Right IJ central line tip at the cavoatrial junction. Heart size and mediastinum are enlarged and prominent. Vascularity slightly increased. Probable trace pleural effusions. IMPRESSION: 1. Support lines and tubes. Endotracheal tube tip is likely over the lower trachea just above the melinda. 2. Cardiac enlargement with development of what appears to be mild edema. Probable trace effusions. Dictated by: Dictated on workstation # [id number]
[2023-06-10 10:17] VITALS: BP 116/69
[2023-06-10] MEDS: VANCOMYCIN 1500MG/300ML PREMIX IV SCH ×2 (10:50→22:55)
--- NOTE | 2023-06-10 12:11 | Progress Note - Hospitalist ---
Subjective HPI/CC On Admission Date Seen by Provider: Jun 10, 2023 Time Seen by Provider: 12:05 Patient is a 63-year-old female with a past medical history of [id number] diabetes, COPD, hypertension, alcohol abuse who presented to the emergency department due to altered mental status. She is currently intubated and sedated and unable to provide any history. All history is obtained from the records. Apparently she has been trying to quit drinking alcohol and so had been using Xanax to manage her symptoms but had taken more than was prescribed. She started to develop slurred speech and was quite drowsy so her friend summoned EMS. In the emergency department she was unable to protect her airway and had hypercapnia on ABG and was electively intubated. CT head was done to rule out intracranial process which showed no intracranial hemorrhage only mild atrophy and chronic microvascular changes. This morning they tried sedation vacation per eICU and while she was able to follow some commands she did not wake up satisfactorily so remains on the vent. Subjective/Events-last exam Sedated on mechanical ventilation ventilating easily on 30% FiO2. Nursing staff report patient gets extremely anxious off diprovan during weaning trials nurse had to stand there with her reminding her to slow her breathing down trying to calm her during the 10 minutes that she was able to go on pressure support. No other care issues noted. Objective Exam Vital Signs Vital Signs Date Time Temp Pulse Resp B/P (MAP) Pulse Ox O2 Delivery O2 Flow Rate FiO2 06/10/23 11:39 66 122/72 06/10/23 11:00 28 91 Mechanical Ventilator 30.00 06/10/23 10:17 30 06/10/23 08:00 36.8 Capillary Refill : Less Than 3 Seconds General Appearance: No Apparent Distress Respiratory: Lungs Clear, Normal Breath Sounds, No Accessory Muscle Use, No Respiratory Distress (Mechanical ventilation) Cardiovascular: Regular Rate, Rhythm, No Edema, No Gallop, No JVD, No Murmur Gastrointestinal: Other ( mild distention no reaction to palpation bowel sounds present but hypoactive abdomen soft.) Genital/Rectal: Other Extremity: Other ( Minimal peripheral edema but patient does have facial edema without evidence for any crepitus) Skin: Normal Color, Warm/Dry Results/Procedures Lab Laboratory Tests 06/09/23 17:30 06/10/23 05:00 Patient resulted labs reviewed. Imaging: Reviewed Imaging Report Assessment/Plan Assessment and Plan Assess & Plan/Chief Complaint Assessment and Plan Assess & Plan/Chief Complaint Acute hypercapnic respiratory failure Accidental Benzodiazepine Overdose Alcohol withdrawal Currently sedated and on vent-- failed SBT yesterday Management per eiCU Continue alcohol withdrawal protocol- thiamine, folic, MTV Will confirm intention of overdose with patient when extubated Social work consulted, appreciate recs MAT protocol CXR with clear lungs Add Vanc due to MRSA in sputum Cardiology consulted for minimal trop elevation on arrival Anxiety appears to be a major component of inability to wean we will try i ncreasing dose of Precedex Diprovan withdrawal and pressure support trial again today. well the radiologist mentions some possible increased vascular congestion I suspect that this is more related to respiratory phase during obtaining chest x-ray vital signs are stable with no difficulty with vent ilation. Considering normal BUN to creatinine ratio I will give a dose of Lasix. HTN BP well controlled, trend NIDDMII Fasting blood sugar 117- trend DVT ppx: Lovenox Critical Care Ventilator Management Critical Care Ventilator Management NITIN KAISER MD Jun 10, 2023 12:11
[2023-06-10] MEDS ORDERED: FUROSEMIDE INJECTION 40 MG/4 ML VIAL IVP ONE (12:15)
--- NOTE | 2023-06-10 12:58 | Progress Note - Cardiology ---
Cardiology SOAP Progress Note Subjective: On mech vent Unresponsive Objective: I&O/Vital Signs 06/10/23 06/10/23 06/10/23 06/10/23 01:00 01:00 01:18 02:00 Pulse 65 66 63 Resp 27 25 B/P (MAP) 122/68 (86) 124/69 (87) Pulse Ox 92 94 O2 Delivery Mechanical Ventilator Mechanical Ventilator O2 Flow Rate 30.00 30.00 FiO2 30 06/10/23 06/10/23 06/10/23 06/10/23 02:38 02:55 03:00 03:11 Pulse 63 63 64 63 Resp 18 28 B/P (MAP) 132/73 111/61 (78) 132/73 Pulse Ox 93 93 O2 Delivery Mechanical Ventilator O2 Flow Rate 30.00 FiO2 30 06/10/23 06/10/23 06/10/23 06/10/23 04:00 04:00 05:00 05:10 Pulse 62 61 63 Resp 24 28 B/P (MAP) 112/62 (79) 114/68 (83) 132/73 Pulse Ox 98 94 94 O2 Delivery Mechanical Ventilator Mechanical Ventilator Mechanical Ventilator O2 Flow Rate 30.00 30.00 FiO2 30 06/10/23 06/10/23 06/10/23 06/10/23 05:18 05:57 06:00 06:55 Pulse 63 60 60 Resp 23 B/P (MAP) 132/73 118/66 (83) 118/66 Pulse Ox 94 O2 Delivery Mechanical Ventilator O2 Flow Rate 30.00 FiO2 30 06/10/23 06/10/23 06/10/23 06/10/23 07:00 07:00 07:27 08:00 Pulse 58 58 57 64 Resp 18 20 21 B/P (MAP) 112/63 (85) 109/59 (79) Pulse Ox 94 97 91 O2 Delivery Mechanical Ventilator Mechanical Ventilator O2 Flow Rate 30.00 30.00 FiO2 30 06/10/23 06/10/23 06/10/23 06/10/23 08:00 09:00 09:18 10:00 Temp 36.8 Pulse 62 63 60 Resp 23 26 B/P (MAP) 108/65 (79) 113/65 115/68 (90) Pulse Ox 91 94 O2 Delivery Mechanical Ventilator Mechanical Ventilator O2 Flow Rate 30.00 30.00 06/10/23 06/10/23 06/10/2306/10/23 10:17 11:00 11:39 12:00 Temp 36.6 Pulse 58 66 66 Resp 18 28 B/P (MAP) 127/70 (95) 122/72 Pulse Ox 94 91 O2 Delivery Mechanical Ventilator O2 Flow Rate 30.00 FiO2 30 06/10/23 06/10/23 12:00 12:34 Pulse 64 63 Resp 22 B/P (MAP) 125/71 (94) Pulse Ox 91 O2 Delivery Mechanical Ventilator O2 Flow Rate 30.00 06/10/23 00:00 Intake Total 1570 ml Output Total 4100 ml Balance -2530 ml Constitutional: other Respiratory: chest expansion is symmetric, chest is bilaterally symmetric, other Cardiovascular: regular rate-rhythm, S1 and S2 Gastrointestional: soft, audible bowel sounds Extremities: other Neurologic/Psychiatric: other Skin: No rash on exposed areas, No ulcerations on exposed areas Results/Procedures: Labs Laboratory Tests 06/09/23 17:30: Sodium Level 138, Potassium Level 3.9, Chloride Level 110H, Carbon Dioxide Level 17L, Anion Gap 11, Blood Urea Nitrogen 8, Creatinine 0.68, Estimat Glomerular Filtration Rate 98, BUN/Creatinine Ratio 12, Glucose Level 123H, Calcium Level 8.4L, Phosphorus Level 3.2 06/10/23 05:00: Sodium Level 139, Potassium Level 3.8, Chloride Level 111H, Carbon Dioxide Level 18L, Anion Gap 10, Blood Urea Nitrogen 7, Creatinine 0.63, Estimat Glomerular Filtration Rate 100, BUN/Creatinine Ratio 11, Glucose Level 115H, Calcium Level 8.4L, Phosphorus Level 3.0, White Blood Count 10.4, Red Blood Count 3.41L, Hemoglobin 12.2, Hematocrit 37, Mean Corpuscular Volume 109H, Mean Corpuscular Hemoglobin 36H, Mean Corpuscular Hemoglobin Concent 33, Red Cell Distribution Width 14.6H, Platelet Count 147, Mean Platelet Volume 10.4, Immature Granulocyte % (Auto) 0, Neutrophils (%) (Auto) 79H, Lymphocytes (%) (Auto) 11L, Monocytes (%) (Auto) 7, Eosinophils (%) (Auto) 3, Basophils (%) (Auto) 0, Neutrophils # (Auto) 8.2H, Lymphocytes # (Auto) 1.1, Monocytes # (Auto) 0.7, Eosinophils # (Auto) 0.3, Basophils # (Auto) 0.0, Immature Granulocyte # (Auto) 0.0, Magnesium Level 1.8 06/10/23 05:30: Blood Gas Puncture Site LEFT RADIAL, Blood Gas Patient Temperature 37.0, Arterial Blood pH 7.34*L, Arterial Blood Partial Pressure CO2 36, Arterial Blood Partial Pressure O2 75L, Arterial Blood HCO3 19L, Arterial Blood Total CO2 20.0L , Arterial Blood Oxygen Saturation 94, Arterial Blood Base Excess -5.9L, Parehs Test YES-POS, Blood Gas Ventilator Setting YES, Blood Gas Inspired Oxygen 30% 06/10/23 11:44: Glucometer 113H Microbiology 06/08/23 Gram Stain - Final, Complete 06/08/23 Sputum Culture - Final, Complete Escherichia coli Staphylococcus aureus 06/05/23 Blood Culture - Preliminary, Resulted Laboratory Tests 06/09/23 05:00 06/09/23 17:30 06/10/23 05:00 A/P: Assessment: Ac respiratory failure due to drug overdose - requiring intubation/sedation - Echo on 06/06/23: LVEF 55-60%, PASP 35-40 mmHg Troponin elevation - Likely Type 2 AK secondary to hypoxia H/O ETOH abuse Obesity Plan: Respiratory failure d/t overdose requiring intubation - management per medical/eICU services Elevated troponin - Likely Type 2 AK secondary to hypoxia Management of ETOH WD per medical services Monitor lab Replace electrolytes as indicated ADRIANNA FERNANDEZ MD FACP [facility] Jun 10, 2023 12:58
[2023-06-10 14:18] VITALS: BP 129/72
[2023-06-10 18:35] VITALS: BP 135/77
[2023-06-10] MEDS ORDERED: TROUGH ORDER-PHARMACY XX ONE (21:00)
[2023-06-10 21:46] VITALS: BP 146/81
[2023-06-11 02:17] VITALS: BP 150/77
[2023-06-11] MEDS: RT-Ipratropium/Albuterol NEB 3 ML VIAL INH SCH ×6 (02:17→21:45)
[2023-06-11] MEDS: DexMEDEtomidine 1,000mcg/250ml 250 ML IV SCH ×3 (03:04→15:27)
[2023-06-11] MEDS: NS IV 1000 ML 1,000 ML IV SCH ×2 (03:05→23:53)
[2023-06-11 05:08] LABS: ABG BASE EXCESS -5.6 MMOL/L (-2.5-2.5); ABG OXYGEN SATURATION 95 % (94-100); ABG PCO2 36 MMHG (35-45); ABG PO2 74 MMHG (79-93); ABG TCO2 20.3 MMOL/L (21.0-31.0)
[2023-06-11 05:10] LABS: ABG PH 7.34 (7.37-7.43); ALLENS TEST YES-POS; INSPIRED O2 40%; PATIENT TEMP 36.9; VENTILATOR YES
[2023-06-11 05:26] LABS: BASOPHILS % (AUTO) 0 % (0-10); EOSINOPHILS # (AUTO) 0.4 10^3/uL (0.0-0.3); EOSINOPHILS % (AUTO) 4 % (0-10); HEMATOCRIT 37 % (35-52); HEMOGLOBIN 12.1 g/dL (11.5-16.0); LYMPHOCYTES # (AUTO) 1.1 10^3/uL (1.0-4.0); LYMPHOCYTES % (AUTO) 11 % (12-44); MEAN CORPUSCULAR HEMOGLOBIN 35 pg (25-34); MEAN CORPUSCULAR HGB CONC 33 g/dL (32-36); MEAN CORPUSCULAR VOLUME 109 fL (80-99); MEAN PLATELET VOLUME 10.5 fL (9.0-12.2); MONOCYTES # (AUTO) 0.7 10^3/uL (0.0-1.0); MONOCYTES % (AUTO) 8 % (0-12); NEUTROPHILS # (AUTO) 7.4 10^3/uL (1.8-7.8); NEUTROPHILS % (AUTO) 77 % (42-75); PLATELET COUNT 163 10^3/uL (130-400); WHITE BLOOD COUNT 9.7 10^3/uL (4.3-11.0)
[2023-06-11 05:38] LABS: POTASSIUM 3.8 MMOL/L (3.6-5.0)
[2023-06-11 05:39] LABS: CALCIUM 8.6 MG/DL (8.5-10.1)
[2023-06-11 05:43] LABS: PHOSPHORUS 2.8 MG/DL (2.3-4.7)
[2023-06-11 05:44] LABS: CREATININE SERUM 0.59 MG/DL (0.60-1.30)
[2023-06-11 05:46] LABS: MAGNESIUM 1.8 MG/DL (1.6-2.4)
[2023-06-11] MEDS: POTASSIUM CHLORIDE 20 MEQ TABLET PO SCH (05:52)
[2023-06-11] MEDS: POTASSIUM CL 10MEQ/50ML IVPB 50 ML IV SCH ×3 (05:52→06:06)
[2023-06-11] MEDS: MAGNESIUM 1 GM/100 ML IVPB 100 ML IV SCH ×3 (05:52→06:06)
[2023-06-11] MEDS: THERAPEUTIC MULTIVITAMIN W/MINERALS TABLET PO SCH (06:06)
[2023-06-11 06:15] VITALS: BP 136/74
--- NOTE | 2023-06-11 08:09 | Tele-ICU Progress Note ---
Subjective Date Seen by a Provider: Jun 11, 2023 Time Seen by a Provider: 08:04 Subjective/Events-last exam Remains on vent AC 20, Vt 450, FiO2 40% ABG 7.34/36/74 CXR from 06/10 shows elevated diaphragms, mild congestion On IV Vanco, Rocephin Sedation IV IV Precedex @ 1.5, IV Propofol @ 40, not much secretions today, has cough reflex, RASS -2 On LIS on NG, but getting 100 mL/shift out, will get KUB Sepsis Event Evaluation Height, Weight, BMI Height: '" Weight: lbs. oz. kg; 51.05 BMI Method: Exam Exam Patient acknowledged, consented, and participated in this virtual visit which was conducted using real time audio/video Vital Signs Date Time Temp Pulse Resp B/P (MAP) Pulse Ox O2 Delivery O2 Flow Rate FiO2 06/11/23 07:00 66 24 126/70 (95) 93 Mechanical Ventilator 40.00 06/11/23 07:00 66 06/11/23 06:15 61 18 95 40 06/11/23 06:00 61 18 136/74 (94) 95 Mechanical Ventilator 40.00 06/11/23 05:18 30 06/11/23 05:00 63 25 150/82 (104) 95 Mechanical Ventilator 40.00 06/11/23 04:47 63 130/74 06/11/23 04:00 36.9 06/11/23 04:00 64 25 144/77 (99) 95 Mechanical Ventilator 40.00 06/11/23 04:00 92 Mechanical Ventilator 40 06/11/23 03:04 63 130/74 06/11/23 03:00 64 18 140/74 (96) 94 Mechanical Ventilator 40.00 06/11/23 02:17 58 18 14 40 06/11/23 02:00 60 18 140/76 (97) 94 Mechanical Ventilator 40.00 06/11/23 01:18 30 06/11/23 01:17 64 148/84 06/11/23 01:00 62 19 149/80 (103) 96 Mechanical Ventilator 40.00 06/11/23 01:00 62 06/11/23 00:00 64 19 148/84 (105) 98 Mechanical Ventilator 40.00 06/10/23 23:59 92 Mechanical Ventilator 40 06/10/23 23:00 66 18 143/74 (97) 95 Mechanical Ventilator 40.00 06/10/23 22:09 64 135/77 06/10/23 22:00 64 22 144/76 (98) 93 Mechanical Ventilator 40.00 06/10/23 21:52 64 135/77 06/10/23 21:52 64 135/77 06/10/23 21:46 64 19 93 30 06/10/23 21:18 30 06/10/23 21:00 65 20 143/78 (99) 93 Mechanical Ventilator 40.00 06/10/23 20:04 36.9 Mechanical Ventilator 40.00 06/10/23 20:00 92 Mechanical Ventilator 40 06/10/23 20:00 66 18 135/75 (95) 93 Mechanical Ventilator 30.00 06/10/23 19:00 67 20 130/73 (92) 91 Mechanical Ventilator 30.00 06/10/23 19:00 70 06/10/23 18:35 64 19 94 30 06/10/23 18:05 66 131/73 06/10/23 18:00 67 20 131/73 (98) 91 Mechanical Ventilator 30.00 06/10/23 17:45 66 126/66 06/10/23 17:20 30 06/10/23 17:02 66 109/63 06/10/23 17:00 67 24 109/63 (81) 88 Mechanical Ventilator 30.00 06/10/23 16:00 92 Mechanical Ventilator 30 06/10/23 16:00 37.1 06/10/23 16:00 63 18 125/72 (97) 91 Mechanical Ventilator 30.00 06/10/23 15:45 65 129/74 06/10/23 15:00 67 23 126/71 (94) 91 Mechanical Ventilator 30.00 06/10/23 14:18 60 22 94 30 06/10/23 14:00 59 31 129/68 (90) 90 Mechanical Ventilator 30.00 06/10/23 13:32 59 122/73 06/10/23 13:30 59 122/73 06/10/23 13:20 30 06/10/23 13:00 60 19 132/82 (91) 94 Mechanical Ventilator 30.00 06/10/23 12:34 63 06/10/23 12:00 95 Mechanical Ventilator 30 06/10/23 12:00 64 22 125/71 (94) 91 Mechanical Ventilator 30.00 06/10/23 12:00 36.6 06/10/23 11:39 66 122/72 06/10/23 11:00 66 28 127/70 (95) 91 Mechanical Ventilator 30.00 06/10/23 10:17 58 18 94 30 06/10/23 10:00 60 115/68 06/10/23 10:00 60 26 115/68 (90) 94 Mechanical Ventilator 30.00 06/10/23 09:20 30 06/10/23 09:18 63 113/65 06/10/23 09:15 63 113/65 06/10/23 09:00 62 23 108/65 (79) 91 Mechanical Ventilator 30.00 I & O 06/11/23 07:00 Intake Total 2400 ml Output Total 4200 ml Balance -1800 ml Height & Weight Height: '" Weight: lbs. oz. kg; 51.05 BMI Method: General Appearance: No Apparent Distress HEENT: PERRL/EOMI, Pharynx Normal, Other (Doing this bilateral) Neck: Non Tender, Supple Respiratory: Lungs Clear, Normal Breath Sounds, No Accessory Muscle Use, No Respiratory Distress (Mechanical ventilation), Decreased Breath Sounds Cardiovascular: Regular Rate, Rhythm, No Edema, No Gallop, No JVD, No Murmur Capillary Refill: Less Than 3 Seconds Gastrointestinal: normal bowel sounds, soft, abnormal bowel sounds, distended, other (hypoactive, 300 mL suctioned last night by NGT) Extremity: Other ( Minimal peripheral edema but patient does have facial edema without evidence for any crepitus) Neurologic/Psychiatric: Other (sedated, appears comfortable) Skin: Normal Color, Warm/Dry Results Lab Laboratory Tests 06/09/23 17:30 06/10/23 05:00 06/11/23 05:05 Assessment/Plan Assessment/Plan Hx of LOC from Xanax, acute resp failure will try on SBT will get KUB to see if ileus Critical Care: Ventilator Management Time spent with patient (mins): 25 ULISSES GARZA MD Jun 11, 2023 08:09
[2023-06-11] MEDS: FOLIC ACID 1 MG TAB PO SCH ×2 (08:20→08:25)
[2023-06-11] MEDS: PANTOPRAZOLE INJECTION 40 MG VIAL IV SCH (08:21)
[2023-06-11] MEDS: cefTRIAXone IV/IM 1,000 MG in NS (IVPB) 50 ML 50 ML IV SCH (08:21)
[2023-06-11] MEDS: MICONAZOLE 2% POWDER 90 GM TOP SCH ×2 (08:21→20:31)
[2023-06-11] MEDS: ENOXAPARIN 60 MG/0.6 ML SYRINGE SQ SCH ×2 (08:21→20:31)
[2023-06-11] MEDS: MUPIROCIN 2% OINTMENT 22 GM TUBE NSEACH SCH (08:22)
[2023-06-11 10:06] VITALS: BP 123/67
[2023-06-11] MEDS: VANCOMYCIN 1500MG/300ML PREMIX IV SCH ×2 (10:11→21:27)
--- NOTE | 2023-06-11 10:30 | Diagnostic Imaging Report ---
EXAMINATION: Abdomen 1 view HISTORY: Ileus COMPARISON: 05/24/2021 FINDINGS: There is a moderate amount of gas and stool throughout the colon. Nonobstructive bowel gas pattern. No radiopaque foreign body. The lung bases are clear. Degenerative changes of the hips and spine. Osseous structures are otherwise intact. Enteric catheter is present coursing below the diaphragm. The tip projects over the left upper quadrant. IMPRESSION: Nonobstructive bowel gas pattern. Dictated by: Dictated on workstation # [id number]
[2023-06-11 11:39] VITALS: BP 128/72
[2023-06-11] MEDS ORDERED: FUROSEMIDE INJECTION 40 MG/4 ML VIAL IVP ONE (12:00)
--- NOTE | 2023-06-11 12:04 | Progress Note - Hospitalist ---
Subjective HPI/CC On Admission Date Seen by Provider: Jun 11, 2023 Time Seen by Provider: 07:15 Patient is a 63-year-old female with a past medical history of rph-ohjplpz-jfkuzburb diabetes, COPD, hypertension, alcohol abuse who presented to the emergency department due to altered mental status. She is currently intubated and sedated and unable to provide any history. All history is obtained from the records. Apparently she has been trying to quit drinking alcohol and so had been using Xanax to manage her symptoms but had taken more than was prescribed. She started to develop slurred speech and was quite drowsy so her friend summoned EMS. In the emergency department she was unable to protect her airway and had hypercapnia on ABG and was electively intubated. CT head was done to rule out intracranial process which showed no intracranial hemorrhage only mild atrophy and chronic microvascular changes. This morning they tried sedation vacation per eICU and while she was able to follow some commands she did not wake up satisfactorily so remains on the vent. Subjective/Events-last exam Patient sedated on mechanical ventilation. Staff reports she was able to go a half an hour on pressure support trial yesterday and improvement from the day before. No other care issues noted Per staff. Objective Exam Vital Signs Vital Signs Date Time Temp Pulse Resp B/P (MAP) Pulse Ox O2 Delivery O2 Flow Rate FiO2 06/11/23 11:39 63 30 92 40 06/11/23 11:00 118/70 (89) Mechanical Ventilator 40.00 06/11/23 08:00 36.7 Capillary Refill : Less Than 3 Seconds General Appearance: No Apparent Distress, Obese Respiratory: No Accessory Muscle Use, No Respiratory Distress, Other (On mechanical ventilation with coarse rhonchi noted anteriorly) Cardiovascular: Regular Rate, Rhythm, No Murmur Gastrointestinal: Soft, Other ( no reaction to palpation of the abdomen bowel sounds hypoactive) Extremity: Other ( trace edema of upper and lower extremities facial edema about the same as yesterday no crepitus noted.) Results/Procedures Lab Laboratory Tests 06/11/23 05:05 Patient resulted labs reviewed. Imaging: Reviewed Imaging Report Assessment/Plan Assessment and Plan Assess & Plan/Chief Complaint Assessment and Plan Assess & Plan/Chief Complaint Acute hypercapnic respiratory failure Accidental Benzodiazepine Overdose Alcohol withdrawal Currently sedated and on vent-- failed SBT yesterday Management per eiCU Continue alcohol withdrawal protocol- thiamine, folic, MTV Will confirm intention of overdose with patient when extubated Social work consulted, appreciate recs MAT protocol CXR with clear lungs Add Vanc due to MRSA in sputum Cardiology consulted for minimal trop elevation on arrival Anxiety appears to be a major component of inability to wean we will try increasing dose of Precedex Diprovan withdrawal and pressure support trial again today. while the radiologist mentions some possible increased vascular congestion I suspect that this is more related to respiratory phase during obtaining chest x-ray vital signs are stable with no difficulty with ventilation. Considering normal BUN to creatinine ratio I will give a dose of Lasix.Patient was able to go 30 minutes on pressure support trial yesterday compared to 10 minutes today before will attempt again today. If chest x-ray looks reasonable tomorrow would advocate extubation with anesthesia present. HTN BP well controlled, trend NIDDMII Fasting blood sugar 117- trend DVT ppx: Lovenox Critical Care Ventilator Management Critical Care Ventilator Management NITIN KAISER MD Jun 11, 2023 12:04
--- NOTE | 2023-06-11 12:33 | Tele-ICU Progress Note ---
Subjective Date Seen by a Provider: Jun 11, 2023 Time Seen by a Provider: 12:32 Subjective/Events-last exam called for evaluate for extubation, awake, good cough, spont RR and minute ventilation are low will extubate Sepsis Event Evaluation Height, Weight, BMI Height: '" Weight: lbs. oz. kg; 51.05 BMI Method: Exam Exam Patient acknowledged, consented, and participated in this virtual visit which was conducted using real time audio/video Vital Signs Date Time Temp Pulse Resp B/P (MAP) Pulse Ox O2 Delivery O2 Flow Rate FiO2 06/11/23 12:27 70 06/11/23 12:00 67 121/67 (94) 94 Mechanical Ventilator 40.00 06/11/23 11:39 63 30 92 40 06/11/23 11:00 61 21 118/70 (89) 93 Mechanical Ventilator 40.00 06/11/23 10:06 59 18 92 40 06/11/23 10:00 59 18 123/67 (88) 94 Mechanical Ventilator 40.00 06/11/23 09:00 62 24 128/68 (91) 94 Mechanical Ventilator 40.00 06/11/23 08:20 63 108/69 06/11/23 08:18 63 108/69 06/11/23 08:00 63 19 121/67 (87) 94 Mechanical Ventilator 40.00 06/11/23 08:00 36.7 06/11/23 07:00 66 24 126/70 (95) 93 Mechanical Ventilator 40.00 06/11/23 07:00 66 06/11/23 06:15 61 18 95 40 06/11/23 06:00 61 18 136/74 (94) 95 Mechanical Ventilator 40.00 06/11/23 05:18 30 06/11/23 05:00 63 25 150/82 (104) 95 Mechanical Ventilator 40.00 06/11/23 04:47 63 130/74 06/11/23 04:00 36.9 06/11/23 04:00 64 25 144/77 (99) 95 Mechanical Ventilator 40.00 06/11/23 04:00 92 Mechanical Ventilator 40 06/11/23 03:04 63 130/74 06/11/23 03:00 64 18 140/74 (96) 94 Mechanical Ventilator 40.00 06/11/23 02:17 58 18 14 40 06/11/23 02:00 60 18 140/76 (97) 94 Mechanical Ventilator 40.00 06/11/23 01:18 30 06/11/23 01:17 64 148/84 06/11/23 01:00 62 19 149/80 (103) 96 Mechanical Ventilator 40.00 06/11/23 01:00 62 06/11/23 00:00 64 19 148/84 (105) 98 Mechanical Ventilator 40.00 06/10/23 23:59 92 Mechanical Ventilator 40 06/10/23 23:00 66 18 143/74 (97) 95 Mechanical Ventilator 40.00 06/10/23 22:09 64 135/77 06/10/23 22:00 64 22 144/76 (98) 93 Mechanical Ventilator 40.00 06/10/23 21:52 64 135/77 06/10/23 21:52 64 135/77 06/10/23 21:46 64 19 93 30 06/10/23 21:18 30 06/10/23 21:00 65 20 143/78 (99) 93 Mechanical Ventilator 40.00 06/10/23 20:04 36.9 Mechanical Ventilator 40.00 06/10/23 20:00 92 Mechanical Ventilator 40 06/10/23 20:00 66 18 135/75 (95) 93 Mechanical Ventilator 30.00 06/10/23 19:00 67 20 130/73 (92) 91 Mechanical Ventilator 30.00 06/10/23 19:00 70 06/10/23 18:35 64 19 94 30 06/10/23 18:05 66 131/73 06/10/23 18:00 67 20 131/73 (98) 91 Mechanical Ventilator 30.00 06/10/23 17:45 66 126/66 06/10/23 17:20 30 06/10/23 17:02 66 109/63 06/10/23 17:00 67 24 109/63 (81) 88 Mechanical Ventilator 30.00 06/10/23 16:00 92 Mechanical Ventilator 30 06/10/23 16:00 37.1 06/10/23 16:00 63 18 125/72 (97) 91 Mechanical Ventilator 30.00 06/10/23 15:45 65 129/74 06/10/23 15:00 67 23 126/71 (94) 91 Mechanical Ventilator 30.00 06/10/23 14:18 60 22 94 30 06/10/23 14:00 59 31 129/68 (90) 90 Mechanical Ventilator 30.00 06/10/23 13:32 59 122/73 06/10/23 13:30 59 122/73 06/10/23 13:20 30 06/10/23 13:00 60 19 132/82 (91) 94 Mechanical Ventilator 30.00 06/10/23 12:34 63 I & O 06/11/23 07:00 Intake Total 2400 ml Output Total 4350 ml Balance -1950 ml Height & Weight Height: '" Weight: lbs. oz. kg; 51.05 BMI Method: General Appearance: No Apparent Distress, Obese HEENT: PERRL/EOMI, Pharynx Normal, Other (Doing this bilateral) Neck: Non Tender, Supple Respiratory: No Accessory Muscle Use, No Respiratory Distress, Other (On mec hanical ventilation with coarse rhonchi noted anteriorly) Cardiovascular: Regular Rate, Rhythm, No Murmur Capillary Refill: Less Than 3 Seconds Gastrointestinal: normal bowel sounds, soft, abnormal bowel sounds, distended, other (hypoactive, 300 mL suctioned last night by NGT) Extremity: Other ( trace edema of upper and lower extremities facial edema about the same as yesterday no crepitus noted.) Neurologic/Psychiatric: Other (sedated, appears comfortable) Skin: Normal Color, Warm/Dry Results Lab Laboratory Tests 06/09/23 17:30 06/10/23 05:00 06/11/23 05:05 Assessment/Plan Assessment/Plan called for evaluate for extubation, awake, good cough, spont RR and minute ventilation are low will extubate Critical Care: Ventilator Management Time spent with patient (mins): 15 ULISSES GARZA MD Jun 11, 2023 12:33
--- NOTE | 2023-06-11 13:50 | Progress Note - Cardiology ---
Cardiology SOAP Progress Note Subjective: No cp or palp or syncope or shortness of breath Does not report n/v/d States wants out of here Objective: I&O/Vital Signs 06/11/23 06/11/23 06/11/23 06/11/23 02:00 02:17 03:00 03:04 Pulse 60 58 64 63 Resp 18 18 18 B/P (MAP) 140/76 (97) 140/74 (96) 130/74 Pulse Ox 94 14 94 O2 Delivery Mechanical Ventilator Mechanical Ventilator O2 Flow Rate 40.00 40.00 FiO2 40 06/11/23 06/11/23 06/11/23 06/11/23 04:00 04:00 04:00 04:47 Temp 36.9 Pulse 64 63 Resp 25 B/P (MAP) 144/77 (99) 130/74 Pulse Ox 92 95 O2 Delivery Mechanical Ventilator Mechanical Ventilator O2 Flow Rate 40.00 FiO2 40 06/11/23 06/11/23 06/11/23 06/11/23 05:00 05:18 06:00 06:15 Pulse 63 61 61 Resp 25 18 18 B/P (MAP) 150/82 (104) 136/74 (94) Pulse Ox 95 95 95 O2 Delivery Mechanical Ventilator Mechanical Ventilator O2 Flow Rate 40.00 40.00 FiO2 30 40 06/11/23 06/11/23 06/11/23 06/11/23 07:00 07:00 08:00 08:00 Temp 36.7 Pulse 66 66 63 Resp 24 19 B/P (MAP) 126/70 (95) 121/67 (87) Pulse Ox 93 94 O2 Delivery Mechanical Ventilator Mechanical Ventilator O2 Flow Rate 40.00 40.00 06/11/23 06/11/23 06/11/23 06/11/23 08:18 08:20 09:00 10:00 Pulse 63 63 62 59 Resp 24 18 B/P (MAP) 108/69 108/69 128/68 (91) 123/67 (88) Pulse Ox 94 94 O2 Delivery Mechanical Ventilator Mechanical Ventilator O2 Flow Rate 40.00 40.00 06/11/23 06/11/23 06/11/23 06/11/23 10:06 11:00 11:39 12:00 Temp 36.9 Pulse 59 61 63 Resp 18 21 30 B/P (MAP) 118/70 (89) Pulse Ox 92 93 92 O2 Delivery Mechanical Ventilator O2 Flow Rate 40.00 FiO2 40 40 06/11/23 06/11/23 06/11/23 06/11/23 12:00 12:27 12:48 13:00 Pulse 67 70 67 Resp 31 B/P (MAP) 121/67 (94) 120/67 (86) Pulse Ox 94 96 O2 Delivery Mechanical Ventilator High Flow N/C High Flow N/C O2 Flow Rate 40.00 10.00 10.00 06/11/23 00:00 Intake Total 900 ml Output Total 3075 ml Balance -2175 ml Constitutional: other (extubated, agitated, answers questions, appears oriented to place and person but not time, does not answer questions in any detail) Respiratory: chest expansion is symmetric, chest is bilaterally symmetric, other Cardiovascular: regular rate-rhythm, S1 and S2 Gastrointestional: soft, audible bowel sounds Extremities: other Neurologic/Psychiatric: other (extubated, agitated, answers questions, appears oriented to place and person but not time, does not answer questions in any detail, appears to move all limbs) Skin: No rash on exposed areas, No ulcerations on exposed areas Results/Procedures: Labs Laboratory Tests 06/10/23 17:54: Glucometer 116H 06/10/23 21:03: Vancomycin Level Trough 14.5 06/11/23 00:15: Glucometer 120H 06/11/23 04:58: Blood Gas Puncture Site LEFT RADIAL, Blood Gas Patient Temperature 36.9, Arterial Blood pH 7.34*L, Arterial Blood Partial Pressure CO2 36, Arterial Blood Partial Pressure O2 74L, Arterial Blood HCO3 19L, Arterial Blood Total CO2 20.3L , Arterial Blood Oxygen Saturation 95, Arterial Blood Base Excess -5.6L, Paresh Test YES-POS, Blood Gas Ventilator Setting YES, Blood Gas Inspired Oxygen 40% 06/11/23 05:05: White Blood Count 9.7, Red Blood Count 3.42L, Hemoglobin 12.1, Hematocrit 37, Mean Corpuscular Volume 109H, Mean Corpuscular Hemoglobin 35H, Mean Corpuscular Hemoglobin Concent 33, Red Cell Distribution Width 14.4, Platelet Count 163, Mean Platelet Volume 10.5, Immature Granulocyte % (Auto) 1, Neutrophils (%) (Auto) 77H, Lymphocytes (%) (Auto) 11L, Monocytes (%) (Auto) 8, Eosinophils (%) (Auto) 4, Basophils (%) (Auto) 0, Neutrophils # (Auto) 7.4, Lymphocytes # (Auto) 1.1, Monocytes # (Auto) 0.7, Eosinophils # (Auto) 0.4H, Basophils # (Auto) 0.0, Immature Granulocyte # (Auto) 0.1, Sodium Level 138, Potassium Level 3.8, Chloride Level 110H, Carbon Dioxide Level 18L, Anion Gap 10, Blood Urea Nitrogen 7, Creatinine 0.59L, Estimat Glomerular Filtration Rate 101, BUN/Creatinine Ratio 12, Glucose Level 117H, Calcium Level 8.6, Phosphorus Level 2.8, Magnesium Level 1.8 06/11/23 11:50: Glucometer 121H Microbiology 06/08/23 Gram Stain - Final, Complete 06/08/23 Sputum Culture - Final, Complete Escherichia coli Staphylococcus aureus 06/05/23 Blood Culture - Preliminary, Resulted A/P: Assessment: Ac respiratory failure due to drug overdose - requiring intubation, now extubated - Echo on 06/06/23: LVEF 55-60%, PASP 35-40 mmHg Troponin elevation - Likely Type 2 IN secondary to hypoxia H/O ETOH abuse Obesity Plan: Management of ETOH WD per medical services Monitor lab Replace electrolytes as indicated ADRIANNA FERNANDEZ MD FACP [facility] Jun 11, 2023 13:50
[2023-06-11] MEDS ORDERED: FUROSEMIDE INJECTION 40 MG/4 ML VIAL ONE (16:10)
[2023-06-11 23:01] VITALS: BP 148/77
[2023-06-12 02:05] VITALS: BP 112/66
[2023-06-12] MEDS: RT-Ipratropium/Albuterol NEB 3 ML VIAL INH SCH ×6 (02:05→22:04)
[2023-06-12 04:43] LABS: BASOPHILS % (AUTO) 0 % (0-10); EOSINOPHILS # (AUTO) 0.1 10^3/uL (0.0-0.3); EOSINOPHILS % (AUTO) 2 % (0-10); HEMATOCRIT 34 % (35-52); HEMOGLOBIN 11.1 g/dL (11.5-16.0); LYMPHOCYTES # (AUTO) 1.2 10^3/uL (1.0-4.0); LYMPHOCYTES % (AUTO) 13 % (12-44); MEAN CORPUSCULAR HEMOGLOBIN 35 pg (25-34); MEAN CORPUSCULAR HGB CONC 33 g/dL (32-36); MEAN CORPUSCULAR VOLUME 109 fL (80-99); MONOCYTES # (AUTO) 0.8 10^3/uL (0.0-1.0); MONOCYTES % (AUTO) 9 % (0-12); NEUTROPHILS # (AUTO) 6.8 10^3/uL (1.8-7.8); NEUTROPHILS % (AUTO) 75 % (42-75); PLATELET COUNT 185 10^3/uL (130-400); WHITE BLOOD COUNT 9.1 10^3/uL (4.3-11.0)
[2023-06-12 05:22] LABS: POTASSIUM 3.6 MMOL/L (3.6-5.0)
[2023-06-12 05:24] LABS: CALCIUM 8.7 MG/DL (8.5-10.1)
[2023-06-12 05:28] LABS: CREATININE SERUM 0.62 MG/DL (0.60-1.30); PHOSPHORUS 3.2 MG/DL (2.3-4.7)
[2023-06-12 05:30] LABS: MAGNESIUM 1.8 MG/DL (1.6-2.4)
[2023-06-12] MEDS ORDERED: POTASSIUM CL 10MEQ/50ML IVPB 200 ML IV ONE (05:45)
[2023-06-12] MEDS ORDERED: MAGNESIUM 1 GM/100 ML IVPB 200 ML IV ONE (05:45)
[2023-06-12] MEDS: POTASSIUM CL 10MEQ/50ML IVPB 50 ML IV SCH ×5 (05:48→08:27)
[2023-06-12] MEDS: MAGNESIUM 1 GM/100 ML IVPB 100 ML IV SCH ×3 (05:48→06:43)
[2023-06-12] MEDS: DexMEDEtomidine 1,000mcg/250ml 250 ML IV SCH ×3 (05:48→22:03)
[2023-06-12] MEDS: POTASSIUM CHLORIDE 20 MEQ TABLET PO SCH (06:43)
[2023-06-12] MEDS: THERAPEUTIC MULTIVITAMIN W/MINERALS TABLET PO SCH (06:43)
[2023-06-12 07:16] VITALS: BP 112/80
--- NOTE | 2023-06-12 08:07 | Diagnostic Imaging Report ---
INDICATION: Respiratory failure, postextubation TECHNIQUE: Single view chest 2:36 AM CORRELATION STUDY: 06/10/2023 FINDINGS: Interval extubation and removal of gastric tube. Right IJ central line remains in place. Heart size and mediastinum are generally stable. Vasculature is improved. There also appears to be overall improved aeration and less edema through the lung medina. Lung bases are partially obscured likely overlapping summation shadow. IMPRESSION: 1. Interval extubation. Overall appears to be decreased severity of edema and improved aeration from prior. Dictated by: Dictated on workstation # [id number]
--- NOTE | 2023-06-12 08:12 | Tele-ICU Progress Note ---
Subjective Date Seen by a Provider: Jun 12, 2023 Time Seen by a Provider: 08:10 Subjective/Events-last exam Tele-ICU Physician , Progress Note ) Service provided via interactive audio and video telecommunications [facility] to a patient admitted to ICU bed in [facility]. Patient is seen today due to persistent need of ICU care Available chart/ vitals / labs / Images reviewed Video assessment done using teleICU camera, rest of exam as per RN She is a 63-year-old female with past medical history of anxiety and apparently will overdose with Xanax, and abuse of cannabinoids found unresponsive. She was intubated in the emergency room and admitted to the intensive care unit for monitoring and management. Today she remained on mechanical ventilation and barely arousable. She does not look like she will tolerate SBT. Her blood pressure has been stable however. 06/07/23 today she is somnolent and on high dose propofol drip. not ready for sbt yet 06/09/23 she did not tolerate SBT yesterday. on precedex 0.8mcg, and propofol 35 mcg now. rn reports pt is congested and getting frothy sputum. sputum growing e.coli and mrsa. 06/12/23 She is AAO# but occassionally confused. extubated on 06/11/23. no respiratory distress Impression 1. Drug overdose with multiple substances including benzodiazepines and marijuana causing decreased level of consciousness 2. Acute hypoxic respiratory failure requiring mechanical ventilation s/p extubation on 3. History of anxiety disorder. 4. developping fluid overload. 5. e. coli and mssa pneumonia Recommendations 1. Speech therapy to do swallow evaluation 2. decrase ivf to 50ml/hr 3. DVT prophylaxis 4. Off all sedatives. 5. technical services specialist for evaluation of placement 6. may change abx's to po if she passes swallow evaluation. Coordination of care with the bedside consultants and primary care physician. I am remotely monitoring this patient from Tele icu station in [place]. I am unable to do the bedside exam, and history/physical and pertinent information is taken from other notes in the computer and bedside staff. Certain portions of this document may have been dictated utilizing voice recognition technology such as Celeno. Inherent to this technology, typographical and grammatical errors may exist. As much as I am diligent to identify and correct to these mistakes, some errors may remain in the document. Critical care time devoted to this patient today is approximately is-15 minutes- Sepsis Event Evaluation Height, Weight, BMI Height: '" Weight: lbs. oz. kg; 49.72 BMI Method: Exam Exam Patient acknowledged, consented, and participated in this virtual visit which was conducted using real time audio/video Vital Signs Date Time Temp Pulse Resp B/P (MAP) Pulse Ox O2 Delivery O2 Flow Rate FiO2 06/12/23 07:28 36.7 06/12/23 07:25 95 High Flow N/C 6.00 06/12/23 07:25 36.7 06/12/23 07:16 63 24 98 40.00 06/12/23 07:13 63 06/12/23 06:00 68 37 120/71 (87) 98 NIV Bilevel 40.00 06/12/23 05:48 65 124/75 06/12/23 05:00 67 17 114/67 (83) 98 NIV Bilevel 40.00 06/12/23 05:00 68 37 120/71 (87) 98 NIV Bilevel 40.00 06/12/23 04:15 68 31 111/71 (84) 98 NIV Bilevel 40.00 06/12/23 04:00 96 NIV Bilevel 40 06/12/23 04:00 70 13 85/69 (74) 98 NIV Bilevel 40.00 06/12/23 04:00 36.6 06/12/23 03:00 71 27 122/79 (93) 98 NIV Bilevel 40.00 06/12/23 02:05 66 25 97 40.00 06/12/23 02:00 70 112/66 (81) 98 NIV Bilevel 40.00 06/12/23 01:15 67 06/12/23 01:00 70 119/58 (78) 96 NIV Bilevel 40.00 06/12/23 00:16 96 NIV Bilevel 40 06/12/23 00:00 84 27 128/72 (86) 97 NIV Bilevel 40.00 06/12/23 00:00 36.9 06/11/23 23:06 NIV Bilevel 40.00 06/11/23 23:01 91 27 97 50.00 06/11/23 23:00 92 23 148/77 (102) 96 High Flow N/C 10.00 06/11/23 22:00 90 36 147/80 (105) 94 High Flow N/C 10.00 06/11/23 21:46 94 High Flow N/C 8.00 06/11/23 21:00 87 36 135/104 (129) 94 High Flow N/C 10.00 06/11/23 20:00 87 26 120/90 (113) 91 High Flow N/C 10.00 06/11/23 20:00 37.3 06/11/23 20:00 94 High Flow N/C 10.00 06/11/23 19:30 85 125/72 06/11/23 19:00 84 06/11/23 19:00 84 33 105/89 (96) 92 High Flow N/C 10.00 06/11/23 18:31 98 High Flow N/C 10.00 06/11/23 18:00 81 92/42 06/11/23 17:00 77 32 135/74 (94) 94 High Flow N/C 10.00 06/11/23 16:00 95 High Flow N/C 10.00 06/11/23 16:00 74 36 122/72 (86) 93 High Flow N/C 10.00 06/11/23 15:27 79 141/55 06/11/23 15:00 71 36 137/79 (98) 94 High Flow N/C 10.00 06/11/23 14:41 97 High Flow N/C 10.00 06/11/23 14:00 68 18 125/75 (91) 96 High Flow N/C 10.00 06/11/23 13:00 67 31 120/67 (86) 96 High Flow N/C 10.00 06/11/23 12:48 High Flow N/C 10.00 06/11/23 12:30 68 124/76 06/11/23 12:30 68 124/76 06/11/23 12:27 70 06/11/23 12:00 67 121/67 (94) 94 Mechanical Ventilator 40.00 06/11/23 12:00 93 Mechanical Ventilator 40 06/11/23 12:00 36.9 06/11/23 11:39 63 30 92 40 06/11/23 11:00 61 21 118/70 (89) 93 Mechanical Ventilator 40.00 06/11/23 10:06 59 18 92 40 06/11/23 10:00 59 18 123/67 (88) 94 Mechanical Ventilator 40.00 06/11/23 09:20 40 06/11/23 09:00 62 128/62 06/11/23 09:00 62 24 128/68 (91) 94 Mechanical Ventilator 40.00 06/11/23 08:20 63 108/69 06/11/23 08:18 63 108/69 I & O 06/12/23 07:00 Intake Total 2700 ml Output Total 3250 ml Balance -550 ml Height & Weight Height: '" Weight: lbs. oz. kg; 49.72 BMI Method: General Appearance: No Apparent Distress, Obese HEENT: PERRL/EOMI, Pharynx Normal, Other Neck: Non Tender, Supple Respiratory: No Accessory Muscle Use, No Respiratory Distress, Other Cardiovascular: Regular Rate, Rhythm, No Murmur Capillary Refill: Less Than 3 Seconds Gastrointestinal: normal bowel sounds, soft, abnormal bowel sounds, distended, other Extremity: Other Neurologic/Psychiatric: Other Skin: Normal Color, Warm/Dry Results Lab Laboratory Tests 06/11/23 05:05 06/12/23 04:36 Assessment/Plan Assessment/Plan as above Critical Care: Critically Ill Patient Time spent with patient (mins): 15 CLAUDETTE TRAMMELL MD Jun 12, 2023 08:12
--- NOTE | 2023-06-12 09:03 | ST Dysphagia Evaluation ---
Speech Evaluation-General Medical Diagnosis Acute Hypecapnic Respiratory Failure Onset Date: Jun 05, 2023 Therapy Diagnosis Therapy Diagnosis: Mild Oropharyngeal Dysphagia Precautions Precautions: Fall, Pressure Ulcer, Aspiration Precautions/Isolations: Aspiration, Fall Prevention, Standard Precautions, Pressure Ulcer Referral Referring Physician: Dr. Hector Khan Reason for Referral: Evaluation/Treatment Medical History Pertinent Medical History: Breast CA S/P Mastectomy, COPD, HTN Current History 06/10/23: IMPRESSION: 1. Interval extubation. Overall appears to be decreased severity of edema and improved aeration from prior. Reviewed History: Yes Speech PLF/Current-Dysphagia Prior Level of Function The patient stated he consumed a regular consistency diet with thin liquids prior to admission. Regardless of edentulous state the patient reported eating steak, hamburgers, etc. "I eat anything. I can eat it all." The patient denied prior difficulties or concerns with her oropharyngeal swallowing function. Subjective The patient was lying in bed, awake and alert, yet confused. The patient greeted the clinician and was agreeable to participation in the clinical bedside swallowing evaluation. The patient was positioned upright in bed for safe swallowing. The patient is currently receiving 6l supplemental oxygen via high flow nasal cannula with a SpO2% at 94% (prior to, during, and following P.O. intake). The patient remains pleasant and cooperative with the exam, requesting appropriate rest breaks for respiratory recovery and comfort. Cognitive Status Patient Orientation: Person Oral Motor Skills Dentition: Edentalous Ability to Follow Directions: Fair Oral Expression Ability: Moderate Impairment (Confused.) Voice Voice Phonatory-Based Quality: Glottal [place] Voice Pitch: Moderately Low, Pitch Breaks Voice Loudness: Mildly Soft/Quiet Face Facial Symmetry: Symmetrical Oral-Facial Assessment Oral-Facial Dentition: Normal Labial Seal Description: Normal Lingual Protrusion: Normal Lingual ROM: Normal Lingual Strength: Normal Volitional Dry Swallow: Yes Voluntary Cough: Yes Dysphagia Evaluation Consistencies Presented: Thin Liquid (Via teaspoon and straw.), [place] Thick Liquid (Mildly thick liquid via teaspoon and straw.), Pureed (Applesauce.) The patient displayed intermittent poor bolus formation and prolonged oral transfer of the bolus (puree). A delayed pharyngeal onset of the swallow was suspected. Laryngeal elevation present to palpation. To note: The patient displays a consistency "grunting-like" behavior at baseline, in the absence of P.O. intake. The grunting behavior does not appear related to P.O. intake. The patient was provided thin liquid by teaspoon and straw, mildly thick liquids by teaspoon and straw, and puree. Solid consistencies were deferred to conserve energy which would be used throughout mastication. The patient displayed a delayed, productive cough following straw drinks of water. The patient does not display s/s of suspected aspiration with trials of mildly thick liquids or puree (four ounces). Recommendations: - PU4 with mildly thick liquids, as tolerated. - Fully upright and alert for P.O. intake. - Cease P.O. intake during periods of respiratory fatigue. Slow rate of P.O. intake. Pace. - Small bites and sips, only. - 1:1 feeder, only. The patient is unable to support self-feeding at this time. - Crush medication and place in puree for administration. - Monitor for s/s of suspected aspiration with P.O. intake. If demonstrated, please place the patient N.P.O. and contact speech pathology. - Speech pathology to monitor the patient's tolerance of the current diet consistency, providing safe modification as appropriate. The results and recommendations were provided to the patient and the RN. Additionally, the recommendations were written on the in-room white board and provided in writing to the RN. Speech Short Term Goals Short Term Goals Short Term Goals 1. The patient, staff and family members will display safe swallowing strategies with 80% accuracy, independently. Time Frame-STG: Three Days. Speech [employer] Management System Operator Goals [employer] Management System Operator Goals 1. The patient will tolerate the least restrictive diet consistency without s/s of suspected aspiration for patient safety and to meet daily nutritional needs. Time Frame: One Week. Speech-Plan Treatment Plan Speech Therapy Treatment Plan: Continue Plan of Care Treatment Duration: Jun 16, 2023 Frequency: 3 times per week Estimated Hrs Per Day: .25 hour per day Rehab Potential: Guarded Pt/Family Agrees to Plan: Yes Safety Risks/Education Teaching Recipient: Patient Teaching Methods: Discussion Response to Teaching: Unable to Comprehend Education Topics Provided: Results, Recommendations, Plan of Care, Safe Swallowing Strategies Time Speech Therapy Time In: 08:15 Speech Therapy Time Out: 08:48 DATE: Jun 12, 2023 Total Billed Time: 33 Billed Treatment Time 1, [facility] Jun 12, 2023 09:02
[2023-06-12] MEDS: MICONAZOLE 2% POWDER 90 GM TOP SCH ×2 (09:47→19:47)
[2023-06-12] MEDS: FOLIC ACID 1 MG TAB PO SCH (09:47)
[2023-06-12] MEDS: cefTRIAXone IV/IM 1,000 MG in NS (IVPB) 50 ML 50 ML IV SCH (09:47)
[2023-06-12] MEDS: ENOXAPARIN 60 MG/0.6 ML SYRINGE SQ SCH ×2 (09:47→19:46)
[2023-06-12] MEDS: PANTOPRAZOLE INJECTION 40 MG VIAL IV SCH (09:47)
--- NOTE | 2023-06-12 10:36 | Progress Note - Cardiology ---
Cardiology SOAP Progress Note Subjective: Sitting up in bed Visitor x 1 at the bedside No c/o CP C/O general weakness Objective: I&O/Vital Signs 06/12/23 06/12/23 06/13/23 06/13/23 23:00 23:20 00:00 01:00 Pulse 60 55 53 Resp 21 19 B/P (MAP) 140/83 (101) 154/89 (110) Pulse Ox 97 99 O2 Delivery NIV Bilevel NIV Bilevel NIV Bilevel O2 Flow Rate 30.00 30.00 FiO2 30 06/13/23 06/13/23 06/13/23 06/13/23 01:00 02:00 02:01 02:30 Pulse 53 52 52 50 Resp 18 17 18 B/P (MAP) 146/85 (105) 147/87 (107) 147/87 Pulse Ox 98 98 97 O2 Delivery NIV Bilevel NIV Bilevel O2 Flow Rate 30.00 30.00 30.00 06/13/23 06/13/23 06/13/23 06/13/23 03:00 03:50 04:00 04:00 Temp 35.8 Pulse 53 51 Resp 16 15 B/P (MAP) 139/82 (101) 145/83 (103) Pulse Ox 96 96 O2 Delivery NIV Bilevel NIV Bilevel NIV Bilevel O2 Flow Rate 30.00 30.00 FiO2 30 06/13/23 06/13/23 06/13/23 06/13/23 05:00 05:31 06:00 07:00 Pulse 48 48 46 49 Resp 15 14 20 B/P (MAP) 147/84 (105) 140/86 144/83 (103) 116/76 (89) Pulse Ox 98 98 93 O2 Delivery NIV Bilevel NIV Bilevel NIV Bilevel O2 Flow Rate 30.00 30.00 30.00 06/13/23 06/13/23 06/13/23 06/13/23 07:14 07:47 08:00 09:00 Pulse 49 50 53 Resp 23 19 B/P (MAP) 104/75 (85) 106/78 (87) Pulse Ox 97 99 O2 Delivery High Flow N/C NIV Bilevel NIV Bilevel O2 Flow Rate 4.00 30.00 30.00 06/13/23 10:00 Pulse 52 Resp 23 B/P (MAP) 100/64 (76) Pulse Ox 91 O2 Delivery NIV Bilevel O2 Flow Rate 30.00 06/13/23 00:00 Intake Total 2900 ml Output Total 700 ml Balance 2200 ml Constitutional: other (extubated, agitated, answers questions, appears oriented to place and person but not time, does not answer questions in any detail) Respiratory: chest expansion is symmetric, chest is bilaterally symmetric, other Cardiovascular: regular rate-rhythm, S1 and S2 Gastrointestional: soft, audible bowel sounds Extremities: other Neurologic/Psychiatric: other (extubated, agitated, answers questions, appears oriented to place and person but not time, does not answer questions in any detail, appears to move all limbs) Skin: No rash on exposed areas, No ulcerations on exposed areas Results/Procedures: Labs Laboratory Tests 06/12/23 10:48: Glucometer 108 06/12/23 18:54: Glucometer 125H 06/12/23 23:57: Glucometer 115H 06/13/23 04:36: White Blood Count 5.8, Red Blood Count 3.15L, Hemoglobin 11.2L, Hematocrit 35, Mean Corpuscular Volume 110H, Mean Corpuscular Hemoglobin 36H, Mean Corpuscular Hemoglobin Concent 33, Red Cell Distribution Width 14.3, Platelet Count 176, Mean Platelet Volume 10.1, Immature Granulocyte % (Auto) 1, Neutrophils (%) (Aut o) 66, Lymphocytes (%) (Auto) 19, Monocytes (%) (Auto) 9, Eosinophils (%) (Auto) 4, Basophils (%) (Auto) 1, Neutrophils # (Auto) 3.8, Lymphocytes # (Auto) 1.1, Monocytes # (Auto) 0.5, Eosinophils # (Auto) 0.2, Basophils # (Auto) 0.1, Immature Granulocyte # (Auto) 0.0, Sodium Level 140, Potassium Level 3.7, Chloride Level 112H, Carbon Dioxide Level 19L, Anion Gap 9, Blood Urea Nitrogen 15, Creatinine 0.56L, Estimat Glomerular Filtration Rate 102, BUN/Creatinine Ratio 27, Glucose Level 113H, Calcium Level 8.7, Phosphorus Level 2.7, Magnesium Level 1.8 Microbiology 06/08/23 Gram Stain - Final, Complete 06/08/23 Sputum Culture - Final, Complete Escherichia coli Staphylococcus aureus 06/05/23 Blood Culture - Final, Complete A/P: Assessment: Ac respiratory failure due to drug overdose - requiring intubation, now extubated - Echo on 06/06/23: LVEF 55-60%, PASP 35-40 mmHg Troponin elevation - Likely Type 2 CT secondary to hypoxia H/O ETOH abuse Obesity Plan: Management of ETOH WD per medical services Monitor lab Replace electrolytes as indicated SHARMILA RUIZ Jun 12, 2023 10:36
[2023-06-12] MEDS: VANCOMYCIN 1500MG/300ML PREMIX IV SCH ×2 (12:16→21:39)
[2023-06-12] MEDS ORDERED: ACET-11 PO (14:09)
[2023-06-12] MEDS ORDERED: OMEP-440 PO (14:09)
[2023-06-12] MEDS ORDERED: FLUT1BLS3 INH (14:09)
[2023-06-12] MEDS ORDERED: ERGO1250 PO (14:09)
[2023-06-12] MEDS ORDERED: HYDR50TA76 PO (14:09)
[2023-06-12] MEDS ORDERED: ALPR0.5T PO (14:09)
[2023-06-12] MEDS ORDERED: ALBU18HF2 INH (14:09)
[2023-06-12 15:09] VITALS: BP 135/79
[2023-06-12] MEDS ORDERED: RT-Ipratropium/Albuterol NEB 3 ML VIAL INH PRN (16:00)
--- NOTE | 2023-06-12 18:43 | Progress Note - Cardiology ---
Cardiology SOAP Progress Note Subjective: On BiPAP Does not answer questions Objective: I&O/Vital Signs 06/12/23 06/12/23 06/12/23 06/12/23 07:00 07:13 07:16 07:25 Temp 36.7 Pulse 62 63 63 Resp 31 24 B/P (MAP) 112/80 (91) Pulse Ox 98 98 O2 Delivery NIV Bilevel O2 Flow Rate 40.00 40.00 06/12/23 06/12/23 06/12/23 06/12/23 07:25 07:25 07:28 08:00 Temp 36.7 B/P (MAP) Pulse Ox 95 94 O2 Delivery High Flow N/C High Flow N/C High Flow N/C O2 Flow Rate 6.00 6.00 6.00 06/12/23 06/12/23 06/12/23 06/12/23 08:00 09:00 10:00 10:00 Pulse 76 67 63 63 Resp 23 B/P (MAP) 91/72 (78) 101/66 (78) 118/77 (91) 118/77 Pulse Ox 94 96 97 O2 Delivery High Flow N/C High Flow N/C High Flow N/C O2 Flow Rate 6.00 6.00 6.00 06/12/23 06/12/23 06/12/23 06/12/23 11:00 11:49 12:00 12:00 Pulse 61 Resp 26 B/P (MAP) 100/70 (80) Pulse Ox 98 97 96 O2 Delivery High Flow N/C High Flow N/C High Flow N/C High Flow N/C O2 Flow Rate 6.00 6.00 4.00 4.00 06/12/23 06/12/23 06/12/23 06/12/23 12:00 12:06 12:12 13:00 Temp 36.0 Pulse 63 69 69 Resp 22 23 B/P (MAP) 118/35 (62) 116/71 (86) Pulse Ox 98 95 O2 Delivery High Flow N/C High Flow N/C O2 Flow Rate 6.00 6.00 06/12/23 06/12/23 06/12/23 06/12/23 14:00 14:12 15:00 15:09 Pulse 70 69 63 64 Resp 28 23 B/P (MAP) 134/81 (98) 116/71 135/79 (97) Pulse Ox 96 96 96 O2 Delivery High Flow N/C High Flow N/C O2 Flow Rate 6.00 6.00 30.00 06/12/23 06/12/23 06/12/23 06/12/23 15:15 16:00 16:24 17:45 Temp 35.9 Pulse 60 Resp 20 B/P (MAP) 143/82 (102) Pulse Ox 96 96 O2 Delivery NIV Bilevel NIV Bilevel NIV Bilevel O2 Flow Rate 30.00 30.00 FiO2 30 06/12/23 18:00 Pulse 59 B/P (MAP) 143/81 (101) Pulse Ox 96 O2 Delivery NIV Bilevel O2 Flow Rate 30.00 06/12/23 00:00 Intake Total 1000 ml Output Total 2275 ml Balance -1275 ml Constitutional: other (on BiPAP does not answer questions) Respiratory: chest expansion is symmetric, chest is bilaterally symmetric, other Cardiovascular: regular rate-rhythm, S1 and S2 Gastrointestional: soft, audible bowel sounds Extremities: other Neurologic/Psychiatric: No oriented x 3; other (appears to move all limbs) Skin: No rash on exposed areas, No ulcerations on exposed areas Results/Procedures: Labs Laboratory Tests 06/12/23 00:26: Glucometer 97 06/12/23 04:36: White Blood Count 9.1, Red Blood Count 3.14L, Hemoglobin 11.1L, Hematocrit 34L, Mean Corpuscular Volume 109H, Mean Corpuscular Hemoglobin 35H, Mean Corpuscular Hemoglobin Concent 33, Red Cell Distribution Width 14.4, Platelet Count 185, Mean Platelet Volume 10.0, Immature Granulocyte % (Auto) 1, Neutrophils (%) (Auto) 75, Lymphocytes (%) (Auto) 13, Monocytes (%) (Auto) 9, Eosinophils (%) (Auto) 2, Basophils (%) (Auto) 0, Neutrophils # (Auto) 6.8, Lymphocytes # (Auto) 1.2, Monocytes # (Auto) 0.8, Eosinophils # (Auto) 0.1, Basophils # (Auto) 0.0, Immature Granulocyte # (Auto) 0.1, Sodium Level 142, Potassium Level 3.6, Chloride Level 111H, Carbon Dioxide Level 16L, Anion Gap 15H, Blood Urea Ni trogen 11, Creatinine 0.62, Estimat Glomerular Filtration Rate 100, BUN/Creatinine Ratio 18, Glucose Level 103, Calcium Level 8.7, Phosphorus Level 3.2, Magnesium Level 1.8 06/12/23 10:48: Glucometer 108 Microbiology 06/08/23 Gram Stain - Final, Complete 06/08/23 Sputum Culture - Final, Complete Escherichia coli Staphylococcus aureus 06/05/23 Blood Culture - Final, Complete Laboratory Tests 06/11/23 05:05 06/12/23 04:36 A/P: Assessment: Ac respiratory failure due to drug overdose - requiring intubation, now extubated - Echo on 06/06/23: LVEF 55-60%, PASP 35-40 mmHg Troponin elevation - Likely Type 2 VT secondary to hypoxia H/O ETOH abuse Obesity Plan: Management of ETOH WD per medical services Monitor lab Replace electrolytes as indicated ADRIANNA FERNANDEZ MD FACP [facility] Jun 12, 2023 18:43
--- NOTE | 2023-06-12 20:39 | Progress Note - Hospitalist ---
Subjective HPI/CC On Admission Date Seen by Provider: Jun 12, 2023 Time Seen by Provider: 10:45 Patient is a 63-year-old female with a past medical history of [id number] diabetes, COPD, hypertension, alcohol abuse who presented to the emergency department due to altered mental status. She is currently intubated and sedated and unable to provide any history. All history is obtained from the records. Apparently she has been trying to quit drinking alcohol and so had been using Xanax to manage her symptoms but had taken more than was prescribed. She started to develop slurred speech and was quite drowsy so her friend summoned EMS. In the emergency department she was unable to protect her airway and had hypercapnia on ABG and was electively intubated. CT head was done to rule out intracranial process which showed no intracranial hemorrhage only mild atrophy and chronic microvascular changes. This morning they tried sedation vacation per eICU and while she was able to follow some commands she did not wake up satisfactorily so remains on the vent. Subjective/Events-last exam She is wearing BiPAP. She wants to take it off. She says she is hungry. She denies pain. She denies shortness of breath. Objective Exam Vital Signs Vital Signs Date Time Temp Pulse Resp B/P (MAP) Pulse Ox O2 Delivery O2 Flow Rate FiO2 06/12/23 19:54 96 High Flow N/C 4.00 06/12/23 19:42 36.2 06/12/23 19:00 62 26 06/12/23 16:00 30 Capillary Refill : Less Than 3 Seconds General Appearance: No Apparent Distress, Obese Respiratory: No Respiratory Distress, Decreased Breath Sounds, Other (wearing BiPAP) Cardiovascular: Regular Rate, Rhythm, No Murmur Gastrointestinal: Normal Bowel Sounds, Soft Extremity: Normal Inspection, No Pedal Edema Neurologic/Psychiatric: Alert, Normal Mood/Affect Skin: Normal Color, Warm/Dry Results/Procedures Lab Laboratory Tests 06/12/23 04:36 Patient resulted labs reviewed. Imaging: Reviewed Imaging Report Assessment/Plan Assessment and Plan Assess & Plan/Chief Complaint Acute on chronic respiratory failure with hypoxia and hypercapnia Pneumonia Accidental benzodiazepine overdose Alcohol withdrawal s/p extubation TeleICU following BiPAP as needed Continue alcohol withdrawal protocol Precedex MAT protocol Sputum cultures with Staph aureus and E coli Vanc and Rocephin for pneumonia Cardiology following HTN BP well controlled, trend T2DM Blood sugars within normal limits, monitor DVT ppx: Lovenox Critical Care Critically Ill Patient Diagnosis/Problems Diagnosis/Problems (1) Acute on chronic respiratory failure with hypoxia and hypercapnia Status: Acute (2) PNA (pneumonia) Status: Acute (3) Benzodiazepine overdose Status: Acute Qualifiers: Encounter type: initial encounter Injury intent: undetermined intent Qualified Codes: T42.4X4A - Poisoning by benzodiazepines, undetermined, initial encounter (4) Alcohol withdrawal Status: Acute (5) HTN (hypertension) Status: Chronic (6) T2DM (type 2 diabetes mellitus) Status: Chronic (7) Morbid obesity Status: Chronic MARIA EUGENIA PIZARRO MD Jun 12, 2023 20:39
[2023-06-12] MEDS: NS IV 1000 ML 1,000 ML IV SCH (21:40)
[2023-06-12 22:06] VITALS: BP 144/89
[2023-06-13 02:30] VITALS: BP 145/84
[2023-06-13] MEDS: RT-Ipratropium/Albuterol NEB 3 ML VIAL INH SCH ×5 (02:30→19:47)
[2023-06-13 04:46] LABS: BASOPHILS # (AUTO) 0.1 10^3/uL (0.0-0.1); BASOPHILS % (AUTO) 1 % (0-10); EOSINOPHILS # (AUTO) 0.2 10^3/uL (0.0-0.3); EOSINOPHILS % (AUTO) 4 % (0-10); HEMATOCRIT 35 % (35-52); HEMOGLOBIN 11.2 g/dL (11.5-16.0); LYMPHOCYTES # (AUTO) 1.1 10^3/uL (1.0-4.0); LYMPHOCYTES % (AUTO) 19 % (12-44); MEAN CORPUSCULAR HEMOGLOBIN 36 pg (25-34); MEAN CORPUSCULAR HGB CONC 33 g/dL (32-36); MEAN CORPUSCULAR VOLUME 110 fL (80-99); MEAN PLATELET VOLUME 10.1 fL (9.0-12.2); MONOCYTES # (AUTO) 0.5 10^3/uL (0.0-1.0); MONOCYTES % (AUTO) 9 % (0-12); NEUTROPHILS # (AUTO) 3.8 10^3/uL (1.8-7.8); NEUTROPHILS % (AUTO) 66 % (42-75); PLATELET COUNT 176 10^3/uL (130-400); WHITE BLOOD COUNT 5.8 10^3/uL (4.3-11.0)
[2023-06-13 04:57] LABS: POTASSIUM 3.7 MMOL/L (3.6-5.0)
[2023-06-13 04:58] LABS: CALCIUM 8.7 MG/DL (8.5-10.1)
[2023-06-13 05:02] LABS: CREATININE SERUM 0.56 MG/DL (0.60-1.30); PHOSPHORUS 2.7 MG/DL (2.3-4.7)
[2023-06-13 05:04] LABS: MAGNESIUM 1.8 MG/DL (1.6-2.4)
[2023-06-13] MEDS ORDERED: POTASSIUM CL 10MEQ/50ML IVPB 100 ML IV ONE (05:19)
[2023-06-13] MEDS ORDERED: MAGNESIUM 1 GM/100 ML IVPB 200 ML IV ONE (05:19)
[2023-06-13] MEDS: DexMEDEtomidine 1,000mcg/250ml 250 ML IV SCH (05:31)
[2023-06-13] MEDS: MAGNESIUM 1 GM/100 ML IVPB 100 ML IV SCH ×2 (05:44→05:50)
[2023-06-13] MEDS: POTASSIUM CL 10MEQ/50ML IVPB 50 ML IV SCH ×3 (05:44→06:36)
[2023-06-13] MEDS: POTASSIUM CHLORIDE 20 MEQ TABLET PO SCH (05:51)
[2023-06-13] MEDS: MICONAZOLE 2% POWDER 90 GM TOP SCH ×2 (09:19→21:08)
[2023-06-13] MEDS: PANTOPRAZOLE INJECTION 40 MG VIAL IV SCH (09:20)
[2023-06-13] MEDS: THERAPEUTIC MULTIVITAMIN W/MINERALS TABLET PO SCH (09:20)
[2023-06-13] MEDS: FOLIC ACID 1 MG TAB PO SCH (09:20)
[2023-06-13] MEDS: ENOXAPARIN 60 MG/0.6 ML SYRINGE SQ SCH ×2 (09:20→21:07)
[2023-06-13] MEDS: cefTRIAXone IV/IM 1,000 MG in NS (IVPB) 50 ML 50 ML IV SCH (09:20)
--- NOTE | 2023-06-13 09:23 | Tele-ICU Progress Note ---
Subjective Date Seen by a Provider: Jun 13, 2023 Time Seen by a Provider: 09:19 Subjective/Events-last exam (Tele-ICU Physician , Progress Note ) Service provided via interactive audio and video telecommunications E-[facility] system to a patient admitted to ICU bed in [facility]. Patient is seen today due to persistent need of ICU care Available chart/ vitals / labs / Images reviewed Video assessment done using teleICU camera, rest of exam as per RN Intubated on 06/05 after Xanax OD, extubated on 06/11, Now doing well, in no resp distress, currently on high flow, doing well with spont RR 19, SpO2 100%, on 4 lpm NC which she is on at home CXR from yesterday showed improvement, not much cough, no stridor Sepsis Event Evaluation Height, Weight, BMI Height: '" Weight: lbs. oz. kg; 50.86 BMI Method: Exam Exam Patient acknowledged, consented, and participated in this virtual visit which was conducted using real time audio/video Vital Signs Date Time Temp Pulse Resp B/P (MAP) Pulse Ox O2 Delivery O2 Flow Rate FiO2 06/13/23 09:00 53 19 106/78 (87) 99 NIV Bilevel 30.00 06/13/23 08:00 50 23 104/75 (85) 97 NIV Bilevel 30.00 06/13/23 07:47 High Flow N/C 4.00 06/13/23 07:14 49 06/13/23 07:00 49 20 116/76 (89) 93 NIV Bilevel 30.00 06/13/23 06:00 46 14 144/83 (103) 98 NIV Bilevel 30.00 06/13/23 05:31 48 140/86 06/13/23 05:00 48 15 147/84 (105) 98 NIV Bilevel 30.00 06/13/23 04:00 NIV Bilevel 30 06/13/23 04:00 51 15 145/83 (103) 96 NIV Bilevel 30.00 06/13/23 03:50 35.8 06/13/23 03:00 53 16 139/82 (101) 96 NIV Bilevel 30.00 06/13/23 02:30 50 18 97 30.00 06/13/23 02:01 52 147/87 06/13/23 02:00 52 17 147/87 (107) 98 NIV Bilevel 30.00 06/13/23 01:00 53 18 146/85 (105) 98 NIV Bilevel 30.00 06/13/23 01:00 53 06/13/23 00:00 55 19 154/89 (110) 99 NIV Bilevel 30.00 06/12/23 23:20 NIV Bilevel 30 06/12/23 23:00 60 21 140/83 (101) 97 NIV Bilevel 30.00 06/12/23 22:21 NIV Bilevel 30.00 06/12/23 22:06 59 21 98 30.00 06/12/23 22:05 High Flow N/C 4.00 06/12/23 22:03 58 144/89 06/12/23 22:00 60 24 144/89 (108) 97 Nasal Cannula 4.00 06/12/23 21:15 62 25 150/80 (104) 96 Nasal Cannula 4.00 06/12/23 21:00 62 94/80 (81) 97 Nasal Cannula 4.00 06/12/23 20:00 64 26 114/97 (106) 96 Nasal Cannula 4.00 06/12/23 19:54 96 High Flow N/C 4.00 06/12/23 19:45 64 23 134/89 (105) 95 Nasal Cannula 4.00 06/12/23 19:42 36.2 06/12/23 19:30 62 28 109/83 (87) 95 Nasal Cannula 4.00 06/12/23 19:27 High Flow N/C 4.00 06/12/23 19:15 62 23 154/92 (121) 96 Nasal Cannula 4.00 06/12/23 19:03 63 06/12/23 19:00 62 26 154/92 (112) 97 Nasal Cannula 44.00 06/12/23 19:00 62 147/87 (110) 96 Nasal Cannula 4.00 06/12/23 18:15 59 142/86 06/12/23 18:00 59 143/81 (101) 96 NIV Bilevel 30.00 06/12/23 17:45 60 20 143/82 (102) 96 NIV Bilevel 30.00 06/12/23 16:24 35.9 06/12/23 16:00 96 NIV Bilevel 30 06/12/23 15:15 NIV Bilevel 30.00 06/12/23 15:09 64 23 96 30.00 06/12/23 15:00 63 28 135/79 (97) 96 High Flow N/C 6.00 06/12/23 14:12 69 116/71 06/12/23 14:00 70 25 134/81 (98) 96 High Flow N/C 6.00 06/12/23 13:00 69 23 116/71 (86) 95 High Flow N/C 6.00 06/12/23 12:12 69 06/12/23 12:06 36.0 06/12/23 12:00 63 22 118/35 (62) 98 High Flow N/C 6.00 06/12/23 12:00 High Flow N/C 4.00 06/12/23 12:00 96 High Flow N/C 4.00 06/12/23 11:49 97 High Flow N/C 6.00 06/12/23 11:00 61 26 100/70 (80) 98 High Flow N/C 6.00 06/12/23 10:00 63 118/77 06/12/23 10:00 63 118/77 (91) 97 High Flow N/C 6.00 I & O 06/13/23 06:59 Intake Total 4100 ml Output Total 1175 ml Balance 2925 ml Height & Weight Height: '" Weight: lbs. oz. kg; 50.86 BMI Method: General Appearance: No Apparent Distress, Obese HEENT: PERRL/EOMI, Pharynx Normal, Other Neck: Non Tender, Supple Respiratory: No Respiratory Distress, Decreased Breath Sounds, Other (wearing BiPAP) Cardiovascular: Regular Rate, Rhythm, No Murmur, Bradycardia, Other (HR in 50's, being given IV Precedex, being tapered) Capillary Refill: Less Than 3 Seconds Gastrointestinal: normal bowel sounds, soft, abnormal bowel sounds, distended, other Extremity: Normal Inspection, No Pedal Edema Neurologic/Psychiatric: Alert, Oriented x3, Normal Mood/Affect Skin: Normal Color, Warm/Dry Results Lab Laboratory Tests 06/12/23 04:36 06/13/23 04:36 Assessment/Plan Assessment/Plan Drug OD leading to intubation, now extubated and doing well, Would like to get out of bed, can go to medical floor if off IV Precedex Critical Care: Critically Ill Patient Time spent with patient (mins): 25 ULISSES GARZA MD Jun 13, 2023 09:23
--- NOTE | 2023-06-13 10:41 | Progress Note - Cardiology ---
Cardiology SOAP Progress Note Subjective: Sitting up in bed No c/o CP this morning C/O gen weakness Objective: I&O/Vital Signs 06/13/23 06/13/23 06/13/23 06/13/23 21:00 22:00 23:00 23:19 Pulse 96 99 99 Resp 28 B/P (MAP) 112/73 (86) 137/105 (116) 130/66 (87) Pulse Ox 98 95 98 O2 Delivery NIV Bilevel Nasal Cannula Nasal Cannula NIV Bilevel O2 Flow Rate 30.00 5.00 5.00 FiO2 30 06/13/23 06/14/23 06/14/23 06/14/23 23:35 00:00 01:00 01:00 Temp 37.4 Pulse 97 100 99 Resp 27 21 B/P (MAP) 133/71 (91) 148/74 (98) Pulse Ox 96 95 O2 Delivery Nasal Cannula Nasal Cannula O2 Flow Rate 5.00 5.00 06/14/23 06/14/23 06/14/23 06/14/23 02:00 02:28 02:30 03:00 Pulse 96 89 Resp 21 23 B/P (MAP) 97/62 (74) 134/69 (90) Pulse Ox 95 94 O2 Delivery Nasal Cannula NIV CPAP High Flow N/C NIV CPAP O2 Flow Rate 5.00 30.00 4.00 30.00 06/14/23 06/14/23 06/14/23 06/14/23 03:13 03:31 03:45 04:00 Pulse 94 89 Resp 16 28 B/P (MAP) 114/79 (91) Pulse Ox 96 97 O2 Delivery NIV Bilevel Nasal Cannula Nasal Cannula O2 Flow Rate 30.00 5.00 5.00 FiO2 30 06/14/23 06/14/23 06/14/23 06/14/23 05:00 06:00 06:14 07:04 Pulse 95 93 91 Resp 20 B/P (MAP) 122/89 (100) 138/72 (94) Pulse Ox 94 98 O2 Delivery Nasal Cannula Nasal Cannula High Flow N/C O2 Flow Rate 5.00 5.00 4.00 FiO2 90 06/14/23 07:44 Temp 36.5 B/P (MAP) 06/14/23 00:00 Intake Total 1500 ml Output Total 925 ml Balance 575 ml Constitutional: other (on BiPAP does not answer questions) Respiratory: chest expansion is symmetric, chest is bilaterally symmetric, other (coarse breath sounds) Cardiovascular: regular rate-rhythm, S1 and S2 Gastrointestional: soft, audible bowel sounds Extremities: no lower extremity edema bilateral Neurologic/Psychiatric: No oriented x 3; other (appears to move all limbs) Skin: No rash on exposed areas, No ulcerations on exposed areas Results/Procedures: Labs Laboratory Tests 06/13/23 11:15: Glucometer 98 06/13/23 17:25: Glucometer 77 06/13/23 23:51: Glucometer 76 06/14/23 04:49: White Blood Count 9.4, Red Blood Count 3.21L, Hemoglobin 11.3L, Hematocrit 35, Mean Corpuscular Volume 109H, Mean Corpuscular Hemoglobin 35H, Mean Corpuscular Hemoglobin Concent 32, Red Cell Distribution Width 14.3, Platelet Count 251, Mean Platelet Volume 10.0, Immature Granulocyte % (Auto) 1, Neutrophils (%) (Auto) 75, Lymphocytes (%) (Auto) 14, Monocytes (%) (Auto) 8, Eosinophils (%) (Auto) 2, Basophils (%) (Auto) 1, Neutrophils # (Auto) 7.0, Lymphocytes # (Auto) 1.3, Monocytes # (Auto) 0.8, Eosinophils # (Auto) 0.2, Basophils # (Auto) 0.1, Immature Granulocyte # (Auto) 0.1, Sodium Level 141, Potassium Level 3.5L, Chloride Level 111H, Carbon Dioxide Level 18L, Anion Gap 12, Blood Urea Nitrogen 13, Creatinine 0.59L, Estimat Glomerular Filtration Rate 101, BUN/Creatinine Ratio 22, Glucose Level 82, Calcium Level 9.0, Phosphorus Level 2.8, Magnesium Level 1.7 Microbiology 06/08/23 Gram Stain - Final, Complete 06/08/23 Sputum Culture - Final, Complete Escherichia coli Staphylococcus aureus 06/05/23 Blood Culture - Final, Complete A/P: Assessment: Ac respiratory failure due to drug overdose - requiring intubation, now extubated - Echo on 06/06/23: LVEF 55-60%, PASP 35-40 mmHg Troponin elevation - Likely Type 2 NE secondary to hypoxia H/O ETOH abuse Obesity Plan: Management of ETOH WD per medical services Monitor lab Replace electrolytes as indicated SHARMILA RUIZ Jun 13, 2023 10:41
[2023-06-13] MEDS: VANCOMYCIN 1500MG/300ML PREMIX IV SCH ×2 (12:24→22:28)
[2023-06-13] MEDS: ALPRAZolam 0.5 MG TABLET PO PRN (15:12)
--- NOTE | 2023-06-13 17:35 | Progress Note - Hospitalist ---
Subjective HPI/CC On Admission Date Seen by Provider: Jun 13, 2023 Time Seen by Provider: 10:20 Patient is a 63-year-old female with a past medical history of [id number] diabetes, COPD, hypertension, alcohol abuse who presented to the emergency department due to altered mental status. She is currently intubated and sedated and unable to provide any history. All history is obtained from the records. Apparently she has been trying to quit drinking alcohol and so had been using Xanax to manage her symptoms but had taken more than was prescribed. She started to develop slurred speech and was quite drowsy so her friend summoned EMS. In the emergency department she was unable to protect her airway and had hypercapnia on ABG and was electively intubated. CT head was done to rule out intracranial process which showed no intracranial hemorrhage only mild atrophy and chronic microvascular changes. This morning they tried sedation vacation per eICU and while she was able to follow some commands she did not wake up satisfactorily so remains on the vent. Subjective/Events-last exam She is very emotional this morning. She denies pain. She does not want to wear the BiPAP. She is requesting CPAP for night time. She says she took a Fentanyl from "the street" prior to her admission. Objective Exam Vital Signs Vital Signs Date Time Temp Pulse Resp B/P (MAP) Pulse Ox O2 Delivery O2 Flow Rate FiO2 06/13/23 16:03 36.8 06/13/23 16:00 85 27 96 NIV Bilevel 30.00 06/13/23 04:00 30 Capillary Refill : Less Than 3 Seconds General Appearance: No Apparent Distress, Anxious, Obese Respiratory: No Respiratory Distress, Decreased Breath Sounds Cardiovascular: Regular Rate, Rhythm, No Murmur Gastrointestinal: Normal Bowel Sounds, Non Tender, Soft, Distended; No Guarding Neurologic/Psychiatric: Alert, Other (anxious, labile) Results/Procedures Lab Laboratory Tests 06/13/23 04:36 Patient resulted labs reviewed. Imaging: Reviewed Imaging Report Assessment/Plan Assessment and Plan Assess & Plan/Chief Complaint Acute on chronic respiratory failure with hypoxia and hypercapnia Pneumonia Accidental overdose Alcohol withdrawal s/p extubation TeleICU following Stop BiPAP, CPAP ordered Continue alcohol withdrawal protocol Precedex, weaning as able MAT protocol Sputum cultures with Staph aureus and E coli Vanc and Rocephin for pneumonia Cardiology following HTN BP well controlled, trend T2DM Blood sugars within normal limits, monitor DVT ppx: Lovenox Critical Care Critically Ill Patient Diagnosis/Problems Diagnosis/Problems (1) Acute on chronic respiratory failure with hypoxia and hypercapnia Status: Acute (2) PNA (pneumonia) Status: Acute (3) Benzodiazepine overdose Status: Acute Qualifiers: Encounter type: initial encounter Injury intent: undetermined intent Qualified Codes: T42.4X4A - Poisoning by benzodiazepines, undetermined, initial encounter (4) Alcohol withdrawal Status: Acute (5) HTN (hypertension) Status: Chronic (6) T2DM (type 2 diabetes mellitus) Status: Chronic (7) Morbid obesity Status: Chronic MARIA EUGENIA PIZARRO MD Jun 13, 2023 17:35
--- NOTE | 2023-06-13 17:37 | Progress Note - Cardiology ---
Cardiology SOAP Progress Note Subjective: She does not report cp or palp or syncope or shortness of breath Objective: I&O/Vital Signs 06/13/23 06/13/23 06/13/23 06/13/23 06:00 07:00 07:14 07:47 Pulse 46 49 49 Resp 14 20 B/P (MAP) 144/83 (103) 116/76 (89) Pulse Ox 98 93 O2 Delivery NIV Bilevel NIV Bilevel High Flow N/C O2 Flow Rate 30.00 30.00 4.00 06/13/23 06/13/23 06/13/23 06/13/23 08:00 08:12 09:00 09:35 Pulse 50 53 52 Resp 23 19 B/P (MAP) 104/75 (85) 106/78 (87) 95/66 Pulse Ox 97 99 O2 Delivery NIV Bilevel Nasal Cannula NIV Bilevel O2 Flow Rate 30.00 4.00 30.00 06/13/23 06/13/23 06/13/23 06/13/23 10:00 10:50 11:00 12:00 Temp 36.0 Pulse 52 59 Resp 23 26 B/P (MAP) 100/64 (76) 115/78 (90) Pulse Ox 91 95 O2 Delivery NIV Bilevel High Flow N/C NIV Bilevel O2 Flow Rate 30.00 4.00 30.00 06/13/23 06/13/23 06/13/23 06/13/23 12:00 12:11 12:40 13:00 Pulse 70 68 73 Resp 15 29 B/P (MAP) 112/93 (99) 147/81 (103) Pulse Ox 90 90 O2 Delivery NIV Bilevel Nasal Cannula NIV Bilevel O2 Flow Rate 30.00 4.00 30.00 06/13/23 06/13/23 06/13/23 06/13/23 13:00 14:00 14:29 15:00 Temp 36.0 Pulse 79 86 Resp 24 23 B/P (MAP) 131/70 (90) 123/91 (102) Pulse Ox 95 94 O2 Delivery NIV Bilevel High Flow N/C NIV Bilevel O2 Flow Rate 30.00 4.00 30.00 06/13/23 06/13/23 06/13/23 15:42 16:00 16:03 Temp 36.8 Pulse 85 Resp 27 B/P (MAP) 109/88 (95) Pulse Ox 96 O2 Delivery Nasal Cannula NIV Bilevel O2 Flow Rate 4.00 30.00 06/13/23 00:00 Intake Total 2900 ml Output Total 700 ml Balance 2200 ml Constitutional: other (answers questions but responses appear confused) Respiratory: chest expansion is symmetric, chest is bilaterally symmetric, other (coarse breath sounds) Cardiovascular: regular rate-rhythm, S1 and S2 Gastrointestional: soft, audible bowel sounds Extremities: no lower extremity edema bilateral Neurologic/Psychiatric: No oriented x 3; other (appears confused, moves all limbs) Skin: No rash on exposed areas, No ulcerations on exposed areas Results/Procedures: Labs Laboratory Tests 06/12/23 18:54: Glucometer 125H 06/12/23 23:57: Glucometer 115H 06/13/23 04:36: White Blood Count 5.8, Red Blood Count 3.15L, Hemoglobin 11.2L, Hematocrit 35, Mean Corpuscular Volume 110H, Mean Corpuscular Hemoglobin 36H, Mean Corpuscular Hemoglobin Concent 33, Red Cell Distribution Width 14.3, Platelet Count 176, Mean Platelet Volume 10.1, Immature Granulocyte % (Auto) 1, Neutrophils (%) (Auto) 66, Lymphocytes (%) (Auto) 19, Monocytes (%) (Auto) 9, Eosinophils (%) (Auto) 4, Basophils (%) (Auto) 1, Neutrophils # (Auto) 3.8, Lymphocytes # (Auto) 1.1, Monocytes # (Auto) 0.5, Eosinophils # (Auto) 0.2, Basophils # (Auto) 0.1, Immature Granulocyte # (Auto) 0.0, Sodium Level 140, Potassium Level 3.7, Chloride Level 112H, Carbon Dioxide Level 19L, Anion Gap 9, Blood Urea Nitrogen 15, Creatinine 0.56L, Estimat Glomerular Filtration Rate 102, BUN/Creatinine Ratio 27, Glucose Level 113H, Calcium Level 8.7, Phosphorus Level 2.7, Magnesium Level 1.8 06/13/23 11:15: Glucometer 98 06/13/23 17:25: Glucometer 77 Microbiology 06/08/23 Gram Stain - Final, Complete 06/08/23 Sputum Culture - Final, Complete Escherichia coli Staphylococcus aureus 06/05/23 Blood Culture - Final, Complete A/P: Assessment: Ac respiratory failure due to drug overdose - requiring intubation, now extubated - Echo on 06/06/23: LVEF 55-60%, PASP 35-40 mmHg Troponin elevation - Likely Type 2 [place] secondary to hypoxia H/O ETOH abuse Obesity Plan: Management of ETOH WD per medical services Monitor lab Replace electrolytes as indicated ADRIANNA FERNANDEZ MD FACP [facility] Jun 13, 2023 17:37
[2023-06-13] MEDS: NS IV 1000 ML 1,000 ML IV SCH (18:13)
[2023-06-13 20:14] VITALS: BP 145/84
[2023-06-14 04:53] LABS: BASOPHILS # (AUTO) 0.1 10^3/uL (0.0-0.1); BASOPHILS % (AUTO) 1 % (0-10); EOSINOPHILS # (AUTO) 0.2 10^3/uL (0.0-0.3); EOSINOPHILS % (AUTO) 2 % (0-10); HEMATOCRIT 35 % (35-52); HEMOGLOBIN 11.3 g/dL (11.5-16.0); LYMPHOCYTES # (AUTO) 1.3 10^3/uL (1.0-4.0); LYMPHOCYTES % (AUTO) 14 % (12-44); MEAN CORPUSCULAR HEMOGLOBIN 35 pg (25-34); MEAN CORPUSCULAR HGB CONC 32 g/dL (32-36); MEAN CORPUSCULAR VOLUME 109 fL (80-99); MONOCYTES # (AUTO) 0.8 10^3/uL (0.0-1.0); MONOCYTES % (AUTO) 8 % (0-12); NEUTROPHILS % (AUTO) 75 % (42-75); PLATELET COUNT 251 10^3/uL (130-400); WHITE BLOOD COUNT 9.4 10^3/uL (4.3-11.0)
[2023-06-14 05:19] LABS: POTASSIUM 3.5 MMOL/L (3.6-5.0)
[2023-06-14 05:24] LABS: CREATININE SERUM 0.59 MG/DL (0.60-1.30); PHOSPHORUS 2.8 MG/DL (2.3-4.7)
[2023-06-14 05:27] LABS: MAGNESIUM 1.7 MG/DL (1.6-2.4)
[2023-06-14] MEDS: MAGNESIUM 1 GM/100 ML IVPB 100 ML IV SCH ×4 (05:35→08:20)
[2023-06-14] MEDS: POTASSIUM CHLORIDE 20 MEQ TABLET PO SCH (05:35)
[2023-06-14] MEDS: POTASSIUM CL 10MEQ/50ML IVPB 50 ML IV SCH ×5 (05:35→08:47)
[2023-06-14] MEDS ORDERED: POTASSIUM CL 10MEQ/50ML IVPB 200 ML IV ONE (05:44)
[2023-06-14] MEDS ORDERED: MAGNESIUM 1 GM/100 ML IVPB 400 ML IV ONE (05:46)
[2023-06-14] MEDS: RT-Ipratropium/Albuterol NEB 3 ML VIAL INH SCH ×5 (06:12→21:26)
[2023-06-14] MEDS: THERAPEUTIC MULTIVITAMIN W/MINERALS TABLET PO SCH (07:32)
[2023-06-14] MEDS: ENOXAPARIN 60 MG/0.6 ML SYRINGE SQ SCH ×2 (07:33→19:22)
--- NOTE | 2023-06-14 08:39 | Progress Note - Cardiology ---
Cardiology SOAP Progress Note Subjective: Sitting up in bed with CPAP in place Objective: I&O/Vital Signs 06/14/23 06/15/23 06/15/23 06/15/23 23:48 01:00 02:50 03:22 Temp 36.4 36.1 Pulse 90 90 91 Resp 18 18 B/P (MAP) 130/53 (78) 125/67 (86) Pulse Ox 91 94 O2 Delivery High Flow N/C High Flow N/C High Flow N/C O2 Flow Rate 5.00 5.00 5.00 5.00 5.00 06/15/23 06/15/23 06/15/23 06:59 07:18 07:27 Temp 36.8 Pulse 91 90 Resp 20 B/P (MAP) 149/66 (93) Pulse Ox 95 95 O2 Delivery High Flow N/C High Flow N/C O2 Flow Rate 4.00 4.00 06/15/23 00:00 Intake Total 425 ml Output Total 1400 ml Balance -975 ml Constitutional: other (answers questions but responses appear confused) Respiratory: chest expansion is symmetric, chest is bilaterally symmetric, other (coarse breath sounds) Cardiovascular: regular rate-rhythm, S1 and S2 Gastrointestional: soft, audible bowel sounds Extremities: other (mild bilat LE swelling) Neurologic/Psychiatric: No oriented x 3; other (appears confused, moves all limbs) Skin: No rash on exposed areas, No ulcerations on exposed areas Results/Procedures: Labs Laboratory Tests 06/14/23 11:04: Glucometer 89 06/14/23 18:41: Glucometer 88 06/15/23 00:04: Glucometer 99 06/15/23 05:18: Glucometer 96 06/15/23 05:45: White Blood Count 7.4, Red Blood Count 3.21L, Hemoglobin 11.1L, Hematocrit 35, Mean Corpuscular Volume 109H, Mean Corpuscular Hemoglobin 35H, Mean Corpuscular Hemoglobin Concent 32, Red Cell Distribution Width 14.2, Platelet Count 248, Mean Platelet Volume 10.0, Immature Granulocyte % (Auto) 2, Neutrophils (%) (Auto) 71, Lymphocytes (%) (Auto) 16, Monocytes (%) (Auto) 9, Eosinophils (%) (Auto) 2, Basophils (%) (Auto) 1, Neutrophils # (Auto) 5.3, Lymphocytes # (Auto) 1.2, Monocytes # (Auto) 0.6, Eosinophils # (Auto) 0.1, Basophils # (Auto) 0.1, Immature Granulocyte # (Auto) 0.1, Sodium Level 142, Potassium Level 3.6, Chloride Level 110H, Carbon Dioxide Level 19L, Anion Gap 13, Blood Urea Nitrogen 9, Creatinine 0.56L, Estimat Glomerular Filtration Rate 102, BUN/Creatinine Ratio 16, Glucose Level 95, Calcium Level 8.8, Phosphorus Level 2.7, Magnesium Level 1.9 Microbiology 06/08/23 Gram Stain - Final, Complete 06/08/23 Sputum Culture - Final, Complete Escherichia coli Staphylococcus aureus 06/05/23 Blood Culture - Final, Complete A/P: Assessment: Ac respiratory failure due to drug overdose - requiring intubation, now extubated - Echo on 06/06/23: LVEF 55-60%, PASP 35-40 mmHg Troponin elevation - Likely Type 2 [place] secondary to hypoxia H/O ETOH abuse Obesity Plan: Management of ETOH WD per medical services Monitor lab Replace electrolytes as indicated SHARMILA RUIZ [facility] Jun 14, 2023 08:39
[2023-06-14] MEDS: FOLIC ACID 1 MG TAB PO SCH (08:46)
[2023-06-14] MEDS: PANTOPRAZOLE INJECTION 40 MG VIAL IV SCH (08:46)
--- NOTE | 2023-06-14 09:19 | Speech Therapy Progress Note ---
Therapy Progress Note Speech pathology attempted swallowing re-evaluation and monitoring at 0900. The patient politely refused skilled treatment regardless of verbal encouragement and prompting. Per patient, "I just don't feel good. I'm not one to ask for pain meds but I think I need some." The speech pathologist provided the information to the patient's RN. Upon entrance, the patient's tray is positioned at bedside. The patient is a 1:1 feeder as she is unable to physically feed herself due to weakness and reduced coordination. Additionally, the patient is at a high aspiration risk and should be monitored by staff during P.O. intake. The patient also has thin liquids at bedside. The patient is at a high aspiration risk for thin liquids based on the most recent clinical bedside swallowing evaluation. The clinician recommended mildly thick liquids. The patient's tray was moved from arm reach to avoid self-feeding attempts. Also, the clinician removed thin liquids from bedside and provided re-education regarding safe swallowing strategies and aspiration risks. Please find the patient's recommendations provided on 06/12/23, communicated to the RN and patient on 06/12/23, and placed on the in-room white board on 06/12/23. On this date, a handout with recommendations was placed on the patient's tray. 06/12/23: Recommendations: - PU4 with mildly thick liquids, as tolerated. - Fully upright and alert for P.O. intake. - Cease P.O. intake during periods of respiratory fatigue. Slow rate of P.O. intake. Pace. - Small bites and sips, only. - 1:1 feeder, only. The patient is unable to support self-feeding at this time. - Crush medication and place in puree for administration. - Monitor for s/s of suspected aspiration with P.O. intake. If demonstrated, please place the patient N.P.O. and contact speech pathology. - Speech pathology to monitor the patient's tolerance of the current diet consistency, providing safe modification as appropriate. 0900 to 0915, 1 x VISIT, NO CHARGE LISA WANG Jun 14, 2023 09:19
[2023-06-14] MEDS: VANCOMYCIN 1500MG/300ML PREMIX IV SCH (09:56)
[2023-06-14] MEDS: MICONAZOLE 2% POWDER 90 GM TOP SCH ×2 (10:11→19:22)
--- NOTE | 2023-06-14 10:16 | Tele-ICU Progress Note ---
Subjective Date Seen by a Provider: Jun 14, 2023 Time Seen by a Provider: 10:15 Subjective/Events-last exam Tele-ICU Physician , Progress Note ) Service provided via interactive audio and video telecommunications [facility] s yste to a patient admitted to ICU bed in [facility]. Patient is seen today due to persistent need of ICU care Available chart/ vitals / labs / Images reviewed Video assessment done using teleICU camera, rest of exam as per RN She is a 63-year-old female with past medical history of anxiety and apparently will overdose with Xanax, and abuse of cannabinoids found unresponsive. She was intubated in the emergency room and admitted to the intensive care unit for monitoring and management. Today she remained on mechanical ventilation and barely arousable. She does not look like she will tolerate SBT. Her blood pressure has been stable however. 06/07/23 today she is somnolent and on high dose propofol drip. not ready for sbt yet 06/09/23 she did not tolerate SBT yesterday. on precedex 0.8mcg, and propofol 35 mcg now. rn reports pt is congested and getting frothy sputum. sputum growing e.coli and mrsa. 06/12/23 She is AAO# but occassionally confused. extubated on 06/11/23. no respiratory distress 06/14/23 she is awake, alert and answeres questions appropriately but has been hallucinating per rn. hemodynamically stable, on 4l n/c Impression 1. Drug overdose with multiple substances including benzodiazepines and marijuana causing decreased level of consciousness improved 2. Acute hypoxic respiratory failure requiring mechanical ventilation s/p extubation on 3. History of anxiety disorder. 4. Hallucinations due to metabolic encephalopathy 5. e. coli and mssa pneumonia Recommendations 1. Continue ABX's 2. IV to kvo 3. DVT prophylaxis 4. Off all sedatives. 5. director of special services for evaluation of placement 6. Ok to transfer patient to med/surg floor from critical care point of view. Coordination of care with the bedside consultants and primary care physician. I am remotely monitoring this patient from Tele icu station in [place]. I am unable to do the bedside exam, and history/physical and pertinent information is taken from other notes in the computer and bedside staff. Certain portions of this document may have been dictated utilizing voice recognition technology such as Dragon. Inherent to this technology, typographical and grammatical errors may exist. As much as I am diligent to identify and correct to these mistakes, some errors may remain in the document. Critical care time devoted to this patient today is approximately is-15 minutes- Sepsis Event Evaluation Height, Weight, BMI Height: '" Weight: lbs. oz. kg; 51.02 BMI Method: Exam Exam Patient acknowledged, consented, and participated in this virtual visit which was conducted using real time audio/video Vital Signs Date Time Temp Pulse Resp B/P (MAP) Pulse Ox O2 Delivery O2 Flow Rate FiO2 06/14/23 08:00 92 24 140/112 (121) 96 Nasal Cannula 5.00 06/14/23 07:44 36.5 06/14/23 07:04 91 06/14/23 07:00 96 126/85 (99) 96 Nasal Cannula 5.00 06/14/23 06:14 High Flow N/C 4.00 90 06/14/23 06:00 93 138/72 (94) 98 Nasal Cannula 5.00 06/14/23 05:00 95 20 122/89 (100) 94 Nasal Cannula 5.00 06/14/23 04:00 89 28 114/79 (91) 97 Nasal Cannula 5.00 06/14/23 03:45 Nasal Cannula 5.00 06/14/23 03:31 NIV Bilevel 30 06/14/23 03:13 94 16 96 30.00 06/14/23 03:00 89 23 134/69 (90) 94 NIV CPAP 30.00 06/14/23 02:30 High Flow N/C 4.00 06/14/23 02:28 NIV CPAP 30.00 06/14/23 02:00 96 21 97/62 (74) 95 Nasal Cannula 5.00 06/14/23 01:00 99 06/14/23 01:00 100 21 148/74 (98) 95 Nasal Cannula 5.00 06/14/23 00:00 97 27 133/71 (91) 96 Nasal Cannula 5.00 06/13/23 23:35 37.4 06/13/23 23:19 NIV Bilevel 30 06/13/23 23:00 99 130/66 (87) 98 Nasal Cannula 5.00 06/13/23 22:00 99 137/105 (116) 95 Nasal Cannula 5.00 06/13/23 21:00 96 28 112/73 (86) 98 NIV Bilevel 30.00 06/13/23 20:14 50 18 95 30.00 06/13/23 20:00 NIV Bilevel 30 06/13/23 20:00 99 28 148/71 (96) 93 NIV Bilevel 30.00 06/13/23 19:32 37.4 101 119/104 (109) 94 Nasal Cannula 5.00 06/13/23 19:24 37.3 06/13/23 19:00 98 161/92 (115) NIV Bilevel 30.00 06/13/23 19:00 98 06/13/23 18:00 88 32 90/70 (77) 96 NIV Bilevel 30.00 06/13/23 17:00 89 35 118/93 (101) 95 NIV Bilevel 30.00 06/13/23 16:03 36.8 06/13/23 16:00 85 27 109/88 (95) 96 NIV Bilevel 30.00 06/13/23 15:42 Nasal Cannula 4.00 06/13/23 15:00 86 23 123/91 (102) 94 NIV Bilevel 30.00 06/13/23 14:29 High Flow N/C 4.00 06/13/23 14:00 79 24 131/70 (90) 95 NIV Bilevel 30.00 06/13/23 13:00 36.0 06/13/23 13:00 73 29 147/81 (103) 90 NIV Bilevel 30.00 06/13/23 12:40 Nasal Cannula 4.00 06/13/23 12:11 68 06/13/23 12:00 70 15 112/93 (99) 90 NIV Bilevel 30.00 06/13/23 12:00 36.0 06/13/23 11:00 59 26 115/78 (90) 95 NIV Bilevel 30.00 06/13/23 10:50 High Flow N/C 4.00 I & O 06/14/23 07:00 Intake Total 2800 ml Output Total 1925 ml Balance 875 ml Height & Weight Height: '" Weight: lbs. oz. kg; 51.02 BMI Method: General Appearance: No Apparent Distress, Anxious, Obese HEENT: PERRL/EOMI, Pharynx Normal, Other Neck: Non Tender, Supple Respiratory: No Respiratory Distress, Decreased Breath Sounds Cardiovascular: Regular Rate, Rhythm, No Murmur Capillary Refill: Less Than 3 Seconds Gastrointestinal: normal bowel sounds, soft, abnormal bowel sounds, distended, other Extremity: Normal Inspection, No Pedal Edema Neurologic/Psychiatric: Alert, Other (anxious, labile) Skin: Normal Color, Warm/Dry Results Lab Laboratory Tests 06/13/23 04:36 06/14/23 04:49 Assessment/Plan Assessment/Plan as above Critical Care: Critically Ill Patient Time spent with patient (mins): 15 CLAUDETTE TRAMMELL MD Jun 14, 2023 10:16
[2023-06-14] MEDS: NS IV 1000 ML 1,000 ML IV SCH (13:12)
--- NOTE | 2023-06-14 13:47 | Physical Therapy Progress Note ---
Therapy Progress Note Patient refused PT treatment. Reports she is too much pain, rates it at "8/10 all over" and reports she feels sick. Will attempt treatment again tomorrow. OTTO BARNETT PT Jun 14, 2023 13:47
--- NOTE | 2023-06-14 14:09 | Occupational Therapy Eval ---
OT Evaluation-General/PLF Medical Diagnosis Admission Date Jun 05, 2023 at 18:58 Medical Diagnosis: Acute Hypecapnic Respiratory Failure Onset Date: Jun 05, 2023 Therapy Diagnosis Therapy Diagnosis: weakness Precautions Precautions/Isolations: Standard Precautions Referral Referral Reason: Evaluation/Treatment Medical History Pertinent Medical History: Breast CA S/P Mastectomy, COPD, HTN Reviewed History: Yes Social History Home: Single Level Current Living Status: Alone ADL-Prior Level of Function SCALE: Activities may be completed with or without assistive devices. 3-Ilspdavhpp-msnkwzr completes the activity by him/herself with no assistance from a helper. 5-Set-up or Clean-up Assistance-helper sets up or cleans up; patient completes activity. [place] assists only prior to or following the activity. 4-Supervision or Touching Assistance-helper provides verbal cues and/or touching/steadying and/or contact guard assistance as patient completes activity. Assistance may be provided throughout the activity or intermittently. 3-Partial/Moderate Assistance-helper does LESS THAN HALF the effort. [place] lifts, holds or supports trunk or limbs, but provides less than half the effort. 2-Substantial/Maximal Assistance-helper does MORE THAN HALF the effort. [place] lifts or holds trunk or limbs and provides more than half the effort. 8-Xsanjnudm-uwtvph does ALL the effort. Patient does none of the effort to complete the activity. Or, the assistance of 2 or more helpers is required for the patient to complete the activity. If activity was not attempted, code reason: 7-Patient Refused. 9-Not Applicable-not attempted and the patient did not perform the activity before the current illness, exacerbation or injury. 10-Not Attempted due to Environmental Limitations-(lack of equipment, weather restraints, etc.). 88-Not Attempted due to Medical Conditions or Safety Concerns. Self Care: Independent Functional Cognition: Independent OT Current Status Subjective Patient refuses mobility out of bed, request being rolled over and wants to sleep, asks for a drink of coffee, Agrees to OT evaluation of BUEs Mental Status/Objective Patient Orientation: Person, Place Attachments: Kurtz Catheter, IV, Telemetry Current Upper Extremity ROM Elbow and distally BUE WFLS, limited ROM of shoulder, excessive soft tissue reduces joint approximation, Patient unable to reach BUE to food tray, OT assisted for coffee Upper Extremity Coordination impaired Upper Extremity Sensation Patient reports when she touches her face she can's feel her face on her hands. Patient is accurate w/ reports of propioception touching of UES and hands perfor med by therapist Upper Extremity Strength -2/5 BUE grossly Edema: positive FULL PROM PERFORMED TO BUEs ADL-Treatment Eating (QC): 2 (1:[address], on arrival food tray on right side of patient w/ lids covering food) Oral Hygiene (QC): 2 Shower/Bathe Self (QC): 88 Upper Body Dressing (QC): 1 Lower Body Dressing (QC): 1 On/Off Footwear (QC): 1 Toileting Hygiene (QC): 1 OT positioned patient on left side w/ pillows for offloading and comfort Education OT Patient Education: Correct positioning, Exercise program, Modified ADL techniques, Progress toward Goal/Update tx plan, Purpose of tx/functional activities, Reviewed precautions, Rehab process, Safety issues, Transfer techniques, Use of adapted equipment Teaching Recipient: Patient Teaching Methods: Demonstration, Discussion Response to Teaching: Verbalize Understanding, Reinforcement Needed OT Intermediate Goals Physiotherapy Practice Manager Goals Eating (QC): 5 Oral Hygiene (QC): 5 Toileting Hygiene (QC): 5 Shower/Bathe Self (QC): 4 Upper Body Dressing (QC): 5 Lower Body Dressing (QC): 4 On/Off Footwear (QC): 4 1=Demonstrate adherence to instructed precautions during ADL tasks. 2=Patient will verbalize/demonstrate understanding of assistive devices/modifications for ADL. 3=Patient will improve strength/tolerance for activity to enable patient to perform ADL's. OT Education/Plan Problem List/Assessment Assessment: Decreased Activ Tolerance, Decreased UE Strength, Dependent Transfers, Impaired Bed Mobility, Impaired Cognition, Impaired Coordination, Impaired Funct Balance, Impaired Self-Care Skills, Restricted Funct UE ROM Discharge Recommendations Plan/Recommendations: Continue POC Therapy Discharge Recommendati: Post Acute OT Treatment Plan/Plan of Care Treatment,Training & Education: Yes Patient would benefit from OT for education, treatment and training to promote independence in ADL's, mobility, safety and/or upper extremity function for ADL's. Plan of Care: ADL Retraining, Concurrent Therapy, Functional Mobility, Group Exercise/Act as Ind, UE Funct Exercise/Act, UE Neuromus Re-Ed/Coord Treatment Duration: Jun 19, 2023 Frequency: 3 times per week (3-5 times per week) Rehab Potential: Guarded Time Start Time: 13:30 Stop Time: 13:46 DATE: Jun 14, 2023 Total Time Billed (hr/min): 16 Billed Treatment Time ROBERTO DUKE OT Jun 14, 2023 14:09
--- NOTE | 2023-06-14 15:48 | Progress Note - Hospitalist ---
Subjective HPI/CC On Admission Date Seen by Provider: Jun 14, 2023 Time Seen by Provider: 09:50 Patient is a 63-year-old female with a past medical history of [id number] diabetes, COPD, hypertension, alcohol abuse who presented to the emergency department due to altered mental status. She is currently intubated and sedated and unable to provide any history. All history is obtained from the records. Apparently she has been trying to quit drinking alcohol and so had been using Xanax to manage her symptoms but had taken more than was prescribed. She started to develop slurred speech and was quite drowsy so her friend summoned EMS. In the emergency department she was unable to protect her airway and had hypercapnia on ABG and was electively intubated. CT head was done to rule out intracranial process which showed no intracranial hemorrhage only mild atrophy and chronic microvascular changes. This morning they tried sedation vacation per eICU and while she was able to follow some commands she did not wake up satisfactorily so remains on the vent. Subjective/Events-last exam She is laying in bed. She denies pain. She wore CPAP overnight. She has no complaints. Objective Exam Vital Signs Vital Signs Date Time Temp Pulse Resp B/P (MAP) Pulse Ox O2 Delivery O2 Flow Rate FiO2 06/14/23 14:53 High Flow N/C 5.00 92 06/14/23 14:00 86 33 121/103 (109) 98 06/14/23 11:45 36.6 Capillary Refill : Less Than 3 Seconds General Appearance: No Apparent Distress, Obese Respiratory: No Respiratory Distress, Decreased Breath Sounds Cardiovascular: Regular Rate, Rhythm, No Murmur Gastrointestinal: Normal Bowel Sounds, Soft Extremity: Normal Inspection, Pedal Edema Neurologic/Psychiatric: Alert, Motor Weakness Results/Procedures Lab Laboratory Tests 06/14/23 04:49 Patient resulted labs reviewed. Imaging: Reviewed Imaging Report Assessment/Plan Assessment and Plan Assess & Plan/Chief Complaint Acute on chronic respiratory failure with hypoxia and hypercapnia Pneumonia Accidental overdose Alcohol withdrawal s/p extubation Continue CPAP at night Off Precedex MAT protocol Sputum cultures with Staph aureus and E coli Vanc and Rocephin for pneumonia Cardiology following Transfer to medical floor Debility PT/OT SW consult for SNF placement HTN BP well controlled, trend T2DM Blood sugars within normal limits, monitor DVT ppx: Lovenox Diagnosis/Problems Diagnosis/Problems (1) Acute on chronic respiratory failure with hypoxia and hypercapnia Status: Acute (2) PNA (pneumonia) Status: Acute (3) Benzodiazepine overdose Status: Acute Qualifiers: Encounter type: initial encounter Injury intent: undetermined intent Qualified Codes: T42.4X4A - Poisoning by benzodiazepines, undetermined, initial encounter (4) Alcohol withdrawal Status: Acute (5) HTN (hypertension) Status: Chronic (6) T2DM (type 2 diabetes mellitus) Status: Chronic (7) Morbid obesity Status: Chronic MARIA EUGENIA PIZARRO MD Jun 14, 2023 15:48
[2023-06-14 18:29] VITALS: BP 119/79
[2023-06-14 19:28] VITALS: BP 136/71
[2023-06-14] MEDS: ALPRAZolam 0.5 MG TABLET PO PRN (20:47)
[2023-06-14 23:48] VITALS: BP 130/53
[2023-06-15] MEDS: NS IV 1000 ML 1,000 ML IV SCH ×2 (01:57→12:29)
[2023-06-15] MEDS: RT-Ipratropium/Albuterol NEB 3 ML VIAL INH SCH ×6 (02:48→22:57)
[2023-06-15 03:22] VITALS: BP 125/67
[2023-06-15] MEDS: THERAPEUTIC MULTIVITAMIN W/MINERALS TABLET PO SCH (05:41)
[2023-06-15 05:55] LABS: BASOPHILS # (AUTO) 0.1 10^3/uL (0.0-0.1); BASOPHILS % (AUTO) 1 % (0-10); EOSINOPHILS # (AUTO) 0.1 10^3/uL (0.0-0.3); EOSINOPHILS % (AUTO) 2 % (0-10); HEMATOCRIT 35 % (35-52); HEMOGLOBIN 11.1 g/dL (11.5-16.0); LYMPHOCYTES # (AUTO) 1.2 10^3/uL (1.0-4.0); LYMPHOCYTES % (AUTO) 16 % (12-44); MEAN CORPUSCULAR HEMOGLOBIN 35 pg (25-34); MEAN CORPUSCULAR HGB CONC 32 g/dL (32-36); MEAN CORPUSCULAR VOLUME 109 fL (80-99); MONOCYTES # (AUTO) 0.6 10^3/uL (0.0-1.0); MONOCYTES % (AUTO) 9 % (0-12); NEUTROPHILS # (AUTO) 5.3 10^3/uL (1.8-7.8); NEUTROPHILS % (AUTO) 71 % (42-75); PLATELET COUNT 248 10^3/uL (130-400); WHITE BLOOD COUNT 7.4 10^3/uL (4.3-11.0)
[2023-06-15 06:01] LABS: POTASSIUM 3.6 MMOL/L (3.6-5.0)
[2023-06-15 06:02] LABS: CALCIUM 8.8 MG/DL (8.5-10.1)
[2023-06-15 06:06] LABS: CREATININE SERUM 0.56 MG/DL (0.60-1.30); PHOSPHORUS 2.7 MG/DL (2.3-4.7)
[2023-06-15 06:09] LABS: MAGNESIUM 1.9 MG/DL (1.6-2.4)
[2023-06-15 07:27] VITALS: BP 149/66
[2023-06-15] MEDS: FOLIC ACID 1 MG TAB PO SCH (08:09)
[2023-06-15] MEDS: PANTOPRAZOLE INJECTION 40 MG VIAL IV SCH (08:10)
[2023-06-15] MEDS: MICONAZOLE 2% POWDER 90 GM TOP SCH ×2 (08:10→20:29)
[2023-06-15] MEDS: ENOXAPARIN 60 MG/0.6 ML SYRINGE SQ SCH ×2 (08:10→20:29)
--- NOTE | 2023-06-15 08:59 | Speech Therapy Progress Note ---
Therapy Progress Note Speech pathology attempted skilled dysphagia intervention at 0845 on this date. At this time, the patient politely refused skilled dysphagia therapy. The clinician provided rationale for the treatment, stating the clinician would like to re-assess the patient for the appropriateness of a diet consistency upgrade. Regardless of rationale and persistent verbal encouragement, the patient continued to decline. ST reviewed and discussed safe swallowing strategies with the patient and placed diet consistency recommendations on the in-room white board. ST will reattempt skilled dysphagia therapy on the subsequent treatment date. 0845 to 0851, No Charge, Visit x 1 LISA WANG Jun 15, 2023 08:59
--- NOTE | 2023-06-15 09:31 | Progress Note - Cardiology ---
Cardiology SOAP Progress Note Subjective: PT assisting to sit on the side of the bed Frequent cough C/O fatigue Objective: I&O/Vital Signs 06/18/23 06/18/23 06/18/23 06/19/23 20:40 21:18 23:20 01:00 Temp 36.4 Pulse 85 84 Resp 18 B/P (MAP) 117/71 (86) Pulse Ox 93 O2 Delivery High Flow N/C High Flow N/C High Flow N/C O2 Flow Rate 4.00 4.00 4.00 4.00 06/19/23 06/19/23 06/19/23 06/19/23 03:57 07:36 07:49 08:00 Temp 36.4 36.4 Pulse 74 80 70 Resp 18 18 B/P (MAP) 133/77 (95) 141/69 (93) Pulse Ox 96 95 O2 Delivery High Flow N/C High Flow N/C High Flow N/C O2 Flow Rate 4.00 4.00 4.00 4.00 06/19/23 00:00 Intake Total 240 ml Output Total 550 ml Balance -310 ml Constitutional: other (answers questions but responses appear confused) Respiratory: chest expansion is symmetric, chest is bilaterally symmetric, rhonchi (scattered), other (coarse breath sounds; freq lose cough) Cardiovascular: regular rate-rhythm, S1 and S2 Gastrointestional: soft, audible bowel sounds Extremities: other (mild bilat LE swelling) Neurologic/Psychiatric: No oriented x 3; other (appears confused, moves all limbs) Skin: No rash on exposed areas, No ulcerations on exposed areas Results/Procedures: Labs Laboratory Tests 06/19/23 04:26: White Blood Count 5.5, Red Blood Count 3.23L, Hemoglobin 11.1L, Hematocrit 36, Mean Corpuscular Volume 110H, Mean Corpuscular Hemoglobin 34, Mean Corpuscular Hemoglobin Concent 31L, Red Cell Distribution Width 14.3, Platelet Count 241, Mean Platelet Volume 11.0, Immature Granulocyte % (Auto) 1, Neutrophils (%) (Auto) 67, Lymphocytes (%) (Auto) 22, Monocytes (%) (Auto) 7, Eosinophils (%) (Auto) 3, Basophils (%) (Auto) 1, Neutrophils # (Auto) 3.7, Lymphocytes # (Auto) 1.2, Monocytes # (Auto) 0.4, Eosinophils # (Auto) 0.2, Basophils # (Auto) 0.0, Immature Granulocyte # (Auto) 0.1, Sodium Level 146H, Potassium Level 3.4L, Chloride Level 104, Carbon Dioxide Level 32, Anion Gap 10, Blood Urea Nitrogen 11, Creatinine 0.56L, Estimat Glomerular Filtration Rate 102, BUN/Creatinine Ratio 20, Glucose Level 102, Calcium Level 8.9, Corrected Calcium 9.5, Phosphorus Level 2.0L, Magnesium Level 1.8, Total Bilirubin 0.6, Aspartate Amino Transf (AST/SGOT) 21, Alanine Aminotransferase (ALT/SGPT) 22, Alkaline Phosphatase 50, Total Protein 6.4, Albumin 3.2 Microbiology 06/17/23 MRSA Screen - Final, Complete MRSA not isolated 06/05/23 Blood Culture - Final, Complete A/P: Assessment: Ac respiratory failure due to drug overdose - requiring intubation, now extubated - Echo on 06/06/23: LVEF 55-60%, PASP 35-40 mmHg Troponin elevation - Likely Type 2 PA secondary to hypoxia H/O ETOH abuse Obesity Plan: Management of ETOH WD per medical services Monitor lab Replace electrolytes as indicated Cardiac status clinically stable SHARMILA RUIZ VEHICLE INSPECTOR Jun 15, 2023 09:31
--- NOTE | 2023-06-15 10:29 | Physical Therapy Evaluation ---
PT Evaluation-General Medical Diagnosis Admission Date Jun 05, 2023 at 18:58 Medical Diagnosis: Acute Hypecapnic Respiratory Failure Onset Date: Jun 05, 2023 Therapy Diagnosis Therapy Diagnosis: generalized weakness/impaired mobility Precautions Precautions/Isolations: Fall Prevention, Standard Precautions Referral Physician: Elaine Reason for Referral: Evaluation/Treatment Medical History Pertinent Medical History: Breast CA S/P Mastectomy, COPD, HTN Current History EMS secondary to unresponsive due to OD Reviewed History: Yes Social History Home: Single Level Current Living Status: Alone Prior Prior Level of Function SCALE: Activities may be completed with or without assistive devices. 1-Civkowvgoc-lyzshqb completes the activity by him/herself with no assistance from a helper. 5-Set-up or Clean-up Assistance-helper sets up or cleans up; patient completes activity. [place] assists only prior to or following the activity. 4-Supervision or Touching Assistance-helper provides verbal cues and/or touchi ng/steadying and/or contact guard assistance as patient completes activity. Assistance may be provided throughout the activity or intermittently. 3-Partial/Moderate Assistance-helper does LESS THAN HALF the effort. [place] lifts, holds or supports trunk or limbs, but provides less than half the effort. 2-Substantial/Maximal Assistance-helper does MORE THAN HALF the effort. [place] lifts or holds trunk or limbs and provides more than half the effort. 4-Znfkaxvxj-idwjhf does ALL the effort. Patient does none of the effort to complete the activity. Or, the assistance of 2 or more helpers is required for the patient to complete the activity. If activity was not attempted, code reason: 7-Patient Refused. 9-Not Applicable-not attempted and the patient did not perform the activity before the current illness, exacerbation or injury. 10-Not Attempted due to Environmental Limitations-(lack of equipment, weather restraints, etc.). 88-Not Attempted due to Medical Conditions or Safety Concerns. Bed Mobility: 6 Transfers (B,C,W/C): 6 Gait: 6 Indoor Mobility (Ambulation): Independent PT Evaluation-Current Subjective Patient very confused. Objective Patient Orientation: Confused ROM/Strength ROM Lower Extremities bilateral LE limited due to edema Strength Lower Extremities 2/5 grossly bilateral LE all planes/clinical judgment Integumentary/Posture Bowel Incontinence: Yes Bladder Incontinence: Kurtz Cath Posture WFL Neuromuscular (Tone, Coordination, Reflexes) severely diminished coordination due to weakness/inactivity Sensory Vision: Functional Hearing: Functional Transfers Roll Left to Right (QC): 1 (x 2) Sit to Lying (QC): 1 (x 2) Lying to Sitting/Side of Bed(Q: 1 (x 2) Sit to Stand (QC): 88 Gait Does the Patient Walk?: No and Walking Goal IS indicated Balance Sitting Static: Poor Sitting Dynamic: Poor Assessment/Needs Patient currently dependent of 2 with bed mobility and sitting and maintaining EOB. Patient resistive with all mobility and very confused. Patient will benefit from skilled PT to address functional strength and mobility to improve current LOF. Rehab Potential: Guarded PT Short Term Goals Short Term Goals Time Frame: Jul 01, 2023 Roll Left & Right: 3 Sit to lyin Lying to sitting on side of be: 3 Sit to stand: 3 Chair/wgw-tk-fsptn transfer: 3 Toilet transfer: 3 PT Mcfp Goals Mcfp Goals PT Circuit Tester Goals Time Frame: Jul 15, 2023 Roll Left & Right (QC): 4 Sit to Lying (QC): 4 Lying-Sitting on Side/Bed(QC): 4 Sit to Stand (QC): 4 Chair/Jse-fy-Sdidd Xfer(QC): 4 Toilet Transfer (QC): 4 Walk 10 feet (QC): 3 Walk 50ft with 2 Turns (QC): 3 PT Plan Problem List Problem List: Activity Tolerance, Functional Strength, Safety, Balance, Gait, Transfer, Bed Mobility Treatment/Plan Treatment Plan: Continue Plan of Care Treatment Plan: Bed Mobility, Education, Functional Activity Wanda, Functional Strength, Gait, Safety, Therapeutic Exercise, Transfers Treatment Duration: Jul 15, 2023 Frequency: 5 times per week Estimated Hrs Per Day: .25 hour per day Patient and/or Family Agrees t: Yes Time Time In: 912 Time Out: 929 DATE: Jun 15, 2023 Total Billed Treatment Time: 17 Total Billed Treatment 1 visit EVMod 17 min HEIDI DAY PT Jun 15, 2023 10:29
--- NOTE | 2023-06-15 10:48 | Occupational Ther Daily Note ---
OT Current Status-Daily Note Subjective Patient is under the impression she got to the hospital yesterday and hasn't slept in days, reports she has been drinking and may have taken a Percocet, denies any other substances and states that she thinks this therapist has been drinking since 5. Required Max encouragement to grasp utensil and scoop food frm plate. Mod assist w/ intermittent max assist for patient to sit EOB Mental Status/Objective Patient Orientation: Person, Place Attachments: IV, Telemetry ADL-Treatment Holds utensil when placed in hand, drops utensil twice, leans left and LOB in sitting EOB, makes attempt to hold cup, spills on lap, atient is a 1:1 feeder, tray moved away from patient, Patient declines PO intake Therapy Code Descriptions/Definitions Functional [place] Measure: 0=Not Assessed/NA 4=Minimal Assistance 1=Total Assistance 5=Supervision or Setup 2=Maximal Assistance 6=Modified [place] 3=Moderate Assistance 7=Complete IndependenceSCALE: Activities may be completed with or without assistive devices. 2-Ljdjghpkgj-uuyfady completes the activity by him/herself with no assistance from a helper. 5-Set-up or Clean-up Assistance-helper sets up or cleans up; patient completes activity. [place] assists only prior to or following the activity. 4-Supervision or Touching Assistance-helper provides verbal cues and/or touching/steadying and/or contact guard assistance as patient completes activity. Assistance may be provided throughout the activity or intermittently. 3-Partial/Moderate Assistance-helper does LESS THAN HALF the effort. [place] lifts, holds or supports trunk or limbs, but provides less than half the effort. 2-Substantial/Maximal Assistance-helper does MORE THAN HALF the effort. [place] lifts or holds trunk or limbs and provides more than half the effort. 7-Clkhzntae-tzliyr does ALL the effort. Patient does none of the effort to complete the activity. Or, the assistance of 2 or more helpers is required for the patient to complete the activity. If activity was not attempted, code reason: 7-Patient Refused. 9-Not Applicable-not attempted and the patient did not perform the activity before the current illness, exacerbation or injury. 10-Not Attempted due to Environmental Limitations-(lack of equipment, weather restraints, etc.). 88-Not Attempted due to Medical Conditions or Safety Concerns. Eating (QC): 2 Oral Hygiene (QC): 2 Upper Body Dressing (QC): 2 Lower Body Dressing (QC): 1 On/Off Footwear: 1 Toileting Hygiene (QC): 1 (wound on bottom, patient positioned to right side following theapy) Toilet Transfer (QC): 1 Patient is argumentative and reports hallucination in room Education OT Patient Education: Correct positioning, Exercise program, Modified ADL techniques, Progress toward Goal/Update tx plan, Purpose of tx/functional activities, Reviewed precautions, Rehab process, Safety issues, Transfer techniques Teaching Recipient: Patient Response to Teaching: Unable to Comprehend OT Sales And Service Change Leader Goals Sales And Service Change Leader Goals Eating (QC): 5 Oral Hygiene (QC): 5 Toileting Hygiene (QC): 5 Shower/Bathe Self (QC): 4 Upper Body Dressing (QC): 5 Lower Body Dressing (QC): 4 On/Off Footwear (QC): 4 1=Demonstrate adherence to instructed precautions during ADL tasks. 2=Patient will verbalize/demonstrate understanding of assistive devices/modifications for ADL. 3=Patient will improve strength/tolerance for activity to enable patient to perform ADL's. OT Education/Plan Problem List/Assessment Assessment: Decreased Activ Tolerance, Decreased Safety Aware, Decreased UE Str ength, Dependent Transfers, Impaired Bed Mobility, Impaired Cognition, Impaired Coordination, Impaired Funct Balance, Impaired Self-Care Skills, Restricted Funct UE ROM, Visual-Perceptual Deficit Discharge Recommendations Plan/Recommendations: Continue POC Therapy Discharge Recommendati: Post Acute OT Treatment Plan/Plan of Care Treatment,Training & Education: Yes Patient would benefit from OT for education, treatment and training to promote independence in ADL's, mobility, safety and/or upper extremity function for ADL's. Plan of Care: ADL Retraining, Concurrent Therapy, Functional Mobility, Group Exercise/Act as Ind, UE Funct Exercise/Act, UE Neuromus Re-Ed/Coord Treatment Duration: Jun 19, 2023 Frequency: 3 times per week (3-5 times per week) Rehab Potential: Guarded Time Start Time: 09:11 Stop Time: 09:32 DATE: Jun 15, 2023 Total Time Billed (hr/min): 21 Billed Treatment Time ADL 21 ROBERTO LACKEY OT Jun 15, 2023 10:48
[2023-06-15 12:07] VITALS: BP 153/81
--- NOTE | 2023-06-15 14:23 | Progress Note - Hospitalist ---
Subjective HPI/CC On Admission Date Seen by Provider: Jun 15, 2023 Time Seen by Provider: 12:00 Patient is a 63-year-old female with a past medical history of gzh-astbjxw-kumkkdkjo diabetes, COPD, hypertension, alcohol abuse who presented to the emergency department due to altered mental status. She is currently intubated and sedated and unable to provide any history. All history is obtained from the records. Apparently she has been trying to quit drinking alcohol and so had been using Xanax to manage her symptoms but had taken more than was prescribed. She started to develop slurred speech and was quite drowsy so her friend summoned EMS. In the emergency department she was unable to protect her airway and had hypercapnia on ABG and was electively intubated. CT head was done to rule out intracranial process which showed no intracranial hemorrhage only mild atrophy and chronic microvascular changes. This morning they tried sedation vacation per eICU and while she was able to follow some commands she did not wake up satisfactorily so remains on the vent. Subjective/Events-last exam She denies shortness of breath. She does report some belly pain. She has no other complaints. Objective Exam Vital Signs Vital Signs Date Time Temp Pulse Resp B/P (MAP) Pulse Ox O2 Delivery O2 Flow Rate FiO2 06/15/23 12:07 36.7 96 20 153/81 (105) 92 High Flow N/C 4.00 06/14/23 14:53 92 Capillary Refill : Less Than 3 Seconds General Appearance: No Apparent Distress, Obese Respiratory: Lungs Clear, No Respiratory Distress Cardiovascular: Regular Rate, Rhythm, No Murmur Gastrointestinal: Normal Bowel Sounds, Non Tender, Soft, Distended Extremity: Normal Inspection, Pedal Edema Neurologic/Psychiatric: Alert, Motor Weakness Results/Procedures Lab Laboratory Tests 06/15/23 05:45 Patient resulted labs reviewed. Imaging: Reviewed Imaging Report Assessment/Plan Assessment and Plan Assess & Plan/Chief Complaint Acute on chronic respiratory failure with hypoxia and hypercapnia Accidental overdose Alcohol withdrawal s/p extubation Continue CPAP at night MAT protocol Sputum cultures with Staph aureus and E coli s/p Vanc and Rocephin for pneumonia Cardiology following Debility PT/OT SW consult for SNF placement HTN BP well controlled, trend T2DM Blood sugars within normal limits, monitor DVT ppx: Lovenox Pneumonia, resolved Diagnosis/Problems Diagnosis/Problems (1) Acute on chronic respiratory failure with hypoxia and hypercapnia Status: Acute (2) PNA (pneumonia) Status: Resolved Resolution Date/Time: 06/15/23 @ 14:23 (3) Benzodiazepine overdose Status: Acute Qualifiers: Encounter type: initial encounter Injury intent: undetermined intent Qualified Codes: T42.4X4A - Poisoning by benzodiazepines, undetermined, initial encounter (4) Alcohol withdrawal Status: Acute (5) HTN (hypertension) Status: Chronic (6) T2DM (type 2 diabetes mellitus) Status: Chronic (7) Morbid obesity Status: Chronic MARIA EUGENIA PIZARRO MD Jun 15, 2023 14:23
[2023-06-15 15:21] VITALS: BP 145/82
--- NOTE | 2023-06-15 17:48 | Progress Note - Cardiology ---
Cardiology SOAP Progress Note Subjective: Denies shortness of breath No cp or palp or syncope No n/v/d No focal weakness Gen malaise Objective: I&O/Vital Signs 06/15/23 06/15/23 06/15/23 06/15/23 06:59 07:18 07:27 08:40 Temp 36.8 Pulse 91 90 Resp 20 B/P (MAP) 149/66 (93) Pulse Ox 95 95 O2 Delivery High Flow N/C High Flow N/C Nasal Cannula O2 Flow Rate 4.00 4.00 4.00 06/15/23 06/15/23 06/15/23 06/15/23 11:21 12:07 12:07 14:19 Temp 36.7 Pulse 91 96 Resp 20 B/P (MAP) 153/81 (105) Pulse Ox 92 92 95 O2 Delivery High Flow N/C High Flow N/C High Flow N/C O2 Flow Rate 4.00 4.00 4.00 06/15/23 15:21 Temp 37.0 Pulse 93 Resp 18 B/P (MAP) 145/82 (103) Pulse Ox 94 O2 Delivery High Flow N/C O2 Flow Rate 4.00 06/15/23 00:00 Intake Total 425 ml Output Total 1400 ml Balance -975 ml Constitutional: other (answers questions but responses appear confused) Respiratory: chest expansion is symmetric, chest is bilaterally symmetric, rhonchi (scattered), other (coarse breath sounds; freq lose cough) Cardiovascular: regular rate-rhythm, S1 and S2 Gastrointestional: soft, audible bowel sounds Extremities: other (mild bilat LE swelling) Neurologic/Psychiatric: No oriented x 3; other (appears confused, moves all limbs) Skin: No rash on exposed areas, No ulcerations on exposed areas Results/Procedures: Labs Laboratory Tests 06/14/23 18:41: Glucometer 88 06/15/23 00:04: Glucometer 99 06/15/23 05:18: Glucometer 96 06/15/23 05:45: White Blood Count 7.4, Red Blood Count 3.21L, Hemoglobin 11.1L, Hematocrit 35, Mean Corpuscular Volume 109H, Mean Corpuscular Hemoglobin 35H, Mean Corpuscular Hemoglobin Concent 32, Red Cell Distribution Width 14.2, Platelet Count 248, Mean Platelet Volume 10.0, Immature Granulocyte % (Auto) 2, Neutrophils (%) (Auto) 71, Lymphocytes (%) (Auto) 16, Monocytes (%) (Auto) 9, Eosinophils (%) (Auto) 2, Basophils (%) (Auto) 1, Neutrophils # (Auto) 5.3, Lymphocytes # (Auto) 1.2, Monocytes # (Auto) 0.6, Eosinophils # (Auto) 0.1, Basophils # (Auto) 0.1, Immature Granulocyte # (Auto) 0.1, Sodium Level 142, Potassium Level 3.6, Chloride Level 110H, Carbon Dioxide Level 19L, Anion Gap 13, Blood Urea Nitrogen 9, Creatinine 0.56L, Estimat Glomerular Filtration Rate 102, BUN/Creatinine Ratio 16, Glucose Level 95, Calcium Level 8.8, Phosphorus Level 2.7, Magnesium Level 1.9 06/15/23 12:04: Glucometer 95 06/15/23 15:15: Glucometer 97 Microbiology 06/08/23 Gram Stain - Final, Complete 06/08/23 Sputum Culture - Final, Complete Escherichia coli Staphylococcus aureus 06/05/23 Blood Culture - Final, Complete A/P: Assessment: Ac respiratory failure due to drug overdose - requiring intubation, now extubated - Echo on 06/06/23: LVEF 55-60%, PASP 35-40 mmHg Troponin elevation - Likely Type 2 [place] secondary to hypoxia H/O ETOH abuse Obesity Plan: Management of ETOH WD per medical services Monitor lab Replace electrolytes as indicated Cardiac status clinically stable. We are signing off. Cardiology services not available at this hosp until Jun 19. Hospitalist service notified ADRIANNA FERNANDEZ MD FACP [facility] Jun 15, 2023 17:48
[2023-06-15 19:33] VITALS: BP 150/92
[2023-06-15] MEDS: ALPRAZolam 0.5 MG TABLET PO PRN (20:28)
[2023-06-15 23:04] VITALS: BP 160/76
[2023-06-16] MEDS: RT-Ipratropium/Albuterol NEB 3 ML VIAL INH SCH ×6 (02:20→21:47)
[2023-06-16 04:16] VITALS: BP 158/67
[2023-06-16] MEDS: NS IV 1000 ML 1,000 ML IV SCH (04:18)
[2023-06-16] MEDS: THERAPEUTIC MULTIVITAMIN W/MINERALS TABLET PO SCH (06:39)
[2023-06-16 07:15] VITALS: BP 164/77
[2023-06-16] MEDS: FOLIC ACID 1 MG TAB PO SCH (09:10)
[2023-06-16] MEDS: ENOXAPARIN 60 MG/0.6 ML SYRINGE SQ SCH ×2 (09:10→20:18)
[2023-06-16] MEDS: PANTOPRAZOLE INJECTION 40 MG VIAL IV SCH (09:11)
[2023-06-16] MEDS: MICONAZOLE 2% POWDER 90 GM TOP SCH ×2 (09:11→20:18)
--- NOTE | 2023-06-16 09:44 | Speech Therapy Progress Note ---
Therapy Progress Note Speech pathology attempted skilled dysphagia treatment at 0938. At this time, the patient continues to refuse P.O. intake stating, "No, no, no." The clinician provided verbal encouragement and re-positioning for comfort. Regardless of encouragement, the patient continued to refuse. ST to re-attempt on subsequent treatment date as the patient is willing to participate and appropriate. LISA WANG Jun 16, 2023 09:44
[2023-06-16 11:42] VITALS: BP 155/72
--- NOTE | 2023-06-16 13:24 | Physical Therapy Daily Note ---
PT Daily Note-Current Subjective Patient is very confused and hallucinating. RN is aware. Pain Section J - Health Conditions 1. Rarely or not at all 2. Occasionally 3. Frequently 4. Almost constantly 8. Unable to answer Pain Effect on Sleep: 8 Pain Interference with Therapy: 8 Pain Interference w/Day-to-Day: 8 Mental Status Patient Orientation: Confused Attachments: IV Transfers SCALE: Activities may be completed with or without assistive devices. 3-Griaquplow-qygxljq completes the activity by him/herself with no assistance from a helper. 5-Set-up or Clean-up Assistance-helper sets up or cleans up; patient completes activity. [place] assists only prior to or following the activity. 4-Supervision or Touching Assistance-helper provides verbal cues and/or touching/steadying and/or contact guard assistance as patient completes activity. Assistance may be provided throughout the activity or intermittently. 3-Partial/Moderate Assistance-helper does LESS THAN HALF the effort. [place] lifts, holds or supports trunk or limbs, but provides less than half the effort. 2-Substantial/Maximal Assistance-helper does MORE THAN HALF the effort. [place] lifts or holds trunk or limbs and provides more than half the effort. 3-Fipqfdudt-ijurra does ALL the effort. Patient does none of the effort to complete the activity. Or, the assistance of 2 or more helpers is required for the patient to complete the activity. If activity was not attempted, code reason: 7-Patient Refused. 9-Not Applicable-not attempted and the patient did not perform the activity before the current illness, exacerbation or injury. 10-Not Attempted due to Environmental Limitations-(lack of equipment, weather restraints, etc.). 88-Not Attempted due to Medical Conditions or Safety Concerns. Roll Left & Right (QC): 1 (x 2) Sit to Lying (QC): 1 (x 2) Lying to Sitting/Side of Bed(Q: 1 (x 2) Exercises Seated Therapy Exercises: Long arc quads Seated Reps: 12 (PROM) Assessment Patient sat EOB for 10 min with mod assist to maintain. Patient very confused. Tolerates minimal activity. PT Short Term Goals Short Term Goals Time Frame: Jul 01, 2023 Roll Left & Right: 3 Sit to lyin Lying to sitting on side of be: 3 Sit to stand: 3 Chair/szw-nx-cefmy transfer: 3 Toilet transfer: 3 PT Usp Goals Renewals Representative Goals PT Renewals Representative Goals Time Frame: Jul 15, 2023 Roll Left & Right (QC): 4 Sit to Lying (QC): 4 Lying-Sitting on Side/Bed(QC): 4 Sit to Stand (QC): 4 Chair/Awr-tc-Mnpcg Xfer(QC): 4 Toilet Transfer (QC): 4 Walk 10 feet (QC): 3 Walk 50ft with 2 Turns (QC): 3 PT Plan Treatment/Plan Treatment Plan: Continue Plan of Care Treatment Plan: Bed Mobility, Education, Functional Activity Wanda, Functional Strength, Gait, Safety, Therapeutic Exercise, Transfers Treatment Duration: Jul 15, 2023 Frequency: 5 times per week Estimated Hrs Per Day: .25 hour per day Patient and/or Family Agrees t: Yes Time Time In: 1255 Time Out: 1310 DATE: Jun 16, 2023 Total Billed Treatment Time: 15 Total Billed Treatment 1 visit FA 15 min HEIDI DAY PT Jun 16, 2023 13:24
--- NOTE | 2023-06-16 13:58 | Occupational Ther Daily Note ---
OT Current Status-Daily Note Subjective HALLUCINATING , REPORTS MILAGRO IS IN THE ROOM AND ASKED WHOSE BAG IS IN THE CORNER, REFUSES FOOD Pain Location Body Site: Back Pain Description: Chronic Mental Status/Objective Patient Orientation: Person ADL-Treatment Therapy Code Descriptions/Definitions Functional [place] Measure: 0=Not Assessed/NA 4=Minimal Assistance 1=Total Assistance 5=Supervision or Setup 2=Maximal Assistance 6=Modified [place] 3=Moderate Assistance 7=Complete IndependenceSCALE: Activities may be completed with or without assistive devices. 1-Ncvrkwwidh-mikghnm completes the activity by him/herself with no assistance from a helper. 5-Set-up or Clean-up Assistance-helper sets up or cleans up; patient completes activity. Carlos assists only prior to or following the activity. 4-Supervision or Touching Assistance-helper provides verbal cues and/or touching/steadying and/or contact guard assistance as patient completes activity. Assistance may be provided throughout the activity or intermittently. 3-Partial/Moderate Assistance-helper does LESS THAN HALF the effort. Carlos lifts, holds or supports trunk or limbs, but provides less than half the effort. 2-Substantial/Maximal Assistance-helper does MORE THAN HALF the effort. Carlos l ifts or holds trunk or limbs and provides more than half the effort. 7-Glsaobruk-lvwkjk does ALL the effort. Patient does none of the effort to complete the activity. Or, the assistance of 2 or more helpers is required for the patient to complete the activity. If activity was not attempted, code reason: 7-Patient Refused. 9-Not Applicable-not attempted and the patient did not perform the activity before the current illness, exacerbation or injury. 10-Not Attempted due to Environmental Limitations-(lack of equipment, weather restraints, etc.). 88-Not Attempted due to Medical Conditions or Safety Concerns. Other Treatment EOB SITTING, POOR BALANCE, INTERVENTION WITH FUNCTIONAL REACH, LOB LEFT SIDE AND REQUIRED MOD-MAX ASSIST TO REGAIN cog EACH TIME. DEPENDENT BED MOBILITY TRANSFERS Education OT Patient Education: Correct positioning, Exercise program, Modified ADL techniques, Progress toward Goal/Update tx plan, Purpose of tx/functional activities, Reviewed precautions, Rehab process, Safety issues, Transfer techniques, Use of adapted equipment Teaching Recipient: Patient Teaching Methods: Demonstration, Discussion Response to Teaching: Reinforcement Needed OT Music Assistant Goals Music Assistant Goals Eating (QC): 5 Oral Hygiene (QC): 5 Toileting Hygiene (QC): 5 Shower/Bathe Self (QC): 4 Upper Body Dressing (QC): 5 Lower Body Dressing (QC): 4 On/Off Footwear (QC): 4 1=Demonstrate adherence to instructed precautions during ADL tasks. 2=Patient will verbalize/demonstrate understanding of assistive devices/modifications for ADL. 3=Patient will improve strength/tolerance for activity to enable patient to perform ADL's. OT Education/Plan Problem List/Assessment Assessment: Decreased Activ Tolerance, Decreased Safety Aware, Decreased UE Strength, Dependent Transfers, Impaired Bed Mobility, Impaired Cognition, Impaired Coordination, Impaired Funct Balance, Impaired Self-Care Skills, Restricted Funct UE ROM Discharge Recommendations Plan/Recommendations: Continue POC Treatment Plan/Plan of Care Treatment,Training & Education: Yes Patient would benefit from OT for education, treatment and training to promote independence in ADL's, mobility, safety and/or upper extremity function for ADL's. Plan of Care: ADL Retraining, Concurrent Therapy, Functional Mobility, Group Exercise/Act as Ind, UE Funct Exercise/Act, UE Neuromus Re-Ed/Coord Treatment Duration: Jun 19, 2023 Frequency: 3 times per week (3-5 times per week) Rehab Potential: Guarded Time Start Time: 12:50 Stop Time: 13:09 DATE: Jun 16, 2023 Total Time Billed (hr/min): 19 Billed Treatment Time 19 FA ROBERTO LACKEY OT Jun 16, 2023 13:58
[2023-06-16 15:34] VITALS: BP 129/85
--- NOTE | 2023-06-16 16:55 | Progress Note - Hospitalist ---
Subjective HPI/CC On Admission Date Seen by Provider: Jun 16, 2023 Time Seen by Provider: 10:30 Patient is a 63-year-old female with a past medical history of mvz-btydubf-srwdmdpyy diabetes, COPD, hypertension, alcohol abuse who presented to the emergency department due to altered mental status. She is currently intubated and sedated and unable to provide any history. All history is obtained from the records. Apparently she has been trying to quit drinking alcohol and so had been using Xanax to manage her symptoms but had taken more than was prescribed. She started to develop slurred speech and was quite drowsy so her friend summoned EMS. In the emergency department she was unable to protect her airway and had hypercapnia on ABG and was electively intubated. CT head was done to rule out intracranial process which showed no intracranial hemorrhage only mild atrophy and chronic microvascular changes. This morning they tried sedation vacation per eICU and while she was able to follow some commands she did not wake up satisfactorily so remains on the vent. Subjective/Events-last exam She is laying in bed. She is having some knee pain. She has no other complaints. The plan was discussed with her family at bedside and via phone. Objective Exam Vital Signs Vital Signs Date Time Temp Pulse Resp B/P (MAP) Pulse Ox O2 Delivery O2 Flow Rate FiO2 06/16/23 15:34 36.7 81 18 129/85 (100) 96 High Flow N/C 4.00 06/14/23 14:53 92 Capillary Refill : Less Than 3 Seconds General Appearance: No Apparent Distress, Obese Respiratory: No Respiratory Distress, Decreased Breath Sounds Cardiovascular: Regular Rate, Rhythm, No Murmur Gastrointestinal: Normal Bowel Sounds, Soft, Distended Extremity: Normal Inspection, Pedal Edema Neurologic/Psychiatric: Alert, Normal Mood/Affect, Motor Weakness Results/Procedures Lab Patient resulted labs reviewed. Imaging: Reviewed Imaging Report Assessment/Plan Assessment and Plan Assess & Plan/Chief Complaint Acute on chronic respiratory failure with hypoxia and hypercapnia Accidental overdose Alcohol withdrawal s/p extubation Continue CPAP at night MAT protocol Sputum cultures with Staph aureus and E coli s/p Vanc and Rocephin for pneumonia Cardiology following Debility PT/OT SW following for SNF placement Referral sent to [facility] HTN BP well controlled, trend T2DM Blood sugars within normal limits, monitor DVT ppx: Lovenox Pneumonia, resolved Diagnosis/Problems Diagnosis/Problems (1) Acute on chronic respiratory failure with hypoxia and hypercapnia Status: Acute (2) PNA (pneumonia) Status: Resolved Resolution Date/Time: 06/15/23 @ 14:23 (3) Benzodiazepine overdose Status: Acute Qualifiers: Encounter type: initial encounter Injury intent: undetermined intent Qualified Codes: T42.4X4A - Poisoning by benzodiazepines, undetermined, initial encounter (4) Alcohol withdrawal Status: Acute (5) HTN (hypertension) Status: Chronic (6) T2DM (type 2 diabetes mellitus) Status: Chronic (7) Morbid obesity Status: Chronic MARIA EUGENIA PIZARRO MD Jun 16, 2023 16:55
[2023-06-16] MEDS ORDERED: CALCIUM CARBONATE 500 MG CHEW TABLET PO PRN (17:00)
[2023-06-16] MEDS ORDERED: DICLOFENAC 1% GEL 50 GM TUBE TOP PRN (17:00)
[2023-06-16] MEDS ORDERED: ONDANSETRON INJECTION 4 MG/2 ML (SDV) IV PRN (17:00)
[2023-06-16] MEDS ORDERED: BISACODYL 10 MG SUPPOSITORY PR PRN (17:00)
[2023-06-16] MEDS ORDERED: ONDANSETRON 4 MG ORAL DISSOLVE TABLET PO PRN (17:00)
[2023-06-16] MEDS ORDERED: LACTULOSE SYRUP 10GM/15ML 30ML UDC PO PRN (17:00)
[2023-06-16] MEDS ORDERED: MILK OF MAGNESIA 400 MG/5 ML 30 ML UDC PO PRN (17:00)
[2023-06-16] MEDS ORDERED: ANTACID SUSPENSION 30 ML UDC PO PRN (17:00)
[2023-06-16 19:39] VITALS: BP 138/72
[2023-06-16] MEDS: DOCUSATE SODIUM 100 MG CAPSULE PO SCH (20:18)
[2023-06-16] MEDS: SENNOSIDES 8.6 MG TABLET PO SCH (20:18)
[2023-06-16] MEDS: MIRTAZAPINE 15 MG TABLET PO SCH (20:18)
[2023-06-16 23:18] VITALS: BP 149/75
[2023-06-17] MEDS: RT-Ipratropium/Albuterol NEB 3 ML VIAL INH SCH ×4 (02:41→20:16)
[2023-06-17 03:25] VITALS: BP 150/66
[2023-06-17 06:00] VITALS: BP 147/94
[2023-06-17] MEDS ORDERED: dilTIAZem DRIP PRE-MIX 125 ML IV SCH (06:00)
[2023-06-17] MEDS ORDERED: NS IV 500 ML 500 ML IV PRN (06:00)
[2023-06-17 06:16] LABS: BASOPHILS # (AUTO) 0.1 10^3/uL (0.0-0.1); BASOPHILS % (AUTO) 1 % (0-10); EOSINOPHILS # (AUTO) 0.1 10^3/uL (0.0-0.3); EOSINOPHILS % (AUTO) 2 % (0-10); HEMATOCRIT 35 % (35-52); HEMOGLOBIN 11.5 g/dL (11.5-16.0); LYMPHOCYTES # (AUTO) 1.1 10^3/uL (1.0-4.0); LYMPHOCYTES % (AUTO) 19 % (12-44); MEAN CORPUSCULAR HEMOGLOBIN 36 pg (25-34); MEAN CORPUSCULAR HGB CONC 33 g/dL (32-36); MEAN CORPUSCULAR VOLUME 110 fL (80-99); MEAN PLATELET VOLUME 10.1 fL (9.0-12.2); MONOCYTES # (AUTO) 0.5 10^3/uL (0.0-1.0); MONOCYTES % (AUTO) 9 % (0-12); NEUTROPHILS # (AUTO) 3.9 10^3/uL (1.8-7.8); NEUTROPHILS % (AUTO) 68 % (42-75); PLATELET COUNT 226 10^3/uL (130-400); WHITE BLOOD COUNT 5.8 10^3/uL (4.3-11.0)
[2023-06-17 06:39] LABS: ALBUMIN 3.2 GM/DL (3.2-4.5); BILIRUBIN,TOTAL 0.6 MG/DL (0.1-1.0); CREATININE SERUM 0.54 MG/DL (0.60-1.30); MAGNESIUM 1.7 MG/DL (1.6-2.4); PHOSPHORUS 2.6 MG/DL (2.3-4.7); POTASSIUM 3.3 MMOL/L (3.6-5.0); TOTAL PROTEIN 6.5 GM/DL (6.4-8.2)
[2023-06-17] MEDS: POTASSIUM CL 10MEQ/50ML IVPB 50 ML IV SCH ×7 (06:45→11:17)
[2023-06-17] MEDS: POTASSIUM CHLORIDE 20 MEQ TABLET PO SCH (06:45)
[2023-06-17] MEDS: MAGNESIUM 1 GM/100 ML IVPB 100 ML IV SCH ×5 (06:45→09:33)
[2023-06-17] MEDS ORDERED: MAGNESIUM 1 GM/100 ML IVPB 400 ML IV ONE (06:54)
[2023-06-17] MEDS ORDERED: POTASSIUM CL 10MEQ/50ML IVPB 400 ML IV ONE (06:55)
[2023-06-17 07:36] VITALS: BP 147/94
[2023-06-17] MEDS: THERAPEUTIC MULTIVITAMIN W/MINERALS TABLET PO SCH (07:38)
[2023-06-17] MEDS ORDERED: ENOXAPARIN 150 MG/ML SYRINGE SQ SCH (08:00)
[2023-06-17] MEDS: SENNOSIDES 8.6 MG TABLET PO SCH ×2 (08:52→20:28)
[2023-06-17] MEDS: PANTOPRAZOLE 40 MG TABLET PO SCH (08:52)
[2023-06-17] MEDS: FOLIC ACID 1 MG TAB PO SCH (08:52)
[2023-06-17] MEDS: DOCUSATE SODIUM 100 MG CAPSULE PO SCH ×2 (08:52→20:29)
[2023-06-17] MEDS: MICONAZOLE 2% POWDER 90 GM TOP SCH ×2 (08:53→20:34)
[2023-06-17] MEDS ORDERED: NON-FORMULARY MEDICATION 1 EA EA (Fluticasone/Umeclidin/Vilanter (Trelegy Ellipta 100-62.5 INH SCH (09:00)
[2023-06-17] MEDS: FLUTICASONE/VILANTEROL 100/25 MCG (7 DOSES) IH SCH (09:02)
[2023-06-17] MEDS: TIOTROPIUM INH 4 GM (SPIRIVA Respimat) IH SCH (09:03)
--- NOTE | 2023-06-17 09:43 | Tele-ICU Progress Note ---
Subjective Date Seen by a Provider: Jun 17, 2023 Time Seen by a Provider: 09:43 Subjective/Events-last exam (Tele-ICU Physician , Progress Note ) Service provided via interactive audio and video telecommunications E-CARE system to a patient admitted to ICU bed in [facility]. Patient is seen today due to persistent need of ICU care Available chart/ vitals / labs / Images reviewed Video assessment done using teleICU camera, rest of exam as per RN Discussed with RN Events overnight : Afebrile hemodynamically stable Respiratory - I/O = Drips: Pressors- no Hospital course: (06/05) 63yr F admitted for ETOH withdrawal, Benzodiazepine Overdose, Hypercapnic, AMS, slurred speech and is quite drowsy. She has been taking higher than prescribed amount of her Xanax to refrain from drinking. INTUBATED (06/08) Sputum positive e. Coli, and staph. SEPSIS PROG FORM DONE (06/09) Antibiotics started (06/11) EXTUBATED (06/17) Readmitted, afib, A/P A fib RVR 06/17 , most likely to hypoxia on medical floor ( took off o2 at sleep - SaO2 reported 70 s - converted spontaneouslu to sinus - on cardizem gtt 5 - would start on cardizem po for rate controll , avoid beta blockers with + wheezing and follow closely - full dose lovenox started 06/17 -replace lytes - ECHO done on 06/06/23: LVEF 55-60%, PASP 35-40 mmHg Acute on chronic respiratory failure with hypoxia and hypercapnia due to OD on admission - extubated , on 4 l now , AAO PNA -Sputum cultures with Staph aureus and E coli -s/p Vanc and Rocephin for pneumonia H/O ETOH abuse - as per PCP , not in withdrawal now DM -ISS COPDHypoxia , ? AECOPD - cont br-dilators , monitor if nebs affectinbg HR - wean off o2 if possible - negative fluid balance Lines : , (Central Line Necessity Reviewed) Kurtz: + OG: Nutrition: po Analgesia: Anxiety/ delirium xanax VTE Prophylaxis: huang full dose Stress Ulcer Prophylaxis: Plans in collaboration with bedside consultants and IM MDs. Discussed with RN to reach out if any questions or concerns Case and care daily discussed on multidisciplinary rounds ( RN, PharmD, Psychology Professor , Respiratory Therapy, post tensioning ironworker helper ) A total of 20 minutes of critical care time was devoted to this patient today, required to treat and/or prevent further deterioration of critical care condition ( as above ) . I am remotely monitoring this patient from another state. I am unable to do the bedside exam, and history/physical and pertinent information is taken from other notes in the computer and bedside staff. Sepsis Event Evaluation Height, Weight, BMI Height: '" Weight: lbs. oz. kg; 51.02 BMI Method: Exam Exam Patient acknowledged, consented, and participated in this virtual visit which was conducted using real time audio/video Vital Signs Date Time Temp Pulse Resp B/P (MAP) Pulse Ox O2 Delivery O2 Flow Rate FiO2 06/17/23 09:03 96 High Flow N/C 4.00 06/17/23 09:00 76 50 156/88 (111) 97 High Flow N/C 4.00 06/17/23 08:10 36.6 06/17/23 08:00 71 139/75 (101) 97 High Flow N/C 4.00 06/17/23 07:36 36.6 86 94 36 06/17/23 07:00 86 06/17/23 07:00 81 18 142/83 (102) 96 High Flow N/C 4.00 06/17/23 06:22 87 147/94 06/17/23 06:00 146 06/17/23 06:00 96 High Flow N/C 4.00 06/17/23 06:00 141 20 147/94 (111) 94 High Flow N/C 4.00 06/17/23 03:25 36.6 83 18 150/66 (94) 94 High Flow N/C 4.00 06/17/23 02:41 High Flow N/C 4.00 06/17/23 01:00 83 06/16/23 23:18 36.4 85 20 149/75 (99) 94 High Flow N/C 4.00 06/16/23 21:47 High Flow N/C 4.00 06/16/23 20:00 Nasal Cannula 4.00 06/16/23 19:39 36.6 85 20 138/72 (94) 94 High Flow N/C 4.00 06/16/23 19:00 92 06/16/23 18:38 High Flow N/C 4.00 06/16/23 15:34 36.7 81 18 129/85 (100) 96 High Flow N/C 4.00 06/16/23 12:21 84 06/16/23 11:42 36.8 87 18 155/72 (99) High Flow N/C 4.00 06/16/23 10:35 93 High Flow N/C 4.00 I & O 06/17/23 07:00 Intake Total 700 ml Output Total 1925 ml Balance -1225 ml Height & Weight Height: '" Weight: lbs. oz. kg; 51.02 BMI Method: General Appearance: No Apparent Distress, Obese HEENT: PERRL/EOMI, Pharynx Normal, Other Neck: Non Tender, Supple Respiratory: No Respiratory Distress, Decreased Breath Sounds Cardiovascular: Regular Rate, Rhythm, No Murmur Capillary Refill: Less Than 3 Seconds Gastrointestinal: normal bowel sounds, soft, abnormal bowel sounds, distended, other Extremity: Normal Inspection, Pedal Edema Neurologic/Psychiatric: Alert, Normal Mood/Affect, Motor Weakness Skin: Normal Color, Warm/Dry Results Lab Laboratory Tests 06/17/23 06:09 Assessment/Plan Assessment/Plan 1 CHRIS HUTTON MD Jun 17, 2023 09:43
[2023-06-17] MEDS ORDERED: APIXABAN 5 MG TABLET PO ONE (10:30)
[2023-06-17] MEDS: dilTIAZem ER 120 MG CAPSULE PO SCH (11:16)
[2023-06-17] MEDS: ACETAMINOPHEN 325 MG TABLET PO PRN (17:42)
[2023-06-17] MEDS: MIRTAZAPINE 15 MG TABLET PO SCH (20:28)
[2023-06-17] MEDS: APIXABAN 5 MG TABLET PO SCH (20:28)
--- NOTE | 2023-06-17 20:53 | Progress Note - Hospitalist ---
Subjective HPI/CC On Admission Date Seen by Provider: Jun 17, 2023 Time Seen by Provider: 10:00 Patient is a 63-year-old female with a past medical history of nvm-icatsew-mnktbvdsx diabetes, COPD, hypertension, alcohol abuse who presented to the emergency department due to altered mental status. She is currently intubated and sedated and unable to provide any history. All history is obtained from the records. Apparently she has been trying to quit drinking alcohol and so had been using Xanax to manage her symptoms but had taken more than was prescribed. She started to develop slurred speech and was quite drowsy so her friend summoned EMS. In the emergency department she was unable to protect her airway and had hypercapnia on ABG and was electively intubated. CT head was done to rule out intracranial process which showed no intracranial hemorrhage only mild atrophy and chronic microvascular changes. This morning they tried sedation vacation per eICU and while she was able to follow some commands she did not wake up satisfactorily so remains on the vent. Subjective/Events-last exam She is sleeping upon my arrival. She denies pain. She has no complaints. Objective Exam Vital Signs Vital Signs Date Time Temp Pulse Resp B/P (MAP) Pulse Ox O2 Delivery O2 Flow Rate FiO2 06/17/23 20:16 95 High Flow N/C 4.00 06/17/23 20:00 82 22 123/69 (87) 06/17/23 19:29 36.5 06/17/23 07:36 36 Capillary Refill : Less Than 3 Seconds General Appearance: No Apparent Distress, Obese Respiratory: No Respiratory Distress, Decreased Breath Sounds Cardiovascular: Regular Rate, Rhythm, No Murmur Gastrointestinal: Normal Bowel Sounds, Soft, Distended Extremity: Normal Inspection, No Pedal Edema Neurologic/Psychiatric: Alert, Depressed Affect, Motor Weakness Skin: Normal Color, Warm/Dry Results/Procedures Lab Laboratory Tests 06/17/23 06:09 Patient resulted labs reviewed. Imaging: Reviewed Imaging Report Assessment/Plan Assessment and Plan Assess & Plan/Chief Complaint Acute on chronic respiratory failure with hypoxia and hypercapnia Accidental overdose Alcohol withdrawal s/p extubation Continue CPAP at night MAT protocol Sputum cultures with Staph aureus and E coli s/p Vanc and Rocephin for pneumonia AFib with RVR Transferred to ICU overnight New onset AFib s/p IV Cardizem Transition to oral Cardizem Begin Eliquis Debility PT/OT SW following for SNF placement Referral sent to [facility] HTN BP well controlled, trend T2DM Blood sugars within normal limits, monitor DVT ppx: Lovenox Pneumonia, resolved Diagnosis/Problems Diagnosis/Problems (1) Acute on chronic respiratory failure with hypoxia and hypercapnia Status: Acute (2) PNA (pneumonia) Status: Resolved Resolution Date/Time: 06/15/23 @ 14:23 (3) Benzodiazepine overdose Status: Acute Qualifiers: Encounter type: initial encounter Injury intent: undetermined intent Qualified Codes: T42.4X4A - Poisoning by benzodiazepines, undetermined, initial encounter (4) Alcohol withdrawal Status: Acute (5) HTN (hypertension) Status: Chronic (6) T2DM (type 2 diabetes mellitus) Status: Chronic (7) Morbid obesity Status: Chronic (8) Paroxysmal atrial fibrillation with RVR Status: Acute MARIA EUGENIA PIZARRO MD Jun 17, 2023 20:53
[2023-06-18 05:51] LABS: BASOPHILS % (AUTO) 0 % (0-10); EOSINOPHILS # (AUTO) 0.2 10^3/uL (0.0-0.3); EOSINOPHILS % (AUTO) 3 % (0-10); HEMATOCRIT 35 % (35-52); LYMPHOCYTES # (AUTO) 1.2 10^3/uL (1.0-4.0); LYMPHOCYTES % (AUTO) 20 % (12-44); MEAN CORPUSCULAR HEMOGLOBIN 35 pg (25-34); MEAN CORPUSCULAR HGB CONC 32 g/dL (32-36); MEAN CORPUSCULAR VOLUME 110 fL (80-99); MEAN PLATELET VOLUME 10.4 fL (9.0-12.2); MONOCYTES # (AUTO) 0.4 10^3/uL (0.0-1.0); MONOCYTES % (AUTO) 8 % (0-12); NEUTROPHILS % (AUTO) 68 % (42-75); PLATELET COUNT 225 10^3/uL (130-400); WHITE BLOOD COUNT 5.9 10^3/uL (4.3-11.0)
[2023-06-18] MEDS: POTASSIUM CL 10MEQ/50ML IVPB 50 ML IV SCH ×4 (05:54→09:05)
[2023-06-18] MEDS: POTASSIUM CHLORIDE 20 MEQ TABLET PO SCH (05:54)
[2023-06-18] MEDS: MAGNESIUM 1 GM/100 ML IVPB 100 ML IV SCH (05:54)
[2023-06-18 06:18] LABS: ALBUMIN 3.1 GM/DL (3.2-4.5); BILIRUBIN,TOTAL 0.6 MG/DL (0.1-1.0); CALCIUM 8.5 MG/DL (8.5-10.1); CREATININE SERUM 0.53 MG/DL (0.60-1.30); MAGNESIUM 2.1 MG/DL (1.6-2.4); PHOSPHORUS 2.7 MG/DL (2.3-4.7); POTASSIUM 3.4 MMOL/L (3.6-5.0)
[2023-06-18] MEDS: SENNOSIDES 8.6 MG TABLET PO SCH ×2 (08:23→20:46)
[2023-06-18] MEDS: MICONAZOLE 2% POWDER 90 GM TOP SCH ×2 (08:23→20:46)
[2023-06-18] MEDS: THERAPEUTIC MULTIVITAMIN W/MINERALS TABLET PO SCH (08:23)
[2023-06-18] MEDS: dilTIAZem ER 120 MG CAPSULE PO SCH (08:23)
[2023-06-18] MEDS: PANTOPRAZOLE 40 MG TABLET PO SCH (08:23)
[2023-06-18] MEDS: DOCUSATE SODIUM 100 MG CAPSULE PO SCH ×2 (08:23→20:45)
[2023-06-18] MEDS: APIXABAN 5 MG TABLET PO SCH ×2 (08:23→20:45)
[2023-06-18] MEDS: FOLIC ACID 1 MG TAB PO SCH (08:25)
[2023-06-18] MEDS: ACETAMINOPHEN 325 MG TABLET PO PRN (09:06)
--- NOTE | 2023-06-18 09:33 | Tele-ICU Progress Note ---
Subjective Date Seen by a Provider: Jun 18, 2023 Time Seen by a Provider: 09:33 Subjective/Events-last exam (Tele-ICU Physician , Progress Note ) Service provided via interactive audio and video telecommunications E-CARE system to a patient admitted to ICU bed in [facility]. Patient is seen today due to persistent need of ICU care Available chart/ vitals / labs / Images reviewed Video assessment done using teleICU camera, rest of exam as per RN Discussed with RN Events overnight : Afebrile hemodynamically stable Respiratory - I/O = Drips: Pressors- no Hospital course: (06/05) 63yr F admitted for ETOH withdrawal, Benzodiazepine Overdose, Hypercapnic, AMS, slurred speech and is quite drowsy. She has been taking higher than prescribed amount of her Xanax to refrain from drinking. INTUBATED (06/08) Sputum positive e. Coli, and staph. SEPSIS PROG FORM DONE (06/09) Antibiotics started (06/11) EXTUBATED (06/17) Readmitted, afib, - cardizem gtt 06/18- cardizem gtt stopped , on PO A/P A fib RVR 06/17 , most likely to hypoxia on medical floor ( took off o2 at sleep - SaO2 reported 70 s - converted spontaneouslu to sinus - 06/18- cardizem gtt stopped , on PO , avoid beta blockers with + wheezing and follow closely - full dose lovenox started 06/17 - ELAQUIS now -replace lytes - ECHO done on 06/06/23: LVEF 55-60%, PASP 35-40 mmHg Acute on chronic respiratory failure with hypoxia and hypercapnia due to OD on admission - extubated , on 4 l now , AAO - ? NIPPV at night PNA -Sputum cultures with Staph aureus and E coli -s/p Vanc and Rocephin for pneumonia- FINISHED H/O ETOH abuse - as per PCP , not in withdrawal now DM -ISS COPD Hypoxia , ? AECOPD - cont br-dilators , monitor if nebs affectinbg HR - wean off o2 if possible - negative fluid balance Lines : , (Central Line Necessity Reviewed) Kurtz: + OG: Nutrition: po Analgesia: Anxiety/ delirium xanax VTE Prophylaxis: huang full dose Stress Ulcer Prophylaxis: Plans in collaboration with bedside consultants and IM MDs. Discussed with RN to reach out if any questions or concerns Case and care daily discussed on multidisciplinary rounds ( RN, PharmD, Fruit Room Hand , Respiratory Therapy, dish room worker ) A total of 20 minutes of critical care time was devoted to this patient today, required to treat and/or prevent further deterioration of critical care condition ( as above ) . I am remotely monitoring this patient from another state. I am unable to do the bedside exam, and history/physical and pertinent information is taken from other notes in the computer and bedside staff. Sepsis Event Evaluation Height, Weight, BMI Height: '" Weight: lbs. oz. kg; 51.02 BMI Method: Exam Exam Patient acknowledged, consented, and participated in this virtual visit which was conducted using real time audio/video Vital Signs Date Time Temp Pulse Resp B/P (MAP) Pulse Ox O2 Delivery O2 Flow Rate FiO2 06/18/23 09:00 82 20 158/85 (109) 94 High Flow N/C 4.00 06/18/23 08:00 80 15 140/87 (104) 94 High Flow N/C 4.00 06/18/23 07:49 High Flow N/C 4.00 06/18/23 07:28 36.4 High Flow N/C 2.00 06/18/23 07:00 78 06/18/23 07:00 73 15 123/73 (90) 94 High Flow N/C 2.00 06/18/23 06:00 79 16 124/61 (82) 95 High Flow N/C 2.00 06/18/23 05:48 High Flow N/C 2.00 06/18/23 05:00 75 16 135/61 (85) 96 High Flow N/C 4.00 06/18/23 04:00 94 High Flow N/C 4.00 06/18/23 04:00 36.7 06/18/23 04:00 70 17 136/75 (95) 94 High Flow N/C 4.00 06/18/23 03:00 77 25 140/87 (104) 95 High Flow N/C 4.00 06/18/23 01:00 77 25 156/96 (116) 95 High Flow N/C 4.00 06/18/23 00:37 81 06/18/23 00:00 79 19 145/80 (101) 94 High Flow N/C 4.00 06/18/23 00:00 36.6 06/17/23 23:59 94 High Flow N/C 4.00 06/17/23 23:00 81 20 142/70 (94) 95 High Flow N/C 4.00 06/17/23 22:00 81 18 132/59 (83) 96 High Flow N/C 4.00 06/17/23 21:00 81 23 118/58 (78) 95 High Flow N/C 4.00 06/17/23 20:16 95 High Flow N/C 4.00 06/17/23 20:00 82 22 123/69 (87) 96 High Flow N/C 4.00 06/17/23 19:54 93 High Flow N/C 4.00 06/17/23 19:29 36.5 84 137/71 (93) 94 High Flow N/C 4.00 06/17/23 19:00 83 06/17/23 18:00 81 30 148/81 (109) 92 High Flow N/C 4.00 06/17/23 17:00 73 34 138/69 (92) 95 High Flow N/C 4.00 06/17/23 16:00 69 33 122/63 (85) High Flow N/C 4.00 06/17/23 15:03 36.7 06/17/23 15:00 95 High Flow N/C 4.00 06/17/23 15:00 79 27 122/58 (72) 94 High Flow N/C 4.00 06/17/23 14:00 77 21 110/56 (76) 97 High Flow N/C 4.00 06/17/23 13:00 78 19 145/85 (104) 96 High Flow N/C 4.00 06/17/23 12:29 76 06/17/23 11:17 36.1 06/17/23 11:09 97 High Flow N/C 4.00 06/17/23 11:00 71 17 136/80 (99) 97 High Flow N/C 4.00 06/17/23 10:00 73 18 141/85 (105) 97 High Flow N/C 4.00 I & O 06/18/23 07:00 Intake Total 1550 ml Output Total 1425 ml Balance 125 ml Height & Weight Height: '" Weight: lbs. oz. kg; 51.02 BMI Method: General Appearance: No Apparent Distress, Obese HEENT: PERRL/EOMI, Pharynx Normal, Other Neck: Non Tender, Supple Respiratory: No Respiratory Distress, Decreased Breath Sounds Cardiovascular: Regular Rate, Rhythm, No Murmur Capillary Refill: Less Than 3 Seconds Gastrointestinal: normal bowel sounds, soft, abnormal bowel sounds, distended, other Extremity: Normal Inspection, No Pedal Edema Neurologic/Psychiatric: Alert, Depressed Affect, Motor Weakness Skin: Normal Color, Warm/Dry Results Lab Laboratory Tests 06/17/23 06:09 06/18/23 05:30 Assessment/Plan Assessment/Plan 1 CHRIS HUTTON MD Jun 18, 2023 09:33
[2023-06-18] MEDS: RT-Ipratropium/Albuterol NEB 3 ML VIAL INH SCH ×2 (09:35→21:17)
[2023-06-18] MEDS: FLUTICASONE/VILANTEROL 100/25 MCG (7 DOSES) IH SCH (09:35)
[2023-06-18] MEDS: TIOTROPIUM INH 4 GM (SPIRIVA Respimat) IH SCH (09:36)
[2023-06-18] MEDS ORDERED: dilTIAZem ER 120 MG CAPSULE PO ONE (09:45)
[2023-06-18 14:00] VITALS: BP 159/80
[2023-06-18 15:55] VITALS: BP 150/69
--- NOTE | 2023-06-18 17:21 | Progress Note - Hospitalist ---
Subjective HPI/CC On Admission Date Seen by Provider: Jun 18, 2023 Time Seen by Provider: 10:20 Patient is a 63-year-old female with a past medical history of cap-lmznvwt-gmtzcheaw diabetes, COPD, hypertension, alcohol abuse who presented to the emergency department due to altered mental status. She is currently intubated and sedated and unable to provide any history. All history is obtained from the records. Apparently she has been trying to quit drinking alcohol and so had been using Xanax to manage her symptoms but had taken more than was prescribed. She started to develop slurred speech and was quite drowsy so her friend summoned EMS. In the emergency department she was unable to protect her airway and had hypercapnia on ABG and was electively intubated. CT head was done to rule out intracranial process which showed no intracranial hemorrhage only mild atrophy and chronic microvascular changes. This morning they tried sedation vacation per eICU and while she was able to follow some commands she did not wake up satisfactorily so remains on the vent. Subjective/Events-last exam She is feeling better. She says she will wear CPAP tonight. She denies chest pain and palpitations. She denies shortness of breath. Objective Exam Vital Signs Vital Signs Date Time Temp Pulse Resp B/P (MAP) Pulse Ox O2 Delivery O2 Flow Rate FiO2 06/18/23 15:55 36.8 76 20 150/69 (96) 96 Nasal Cannula 4.00 06/17/23 07:36 36 Capillary Refill : Less Than 3 Seconds General Appearance: No Apparent Distress, Obese Respiratory: No Respiratory Distress, Decreased Breath Sounds Cardiovascular: Regular Rate, Rhythm, No Murmur Gastrointestinal: Normal Bowel Sounds, Soft Extremity: Normal Inspection, No Pedal Edema Neurologic/Psychiatric: Alert, Normal Mood/Affect Skin: Normal Color, Warm/Dry Results/Procedures Lab Laboratory Tests 06/18/23 05:30 Patient resulted labs reviewed. Imaging: Reviewed Imaging Report Assessment/Plan Assessment and Plan Assess & Plan/Chief Complaint Acute on chronic respiratory failure with hypoxia and hypercapnia Accidental overdose Alcohol withdrawal s/p extubation Continue CPAP at night MAT protocol Sputum cultures with Staph aureus and E coli s/p Vanc and Rocephin for pneumonia AFib RVR resolved New onset AFib Increase Cardizem Continue Eliquis Debility PT/OT SW following for SNF placement Referral sent to [facility] HTN BP well controlled, trend T2DM Blood sugars within normal limits, monitor DVT ppx: Lovenox Pneumonia, resolved AFib with RVR, resolved Diagnosis/Problems Diagnosis/Problems (1) Acute on chronic respiratory failure with hypoxia and hypercapnia Status: Acute (2) PNA (pneumonia) Status: Resolved Resolution Date/Time: 06/15/23 @ 14:23 (3) Benzodiazepine overdose Status: Acute Qualifiers: Encounter type: initial encounter Injury intent: undetermined intent Qualified Codes: T42.4X4A - Poisoning by benzodiazepines, undetermined, initial encounter (4) Alcohol withdrawal Status: Acute (5) HTN (hypertension) Status: Chronic (6) T2DM (type 2 diabetes mellitus) Status: Chronic (7) Morbid obesity Status: Chronic (8) Paroxysmal atrial fibrillation with RVR Status: Acute MARIA EUGENIA PIZARRO MD Jun 18, 2023 17:21
[2023-06-18 19:17] VITALS: BP 142/77
[2023-06-18] MEDS: MIRTAZAPINE 15 MG TABLET PO SCH (20:45)
[2023-06-18] MEDS: MELATONIN 3 MG TABLET PO PRN (22:24)
[2023-06-18] MEDS: ALPRAZolam 0.5 MG TABLET PO PRN (22:24)
[2023-06-18 23:20] VITALS: BP 117/71
[2023-06-19 03:57] VITALS: BP 133/77
[2023-06-19 05:12] LABS: BASOPHILS % (AUTO) 1 % (0-10); EOSINOPHILS # (AUTO) 0.2 10^3/uL (0.0-0.3); EOSINOPHILS % (AUTO) 3 % (0-10); HEMATOCRIT 36 % (35-52); HEMOGLOBIN 11.1 g/dL (11.5-16.0); LYMPHOCYTES # (AUTO) 1.2 10^3/uL (1.0-4.0); LYMPHOCYTES % (AUTO) 22 % (12-44); MEAN CORPUSCULAR HEMOGLOBIN 34 pg (25-34); MEAN CORPUSCULAR HGB CONC 31 g/dL (32-36); MEAN CORPUSCULAR VOLUME 110 fL (80-99); MONOCYTES # (AUTO) 0.4 10^3/uL (0.0-1.0); MONOCYTES % (AUTO) 7 % (0-12); NEUTROPHILS # (AUTO) 3.7 10^3/uL (1.8-7.8); NEUTROPHILS % (AUTO) 67 % (42-75); PLATELET COUNT 241 10^3/uL (130-400); WHITE BLOOD COUNT 5.5 10^3/uL (4.3-11.0)
[2023-06-19 05:42] LABS: ALBUMIN 3.2 GM/DL (3.2-4.5); BILIRUBIN,TOTAL 0.6 MG/DL (0.1-1.0); CALCIUM 8.9 MG/DL (8.5-10.1); CREATININE SERUM 0.56 MG/DL (0.60-1.30); MAGNESIUM 1.8 MG/DL (1.6-2.4); POTASSIUM 3.4 MMOL/L (3.6-5.0); TOTAL PROTEIN 6.4 GM/DL (6.4-8.2)
--- NOTE | 2023-06-19 07:10 | Physical Therapy Progress Note ---
Therapy Progress Note Patient had transferred to ICU (higher level of care) due to A-fib. Patient transferred back to [address] [place] [address]. PT will require new orders to resume. HEIDI DAY PT Jun 19, 2023 07:10
[2023-06-19 07:36] VITALS: BP 141/69
[2023-06-19] MEDS: RT-Ipratropium/Albuterol NEB 3 ML VIAL INH SCH ×2 (07:58→20:27)
[2023-06-19] MEDS: TIOTROPIUM INH 4 GM (SPIRIVA Respimat) IH SCH (07:58)
[2023-06-19] MEDS: FLUTICASONE/VILANTEROL 100/25 MCG (7 DOSES) IH SCH (07:58)
--- NOTE | 2023-06-19 08:08 | Speech Therapy Progress Note ---
Therapy Progress Note The patient transferred to ICU (a higher level of care) due to A-fib. The patient transferred back to [address] [place] [address] ST will require new orders to resume skilled intervention if appropriate and the patient is willing to participate. Thank you. LISA WANG Jun 19, 2023 08:08
[2023-06-19] MEDS: SENNOSIDES 8.6 MG TABLET PO SCH ×2 (09:56→20:00)
[2023-06-19] MEDS: PANTOPRAZOLE 40 MG TABLET PO SCH (09:56)
[2023-06-19] MEDS: THERAPEUTIC MULTIVITAMIN W/MINERALS TABLET PO SCH (09:56)
[2023-06-19] MEDS: FOLIC ACID 1 MG TAB PO SCH (09:56)
[2023-06-19] MEDS: DOCUSATE SODIUM 100 MG CAPSULE PO SCH ×2 (09:56→20:00)
[2023-06-19] MEDS: APIXABAN 5 MG TABLET PO SCH ×2 (09:56→20:00)
[2023-06-19] MEDS: dilTIAZem ER 120 MG CAPSULE PO SCH (09:56)
[2023-06-19] MEDS: MICONAZOLE 2% POWDER 90 GM TOP SCH ×2 (09:57→21:34)
--- NOTE | 2023-06-19 11:35 | Physical Therapy Evaluation ---
PT Evaluation-General Medical Diagnosis Admission Date Jun 05, 2023 at 18:58 Medical Diagnosis: Acute Hypecapnic Respiratory Failure Onset Date: Jun 05, 2023 Therapy Diagnosis Therapy Diagnosis: generalized weakness/debility Precautions Precautions/Isolations: Fall Prevention, Standard Precautions, Pressure Ulcer Referral Physician: Julianne Reason for Referral: Evaluation/Treatment Medical History Pertinent Medical History: Breast CA S/P Mastectomy, COPD, HTN Current History patient transferred to ICU then back to [address] [place] [address] due to A-fib Reviewed History: Yes Social History Home: Single Level Current Living Status: Alone Prior Prior Level of Function SCALE: Activities may be completed with or without assistive devices. 6-Pefqxmuqbm-yunleso completes the activity by him/herself with no assistance from a helper. 5-Set-up or Clean-up Assistance-helper sets up or cleans up; patient completes activity. [place] assists only prior to or following the activity. 4-Supervision or Touching Assistance-helper provides verbal cues and/or touching/steadying and/or contact guard assistance as patient completes activity. Assistance may be provided throughout the activity or intermittently. 3-Partial/Moderate Assistance-helper does LESS THAN HALF the effort. [place] lifts, holds or supports trunk or limbs, but provides less than half the effort. 2-Substantial/Maximal Assistance-helper does MORE THAN HALF the effort. [place] lifts or holds trunk or limbs and provides more than half the effort. 3-Ffvndeikp-wywhzh does ALL the effort. Patient does none of the effort to complete the activity. Or, the assistance of 2 or more helpers is required for the patient to complete the activity. If activity was not attempted, code reason: 7-Patient Refused. 9-Not Applicable-not attempted and the patient did not perform the activity before the current illness, exacerbation or injury. 10-Not Attempted due to Environmental Limitations-(lack of equipment, weather restraints, etc.). 88-Not Attempted due to Medical Conditions or Safety Concerns. Bed Mobility: 6 Transfers (B,C,W/C): 6 Gait: 6 Indoor Mobility (Ambulation): Independent PT Evaluation-Current Subjective Patient agrees to therapy. Objective Patient Orientation: Person Attachments: Oxygen, Kurtz Catheter ROM/Strength ROM Lower Extremities bilateral LE WFL Strength Lower Extremities 3-/5 grossly bilateral LE all planes Integumentary/Posture Bowel Incontinence: Yes Bladder Incontinence: Kurtz Cath Neuromuscular (Tone, Coordination, Reflexes) diminished with all Sensory Vision: Functional Hearing: Functional Transfers Roll Left to Right (QC): 1 (x 2) Sit to Lying (QC): 1 (x 2) Lying to Sitting/Side of Bed(Q: 1 (x 2) Gait Does the Patient Walk?: No and Walking Goal IS indicated Balance Sitting Static: Fair Sitting Dynamic: Fair Assessment/Needs Patient will benefit from skilled PT to address functional strength and mobility to improve current LOF. Patient will require a Jules lift for OOB activity due to inability to perform sit to stand at this time. Rehab Potential: Guarded PT Short Term Goals Short Term Goals Time Frame: Jul 01, 2023 Roll Left & Right: 3 Sit to lyin Lying to sitting on side of be: 3 Sit to stand: 3 Chair/vgu-bc-nsweq transfer: 3 Toilet transfer: 3 PT Snf Goals Snf Goals PT General Operations Manager Goals Time Frame: Jul 15, 2023 Roll Left & Right (QC): 4 Sit to Lying (QC): 4 Lying-Sitting on Side/Bed(QC): 4 Sit to Stand (QC): 4 Chair/Lnd-qd-Byxai Xfer(QC): 4 Toilet Transfer (QC): 4 Walk 10 feet (QC): 3 Walk 50ft with 2 Turns (QC): 3 PT Plan Problem List Problem List: Activity Tolerance, Functional Strength, Safety, Balance, Gait, Transfer, Bed Mobility Treatment/Plan Treatment Plan: Continue Plan of Care Treatment Plan: Bed Mobility, Education, Functional Activity Wanda, Functional Strength, Gait, Safety, Therapeutic Exercise, Transfers Treatment Duration: Jul 15, 2023 Frequency: 5 times per week Estimated Hrs Per Day: .25 hour per day Patient and/or Family Agrees t: Yes Time Time In: 1042 Time Out: 1100 DATE: Jun 19, 2023 Total Billed Treatment Time: 18 Total Billed Treatment 1 visit EVMod 18 min HEIDI DAY PT Jun 19, 2023 11:35
--- NOTE | 2023-06-19 11:43 | Occupational Therapy Eval ---
OT Evaluation-General/PLF Medical Diagnosis Admission Date Jun 05, 2023 at 18:58 Medical Diagnosis: Acute Hypecapnic Respiratory Failure Onset Date: Jun 05, 2023 Therapy Diagnosis Therapy Diagnosis: weakness Precautions Precautions/Isolations: Fall Prevention, Standard Precautions, Pressure Ulcer Referral Physician: Julianne Referral Reason: Evaluation/Treatment Referral Comments Hospital course of ICU w/ intubation, extubate and transfer to medical floor, decline and transfer to ICU and return to medical floor. Medical History Pertinent Medical History: Breast CA S/P Mastectomy, COPD, HTN Social History Home: Single Level Current Living Status: Alone ADL-Prior Level of Function SCALE: Activities may be completed with or without assistive devices. 2-Vjdbthorgz-jcpthux completes the activity by him/herself with no assistance from a helper. 5-Set-up or Clean-up Assistance-helper sets up or cleans up; patient completes activity. [place] assists only prior to or following the activity. 4-Supervision or Touching Assistance-helper provides verbal cues and/or touching/steadying and/or contact guard assistance as patient completes activity. Assistance may be provided throughout the activity or intermittently. 3-Partial/Moderate Assistance-helper does LESS THAN HALF the effort. [place] lift s, holds or supports trunk or limbs, but provides less than half the effort. 2-Substantial/Maximal Assistance-helper does MORE THAN HALF the effort. [place] lifts or holds trunk or limbs and provides more than half the effort. 2-Uixombdfl-bduiqd does ALL the effort. Patient does none of the effort to complete the activity. Or, the assistance of 2 or more helpers is required for the patient to complete the activity. If activity was not attempted, code reason: 7-Patient Refused. 9-Not Applicable-not attempted and the patient did not perform the activity before the current illness, exacerbation or injury. 10-Not Attempted due to Environmental Limitations-(lack of equipment, weather restraints, etc.). 88-Not Attempted due to Medical Conditions or Safety Concerns. Self Care: Independent Functional Cognition: Independent OT Current Status Subjective Agreeable to OT, patient request hair cut d/t entangled hair, tender scalp and unable to tolerate grooming. Mental Status/Objective Patient Orientation: Person, Place, Time, Situation Attachments: Kurtz Catheter, IV Current Upper Extremity ROM Limited joint approximation d/t excessive soft tissue and mm weakness Upper Extremity Coordination IMPAIRED Upper Extremity Strength -3/5 Edema: positive ADL-Treatment Eating (QC): 7 ([facility]IN[facility] ST CONSULT) Oral Hygiene (QC): 4 Shower/Bathe Self (QC): 7 Upper Body Dressing (QC): 2 Lower Body Dressing (QC): 1 On/Off Footwear (QC): 1 Toileting Hygiene (QC): 1 Education OT Patient Education: Correct positioning, Exercise program, Modified ADL techniques, Progress toward Goal/Update tx plan, Purpose of tx/functional activities, Reviewed precautions, Rehab process, Safety issues, Transfer techniques Teaching Recipient: Patient Teaching Methods: Demonstration, Discussion Response to Teaching: Reinforcement Needed OT Telemetry Nurse Goals Mcc Goals Eating (QC): 5 Oral Hygiene (QC): 5 Toileting Hygiene (QC): 5 Shower/Bathe Self (QC): 4 Upper Body Dressing (QC): 5 Lower Body Dressing (QC): 4 On/Off Footwear (QC): 4 1=Demonstrate adherence to instructed precautions during ADL tasks. 2=Patient will verbalize/demonstrate understanding of assistive devices/modifications for ADL. 3=Patient will improve strength/tolerance for activity to enable patient to perform ADL's. OT Education/Plan Problem List/Assessment Assessment: Decreased Activ Tolerance, Decreased Safety Aware, Decreased UE Strength, Dependent Transfers, Impaired Bed Mobility, Impaired Cognition, Impaired Coordination, Impaired Funct Balance, Impaired Self-Care Skills, Restricted Funct UE ROM Discharge Recommendations Plan/Recommendations: Continue POC Therapy Discharge Recommendati: Post Acute OT Treatment Plan/Plan of Care Treatment,Training & Education: Yes Patient would benefit from OT for education, treatment and training to promote independence in ADL's, mobility, safety and/or upper extremity function for ADL's. Plan of Care: ADL Retraining, Concurrent Therapy, Functional Mobility, Group Exercise/Act as Ind, UE Funct Exercise/Act, UE Neuromus Re-Ed/Coord Treatment Duration: Jun 19, 2023 Frequency: 3 times per week (3-5 times per week) Estimated Hrs Per Day: .25 hour per day Rehab Potential: Guarded Time Start Time: 10:42 Stop Time: 11:00 DATE: Jun 19, 2023 Total Time Billed (hr/min): 18 Billed Treatment Time EV 18 MIN ROBERTO LACKEY OT Jun 19, 2023 11:43
[2023-06-19 11:46] VITALS: BP 136/73
--- NOTE | 2023-06-19 11:53 | Progress Note - Hospitalist ---
Subjective HPI/CC On Admission Date Seen by Provider: Jun 19, 2023 Patient is a 63-year-old female with a past medical history of pys-siujela-banenkrmu diabetes, COPD, hypertension, alcohol abuse who presented to the emergency department due to altered mental status. She is currently intubated and sedated and unable to provide any history. All history is obtained from the records. Apparently she has been trying to quit drinking alcohol and so had been using Xanax to manage her symptoms but had taken more than was prescribed. She started to develop slurred speech and was quite drowsy so her friend summoned EMS. In the emergency department she was unable to protect her airway and had hypercapnia on ABG and was electively intubated. CT head was done to rule out intracranial process which showed no intracranial hemorrhage only mild atrophy and chronic microvascular changes. This morning they tried sedation vacation per eICU and while she was able to follow some commands she did not wake up satisfactorily so remains on the vent. Subjective/Events-last exam Pt reports doing well. No complaints. Discussed plan for NH soon and she is agreeable still. Objective Exam Vital Signs Vital Signs Date Time Temp Pulse Resp B/P (MAP) Pulse Ox O2 Delivery O2 Flow Rate FiO2 06/19/23 11:46 36.3 91 18 136/73 (94) 97 High Flow N/C 4.00 06/17/23 07:36 36 Capillary Refill : Less Than 3 Seconds General Appearance: No Apparent Distress, Chronically ill, Obese Cardiovascular: Regular Rate, Rhythm, No Murmur Gastrointestinal: Normal Bowel Sounds, Soft Neurologic/Psychiatric: Alert, Oriented x3 Results/Procedures Lab Laboratory Tests 06/19/23 04:26 Patient resulted labs reviewed. Imaging: Reviewed Imaging Report Assessment/Plan Assessment and Plan Assess & Plan/Chief Complaint Acute on chronic respiratory failure with hypoxia and hypercapnia Accidental overdose Alcohol withdrawal s/p extubation Continue CPAP at night MAT protocol Sputum cultures with Staph aureus and E coli s/p Vanc and Rocephin for pneumonia AFib RVR resolved New onset AFib Continue Cardizem Continue Eliquis Debility PT/OT SW following for SNF placement Referral sent to [facility]- awaiting approval HTN BP well controlled, trend T2DM Blood sugars within normal limits, monitor DVT ppx: Lovenox Pneumonia, resolved AFib with RVR, resolved HANNAH SINGH MD Jun 19, 2023 11:53
[2023-06-19 16:36] VITALS: BP 139/65
[2023-06-19] MEDS: MELATONIN 3 MG TABLET PO PRN (20:01)
[2023-06-19] MEDS: MIRTAZAPINE 15 MG TABLET PO SCH (20:01)
[2023-06-19] MEDS: ACETAMINOPHEN 325 MG TABLET PO PRN (20:01)
[2023-06-19 20:50] VITALS: BP 144/67
[2023-06-19 23:16] VITALS: BP 128/65
[2023-06-20 03:11] VITALS: BP 130/77
[2023-06-20 05:44] LABS: BASOPHILS % (AUTO) 1 % (0-10); EOSINOPHILS # (AUTO) 0.2 10^3/uL (0.0-0.3); EOSINOPHILS % (AUTO) 4 % (0-10); HEMATOCRIT 37 % (35-52); HEMOGLOBIN 11.6 g/dL (11.5-16.0); LYMPHOCYTES # (AUTO) 1.5 10^3/uL (1.0-4.0); LYMPHOCYTES % (AUTO) 27 % (12-44); MEAN CORPUSCULAR HEMOGLOBIN 35 pg (25-34); MEAN CORPUSCULAR HGB CONC 31 g/dL (32-36); MEAN CORPUSCULAR VOLUME 111 fL (80-99); MEAN PLATELET VOLUME 10.5 fL (9.0-12.2); MONOCYTES # (AUTO) 0.5 10^3/uL (0.0-1.0); MONOCYTES % (AUTO) 8 % (0-12); NEUTROPHILS # (AUTO) 3.1 10^3/uL (1.8-7.8); NEUTROPHILS % (AUTO) 59 % (42-75); PLATELET COUNT 265 10^3/uL (130-400); WHITE BLOOD COUNT 5.4 10^3/uL (4.3-11.0)
[2023-06-20 06:07] LABS: ALBUMIN 3.3 GM/DL (3.2-4.5); BILIRUBIN,TOTAL 0.6 MG/DL (0.1-1.0); CALCIUM 9.1 MG/DL (8.5-10.1); CREATININE SERUM 0.62 MG/DL (0.60-1.30); MAGNESIUM 1.8 MG/DL (1.6-2.4); PHOSPHORUS 2.7 MG/DL (2.3-4.7); POTASSIUM 3.6 MMOL/L (3.6-5.0); TOTAL PROTEIN 6.7 GM/DL (6.4-8.2)
[2023-06-20] MEDS: THERAPEUTIC MULTIVITAMIN W/MINERALS TABLET PO SCH (06:12)
[2023-06-20 07:33] VITALS: BP 119/59
[2023-06-20] MEDS: RT-Ipratropium/Albuterol NEB 3 ML VIAL INH SCH ×2 (08:21→21:17)
[2023-06-20] MEDS: TIOTROPIUM INH 4 GM (SPIRIVA Respimat) IH SCH (08:21)
[2023-06-20] MEDS: FLUTICASONE/VILANTEROL 100/25 MCG (7 DOSES) IH SCH (08:21)
[2023-06-20] MEDS: PANTOPRAZOLE 40 MG TABLET PO SCH (08:57)
[2023-06-20] MEDS: DOCUSATE SODIUM 100 MG CAPSULE PO SCH ×2 (08:57→20:54)
[2023-06-20] MEDS: SENNOSIDES 8.6 MG TABLET PO SCH ×2 (08:57→20:54)
[2023-06-20] MEDS: APIXABAN 5 MG TABLET PO SCH ×2 (08:57→20:12)
[2023-06-20] MEDS: FOLIC ACID 1 MG TAB PO SCH (08:57)
[2023-06-20] MEDS: MICONAZOLE 2% POWDER 90 GM TOP SCH ×2 (08:58→20:16)
[2023-06-20] MEDS: dilTIAZem ER 120 MG CAPSULE PO SCH (08:58)
--- NOTE | 2023-06-20 10:02 | ST Dysphagia Evaluation ---
Speech Evaluation-General Medical Diagnosis Acute Hypecapnic Respiratory Failure Onset Date: Jun 05, 2023 Therapy Diagnosis Therapy Diagnosis: Mild Oropharyngeal Dysphagia Precautions Precautions: Fall, Pressure Ulcer, Aspiration Precautions/Isolations: Aspiration, Fall Prevention, Standard Precautions, Pressure Ulcer Referral Referring Physician: Dr. Whitaker Reason for Referral: Evaluation/Treatment Medical History Pertinent Medical History: Breast CA S/P Mastectomy, COPD, HTN Reviewed History: Yes Social History Current Living Status: Alone Speech PLF/Current-Dysphagia Prior Level of Function Per patient, she consumed "anything I want" prior to admission. The patient denied swallowing concerns or difficulties and stated she is able to masticate dry, solid consistencies appropriately regardless of her edentulous state. Subjective The patient was seated upright in her bed, awake and alert, upon entrance to the room by the clinician. The patient greeted the clinician appropriately and was agreeable to participation in the clinical bedside swallowing evaluation. The patient displays improved participation and appropriateness on this date, conversing adequately with the clinician and demonstrating appropriate levels of alertness. Cognitive Status Patient Orientation: Person Oral Motor Skills Dentition: Edentalous Current Food Consistancy: Pureed, Judson Liquids (Mildly thick liquids.) Ability to Follow Directions: Fair Oral Expression Ability: Mild Impairment Voice Voice Phonatory-Based Quality: Glottal Avalos Voice Pitch: Mildly Low Voice Loudness: Normal Face Facial Symmetry: Symmetrical Oral-Facial Assessment Oral-Facial Dentition: Normal Labial Seal Description: Normal Smile: Normal Lingual Protrusion: Normal Lingual ROM: Normal Lingual Strength: Normal Volitional Dry Swallow: Yes Voluntary Cough: Yes Can Clear Throat Volitionally: Yes Productive Cough: Yes Productive Throat Clear: Yes Dysphagia Evaluation Consistencies Presented: Regular, Thin Liquid, Pureed The patient displayed prolonged mastication with the dry, solid sylwia cracker. Pharyngeal Phase: Delayed Swallow The patient consumed teaspoon sips of thin liquids, straw drinks of thin liquid, puree, and solid consistencies. The patient does not display s/s of suspected aspiration with any consistency tested. To note, the patient does display a baseline throat clear. The throat clear was present prior to P.O. trials and did not increase in frequency or intensity during P.O. trials. Dietary Recommendations: Mechanical Soft (MM5) Liquid Recommendations: Thin Recommendations: - MM5 (minced and moist) consistency diet with thin liquids, as tolerated. - Fully upright and alert for P.O. intake. - Small, single bites and sips. - Pace P.O. intake, ceasing P.O. intake during periods of respiratory fatigue. - Place pills in puree for administration (as needed). - Assist with P.O. intake (as needed- the patient was able to complete self- feeding on this date). - Monitor for s/s of suspected aspiration with P.O. intake. If demonstrated, please contact speech pathology. The results and recommendations were discussed with the patient and the RN. Lucio tionally, the recommendations were placed on the in-room white board. Speech Short Term Goals Short Term Goals Short Term Goals 1. The patient, staff and family members will display safe swallowing strategies with 80% accuracy, independently. Time Frame-STG: Three Days. Speech Parts Back Counter Man Goals Fpc Goals 1. The patient will tolerate the least restrictive diet consistency without s/s of suspected aspiration for patient safety and to meet daily nutritional needs. Time Frame: One Week. Speech-Plan Treatment Plan Speech Therapy Treatment Plan: Continue Plan of Care Treatment Duration: Jun 16, 2023 Frequency: 2 times per week Estimated Hrs Per Day: .25 hour per day Rehab Potential: Guarded Pt/Family Agrees to Plan: Yes Safety Risks/Education Teaching Recipient: Patient Teaching Methods: Discussion Response to Teaching: Reinforcement Needed Education Topics Provided: Results, Recommendations, Plan of Care, Safe Swallowing Strategies Time Speech Therapy Time In: 09:25 Speech Therapy Time Out: 09:45 DATE: Jun 20, 2023 Total Billed Time: 20 Billed Treatment Time 1, KEY ECHOLS [facility] ST Jun 20, 2023 10:02
--- NOTE | 2023-06-20 10:07 | Physical Therapy Daily Note ---
PT Daily Note-Current Subjective Patient more alert on this date. Agrees to therapy. Pain Section J - Health Conditions 1. Rarely or not at all 2. Occasionally 3. Frequently 4. Almost constantly 8. Unable to answer Pain Effect on Sleep: 2 Pain Interference with Therapy: 2 Pain Interference w/Day-to-Day: 2 Mental Status Attachments: Oxygen, Kurtz Catheter Transfers SCALE: Activities may be completed with or without assistive devices. 4-Tvugnlwkjl-ckubyes completes the activity by him/herself with no assistance from a helper. 5-Set-up or Clean-up Assistance-helper sets up or cleans up; patient completes activity. [place] assists only prior to or following the activity. 4-Supervision or Touching Assistance-helper provides verbal cues and/or touching/steadying and/or contact guard assistance as patient completes activity. Assistance may be provided throughout the activity or intermittently. 3-Partial/Moderate Assistance-helper does LESS THAN HALF the effort. [place] lifts, holds or supports trunk or limbs, but provides less than half the effort. 2-Substantial/Maximal Assistance-helper does MORE THAN HALF the effort. [place] lifts or holds trunk or limbs and provides more than half the effort. 9-Tqwxflsrc-wqvmmc does ALL the effort. Patient does none of the effort to complete the activity. Or, the assistance of 2 or more helpers is required for the patient to complete the activity. If activity was not attempted, code reason: 7-Patient Refused. 9-Not Applicable-not attempted and the patient did not perform the activity before the current illness, exacerbation or injury. 10-Not Attempted due to Environmental Limitations-(lack of equipment, weather restraints, etc.). 88-Not Attempted due to Medical Conditions or Safety Concerns. Sit to Lying (QC): 1 (x 2) Lying to Sitting/Side of Bed(Q: 1 (x 2) Sit to Stand (QC): 1 (x 2 scooting up toward HOB) patient sat EOB for several minutes SBA to independent Exercises Seated Therapy Exercises: Long arc quads Seated Reps: 12 Assessment Patient tolerated increase in activity and was able to perform sit to stand with max assist of 2 to move toward HOB. Patient returned to bed with needs met. Progressing with treatment plan. PT Short Term Goals Short Term Goals Time Frame: Jul 01, 2023 Roll Left & Right: 3 Sit to lyin Lying to sitting on side of be: 3 Sit to stand: 3 Chair/vti-qx-ylgrw transfer: 3 Toilet transfer: 3 PT Printing Machine Operator Goals Printing Machine Operator Goals PT Printing Machine Operator Goals Time Frame: Jul 15, 2023 Roll Left & Right (QC): 4 Sit to Lying (QC): 4 Lying-Sitting on Side/Bed(QC): 4 Sit to Stand (QC): 4 Chair/Ngd-ag-Volzt Xfer(QC): 4 Toilet Transfer (QC): 4 Walk 10 feet (QC): 3 Walk 50ft with 2 Turns (QC): 3 PT Plan Treatment/Plan Treatment Plan: Continue Plan of Care Treatment Plan: Bed Mobility, Education, Functional Activity Wanda, Functional Strength, Gait, Safety, Therapeutic Exercise, Transfers Treatment Duration: Jul 15, 2023 Frequency: 5 times per week Estimated Hrs Per Day: .25 hour per day Patient and/or Family Agrees t: Yes Time Time In: 835 Time Out: 900 DATE: Jun 20, 2023 Total Billed Treatment Time: 25 Total Billed Treatment 1 visit EX x 2 25 min HEIDI DAY PT Jun 20, 2023 10:07
[2023-06-20] MEDS: ACETAMINOPHEN 325 MG TABLET PO PRN (10:46)
[2023-06-20 11:29] VITALS: BP 142/83
--- NOTE | 2023-06-20 11:55 | Occupational Ther Daily Note ---
OT Current Status-Daily Note Subjective Confusion noted w/ date and previous day's progress. Patient confused w/ following simple one step instruction at initial session, improved towards end of session Mental Status/Objective Patient Orientation: Person, Confused ADL-Treatment Able to sit EOB unsupported once positioned, brush hair and wash face. 3 times sit/stand w/ 2 person assist. Modified SBA scoot to HOB Therapy Code Descriptions/Definitions Functional [place] Measure: 0=Not Assessed/NA 4=Minimal Assistance 1=Total Assistance 5=Supervision or Setup 2=Maximal Assistance 6=Modified [place] 3=Moderate Assistance 7=Complete IndependenceSCALE: Activities may be completed with or without assistive devices. 6-Cfuhhezwuf-bdofxlc completes the activity by him/herself with no assistance from a helper. 5-Set-up or Clean-up Assistance-helper sets up or cleans up; patient completes activity. [place] assists only prior to or following the activity. 4-Supervision or Touching Assistance-helper provides verbal cues and/or touching/steadying and/or contact guard assistance as patient completes activity. Assistance may be provided throughout the activity or intermittently. 3-Partial/Moderate Assistance-helper does LESS THAN HALF the effort. [place] lifts, holds or supports trunk or limbs, but provides less than half the effort. 2-Substantial/Maximal Assistance-helper does MORE THAN HALF the effort. [place] lifts or holds trunk or limbs and provides more than half the effort. 2-Vzxycofeo-glznwl does ALL the effort. Patient does none of the effort to complete the activity. Or, the assistance of 2 or more helpers is required for the patient to complete the activity. If activity was not attempted, code reason: 7-Patient Refused. 9-Not Applicable-not attempted and the patient did not perform the activity before the current illness, exacerbation or injury. 10-Not Attempted due to Environmental Limitations-(lack of equipment, weather restraints, etc.). 88-Not Attempted due to Medical Conditions or Safety Concerns. Eating (QC): 6 Oral Hygiene (QC): 5 Upper Body Dressing (QC): 7 Lower Body Dressing (QC): 1 On/Off Footwear: 1 (lifted foot for sock) Toileting Hygiene (QC): 1 Toilet Transfer (QC): 1 Education OT Patient Education: Exercise program, Modified ADL techniques, Progress toward Goal/Update tx plan, Purpose of tx/functional activities, Reviewed precautions, Rehab process, Safety issues, Transfer techniques, Use of adapted equipment Teaching Recipient: Patient Teaching Methods: Discussion Response to Teaching: Reinforcement Needed OT Retail Link Analyst Goals [facility] Goals Eating (QC): 5 Oral Hygiene (QC): 5 Toileting Hygiene (QC): 5 Shower/Bathe Self (QC): 4 Upper Body Dressing (QC): 5 Lower Body Dressing (QC): 4 On/Off Footwear (QC): 4 1=Demonstrate adherence to instructed precautions during ADL tasks. 2=Patient will verbalize/demonstrate understanding of assistive devices/modifications for ADL. 3=Patient will improve strength/tolerance for activity to enable patient to perform ADL's. OT Education/Plan Problem List/Assessment Assessment: Decreased Activ Tolerance, Decreased Safety Aware, Impaired Bed Mobility, Impaired Cognition, Impaired Coordination, Impaired Funct Balance, Impaired Self-Care Skills Discharge Recommendations Plan/Recommendations: Continue POC Treatment Plan/Plan of Care Treatment,Training & Education: Yes Patient would benefit from OT for education, treatment and training to promote independence in ADL's, mobility, safety and/or upper extremity function for ADL's. Plan of Care: ADL Retraining, Concurrent Therapy, Functional Mobility, Group Exercise/Act as Ind, UE Funct Exercise/Act, UE Neuromus Re-Ed/Coord Treatment Duration: Jun 19, 2023 Frequency: 3 times per week (3-5 times per week) Estimated Hrs Per Day: .25 hour per day Rehab Potential: Guarded Time Start Time: 08:36 Stop Time: 08:59 DATE: Jun 20, 2023 Total Time Billed (hr/min): 23 Billed Treatment Time ADL, FA 23 min ROBERTO LACKEY OT Jun 20, 2023 11:55
--- NOTE | 2023-06-20 15:22 | Progress Note - Hospitalist ---
Subjective HPI/CC On Admission Date Seen by Provider: Jun 20, 2023 Patient is a 63-year-old female with a past medical history of bsn-qqlbgch-mysbisphu diabetes, COPD, hypertension, alcohol abuse who presented to the emergency department due to altered mental status. She is currently intubated and sedated and unable to provide any history. All history is obtained from the records. Apparently she has been trying to quit drinking alcohol and so had been using Xanax to manage her symptoms but had taken more than was prescribed. She started to develop slurred speech and was quite drowsy so her friend summoned EMS. In the emergency department she was unable to protect her airway and had hypercapnia on ABG and was electively intubated. CT head was done to rule out intracranial process which showed no intracranial hemorrhage only mild atrophy and chronic microvascular changes. This morning they tried sedation vacation per eICU and while she was able to follow some commands she did not wake up satisfactorily so remains on the vent. Subjective/Events-last exam Pt reports doing well. No complaints. Objective Exam Vital Signs Vital Signs Date Time Temp Pulse Resp B/P (MAP) Pulse Ox O2 Delivery O2 Flow Rate FiO2 06/20/23 12:03 69 06/20/23 11:29 36.5 18 142/83 (102) 96 Nasal Cannula 4.00 06/17/23 07:36 36 Capillary Refill : Less Than 3 Seconds General Appearance: No Apparent Distress, Chronically ill, Obese Respiratory: Lungs Clear Cardiovascular: Regular Rate, Rhythm Neurologic/Psychiatric: Alert, Oriented x3 Results/Procedures Lab Laboratory Tests 06/20/23 04:55 06/20/23 05:28 Patient resulted labs reviewed. Imaging: Reviewed Imaging Report Assessment/Plan Assessment and Plan Assess & Plan/Chief Complaint Acute on chronic respiratory failure with hypoxia and hypercapnia Accidental overdose Alcohol withdrawal s/p extubation Continue CPAP at night MAT protocol Sputum cultures with Staph aureus and E coli s/p Vanc and Rocephin for pneumonia AFib RVR resolved New onset AFib Continue Cardizem Continue Eliquis Debility PT/OT SW following for SNF placement Referral sent- awiating approval HTN BP well controlled, trend T2DM Blood sugars within normal limits, monitor DVT ppx: Lovenox Pneumonia, resolved AFib with RVR, resolved HANNAH SINGH MD Jun 20, 2023 15:22
[2023-06-20 16:18] VITALS: BP 114/58
[2023-06-20] MEDS: ALPRAZolam 0.5 MG TABLET PO PRN (17:10)
[2023-06-20 20:08] VITALS: BP 132/76
[2023-06-20] MEDS: MIRTAZAPINE 15 MG TABLET PO SCH (20:12)
[2023-06-20] MEDS: MELATONIN 3 MG TABLET PO PRN (20:13)
[2023-06-20 23:32] VITALS: BP 144/77
[2023-06-21] VITALS (7 sets, daily range): BP systolic 113–160; BP diastolic 62–83
[2023-06-21] MEDS: ACETAMINOPHEN 325 MG TABLET PO PRN ×2 (02:58→19:49)
[2023-06-21] MEDS: ALPRAZolam 0.5 MG TABLET PO PRN ×2 (03:00→19:48)
[2023-06-21 05:21] LABS: BASOPHILS # (AUTO) 0.1 10^3/uL (0.0-0.1); BASOPHILS % (AUTO) 1 % (0-10); EOSINOPHILS # (AUTO) 0.2 10^3/uL (0.0-0.3); EOSINOPHILS % (AUTO) 4 % (0-10); HEMATOCRIT 35 % (35-52); HEMOGLOBIN 10.7 g/dL (11.5-16.0); LYMPHOCYTES # (AUTO) 1.4 10^3/uL (1.0-4.0); LYMPHOCYTES % (AUTO) 23 % (12-44); MEAN CORPUSCULAR HEMOGLOBIN 35 pg (25-34); MEAN CORPUSCULAR HGB CONC 31 g/dL (32-36); MEAN CORPUSCULAR VOLUME 111 fL (80-99); MEAN PLATELET VOLUME 10.8 fL (9.0-12.2); MONOCYTES # (AUTO) 0.4 10^3/uL (0.0-1.0); MONOCYTES % (AUTO) 8 % (0-12); NEUTROPHILS # (AUTO) 3.7 10^3/uL (1.8-7.8); NEUTROPHILS % (AUTO) 64 % (42-75); PLATELET COUNT 256 10^3/uL (130-400); WHITE BLOOD COUNT 5.9 10^3/uL (4.3-11.0)
[2023-06-21] MEDS: THERAPEUTIC MULTIVITAMIN W/MINERALS TABLET PO SCH (05:35)
[2023-06-21 05:49] LABS: ALBUMIN 3.2 GM/DL (3.2-4.5); BILIRUBIN,TOTAL 0.5 MG/DL (0.1-1.0); CALCIUM 8.8 MG/DL (8.5-10.1); CREATININE SERUM 0.65 MG/DL (0.60-1.30); MAGNESIUM 1.7 MG/DL (1.6-2.4); PHOSPHORUS 3.2 MG/DL (2.3-4.7); POTASSIUM 3.9 MMOL/L (3.6-5.0); TOTAL PROTEIN 6.2 GM/DL (6.4-8.2)
[2023-06-21] MEDS: PANTOPRAZOLE 40 MG TABLET PO SCH (08:47)
[2023-06-21] MEDS: dilTIAZem ER 120 MG CAPSULE PO SCH (08:47)
[2023-06-21] MEDS: FOLIC ACID 1 MG TAB PO SCH (08:48)
[2023-06-21] MEDS: DOCUSATE SODIUM 100 MG CAPSULE PO SCH ×2 (08:48→19:49)
[2023-06-21] MEDS: APIXABAN 5 MG TABLET PO SCH ×2 (08:49→19:49)
[2023-06-21] MEDS: TIOTROPIUM INH 4 GM (SPIRIVA Respimat) IH SCH (09:07)
[2023-06-21] MEDS: RT-Ipratropium/Albuterol NEB 3 ML VIAL INH SCH ×2 (09:07→20:48)
[2023-06-21] MEDS: FLUTICASONE/VILANTEROL 100/25 MCG (7 DOSES) IH SCH (09:07)
[2023-06-21] MEDS: MICONAZOLE 2% POWDER 90 GM TOP SCH ×2 (09:23→19:49)
[2023-06-21] MEDS: SENNOSIDES 8.6 MG TABLET PO SCH ×2 (09:23→19:49)
--- NOTE | 2023-06-21 11:25 | Physical Therapy Progress Note ---
Therapy Progress Note Patient refused due to being tired. Will attempt again as time permits. OTTO BARNETT PT Jun 21, 2023 11:25
--- NOTE | 2023-06-21 13:26 | Progress Note - Hospitalist ---
Subjective HPI/CC On Admission Date Seen by Provider: Jun 21, 2023 Patient is a 63-year-old female with a past medical history of mql-wnihgkk-oaoanfgtm diabetes, COPD, hypertension, alcohol abuse who presented to the emergency department due to altered mental status. She is currently intubated and sedated and unable to provide any history. All history is obtained from the records. Apparently she has been trying to quit drinking alcohol and so had been using Xanax to manage her symptoms but had taken more than was prescribed. She started to develop slurred speech and was quite drowsy so her friend summoned EMS. In the emergency department she was unable to protect her airway and had hypercapnia on ABG and was electively intubated. CT head was done to rule out intracranial process which showed no intracranial hemorrhage only mild atrophy and chronic microvascular changes. This morning they tried sedation vacation per eICU and while she was able to follow some commands she did not wake up satisfactorily so remains on the vent. Subjective/Events-last exam Pt reports feeling crummy today. No specific complaints just didnt' sleep well. Objective Exam Vital Signs Vital Signs Date Time Temp Pulse Resp B/P (MAP) Pulse Ox O2 Delivery O2 Flow Rate FiO2 06/21/23 11:35 36.4 75 20 130/83 (99) 95 High Flow N/C 4.00 06/21/23 09:14 36 Capillary Refill : Less Than 3 Seconds General Appearance: No Apparent Distress, Chronically ill, Obese Respiratory: Lungs Clear, No Respiratory Distress Cardiovascular: Regular Rate, Rhythm Neurologic/Psychiatric: Alert, Oriented x3 Results/Procedures Lab Laboratory Tests 06/21/23 05:05 Patient resulted labs reviewed. Imaging: Reviewed Imaging Report Assessment/Plan Assessment and Plan Assess & Plan/Chief Complaint Acute on chronic respiratory failure with hypoxia and hypercapnia Accidental overdose Alcohol withdrawal s/p extubation Continue CPAP at night MAT protocol s/p Vanc and Rocephin for pneumonia AFib RVR resolved New onset AFib Continue Cardizem Continue Eliquis Debility PT/OT SW following for SNF placement Referral sent- awaiting approval from a facility HTN BP well controlled, trend T2DM Blood sugars within normal limits, monitor DVT ppx: Lovenox Pneumonia, resolved AFib with RVR, resolved HANNAH SINGH MD Jun 21, 2023 13:26
[2023-06-21] MEDS: MIRTAZAPINE 15 MG TABLET PO SCH (19:49)
[2023-06-21] MEDS: MELATONIN 3 MG TABLET PO PRN (19:52)
[2023-06-22 03:17] VITALS: BP 136/60
[2023-06-22] MEDS: ACETAMINOPHEN 325 MG TABLET PO PRN (03:28)
[2023-06-22] MEDS: THERAPEUTIC MULTIVITAMIN W/MINERALS TABLET PO SCH (05:43)
[2023-06-22] MEDS: MICONAZOLE 2% POWDER 90 GM TOP SCH (07:54)
[2023-06-22] MEDS: PANTOPRAZOLE 40 MG TABLET PO SCH (07:54)
[2023-06-22] MEDS: DOCUSATE SODIUM 100 MG CAPSULE PO SCH (07:54)
[2023-06-22] MEDS: FOLIC ACID 1 MG TAB PO SCH (07:54)
[2023-06-22] MEDS: dilTIAZem ER 120 MG CAPSULE PO SCH (07:54)
[2023-06-22] MEDS: SENNOSIDES 8.6 MG TABLET PO SCH (07:55)
[2023-06-22] MEDS: APIXABAN 5 MG TABLET PO SCH (07:55)
[2023-06-22 08:39] VITALS: BP 159/83
[2023-06-22] MEDS ORDERED: APIX5TAB PO (10:01)
[2023-06-22] MEDS ORDERED: MIRT-47 PO (10:01)
[2023-06-22] MEDS ORDERED: DILT-27 PO (10:01)
--- NOTE | 2023-06-22 10:04 | D/C HH Face to Face Order ---
D/C Face to Face Orders Instructions for Patient Via [facility], Patient Instructions/FollowUp: Please continue to take your medications as written. Please follow up with your primary care doctor to follow up this hospital stay. Physician to follow Patient: Dr Schroeder Discharge Diet for Home: No Restrictions Patient Data-Allergies,Ht & Wt Patient Allergies: Coded Allergies: Tetanus Vaccines and Toxoid (Verified Allergy, Severe, Anaphylaxis, 11/18/20) Home Health Need/Face to Face Date of Face to Face: Jun 22, 2023 Clinical Findings: Generalized weakness and fatigue I have seen Pt nnxy-if-ascz: Yes Discharged To: Home Diagnosis/Conditions: Alcohol Withdrawal, Pneumonia, Accidental overdose Patient is Homebound due to: Farzad fall risk due to instabilty, Muscle weakness Homebound Status Due to the above stated illness, injury or surgical procedure (medical condition or diagnosis) and associated clinical findings, the patient is homebound because of his/her inability to leave home except with aid of a supportive device and/or person AND leaving the home requires a considerable and taxing effort or is medically contraindicated. Pt req the following assistanc: Aid of another person, Wheelchair Home Health Infusion Therapy Line Start Date: Jun 18, 2023 Therapy Orders Therapy Orders: OT (must have SN or PT order), Physical Therapy, Speech Language Pathology Therapy Specific Orders: Eval assistive deivces, Teach enviro modifications/saf ety, Eval & treat dysphagia, Gait training, Increase strength/endurance Certify Stmt I certify that this patient is under my care and that I, a nurse practitioner or a physician; a butcher's assistant working with me, had a face to face encounter that - meets the physician face to face encounter requirements with this patient as dated. HANNAH SINGH MD Jun 22, 2023 10:04
--- NOTE | 2023-06-22 10:08 | Physical Therapy Daily Note ---
PT Daily Note-Current Subjective Patient states, "I'm going home. I need to get in my w/c." Pain Section J - Health Conditions 1. Rarely or not at all 2. Occasionally 3. Frequently 4. Almost constantly 8. Unable to answer Pain Effect on Sleep: 2 Pain Interference with Therapy: 2 Pain Interference w/Day-to-Day: 2 Transfers SCALE: Activities may be completed with or without assistive devices. 5-Yrcnhpdxwz-icpxaot completes the activity by him/herself with no assistance from a helper. 5-Set-up or Clean-up Assistance-helper sets up or cleans up; patient completes activity. [place] assists only prior to or following the activity. 4-Supervision or Touching Assistance-helper provides verbal cues and/or touching/steadying and/or contact guard assistance as patient completes activity. Assistance may be provided throughout the activity or intermittently. 3-Partial/Moderate Assistance-helper does LESS THAN HALF the effort. [place] lifts, holds or supports trunk or limbs, but provides less than half the effort. 2-Substantial/Maximal Assistance-helper does MORE THAN HALF the effort. [place] lifts or holds trunk or limbs and provides more than half the effort. 9-Ofcwppkoq-jpjelb does ALL the effort. Patient does none of the effort to co mplete the activity. Or, the assistance of 2 or more helpers is required for the patient to complete the activity. If activity was not attempted, code reason: 7-Patient Refused. 9-Not Applicable-not attempted and the patient did not perform the activity before the current illness, exacerbation or injury. 10-Not Attempted due to Environmental Limitations-(lack of equipment, weather restraints, etc.). 88-Not Attempted due to Medical Conditions or Safety Concerns. Lying to Sitting/Side of Bed(Q: 4 Sit to Stand (QC): 4 Chair/Hib-pn-Hamam Xfer(QC): 4 patient performed sit to stand to FWW x 3 sets then performed SPT CGA to w/c Assessment Patient was able to perform sit to stand and SPT to w/c CGA, however, does sit abruptly in w/c. Patient will require assistance at home and patient report she has plenty of help for a week. PT Short Term Goals Short Term Goals Time Frame: Jul 01, 2023 Roll Left & Right: 3 Sit to lyin Lying to sitting on side of be: 3 Sit to stand: 3 Chair/owf-sk-mpiud transfer: 3 Toilet transfer: 3 PT Screen Printing Equipment Setter Goals Screen Printing Equipment Setter Goals PT Fci Goals Time Frame: Jul 15, 2023 Roll Left & Right (QC): 4 Sit to Lying (QC): 4 Lying-Sitting on Side/Bed(QC): 4 Sit to Stand (QC): 4 Chair/Bic-aq-Uwelb Xfer(QC): 4 Toilet Transfer (QC): 4 Walk 10 feet (QC): 3 Walk 50ft with 2 Turns (QC): 3 PT Plan Treatment/Plan Treatment Plan: Continue Plan of Care Treatment Plan: Bed Mobility, Education, Functional Activity Wanda, Functional Strength, Gait, Safety, Therapeutic Exercise, Transfers Treatment Duration: Jul 15, 2023 Frequency: 5 times per week Estimated Hrs Per Day: .25 hour per day Patient and/or Family Agrees t: Yes Time Time In: 920 Time Out: 934 DATE: Jun 22, 2023 Total Billed Treatment Time: 14 Total Billed Treatment 1 visit FA 14 min HEIDI DAY PT Jun 22, 2023 10:08
--- NOTE | 2023-06-22 10:09 | Discharge Summary ---
Diagnosis/Chief Complaint Date of Admission Jun 05, 2023 at 18:58 Date of Discharge Discharge Date: Jun 22, 2023 Admission Diagnosis Acute hypercapnic respiratory failure Primary Care Noel Schroeder MD Discharge Diagnosis (1) Acute on chronic respiratory failure with hypoxia and hypercapnia Status: Acute (2) PNA (pneumonia) Status: Resolved (3) Benzodiazepine overdose Status: Acute (4) Alcohol withdrawal Status: Acute (5) HTN (hypertension) Status: Chronic (6) T2DM (type 2 diabetes mellitus) Status: Chronic (7) Morbid obesity Status: Chronic (8) Paroxysmal atrial fibrillation with RVR Status: Acute Discharge Summary Discharge Physical Exam Allergies: Coded Allergies: Tetanus Vaccines and Toxoid (Verified Allergy, Severe, Anaphylaxis, 11/18/20) Vitals & I&Os Vital Signs Date Time Temp Pulse Resp B/P (MAP) Pulse Ox O2 Delivery O2 Flow Rate FiO2 06/22/23 11:23 36.5 81 22 142/81 97 Nasal Cannula 3.50 06/21/23 09:14 36 General Appearance: No Apparent Distress, Chronically ill, Obese Respiratory: Lungs Clear Cardiovascular: Regular Rate, Rhythm, No Murmur Neurologic/Psychiatric: Alert, Oriented x3 Hospital Course Patient was admitted to the hospital secondary to accidental benzodiazepine overdose. She required mechanical ventilation. She was a slow wean likely complicated by alcohol withdrawal thoughts when she was misusing benzodiazepine. She did grow MRSA in her sputum and E. coli in her sputum completed her antibiotic course for that in the hospital. She was ultimately liberated from the vent and Labs (last 24 hrs) Microbiology 06/17/23 MRSA Screen - Final, Complete MRSA not isolated 06/05/23 Blood Culture - Final, Complete Patient resulted labs reviewed. Imaging: Reviewed Imaging Report Discussion & Recommendations Discharge Planning: >30 minutes discharge planning Discharge Home Medications: Active Scripts Active Mirtazapine 15 Mg Tab.rapdis 7.5 Mg PO HS Diltiazem 24Hr ER (Diltiazem HCl) 120 Mg Cap.er.24h 240 Mg PO DAILY Reported Ventolin Hfa (Albuterol Sulfate) 90 Mcg Hfa.aer.ad 1-2 Puff INH Q6H PRN Trelegy Ellipta 100-62.5-25 (Fluticasone/Umeclidin/Vilanter) 100-62.5 Blst.w.dev 1 Puff INH DAILY Omeprazole Magnesium 20 Mg Tablet.dr 20 Mg PO DAILY Xanax (Alprazolam) 0.5 Mg Tablet 0.5 Mg PO BID PRN Vitamin D2 (Ergocalciferol (Vitamin D2)) 1,250 Mcg (16342 Unit) Capsule 1,250 Mcg PO WEEK Acetaminophen-Cod #3 Tablet (Acetaminophen with Codeine) 300 Mg-30 Mg Tablet 1 Ea PO TID PRN Hydroxyzine HCl 50 Mg Tablet 50 Mg PO HS PRN Instructions to patient/family Please see electronic discharge instructions given to patient. Problem Qualifiers (1) Benzodiazepine overdose: Encounter type: initial encounter Injury intent: undetermined intent Qualified Codes: T42.4X4A - Poisoning by benzodiazepines, undetermined, initial encounter HANNAH SINGH MD Jun 22, 2023 10:09
[2023-06-22 10:20] VITALS: BP 142/83
--- NOTE | 2023-06-22 10:43 | Occupational Ther Daily Note ---
OT Current Status-Daily Note Subjective Patient reports she is going home, FWW and WC in room belong to her. Wants to be in WC to be ready to go home Pain Location Body Site: Back Pain Description: Chronic Comment: c/o knee pain when standing Mental Status/Objective Patient Orientation: Person, Place, Situation Attachments: Oxygen, Telemetry, Other-See Comments (PUR WICK) ADL-Treatment tab brief mildly saturated, pull on brief pulled over non-tab brief for added protection d/t urine incont and preparing for home Therapy Code Descriptions/Definitions Functional [place] Measure: 0=Not Assessed/NA 4=Minimal Assistance 1=Total Assistance 5=Supervision or Setup 2=Maximal Assistance 6=Modified [place] 3=Moderate Assistance 7=Complete IndependenceSCALE: Activities may be completed with or without assistive devices. 2-Eiubetlyht-zjocisr completes the activity by him/herself with no assistance from a helper. 5-Set-up or Clean-up Assistance-helper sets up or cleans up; patient completes activity. [place] assists only prior to or following the activity. 4-Supervision or Touching Assistance-helper provides verbal cues and/or touching/steadying and/or contact guard assistance as patient completes activity. Assistance may be provided throughout the activity or intermittently. 3-Partial/Moderate Assistance-helper does LESS THAN HALF the effort. [place] lifts, holds or supports trunk or limbs, but provides less than half the effort. 2-Substantial/Maximal Assistance-helper does MORE THAN HALF the effort. [place] lifts or holds trunk or limbs and provides more than half the effort. 3-Ampdqwbvk-qataej does ALL the effort. Patient does none of the effort to complete the activity. Or, the assistance of 2 or more helpers is required for the patient to complete the activity. If activity was not attempted, code reason: 7-Patient Refused. 9-Not Applicable-not attempted and the patient did not perform the activity before the current illness, exacerbation or injury. 10-Not Attempted due to Environmental Limitations-(lack of equipment, weather restraints, etc.). 88-Not Attempted due to Medical Conditions or Safety Concerns. Eating (QC): 5 (modified diet) Oral Hygiene (QC): 5 (set up. no dentures) Upper Body Dressing (QC): 7 Lower Body Dressing (QC): 1 On/Off Footwear: 2 Toileting Hygiene (QC): 1 Toilet Transfer (QC): 4 (CGA and management of lines and equiptment) Education OT Patient Education: Correct positioning, Modified ADL techniques, Progress toward Goal/Update tx plan, Purpose of tx/functional activities, Reviewed precautions, Rehab process, Safety issues, Transfer techniques Teaching Recipient: Patient Teaching Methods: Demonstration, Discussion Response to Teaching: Verbalize Understanding, Return Demonstration, Reinforcement Needed OT Research Investigator Goals Research Investigator Goals Eating (QC): 5 Oral Hygiene (QC): 5 Toileting Hygiene (QC): 5 Shower/Bathe Self (QC): 4 Upper Body Dressing (QC): 5 Lower Body Dressing (QC): 4 On/Off Footwear (QC): 4 1=Demonstrate adherence to instructed precautions during ADL tasks. 2=Patient will verbalize/demonstrate understanding of assistive devices/modifications for ADL. 3=Patient will improve strength/tolerance for activity to enable patient to perform ADL's. OT Education/Plan Problem List/Assessment Assessment: Decreased Activ Tolerance, Decreased Safety Aware, Decreased UE Strength, Impaired Cognition, Impaired Coordination, Impaired Funct Balance, Impaired Self-Care Skills Discharge Recommendations Plan/Recommendations: Continue POC Treatment Plan/Plan of Care Treatment,Training & Education: Yes Patient would benefit from OT for education, treatment and training to promote independence in ADL's, mobility, safety and/or upper extremity function for ADL's. Plan of Care: ADL Retraining, Concurrent Therapy, Functional Mobility, Group Exercise/Act as Ind, UE Funct Exercise/Act, UE Neuromus Re-Ed/Coord Treatment Duration: Jun 19, 2023 Frequency: 3 times per week (3-5 times per week) Estimated Hrs Per Day: .25 hour per day Rehab Potential: Guarded Time Start Time: 09:25 Stop Time: 09:40 DATE: Jun 22, 2023 Total Time Billed (hr/min): 15 Billed Treatment Time ADL 15 min ROBERTO LACKEY OT Jun 22, 2023 10:43
[2023-06-22 11:23] VITALS: BP 142/81
[2023-06-22] MEDS ORDERED: DILT240C91 PO (14:32)
== END 2023-06-22 13:51 | disposition left against medical advice (07) | DRG 917 ==
LOC: EDUNIT# 16:31 → ER 16:31 → ICU 18:58 → 4TH 06-14 17:17 → ICU 06-17 05:48 → 4TH 06-18 14:04
PROVIDERS: ADMIT Family Medicine; ATTEND Internal Medicine
PROC: 5A1955Z Respiratory Ventilation, Greater than 96 Consecutive Hours (ICD-10-PCS; principal; 2023-06-05)
PROC: 0BH17EZ Insertion of Endotracheal Airway into Trachea, Via Natural or Artificial Opening (ICD-10-PCS; 2023-06-05)
PROC: 02HV33Z Insertion of Infusion Device into Superior Vena Cava, Percutaneous Approach (ICD-10-PCS; 2023-06-05)
PROC: 5A0945A Assistance with Respiratory Ventilation, 24-96 Consecutive Hours, High Flow/Velocity Cannula (ICD-10-PCS; 2023-06-12)
DX: T42.4X1A Poisoning by benzodiazepines, accidental (unintentional), initial encounter (principal); J18.9 Pneumonia, unspecified organism; J96.21 Acute and chronic respiratory failure with hypoxia; J96.22 Acute and chronic respiratory failure with hypercapnia; Z68.43 Body mass index [BMI] 50.0-59.9, adult; F10.239 Alcohol dependence with withdrawal, unspecified; J44.0 Chronic obstructive pulmonary disease with (acute) lower respiratory infection; R47.81 Slurred speech; E66.01 Morbid (severe) obesity due to excess calories; G47.33 Obstructive sleep apnea (adult) (pediatric); I10 Essential (primary) hypertension; E11.9 Type 2 diabetes mellitus without complications; I48.0 Paroxysmal atrial fibrillation; Z79.82 Long term (current) use of aspirin; Z79.899 Other long term (current) drug therapy; Z96.652 Presence of left artificial knee joint; K21.9 Gastro-esophageal reflux disease without esophagitis; E78.00 Pure hypercholesterolemia, unspecified; F41.9 Anxiety disorder, unspecified; Z85.3 Personal history of malignant neoplasm of breast; Z92.21 Personal history of antineoplastic chemotherapy; Z11.52 Encounter for screening for COVID-19; F17.210 Nicotine dependence, cigarettes, uncomplicated; R53.81 Other malaise
CPT/HCPCS: 31500; 36415; 36556; 36600; 51702; 70450; 71045; 74018; 80048; 80053; 80202; 80306; 80320; 80329; 81000; 82805; 82947; 83605; 83735; 84100; 84443; 84478; 84484; 85025; 85610; 85730; 86141; 87040; 87070; 87077; 87081; 87186; 87205; 87636; 93005; 93041; 93306; 94003; 94640; 94660; 94760; 94799; 96374; 99291